=== PATIENT | female | born 1955 | race Caucasian/White ===

== ENCOUNTER 2019-02-19 12:04 | Outpatient (REF) | payer MEDICARE, SELFPAY ==
[2019-02-20 13:04] LABS: Helicobacter pylori Ag, Feces Negative (Negative)
== END 2019-02-19 12:24 ==
LOC: NCHCN 12:04
PROVIDERS: PCP Nurse Practitioner Family; Visit Provider Nurse Practitioner Family
DX: K21.9 Gastro-esophageal reflux disease without esophagitis (principal); Z87.11 Personal history of peptic ulcer disease
CPT/HCPCS: 87338

== ENCOUNTER 2019-02-27 20:15 | Outpatient (REF) | payer MEDICARE, SELFPAY ==
[2019-02-27 19:06] LABS: ALT 45 U/L (14-59); AST 30 U/L (15-37); Albumin 3.6 g/dL (3.4-5.0); Alkaline Phosphatase 70 U/L (46-116); Anion Gap 8.9 mmol/L (3-11); BUN 20 mg/dL (7-18); Bilirubin, Total 0.4 mg/dL (0.2-1.0); CO2 27.1 mmol/L (21.0-32.0); CREATININE 0.95 mg/dL (0.55-1.02); Calcium 9.2 mg/dL (8.5-10.1); Calculated LDL 186 mg/dL; Chloride 103 mmol/L (98-107); Cholesterol 280 mg/dL (<200); Estimated GFR 59.04 (mL/min/1.73m2); Glucose 99 mg/dL (74-106); HDL Cholesterol 68 mg/dL (40-60); Potassium 4.9 mmol/L (3.5-5.1); Sodium 139 mmol/L (136-145); Total Protein 6.9 g/dL (6.4-8.2); Triglyceride 134 mg/dL (<150)
== END 2019-02-27 20:35 ==
LOC: NCHCN 20:15
PROVIDERS: PCP Nurse Practitioner Family; Visit Provider Nurse Practitioner Family
DX: K21.9 Gastro-esophageal reflux disease without esophagitis (principal); R79.89 Other specified abnormal findings of blood chemistry; Z13.6 Encounter for screening for cardiovascular disorders
CPT/HCPCS: 80053; 80061

== ENCOUNTER 2019-03-06 12:07 | Outpatient (REF) | payer MEDICARE, SELFPAY ==
--- NOTE | 2019-03-06 11:17 | PAPFT_PTH ---
PATIENT: Lucinda Aguero LOC: [facility] U#:[id number] AGE/SX: 63/F ROOM: RE03/06/[address]: Rayne Stratton : 1955 BED: DIS: 03/06/2019 SPEC #: [id number] RECD: 03/06/19 18:27 STATUS: MASTER REQ #: [id number] CONSTANCE: 03/06/19 11:[address]: Rayne Stratton DEPT: [facility] Cytology RECD BY: Charlee Dick Tissues: 1 - CX/ENDOCX FOR PAP SMEARS Procedures: PAP THIN PREP/UVM Screening HPV DNA PROBE Comments: [id number]
== END 2019-03-06 12:27 ==
LOC: NCHCN 12:07
PROVIDERS: PCP Nurse Practitioner Family; Visit Provider Nurse Practitioner Family
DX: Z12.4 Encounter for screening for malignant neoplasm of cervix (principal); Z11.51 Encounter for screening for human papillomavirus (HPV)
CPT/HCPCS: 88142; 87624

== ENCOUNTER 2019-03-14 01:20 | Outpatient (CLI) | payer MEDICARE, MEDICAID, SELFPAY ==
--- NOTE | 2019-03-14 11:45 | DI.MAMMO_ITS ---
EXAM: MG MAMMO SCREENING CLINICAL HISTORY: SCREENING Z12.39. TECHNIQUE: Bilateral full field digital CC and MLO mammographic images were obtained with 3D tomosyn thesis and utilizing computer aided detection (CAD). COMPARISON: None available for comparison. FINDINGS: Masses/Architectural Distortion: None seen. Asymmetric density in the upper posterior right breast on the mediolateral oblique view. Microcalcifications: No suspicious pleomorphic-type are seen. Skin Thickening/Nipple Retraction: None. IMPRESSION: 1. Asymmetric density in the upper posterior right breast on the mediolateral oblique view. 2. Additional views of the right breast are requested for further evaluation. Ultrasound may be michael cated at that time. BI-RADS Cat 0 - Assessment Incomplete: Need additional imaging evaluation Breast Density - Category B - Scattered areas of fibroglandular density A negative radiographic report should not delay biopsy if a dominant or clinically suspicious mass is present. Up to ten percent of cancers are not identified on mammography. A negative report may reinforce clinical impression. Adenosis and dense breasts may obscure an underlying neoplasm. False positive reports average 6 to 10%. Patient will receive a letter notifying them of these results.
== END 2019-03-14 01:40 ==
PROVIDERS: PCP Nurse Practitioner Family; Visit Provider Nurse Practitioner Family
DX: Z12.31 Encounter for screening mammogram for malignant neoplasm of breast (principal); R92.8 Other abnormal and inconclusive findings on diagnostic imaging of breast
CPT/HCPCS: 77063; 77067

== ENCOUNTER 2019-03-21 01:17 | Outpatient (CLI) | payer MEDICARE, MEDICAID, SELFPAY ==
--- NOTE | 2019-03-21 09:41 | DI.MAMMO_ITS ---
EXAM: US BREAST RT LIMITED additional view of the right breast CLINICAL HISTORY: NODULARITY TECHNIQUE: Ultrasound performed using standard protocol. Spot compression MLO view with tomography of the superior right breast. COMPARISON: MAMMO SCREENING from 03/14/2019 FINDINGS: The spot compression view shows an island of dense tissue in the upper outer quadrant of the right b reast. No suspicious mass is identified. There are no suspicious calcifications or architectural di stortion. Right breast ultrasound: Right breast ultrasound shows an island of dense tissue in the upper outer quadrant. No cyst or mass is identified. IMPRESSION: BI-RADS category 1, negative. Yearly screening mammography is recommended.
== END 2019-03-21 01:37 ==
PROVIDERS: PCP Nurse Practitioner Family; Visit Provider Nurse Practitioner Family
DX: Z12.31 Encounter for screening mammogram for malignant neoplasm of breast (principal); R92.8 Other abnormal and inconclusive findings on diagnostic imaging of breast; N63.11 Unspecified lump in the right breast, upper outer quadrant; N64.59 Other signs and symptoms in breast
CPT/HCPCS: 76642; 77063; 77067

== ENCOUNTER 2019-04-19 01:55 | Outpatient (CLI) | payer OTHER, MEDICAID, SELFPAY ==
--- NOTE | 2019-04-19 | DI.DEXA_ITS ---
EXAM: XR DEXA BONE DENSITY W/WO ROSALINO INDICATION: POSTMENOPAUSAL Z78.0, SCREENING OSTEOPOROSIS Z13.820. COMPARISON: No exams were available for comparison TECHNIQUE: Hologic densitometer Lateral ROSALINO image of the thoracic and lumbar spine Lumbar spine, left hip and left forearm were analyzed. FINDINGS: The ROSALINO image shows no definite compression fractures. The upper and midthoracic region is not well s een. The bone mineral density measurements of the lumbar spine correspond to a total T-score of -2.4, in t he osteopenic range. Bone mineral density measurements of the left hip correspond to a total T-score of -2.2 and a femoral neck T-score of -2.7, in the osteoporotic range. The left forearm bone mineral density measurements correspond to a total T-score of -1.6 and a T-scor e of the distal 3rd of -1.8, in the osteopenic range. IMPRESSION: Osteopenia of the lumbar spine and left forearm. Osteoporosis of the left hip. DATA REPOSITORY: RADIATION DOSE DELIVERED:
== END 2019-04-19 02:15 ==
PROVIDERS: PCP Nurse Practitioner Family; Visit Provider Nurse Practitioner Family
DX: M81.0 Age-related osteoporosis without current pathological fracture (principal); M85.88 Other specified disorders of bone density and structure, other site; Z78.0 Asymptomatic menopausal state
CPT/HCPCS: 77080

== ENCOUNTER 2019-07-16 17:18 | Emergency (ER) | payer OTHER, MEDICAID, SELFPAY ==
[2019-07-16 17:20] VITALS: BP 129/75; PULSE 83; RESP 14; TEMP 36.7; O2SAT 98
--- NOTE | 2019-07-16 17:38 | ED.GENADUL_ITS ---
Discharge Plan Disposition Patient Disposition: HOME Condition: Stable Discharge Details Chief Complaint: Allergic Clinical Impression: Sting, wasp Primary Care Provider: Rayne Stratton ED Provider: Janis Brown Home Meds and New Rx's Prescriptions: New epinephrine [EpiPen 2-Alexandro] 0.3 mg/0.3 mL auto-injector 0.3 mg IM ONCE Qty: 2 RF: 0 Continued triamcinolone acetonide 0.1 % cream 1 applic TP DAILY RF: 0 omeprazole 40 mg capsule,delayed release(DR/EC) 40 mg PO BID RF: 0 multivitamin Capsule 1 cap PO DAILY RF: 0 ibandronate 150 mg tablet 150 mg PO DIRECTED RF: 0 Discharge Instructions Instructions: Insect Bite or Sting (ED) Additional Instructions: Ice to your foot 3-5 times daily for approximately 15 minutes. Elevate legs for swelling above your heart May continue your daily medications. Use Benadryl 25 mg every 6 hours for itching or swelling. Use EpiPen immediately for any severe symptoms as discussed. Observe for any increased swelling, pain, itching increased redness extending beyond ankle or for any worsening as discussed. Please have reevaluation for worsening or lack of improvement in the next 2 to 3 days. Return immediately for any difficulty breathing, shortness of breath, dizziness, new rashes or alarming symptoms sooner if needed Medical Decision Making <HOLLAND Nixon - Last Filed: 07/16/19 17:48> Is a very pleasant 63-year-old woman who stepped on a wasp yesterday. Patient was barefoot. Patient denied noting any obvious stinger. Patient reports some swelling noted locally. Patient did ambulate on her leg for the better portion of today and noted insidious onset of persistent swelling extending toward the dorsal aspect of the foot and toward the proximal foot. Patient reports itching locally. Patient denies any systemic symptoms of allergy. Nothing to indicate anaphylaxis at this time. No other rash. Patient reports only focal symptoms in the left foot. Patient does report history of insect sting in the past without swelling. Patient has taken only Excedrin and Tylenol. I do not suspect infection as etiology of patient's symptoms given her recent staying, onset in the last 24 hours, lack of cellulitic findings. This was discussed with the patient. Patient reports her understanding of plan of care involving Benadryl by mouth, elevating legs icing locally. We did discuss the use of prednisone which patient prefers to avoid at this time. Expectations of improvement discussed. Will provide EpiPen. Patient reports understanding. The patient was stable and requested discharge. Prior to discharge, my usual and customary return precautions were reviewed with the patient - this included follow-up instructions and reasons to return to the Emergency Department if conditions worsens, does not improve as expected, or other new concerns arise. <Suzanne Arthur MD - Last Filed: 07/16/19 17:54> I have seen and examined the patient and agree with the history and physical as documented by the PA. Patient reports tetanus up-to-date. Concern for localized inflammatory reaction. Exam/history is not consistent with cellulitis, retained foreign body, sepsis, anaphylaxis, impending airway compromise, other acute life-threatening process. Plan for Benadryl, Rx for EpiPen. I discussed risks/benefits of prednisone with patient, who refused at this time. I had a lengthy discussion with Patient regarding return to emergency department precautions, home care, and importance of outpatient fo llow-up. Pt verbalizes understanding of the plan and is amenable. Patient discharged to home with clear plan for outpatient follow-up. All questions were answered. Disposition decision was made weighing the risks and benefits of hospitalization versus outpatient treatment, the risk for further decompensation, and the patient's wishes. HPI <HOLLAND Nixon - Last Filed: 07/16/19 17:48> General Date/Time Provider Initiated Documentation: 07/16/19 17:20 . HPI Narrative: Is a very pleasant 63-year-old patient presenting to the emergency room for a wasp sting. Patient reports she stepped on a wasp yesterday. Patient reports she spent a good amount of time on her feet today gardening. Patient reports gradual increased swelling noted throughout the day. Itching locally. Patient reports there is a small puncture on the base of her foot. Patient denies any noted stinger. Patient denies any headache, dizziness, weakness. Denies any difficulty breathing with shortness of breath or wheezing. Denies any new cough. Patient denies abdominal pain, nausea or vomiting. No rash or hives. Patient reports in general she is feeling well. Patient reports she has sustained stings from wasps in the past without swelling. Eating and drink without difficulty today. No other complaints or concerns at this time. Related Data Home Medications Medication Instructions Recorded Confirmed multivitamin 1 cap PO DAILY 02/22/19 07/16/19 omeprazole 40 mg capsule,delayed 40 mg PO BID 02/22/19 07/16/19 release triamcinolone acetonide 0.1 % 1 applic TP DAILY 02/22/19 07/16/19 topical cream epinephrine [EpiPen 2-Alexandro] 0.3 mg IM ONCE #2 each 07/16/19 ibandronate 150 mg PO DIRECTED 07/16/19 07/16/19 Previous Rx's Medication Instructions Recorded epinephrine [EpiPen 2-Alexandro] 0.3 mg IM ONCE #2 each 07/16/19 Allergies Allergy/AdvReac Type Severity Reaction Status Date / Time No Known Allergies Allergy Unverified 07/16/19 17:35 General Stated Complaint: Allergic JENNIFER: 3 Review of Systems <HOLLAND Nixon - Last Filed: 07/16/19 17:48> All systems reviewed & are unremarkable except as noted in HPI and below PFSH <HOLLAND Nixon - Last Filed: 07/16/19 17:48> Medical History Eczema (Acute) GERD (gastroesophageal reflux disease) (Chronic) History of peptic ulcer disease (Acute) Social History Smoking/Tobacco Use Status: Never Alcohol Intake: former Drug use: Daily Substance use type: marijuana Details: TID for migraines Do you feel safe at home: Yes Do you feel safe in your relationship?: Yes Exam <HOLLAND Nixon - Last Filed: 07/16/19 17:48> Narrative Exam Narrative: CONST: Healthy appearing patient, in no acute distress. Well hydrated. Alert and oriented. HENMT: Head nomocephalic, normal to inspection. Atraumatic. Hearing grossly normal. EYES: General normal appearance. Alignment normal. Eyelids normal. Conjunctiva normal. NECK: Normal visual inspection. FROM. Trachea midline. No Midline tenderness. CHEST: Normal insepection of the chest. RESP: Normal respiratory effort. Speaking full sentences. No cough. No audible wheezing. No retractions. Breath sounds clear, full and equal bilaterally. No wheezing. CARDIO: No JVD. Regular rate and rhythm. No noted murmur. MUSCULOSKELETAL: Normal Gait. FROM of all extremities. Patient with left foot swelling. Diffuse swelling, vague erythema, minimal warmth. No evident puncture wound noted on the plantar foot. Edema noted to the plantar aspect of the foot as well as dorsal foot. No swelling proximal to the ankle. Pulses intact. Sensation intact. Full range of motion. SKIN: Normal. Dry. No rashes. See above description of left foot NEURO: Alert and awake. Speech clear. PSYCH: Normal affect. Cooperative. Course <HOLLAND Nixon - Last Filed: 07/16/19 17:48> Vital Signs Vital signs: Vital Signs Temperature 36.7 C 07/16/19 17:20 Pulse 83 07/16/19 17:20 Respiratory Rate 14 07/16/19 17:20 Blood Pressure 129/75 07/16/19 17:20 Pulse Oximetry 98 07/16/19 17:20 Temperature 36.7 C 07/16/19 17:20 Temperature Source Skin 07/16/19 17:20 Pulse 83 07/16/19 17:20 Respiratory Rate 14 07/16/19 17:20 Respiratory Effort Non-Labored 07/16/19 17:35 Respiratory Pattern Normal 07/16/19 17:35 Blood Pressure 129/75 07/16/19 17:20 Blood Pressure Position Sitting 07/16/19 17:20 Pulse Oximetry 98 07/16/19 17:20 Oxygen Delivery Method Room Air 07/16/19 17:20 Oxygen Flow Rate 0 07/16/19 17:20 Pain Level 7 07/16/19 17:20 Comment 07/16/19 17:20
[2019-07-16] MEDS: diphenhydrAMINE 25 MG CAP PO (17:39)
== END 2019-07-16 17:52 | disposition home or self-care (01) ==
PROVIDERS: Emergency Provider Physician Assistant; PCP Nurse Practitioner Family
DX: T63.461A Toxic effect of venom of wasps, accidental (unintentional), initial encounter (principal); R60.0 Localized edema; L29.9 Pruritus, unspecified
CPT/HCPCS: 99283

== ENCOUNTER 2019-11-23 20:56 | Observation (INO) | payer OTHER, MEDICAID, SELFPAY ==
[2019-11-23] VITALS (25 sets, daily range): BP systolic 92–115; BP diastolic 53–71; PULSE 53–78; RESP 12–23; TEMP 36.4; O2SAT 95–98
--- NOTE | 2019-11-23 21:08 | ED.GENADUL_ITS ---
Discharge Plan Disposition Patient Disposition: [facility] INPATIENT Condition: Good Discharge Details Clinical Impression: Unresponsive episode, Chronic headaches Primary Care Provider: Rayne Stratton ED Provider: Eber Jackson Home Meds and New Rx's Prescriptions: No Action triamcinolone acetonide 0.1 % cream 1 applic TP DAILY RF: 0 omeprazole 40 mg capsule,delayed release(DR/EC) 40 mg PO BID RF: 0 multivitamin Capsule 1 cap PO DAILY RF: 0 ibandronate 150 mg tablet 150 mg PO DIRECTED RF: 0 epinephrine [EpiPen 2-Alexandro] 0.3 mg/0.3 mL auto-injector 0.3 mg IM ONCE Qty: 2 RF: 0 Medical Decision Making Patient here with normal vital signs and normal neurologic exam. She reports no change in her typical chronic headache pattern. She has had syncopal events in the past. She has had work-ups in the past but there is nothing documented here or in her primary care chart. It sounds like she has had imaging of her brain and outpatient monitoring of her heart. Does not sound like she has had EEG or ECHO. In any event all of this work-up had been done in the distant past. Patient had no warning regarding this event. She does not really recall the event. She is not postictal. Will get head CT, EKG, laboratory studies. Will recommend admission overnight for monitoring. Would also trend enzymes. If remains asymptomatic can probably go home tomorrow but should probably have follow-up EEG, outpatient rhythm monitoring and ECHO. Laboratory studies are unremarkable other than TSH being elevated. Free T4 has been added to labs. Urine is still pending. First troponin negative. EKG sinus bradycardia but otherwise normal. CT head with decreased attenuation findings left occipital parietal lobe. Radiology recommends MRI to evaluate for subacute stroke. There is no bleed or mass. Discussed with hospitalist will admit overnight. Discussed findings with patient and significant other. Medical Records Medical records reviewed: Yes I reviewed the patient's medical records. Lab Data Lab results reviewed: Yes I reviewed the patient's lab results. ECG Data Attestation: I personally reviewed and interpreted this ECG (s) as follows: Interpretation: see EKG HPI General Mode of arrival: EMS . Date/Time Provider Initiated Documentation: 11/23/19 21:08 . Limitations to Documentation: no limitations . Information obtained by: patient, RN notes reviewed and old records reviewed . HPI Narrative: Patient presents to ED after unresponsive event at home. Patient reports history of chronic headaches/migraines. She pretty much has chronic daily headaches at this point. She had headache this afternoon which is her typical headache. She uses acetaminophen or Excedrin Migraine for her headaches as well as smokes marijuana 3 times a day. There is nothing different regarding her afternoon. She did not really eat dinner this evening. She was watching TV with her significant other when she became unresponsive with snoring respirations. He reports that there was no tongue biting, incontinence, shaking. He reports that she was profusely sweating. She does not recall the event and had no warning. He reports that he would gently tap her face and she would kind of seem to be aware briefly. EMS reports soft blood pressure on their arrival. She arrives here awake and alert and appropriate. She continues to report no change or worsening of her headache. She has no chest pain or pressure. She has not been ill. She had one episode of diarrhea but has had no vomiting. She has no fever, cough. She reports that she has had events like this in the past. Maybe the last one was 5 years ago. She also reports prior work-up for headache and syncope which apparently include CT scan, MRI, monitoring. She does not report EEG or echo. None of these were done here and none done recently. Related Data Home Medications Medication Instructions Recorded Confirmed multivitamin 1 cap PO DAILY 02/22/19 07/16/19 omeprazole 40 mg capsule,delayed 40 mg PO BID 02/22/19 07/16/19 release triamcinolone acetonide 0.1 % 1 applic TP DAILY 02/22/19 07/16/19 topical cream epinephrine [EpiPen 2-Alexandro] 0.3 mg IM ONCE #2 each 07/16/19 ibandronate 150 mg PO DIRECTED 07/16/19 07/16/19 Previous Rx's Medication Instructions Recorded epinephrine [EpiPen 2-Alexandro] 0.3 mg IM ONCE #2 each 07/16/19 Allergies Allergy/AdvReac Type Severity Reaction Status Date / Time No Known Allergies Allergy Unverified 11/23/19 21:04 General Stated Complaint: Dizzy/Sync JENNIFER: 3 Review of Systems Narrative: 12/04 Review of Systems completed and is negative except as stated above in HPI (Systems reviewed: Const, Eyes, ENT, Resp, CV, GI, , MSK, Skin, Neuro) [facility] Medical History Chronic migraine Eczema GERD (gastroesophageal reflux disease) History of peptic ulcer disease Social History Smoking/Tobacco Use Status: Never Alcohol Intake: former Drug use: Daily Substance use type: marijuana Details: TID for migraines Do you feel safe at home: Yes Do you feel safe in your relationship?: Yes Exam Narrative Exam Narrative: Vitals: Afebrile with normal vitals and normal room air pulse ox. Const: WDWN female in NAD. HEENT: NC/AT. Normal facial exam. Eyes: Normal conjunctiva and sclera. PERRL and EOMI Neck: Supple. Trachea midline. Lungs: Normal respiratory effort. Lungs are clear. Cor: RRR without murmur/gallop. Good radial pulses. GI: Soft. NT/ND. No guarding or rebound. Neuro: A+O x 3. Normal speech, mentation, gait. Cranial nerves II - XII grossly intact. No gross motor or sensory deficit. Ext: No C/C/E. Skin: Warm and dry. Course Vital Signs Vital signs: Vital Signs Temperature 97.5 F L 11/23/19 20:55 Pulse 69 11/23/19 20:55 Respiratory Rate 12 11/23/19 20:55 Blood Pressure 114/71 11/23/19 20:55 Pulse Oximetry 96 11/23/19 20:55 Temperature 97.5 F L 11/23/19 20:55 Temperature Source Skin 11/23/19 20:55 Pulse 69 11/23/19 20:55 Respiratory Rate 14 11/23/19 21:05 Respiratory Effort Non-Labored 11/23/19 21:05 Respiratory Depth Normal 11/23/19 21:05 Respiratory Pattern Normal 11/23/19 21:05 Blood Pressure 114/71 11/23/19 20:55 Blood Pressure Position Supine 11/23/19 20:55 Pulse Oximetry 96 11/23/19 20:55 Oxygen Delivery Method Room Air 11/23/19 20:55 Oxygen Flow Rate 0 11/23/19 20:55 Pain Level 0 11/23/19 20:55
--- NOTE | 2019-11-23 21:15 | RT.EKG_ITS ---
APPROVED REPORT Exam: Resting ECG Patient Location: E HR:56 bpm ECG Measurements Heart Rate 56 AXIS NJ 145 P 52 QRSd 82 QRS 51 QT 445 T 50 QTc 431 Conclusion Sinus bradycardia...rate< 60 Otherwise normal ECG
--- NOTE | 2019-11-23 21:30 | DI.CT_ITS ---
EXAM: CT HEAD WO CLINICAL HISTORY: unresponsive event TECHNIQUE: COMPARISON: No exams were available for comparison FINDINGS: Noncontrast cranial CT was performed. Ventricular system is normal appearance. There is no evidence of acute intracranial hemorrhage, mass effect, or midline shift. There is question subtle white matter decreased attenuation in portions of left posterior parietal an d occipital lobes, acute/subacute infarct not excluded, correlation with brain MRI recommended. The orbital and temporal bone structures appear intact. Visualized paranasal sinuses and mastoid air cells are clear. IMPRESSION: Subtle decreased attenuation in deep white matter, left posterior parietal/occipital. Consider acute /subacute infarct. Additional evaluation with MRI suggested. RADIATION DOSE DELIVERED: 677.05mGy.cm Total DLP
[2019-11-23 21:37] LABS: Abs Immature Grans 0.04 10^3/uL (0.0-0.06); Absolute Basophil Count 0.05 10^3/uL (0.0-0.2); Absolute Eosinophil Count 0.24 10^3/uL (0.0-0.7); Absolute Lymphocyte Count 3.95 10^3/uL (1.2-3.4); Absolute Monocyte Count 0.72 10^3/uL (0.1-0.8); Absolute Neutrophil Count 5.04 10^3/uL (1.2-6.7); Basophils % 0.5; Eosinophils % 2.4; HCT 40.4 % (36.0-46.0); HGB 13.2 g/dL (11.2-15.7); Immature Grans % 0.4; Lymphocytes % 39.3; MCH 30.1 pg (27.0-33.0); MCHC 32.7 % (32.0-36.0); MPV 10.4 fL (8.0-11.0); Monocytes % 7.2; Neutrophils % 50.2; Nucleated RBC 0 %; Platelet Count 301 10^3/uL (130-400); RBC 4.39 10^6/uL (3.93-5.22); RDW 12.7 % (11.7-14.6); RDW-SD 42.8 fL; WBC 10.04 10^3/uL (4.4-10.8)
[2019-11-23] MEDS: Normal Saline 1,000 ML 150 ML IV (21:41)
[2019-11-23 21:58] LABS: ALT 24 U/L (14-59); AST 18 U/L (15-37); Albumin 3.7 g/dL (3.4-5.0); Alkaline Phosphatase 68 U/L (46-116); Anion Gap 10.2 mmol/L (3-11); BUN 16 mg/dL (7-18); Bilirubin, Total 0.4 mg/dL (0.2-1.0); CO2 23.8 mmol/L (21.0-32.0); CREATININE 1.08 mg/dL (0.55-1.02); Calcium 9.3 mg/dL (8.5-10.1); Chloride 101 mmol/L (98-107); Estimated GFR 50.92 (mL/min/1.73m2); Glucose 130 mg/dL (74-106); Magnesium 2.3 mg/dL (1.8-2.4); Potassium 3.7 mmol/L (3.5-5.1); Sodium 135 mmol/L (136-145); TSH 9.65 uIU/mL (0.36-3.74); Total Protein 7.5 g/dL (6.4-8.2); Troponin I < 0.05 ng/mL (<0.06)
--- NOTE | 2019-11-23 22:25 | DI.VRAD_ITS ---
Addendum created by Lorenzo Zurita MD on 11/23/2019 10:25:22 PM EDT: THIS REPORT CONTAINS FINDINGS THAT MAY BE CRITICAL TO PATIENT CARE. The findings were verbally communicated via telephone conference with NANCY NICHOLAS at 10:25 PM EDT on 11/23/2019. The findings were acknowledged and understood. Initial report created on 11/23/2019 10:25:07 PM EDT: PROCEDURE INFORMATION: Exam: CT Head Without Contrast Exam date and time: 11/23/2019 9:35 PM Age: 63 years old Clinical indication: Other: Unresponsive event TECHNIQUE: Imaging protocol: Computed tomography of the head without contrast. Radiation optimization: All CT scans at this facility use at least one of these dose optimization techniques: automated exposure control; mA and/or kV adjustment per patient size (includes targeted exams where dose is matched to clinical indication); or iterative reconstruction. COMPARISON: No relevant prior studies available. FINDINGS: Brain: Cerebral sulci show bilateral symmetry with no supratentorial mass or mass effect detected. An irregular area of decreased attenuation is seen involving deep and periventricular white matter in the left parietal and occipital regions. Brainstem and cerebellum are normal in appearance. There is no evidence of acute intracranial hemorrhage. Cerebral ventricles: No midline shift or hydrocephalus. Bones/joints: The bony calvarium and skull base are intact and no fractures or other acute osseous lesions are detected. Paranasal sinuses: Visualized sinuses are unremarkable. No fluid levels. Mastoid air cells: Visualized mastoid air cells are normally pneumatized and well aerated. Soft tissues: Unremarkable. IMPRESSION: 1. An irregular area of decreased attenuation involving deep and periventricular white matter in the left parietal and occipital lobes is concerning for a possible ischemic insult and an acute or recent infarct is not excluded. MRI of the brain is suggested for further evaluation. 2. There is no evidence of intracranial hemorrhage and no other focal lesions are detected. Dictated and Authenticated by: Lorenzo Zurita MD. Ordering:LIZZETTE Velázquez MD
[2019-11-23 23:00] LABS: FREE T4 1.02 ng/dL (0.76-1.46)
--- NOTE | 2019-11-23 23:14 | W.PM.HP.N ---
Date of service: 11/23/19 Time of Service: 23:15 Assessment and Plan Assessment and plan (1) Syncope: Status: Chronic Assessment and plan: Syncope, sounds clearly like a vagal episode, though unclear what trigger may have been. Perhaps combination of JIMENEZ and (patient adds) poor PO today. Interestingly the patient relates that she has had several such syncopal episodes in the past, typically associated with JIMENEZ. However, I cannot see that this presentation can be subsumed under some migraine variant (such as basilar migraine). Also of note is that patient has never seen a neurologist about her HAs and is on no prophylactic regimen. She allows that she takes analgesics twice weekly, sometimes more, so there may be an element of rebound. This does not sound at all like seizure, though the CT findings raise some further question in this regard. More likely the CT findings are old and incidental. In any case if unable to find old records -- she only recently moved to [place] -- would consider MRI as outpatient. Primary arrhythmia doubtful but will watch on telemetry, and will check troponin in AM. Elevated TSH incidental, will await FT4 and w/u from there. History of Present Illness History of Present Illness Chief Complaint: syncope Narrative: 63 female with h/o chronic daily JIMENEZ -- watching TV quietly this evening with partner, has been having a JIMENEZ through the day. At some point he heard her snoring, looked over to find her passed out and noted her to be pale and diaphoretic; did not check pulse. No incontinence or tongue biting. Shook her and she came to right away though was a little confused for a few minutes. EMS summoned, found her to be orthostatic (I do no have actual numbers). Here in ER she has had no further spells. Pulses initially 50s-60s, now 70s. JIMENEZ is largely improved at this point. W/U in ER of note for neg EKG, neg troponin, and head CT showing vague area of hypoattentuation left occipto-parietal area, question old stoke. Incidental finding of TSH 9.6. Review of Systems All systems reviewed & are unremarkable except as noted in HPI and below PFSH Medical History Chronic migraine Eczema GERD (gastroesophageal reflux disease) History of peptic ulcer disease Social History Smoking/Tobacco Use Status: Never Alcohol Intake: former Drug use: Daily Substance use type: marijuana Details: TID for migraines Do you feel safe at home: Yes Do you feel safe in your relationship?: Yes Meds Home Medications and Allergies Home Medications Medication Instructions Recorded Confirmed Type multivitamin 1 cap PO DAILY 02/22/19 07/16/19 History omeprazole 40 mg capsule,delayed 40 mg PO BID 02/22/19 07/16/19 History release triamcinolone acetonide 0.1 % 1 applic TP DAILY 02/22/19 07/16/19 History topical cream ibandronate 150 mg PO DIRECTED 07/16/19 07/16/19 History epinephrine [EpiPen 2-Alexandro] 0.3 mg IM ONCE PRN 11/23/19 11/23/19 History Allergies Allergy/AdvReac Type Severity Reaction Status Date / Time No Known Allergies Allergy Unverified 11/23/19 21:04 Exam Narrative Exam Narrative: 104/57, 77, 36.4, 18, 97% RA. HEENT atraumatic; neck supple; lungs clear; heart RRR w/o MRG; abdomen soft and NT; extremities w/o edema, pulses 2+/=; neuro Ox3, CN intact, motor 5/5 Results Labs Result diagrams: 11/23/19 20:45 11/23/19 20:45 Labs: Laboratory Results - last 24 hr 11/23/19 11/23/19 20:45 20:45 WBC 10.04 RBC 4.39 Hgb 13.2 Hct 40.4 MCV 92.0 MCH 30.1 MCHC 32.7 RDW 12.7 Plt Count 301 MPV 10.4 Immature Gran % 0.4 Neutrophils % 50.2 Lymphocytes % 39.3 Monocytes % 7.2 Eosinophils % 2.4 Basophils % 0.5 Nucleated RBC % 0 Absolute Neutrophils 5.04 Absolute Lymphocytes 3.95 H Absolute Monocytes 0.72 Absolute Eosinophils 0.24 Absolute Basophils 0.05 Sodium 135 L Potassium 3.7 Chloride 101 Carbon Dioxide 23.8 Anion Gap 10.2 BUN 16 Creatinine 1.08 H Estimated GFR/1.73 m2 50.92 Glucose 130 H Calcium 9.3 Magnesium 2.3 Total Bilirubin 0.4 AST 18 ALT 24 Alkaline Phosphatase 68 Troponin I < 0.05 Total Protein 7.5 Albumin 3.7 TSH 9.65 H Last Vital Signs Temp 36.4 C L 11/23/19 20:55 Pulse 53 L 11/23/19 22:31 Resp 17 11/23/19 22:40 BP 99/64 L 11/23/19 22:31 Pulse Ox 96 11/23/19 22:40 COVID-19 Screening Have you,or household,traveled outside [place] in last 14 days?: No Had IN PERSON contact w/suspected or confirmed C-19 person: No
[2019-11-24] VITALS (13 sets, daily range): BP systolic 105–157; BP diastolic 63–85; PULSE 56–82; RESP 12–19; TEMP 36.2–37.2; O2SAT 96–98
[2019-11-24 00:45] LABS: Troponin I < 0.05 ng/mL (<0.06)
[2019-11-24] MEDS: Normal Saline 1,000 ML 150 ML IV ×3 (01:04→22:52)
[2019-11-24] MEDS: Acetaminophen 325 MG TAB 650 MG PO (04:47)
[2019-11-24 05:01] LABS: Bilirubin Negative (Negative); Blood Negative (Negative); Clarity Clear (Clear); Glucose Negative (Negative); Ketones Negative (Negative); Leukocyte Esterase Moderate (Negative); Nitrite Negative (Negative); Specific Gravity 1.025 (1.005-1.025); Urobilinogen 0.2 EU/dL (Up TO 0.2); pH 5.5 (5-8)
[2019-11-24 05:20] LABS: Bacteria Negative HPF (Negative); C & S Indicated? Yes; Casts Negative LPF (Negative); Crystals Negative HPF (Negative); Epithelial Cells Few HPF (Negative); Mucus Negative (Negative); Other Cells Few Transitional (Negative); RBC Negative HPF (0-2); WBC 20-50 HPF (0-5)
[2019-11-24] MEDS: Omeprazole 20 MG CAPCR 40 MG PO (07:33)
[2019-11-24] MEDS: Normal Saline 1,000 ML 1000 ML IV (08:07)
--- NOTE | 2019-11-24 08:13 | PGE_ITS ---
Date of Service Date of service: 11/24/19 Time of Service: 08:13 Assessment and Plan Assessment and plan (1) Syncope: Status: Chronic Assessment and plan: thought to be vagal episode maybe associated with headache and poor po intake. no evidence of seizure. referred to observation. continue telemetry and monitoring. The CT findings are likely old and incidental, consider MRI as outpatient. Primary arrhythmia doubtful but will continue telemetry, and will check troponin in AM. Elevated TSH incidental, will await FT4 and w/u from there. (2) Chronic headaches: Status: Acute Assessment and plan: will give compazine benadryl and toradol for recurrent headache today. (3) History of peptic ulcer disease: Status: Chronic Assessment and plan: continue omeprazole. (4) GERD (gastroesophageal reflux disease): Status: Chronic Assessment and plan: continue omeprazole. discussed with Dr Antony who is in agreement. Subjective Subjective Patient reports: still having pain (headache) Exam Narrative Exam Narrative: sleeping on rounds, was resting quietly with eyes closed, respirations even and unlabored, skin pink warm and dry. groundwater monitoring technician shows normal sinus rhythm with heart rate 60's no ectopy, no dysrhythmias. Objective Last Vital Signs Temp 36.3 C L 11/24/19 05:38 Pulse 60 11/24/19 05:38 Resp 17 11/24/19 05:38 BP 130/70 11/24/19 05:38 Pulse Ox 96 11/24/19 05:38 Laboratory Results - last 24 hr 11/23/19 11/23/19 11/23/19 20:45 20:45 20:45 WBC 10.04 RBC 4.39 Hgb 13.2 Hct 40.4 MCV 92.0 MCH 30.1 MCHC 32.7 RDW 12.7 Plt Count 301 MPV 10.4 Immature Gran % 0.4 Neutrophils % 50.2 Lymphocytes % 39.3 Monocytes % 7.2 Eosinophils % 2.4 Basophils % 0.5 Nucleated RBC % 0 Absolute Neutrophils 5.04 Absolute Lymphocytes 3.95 H Absolute Monocytes 0.72 Absolute Eosinophils 0.24 Absolute Basophils 0.05 Sodium 135 L Potassium 3.7 Chloride 101 Carbon Dioxide 23.8 Anion Gap 10.2 BUN 16 Creatinine 1.08 H Estimated GFR/1.73 m2 50.92 Glucose 130 H Calcium 9.3 Magnesium 2.3 Total Bilirubin 0.4 AST 18 ALT 24 Alkaline Phosphatase 68 Troponin I < 0.05 Total Protein 7.5 Albumin 3.7 TSH 9.65 H Free T4 1.02 Urine Color Urine Clarity Urine pH Ur Specific [place] Urine Protein Urine Ketones Urine Blood Urine Nitrite Urine Bilirubin Urine Urobilinogen Ur Leukocyte Esterase Urine RBC Urine WBC Ur Epithelial Cells Urine Crystals Urine Bacteria Urine Casts Urine Mucus Urine Other Ur Culture Indicated? Urine Glucose 11/24/19 11/24/19 00:12 04:50 WBC RBC Hgb Hct MCV MCH MCHC RDW Plt Count MPV Immature Gran % Neutrophils % Lymphocytes % Monocytes % Eosinophils % Basophils % Nucleated RBC % Absolute Neutrophils Absolute Lymphocytes Absolute Monocytes Absolute Eosinophils Absolute Basophils Sodium Potassium Chloride Carbon Dioxide Anion Gap BUN Creatinine Estimated GFR/1.73 m2 Glucose Calcium Magnesium Total Bilirubin AST ALT Alkaline Phosphatase Troponin I < 0.05 Total Protein Albumin TSH Free T4 Urine Color Yellow Urine Clarity Clear Urine pH 5.5 Ur Specific [place] 1.025 Urine Protein Negative Urine Ketones Negative Urine Blood Negative Urine Nitrite Negative Urine Bilirubin Negative Urine Urobilinogen 0.2 Ur Leukocyte Esterase Moderate H Urine RBC Negative Urine WBC 20-50 H Ur Epithelial Cells Few Urine Crystals Negative Urine Bacteria Negative Urine Casts Negative Urine Mucus Negative Urine Other Few transitional Ur Culture Indicated? Yes Urine Glucose Negative
[2019-11-24] MEDS: Prochlorperazine 10 MG/2 ML VIAL IVP (08:14)
[2019-11-24] MEDS: Ketorolac 15 MG/ML VIAL IVP (08:18)
[2019-11-24] MEDS: diphenhydrAMINE 50 MG/ML VIAL 25 MG IVP (08:20)
[2019-11-24 08:28] LABS: Troponin I < 0.05 ng/mL (<0.06)
--- NOTE | 2019-11-24 09:15 | PDOC.CMIN ---
- If Service Date Differs Date of service: 11/24/19 Time of Service: 09:15 Care Management Initial Assess REASON FOR HOSPITALIZATION:: Syncope. PAST MEDICAL HISTORY/PAST SURGICAL HISTORY:: Medical History: Chronic migraine, Eczema, GERD (gastroesophageal reflux disease), and History of peptic ulcer disease. No surgical history of record. PREVIOUS FUNCTIONAL STATUS/SOCIAL/FAMILY SUPPORTS:: Lucinda lives in [place], [place], with her partner, Sridevi. Lucinda has a daughter and two grandchildren who recently moved to [place]. The couple is planning on going to [place] to spend time with them in January for their granddaughter's birthday and the holidays. Lucinda shares she lived in the State of [place] for a period of time and says she prefers [place] and [place] changing seasons to the [facility]. She is independent at baseline and she enjoys reading, going for walks, shopping, and gardening. CURRENT FUNCTIONAL STATUS:: Lucinda is sitting in a chair, watching television when CM meets with her. Her psychiatric mental health nurse Sridevi is present in the room. Lucinda is pleasant and easily engages in conversation. She shares she is looking forward to returning home soon. CM will continue to follow. ADVANCE DIRECTIVES:: None on file but CM provides her with an Advance Directives to complete at her convenience. Has patient been provided with info about the portal/API?: Yes Did the patient sign up for the portal?: Yes CODE STATUS:: Full Code INSURANCE COVERAGE / FINANCIAL ISSUES:: [facility] (commercial Medicare replacement) and Medicaid. CURRENT HOME/COMMUNITY SERVICES/EQUIPMENT:: Lucinda is independent at baseline. She denies having any home/community services or medical equipment. PRIMARY CARE PHYSICIAN:: CARITO Trujillo. POTENTIAL DISCHARGE NEEDS:: Follow up appointment with PCP, plan of care, and MRI as outpatient. PATIENT/FAMILY EDUCATION NEEDS:: Discharge instructions, limitations, plan of care, including Ask Me Three and self management. ANTICIPATED BARRIERS TO DISCHARGE:: None anticipated. TRANSPORTATION:: Via private vehicle with psychiatric mental health nurse. PLAN:: Anticipate Lucinda will be discharged home with no new services when medically cleared by provider. Her psychiatric mental health nurse, Sridevi, will drive her home via private vehicle when ready. She will follow up with her PCP, plan of care as prescribed, and MRI as outpatient. CM will continue to support patient and discharge planning needs.
--- NOTE | 2019-11-24 13:05 | PHA.REVIEW ---
Pharmacy Admission Review - Admission Clinical Review (Last Reviewed 11/23/19 @ 23:26 by Jasvir Soares MD) Unresponsive episode (Acute) Chronic headaches (Acute) No Known Allergies Allergy (Unverified 11/23/19 21:04) Height 5 ft 2 in Weight 84.6 kg - Renal Dosing Renal Dosing: BUN 16 mg/dL (7-18) 11/23/19 20:45 Creatinine 1.08 mg/dL (0.55-1.02) H 11/23/19 20:45 Medications needing adjustments: Reviewed (Crcl ~52.4 mL/min using adjusted body weight. Current meds okay.) - Anticoagulation Anticoagulation: Hgb 13.2 g/dL (11.2-15.7) 11/23/19 20:45 Hct 40.4 % (36.0-46.0) 11/23/19 20:45 Plt Count 301 10^3/uL (130-400) 11/23/19 20:45 Creatinine 1.08 mg/dL (0.55-1.02) H 11/23/19 20:45 DVT Prohphylaxis: Reviewed Therapeutic Anticoagulation: N/A - Opiate Usage Evaluate Pain Scale/Pains Meds: N/A - Relevant Labs Sodium 135 mmol/L (136-145) L 11/23/19 20:45 Potassium 3.7 mmol/L (3.5-5.1) 11/23/19 20:45 Chloride 101 mmol/L (98-107) 11/23/19 20:45 Magnesium 2.3 mg/dL (1.8-2.4) 11/23/19 20:45 Electrolytes, C-Reactive P, ESR: Reviewed - DM Control DM Control: Glucose 130 mg/dL (74-106) H 11/23/19 20:45 Insulin Dosing: N/A (Elevated on admission, no level drawn since. No mention of DM in pt's medical history. Only previous level here was normal.) - Heart Failure/LA Heart Failure/LA: Troponin I < 0.05 ng/mL (<0.06) 11/24/19 07:32 EF%, GINA's, B-Blockers, Diuretics: N/A - BP Control BP Control: Blood Pressure 151/85 Blood Pressure 130/70 Blood Pressure 108/72 If elevated: Reviewed (Low to normal since admission, first high BP documented.) - Qtc Review If Elevated: N/A (QTc 431) - IV to PO Switch IV Medications: Reviewed - Home Meds Home Med List reviewed: Reviewed (Separate admin of multivitamin from ibandronate.) Relevent Home Meds Not ordered & why?: epinephrine (PRN), ibandronate (once monthly), multivitamin, triamcinolone (PRN) - Current meds Current Medication Order Review: Reviewed - Comments Comments/Follow Ups: Watch BP, BG, and for med changes (renal adjustments, home meds)
[2019-11-24 15:17] LABS: COVID-19 RT-PCR UVMMC Result Negative (Negative)
[2019-11-25 04:04] VITALS: BP 150/79; PULSE 71; RESP 18; TEMP 36.5; O2SAT 96
[2019-11-25] MEDS: Normal Saline 1,000 ML 150 ML IV (05:43)
[2019-11-25 07:28] VITALS: BP 129/69; PULSE 76; RESP 17; TEMP 36.8; O2SAT 98
[2019-11-25] MEDS: Omeprazole 20 MG CAPCR 40 MG PO (08:02)
[2019-11-25] MEDS: Acetaminophen 325 MG TAB 650 MG PO (09:21)
--- NOTE | 2019-11-25 10:14 | W.PM.DS.N ---
Date of service: 11/25/19 Time of Service: 10:14 DS: Diagnosis Discharge Diagnosis (1) Syncope: Start date: 11/25/19 Start time: 10:15 Status: Chronic Asessment and Plan: R/o, likely from vagal episode. SR on telemetry. MRI as an outpatient with neuro referral. Takes CBD for headaches. Will refer to Dr. Romero for further recommendations. (2) Chronic headaches: Start date: 11/25/19 Start time: 10:22 Status: Acute Asessment and Plan: States she has been suffering with these since she was little. They have worsened over the last 15 years. Last MRI was 15 years ago. Will order one for outpatient referral. (3) GERD (gastroesophageal reflux disease): Start date: 11/25/19 Start time: 10:26 Status: Chronic Asessment and Plan: Continue omeprazole Discharge Plan Disposition Patient Disposition: HOME Condition: Good Discharge Details Reason For Visit: SYNCOPE Admit Date/Time: 11/23/19 23:42 Admit Provider: Jasvir Soares Attending Provider: Jasvir Soares Primary Care Provider: Rayne Stratton Hospital Course Hospital Course: 64 y.o female with PMH of chronic migraine with syncopal episodes in the past. Presented on admission to [facility] with syncopal event at home. Patient states she had a migraine at home was sitting with partner he looked over and she was not awake, but breathing. She has a long history of chronic headaches and migraines. She is new to [place] and has not established care with a neurologists. She manages headaches with CBD and migraines with excedrine migraine and tylenol. She states h/a are always present. Work up in the ED was unremarkable. CT revealed An irregular area of decreased attenuation involving deep and periventricular white matter in the left parietal and occipital lobes is concerning for a possible ischemic insult and an acute or recent infarct. Asymptomatic over course of hospitalization, telemetry with NSR. Headache is improved today. She is being discharged home. She can follow up as an outpatient for further work-up. Will refer to Dr. Romero and for MRI. Defer to PCP if they want her to start Asa 81 mg daily in setting of history of peptic ulcer. She denies CP, SOB, N/V/D. Home Meds and New Rx's Prescriptions: Continued triamcinolone acetonide 0.1 % cream 1 applic TP DAILY PRNRF: 0 omeprazole 40 mg capsule,delayed release(DR/EC) 40 mg PO BID RF: 0 multivitamin Capsule 1 cap PO DAILY RF: 0 epinephrine [EpiPen 2-Alexandro] 0.3 mg/0.3 mL auto-injector 0.3 mg IM ONCE PRNRF: 0 ibandronate 150 mg tablet 150 mg PO DIRECTED RF: 0 Discharge Instructions Instructions: Cluster Headache (ED), Migraine Headache (GEN) Additional Instructions: Follow up with PCP as scheduled Follow up with Neurology MRI as an outpatient. Stand Alone Forms: Nursing Discharge Form Referrals: Any Romero MD [ [facility] STAFF PHYSICIAN] - (Follow up within this week, if available) Activity:: Activity as Tolerated Equipment/Supplies:: No Equipment Needed Diet:: As Tolerated Discharge Orders Discharge Orders: Discharge Order (Routine); Ordered 11/25/19 Ordered By: Calli Saini Other Ambulatory Orders: MR brain wo (Routine) Location: None Selected Ordered By: Calli Saini DS: Summary Status at Discharge Functional status at discharge: independent ambulation Overall status at discharge: patient is back to baseline Mental Status: mental status grossly normal Speech and Movement: speech and movement normal Mood: congruent mood Affect: normal affect Exam Const General: cooperative, healthy appearing, comfortable and no acute distress Nutritional Appearance: average body habitus Orientation: alert, awake and oriented x3 HENMT Head: normocephalic and atraumatic Ears: hearing grossly normal bilaterally Eyes Conjunctivae: conjunctivae normal EOM: EOM intact bilaterally Neck Neck: normal visual inspection, full ROM and no lymphadenopathy Lymphatic: no lymphadenopathy noted Chest Chest: normal inspection of the chest Resp Effort & Inspection: normal respiratory effort and able to speak in complete sentences Cardio Jugular venous pressure: no JVD Rate: regular rate Rhythm: regular rhythm Heart Sounds: S1 normal and S2 normal GI Inspection: normal to inspection Auscultation: normal bowel sounds Back/Spine/Pelvis Back: no CVA tenderness Neuro General: patient alert, patient awake and patient oriented x3 Cranial Nerves: PERRL Cognition: normal cognition Speech: speech normal Extrem General: normal to inspection and full ROM Psych Mental Status: mental status grossly normal Speech and Movement: speech and movement normal Mood: congruent mood Affect: normal affect DS: Data Vitals/I&O Vitals and I&O: Vital Signs Temperature 36.8 C 11/25/19 07:28 Temperature Source Temporal Artery Scan 11/25/19 07:28 Pulse 76 11/25/19 07:28 Pulse Rhythm Regular 11/24/19 23:20 Pulse 57 L 11/24/19 00:31 Respiratory Rate 17 11/25/19 07:28 Respiratory Effort 11/24/19 23:20 Respiratory Depth Normal 11/24/19 23:20 Respiratory Pattern Normal 11/24/19 23:20 Blood Pressure 129/69 11/25/19 07:28 Blood Pressure Mean 75 11/24/19 00:31 Blood Pressure Position Supine 11/23/19 20:55 Pulse Oximetry 98 11/25/19 07:28 Oxygen Delivery Method Room Air 11/25/19 07:28 Oxygen Flow Rate 0 11/25/19 07:28 Pain Level 3 11/25/19 09:21 Intake & Output 11/24/19 11/24/19 11/25/19 11:59 23:59 11:59 Intake Total 2507.5 / 3507.5 1000 / 3507.5 1700 / 1700 Output Total 726 / 1826 1100 / 1826 1700 / 1700 Balance 1781.5 / 1681.5 -100 / 1681.5 0 / 0 Weight 84.6 kg Intake: IV 2507.5 / 3507.5 1000 / 3507.5 1000 / 1000 Oral 700 / 700 Output: Urine 450 / 1550 1100 / 1550 1700 / 1700 Stool Emesis 275 / 275 Other: Urine Color Yellow Pale Pale Yellow Urine Appearance Clear Clear Clear Urine Odor None Normal Normal Stool Size Moderate Moderate Stool Characteristics Soft Soft Formed Emesis Description Bile Clear/Water Voiding Methods Bedside Commode Toilet Toilet Data Completed and Pending Completed studies during hospitalization [Text1]: COMPARISON: No relevant prior studies available. FINDINGS: Brain: Cerebral sulci show bilateral symmetry with no supratentorial mass or mass effect detected. An irregular area of decreased attenuation is seen involving deep and periventricular white matter in the left parietal and occipital regions. Brainstem and cerebellum are normal in appearance. There is no evidence of acute intracranial hemorrhage. Cerebral ventricles: No midline shift or hydrocephalus. Bones/joints: The bony calvarium and skull base are intact and no fractures or other acute osseous lesions are detected. Paranasal sinuses: Visualized sinuses are unremarkable. No fluid levels. Mastoid air cells: Visualized mastoid air cells are normally pneumatized and well aerated. Soft tissues: Unremarkable. IMPRESSION: 1. An irregular area of decreased attenuation involving deep and periventricular white matter in the left parietal and occipital lobes is concerning for a possible ischemic insult and an acute or recent infarct is not excluded. MRI of the brain is suggested for further evaluation. 2. There is no evidence of intracranial hemorrhage and no other focal lesions are detected. Labs on day of discharge: Labs from last 24 hours 11/24/19 00:03 COVID-19 PCR Negative Nasopharyn COVID-19 PCR Not Applicable Ref Test Perform Site [place] [facility] 11/24/19 04:50 Urine - Reflex from Urine Culture - Pending Preliminary micro results at discharge 11/24/19 04:50 Urine Culture - Pending Urine - Reflex from [facility] Medical History Chronic migraine Eczema GERD (gastroesophageal reflux disease) History of peptic ulcer disease Social History Smoking/Tobacco Use Status: Never Alcohol Intake: former Drug use: Daily Substance use type: marijuana Details: TID for migraines Do you feel safe at home: Yes Do you feel safe in your relationship?: Yes
--- NOTE | 2019-11-25 11:29 | CMDISCH_ITS ---
- If Service Date Differs Date of service: 11/25/19 Time of Service: 11:29 LACE Index Scoring Tool - Questions: Length of Stay (in days): 2 Acuity (Admit via E.D.?): Yes E.D. Visits: 2 - Answers: Total Score: 7 Risk of Readmission: Low Risk Care Management Discharge Reason for Hospitalization: Syncope. Discharge Plan: Lucinda is discharged home with no new services. She will follow up with her PCP, Any Romero MD, neurology, MRI as an outpatient, and plan of care as directed. Her cascade operator, Sridevi, is driving her home via private vehicle. Patient/Family Education Needs: Discharge instructions, limitations, follow up plan of care, including Ask Me Three and self management.
== END 2019-11-25 11:16 | disposition home or self-care (01) ==
LOC: ER 11-24 00:09 → MS 11-24 00:46
PROVIDERS: Admitting Provider General Practice; Emergency Provider Emergency Medicine; PCP Nurse Practitioner Family; Visit Provider General Practice
DX: R55 Syncope and collapse (principal); G43.909 Migraine, unspecified, not intractable, without status migrainosus; L30.9 Dermatitis, unspecified; K21.9 Gastro-esophageal reflux disease without esophagitis; Z87.11 Personal history of peptic ulcer disease
CPT/HCPCS: 36415; 80053; 93005; 96360; 96361; 99217; 99222; 99225; 99285; U0003; 70450; 81003; 81015; 83735; 84439; 84443; 84484; 85025; 87086; 93010; 99219; G0378; J0780; J1200; J1885

== ENCOUNTER 2019-11-26 16:55 | Outpatient (REF) | payer OTHER, MEDICAID, SELFPAY ==
[2019-11-26 19:04] LABS: Hemoglobin A1C 5.8 % (<5.7)
[2019-11-26 19:17] LABS: Anion Gap 7.4 mmol/L (3-11); BUN 8 mg/dL (7-18); CO2 26.6 mmol/L (21.0-32.0); CREATININE 0.99 mg/dL (0.55-1.02); Calcium 8.9 mg/dL (8.5-10.1); Chloride 104 mmol/L (98-107); Estimated GFR 56.12 (mL/min/1.73m2); Glucose 102 mg/dL (74-106); Potassium 4.2 mmol/L (3.5-5.1); Sodium 138 mmol/L (136-145)
== END 2019-11-26 17:15 ==
LOC: NCHCN 16:55
PROVIDERS: PCP Nurse Practitioner Family; Visit Provider Nurse Practitioner Family
DX: R73.9 Hyperglycemia, unspecified (principal)
CPT/HCPCS: 80048; 83036

== ENCOUNTER 2019-12-10 01:02 | Outpatient (CLI) | payer OTHER, MEDICAID, SELFPAY ==
--- NOTE | 2019-12-10 | DI.MRI_ITS ---
EXAM: MR BRAIN WO CLINICAL HISTORY: CHRONIC MIGRAINE,G43.709. TECHNIQUE: Multiplanar multisequence MRI of the brain was performed. CONTRAST MATERIAL: Noncontrast. COMPARISON: CT CT HEAD WO from 11/23/2019 FINDINGS: VENTRICLES AND EXTRA AXIAL SPACES: Lasy-ny-xevyxcwh atrophy. Ventricles normal in size. HEMORRHAGE: None. 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 Scattered tiny fo ci consistent with microvascular changes. No focus of restricted diffusion to suggest acute infarct. No space-occupying lesion identified. MIDLINE SHIFT: None. BRAINSTEM/CEREBELLUM: Normal. VISUALIZED PARANASAL SINUSES/MASTOIDS: Clear. The vascular flow voids appear intact. The orbits are unremarkable. 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 Hejd-re-gnguhohe cerebral atrophy. N o acute abnormality. DATA REPOSITORY:
== END 2019-12-10 01:22 ==
PROVIDERS: PCP Nurse Practitioner Family; Visit Provider Nurse Practitioner Family
DX: G43.709 Chronic migraine without aura, not intractable, without status migrainosus (principal); Z86.73 Personal history of transient ischemic attack (TIA), and cerebral infarction without residual deficits; G31.9 Degenerative disease of nervous system, unspecified
CPT/HCPCS: 70551

== ENCOUNTER → 2020-01-23 09:04 | Outpatient (BNVA) | payer OTHER, MEDICAID, SELFPAY | PROVIDERS: PCP Nurse Practitioner Family; Referring Provider General Practice; Visit Provider Nurse Practitioner Adult Health | DX: G43.109 Migraine with aura, not intractable, without status migrainosus (principal); G89.29 Other chronic pain; I63.9 Cerebral infarction, unspecified | CPT/HCPCS: 99205; 99215 ==

== ENCOUNTER 2020-01-31 03:37 | Outpatient (CLI) | payer OTHER, MEDICAID, SELFPAY ==
--- NOTE | 2020-01-31 06:45 | DI.US_ITS ---
EXAM: US CAROTID CLINICAL HISTORY: Incidental stroke finding on recent brain MRI,i63.9 TECHNIQUE: Ultrasound performed using standard protocol. COMPARISON: US US BREAST RT LIMITED from 03/21/2019 FINDINGS: Duplex evaluation of the carotid circulation was performed according to the usual protocol. There is bilateral antegrade vertebral flow. There is little if any visible atheromatous plaque in the carotid circulation. Flow velocities in th e common, internal, and external carotid arteries are within normal limits on Doppler evaluation. IMPRESSION: No evidence of a hemodynamically significant carotid stenosis. DATA REPOSITORY:
== END 2020-01-31 03:57 ==
PROVIDERS: PCP Nurse Practitioner Family; Visit Provider Nurse Practitioner Adult Health
DX: I63.9 Cerebral infarction, unspecified (principal)
CPT/HCPCS: 93880

== ENCOUNTER 2020-03-07 13:23 | Outpatient (REF) | payer OTHER, MEDICAID, SELFPAY ==
--- NOTE | 2020-03-07 11:45 | PAPFT_PTH ---
PATIENT: Lucinda Aguero LOC: [facility] U#:[id number] AGE/SX: 64/F ROOM: RE03/07/[address]: Rayne Stratton : 1955 BED: DIS: 03/07/2020 SPEC #: [id number] RECD: 03/10/20 13:00 STATUS: MASTER RERadha #: [id number] CONSTANCE: 03/07/20 11:[address]: Rayne Stratton DEPT: PENDING SALE TO [facility] Cytology RECD BY: Charlee Dick Tissues: 1 - CX/ENDOCX FOR PAP SMEARS Procedures: PAP THIN PREP/UVM Screening HPV DNA PROBE Comments: [id number]
== END 2020-03-07 13:43 ==
LOC: NCHCN 13:23
PROVIDERS: PCP Nurse Practitioner Family; Visit Provider Nurse Practitioner Family
DX: Z12.4 Encounter for screening for malignant neoplasm of cervix (principal); R87.810 Cervical high risk human papillomavirus (HPV) DNA test positive; Z00.00 Encounter for general adult medical examination without abnormal findings
CPT/HCPCS: 88142; 87624

== ENCOUNTER → 2020-05-13 13:04 | Outpatient (BNVA) | payer OTHER, MEDICAID, SELFPAY | PROVIDERS: PCP Nurse Practitioner Family; Referring Provider Nurse Practitioner Family; Visit Provider Nurse Practitioner Adult Health | DX: R51.9 Headache, unspecified (principal); G89.29 Other chronic pain | CPT/HCPCS: 99213 ==

== ENCOUNTER 2020-05-21 11:31 | Outpatient (REF) | payer OTHER, MEDICAID, SELFPAY ==
--- OUTSIDE RECORDS SUMMARY | 2020-05-21 11:36 | XMS_ITS ---
:1955 Author Care Team Providers Name Role Phone SOPHIA MORTON APRN Primary Care Provider [phone] [facility] MEDICAL RECORDS OTHER [phone] [facility] NEUROLOGY Neurologist [phone] Allergies Code Code System Name Reaction Severity Status Onset NKDA ? Medications Name Status Start Date Stop Date ? ? Asprin Ec Low Dose 81 mg tablet,delayed release Active ? Not available Take 1 tablet every day by oral route. atorvastatin 10 mg tablet Completed ? 2020 Take 1 tablet every day by oral route. B12 Active ? Not available 1 tab epinephrine Active ? Not available ibandronate 150 mg tablet Active ? Not av ailable Take 1 tablet every month by oral route. magnesium Active ? Not available 2 x a day Multivitamin 50 Plus Active ? Not availab le omeprazole 40 mg capsule,delayed release Active ? Not available Take 1 capsule twice a day by oral route. triamcinolone 0.1 % ointment-gauze 4 X Completed ? 02/18/2020 4-silicone adhesive top kit triamcinolone 0.1 % topical ointment Active ? Not available and dimethicone 5 % topical cream Vitamin D3 125 mcg (5,000 unit) tablet Active ? Not available Take 1 tablet every day by oral route. vitamin E Active ? Not available 1 capsule daily zolpidem 5 mg tablet Active ? Not availab le FOR NIGHT OF SLEEP STUDY ONLY: take 1 t ablet as needed for insomnia after sleep study set up. may repeat 1 hour later if not effective. Problems Name Status Onset Date Source ? Migraine Aura without Headache Active 02/18/2020 ? Cerebrovascular Accident Active 02/18/2020 ? Gastroesophageal Reflux Disease Active 02/18/2020 ? Peptic Ulcer Active 02/18/2020 ? Eczema Active 02/18/2020 ? Chronic Headache Disorder Active 02/18/2020 ? Procedures None recorded. Results Lab Results None recorded. Past Encounters 03/24/2020 Snoring; Restless Legs Anderson Bowers MD, Board Certified Sleep Ph ysician: [address] [place] [address] [address], [place] [address], Ph. Social History Tobacco Smoking Status Never Smoker Vaccine List None recorded. Plan of Care Patient Instructions We discussed signs and symptoms you are exhibiting that may be due to Obstructive Sleep Apnea or other sleep disorders. We went over sleep conditions that I suspect you may have that will benefit f rom further evaluation. The next step is to diagnose your sleep disorder through sleep study testing. We will get permission from your insurance to do the sleep study. Call us back in 2 to 3 weeks if yo u do not get a call from us about schedu ling your sleep study. Bring all your home medications to the sleep study including any sleep aids. If you have further concerns on falling asleep for the sleep study, we do have Ambien 5 to 10 mg to be used as needed. Cormier annelise, please note you should make arrange ments for a ride home in case you get morning drowsiness from taking sleep aid. Please call [facility] if you ar e not able to make it to your sleep study Also may be helpful for headaches: Vitamin B2 200mg TWICE DAILY [facility] High Absorption Magnesium 100mg, at least 2 tabs twice daily, but can experiment to see if more may help. Reminders Provider Appointments None recorded. ? ? Lab None recorded. ? ? Referral None recorded. ? ? Procedures None recorded. ? ? Surgeries None recorded. ? ? Imaging None recorded. ? ? Vitals Height Weight BMI Blood Pressure 157.48 cm 79.83 kg 32.2 kg/m2 127/80 mm[Hg]
--- OUTSIDE RECORDS SUMMARY | 2020-05-21 11:36 | XMS_ITS | Encounter Summary ---
:1955 Author Care Team Providers Name Role Phone Rayne Stratton MILADY Primary Care Provider [phone] [facility] Medical Records OTHER [phone] [facility] Neurology Neurologist [phone] Reason for Visit SLEEP CLINIC New Adult Patient Assessment and Plan Assessment Note I provided greater than 60 minutes in t he care of this patient, more than half the time was spent in [id number] counseling. 1. 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 She also reports restless leg symptoms prior to falling asleep. Comorbidities include CVA, chronic heada ches, GERD, eczema We had a thorough discussion of Obs tructive Sleep Apnea, including pathophysiology, associated [facility] cardiovascular, neurocognitive, and overall health effects, and importance of treatment. Adhere to drowsy driving precautions as applicable. Weight loss encouraged. She's workin g on this. Proceed with Diagnostic Polysomnogra m. In-facility sleep study requested due to hx of CVA and severe migraines ? 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 D ocument snoring intensity. Document medications taken on night of sleep stud y. ? zolpidem 5 mg tablet 2. Restless legs 03/24/20: she is on high dose PP I (40mg bid). possible she may have low ferritin. she started b12 on her own dos e uknown 1 month ago and says she feels energy much better. also gets leg cramps despite being on Mg Ox. will mointor after she gets on the high absorption Mg glyci poncho, and if she has residual leg mvmts after cramps are gone, then check further labs including ferr. she does take vit d3 5000 iu daily on her own too. ? restless legs syndrome: ca re instructions Discussion Note Remember to always take precautio ns on drowsy driving. If you experience sleepiness while driving, find a safe area to socket puller and take a break. Research suggests taking a power nap (15 to 20 judith jovan) and/or coffee (or caffeine containi ng food such as dark chocolate) may be effective aides. As always, you should use your judgement on whether to drive at all, if you are sleep deprived or feeling sleepy. Thank you for the kind opportunity to p articipate in your medical care. You expressed good understanding of your diagnosis and treatment, and agreed to proceed with the plan we discussed together. If y ou have any questions or concerns prior to your next appointment, please call Sleep Clinic. Plan of Care Patient Instructions We discussed [...] if more may help. Reminders Provider Appointments Office 30 07/14/2020 Anderson Bowers MD, 2:00PM Board Certified Sleep Physician Lab None ? ? recorded. Referral None ? ? recorded. Procedures None ? ? recorded. Surgeries None ? ? recorded. Imaging None ? ? recorded. Medications Name Start Date ? ? Asprin Ec Low Dose 81 mg tablet,delayed release ? Take 1 tablet every day by oral route. B12 ? 1 tab epinephrine ? ibandronate 150 mg tablet ? Take 1 tablet every month by oral route. magnesium ? 2 x a day Multivitamin 50 Plus ? omeprazole 40 mg capsule,delayed release ? Take 1 capsule twice a day by oral route. triamcinolone 0.1 % topical ointment and dimethicone 5 % topical ? cream Vitamin D3 125 mcg (5,000 unit) tablet ? Take 1 tablet every day by oral route. vitamin E ? 1 capsule daily zolpidem 5 mg tablet ? FOR NIGHT OF SLEEP STUDY ONLY: take 1 t ablet as needed for insomnia after sleep study set up. may repeat 1 hour later if not effective. Medications Administered None recorded. Vitals Height Weight BMI Blood Pressure 5 ft 2 in 176 lbs 32.2 kg/m2 127/80 mm[Hg] Results Lab Results None recorded. Allergies Code Code System Name Reaction Severity Onset NKDA ? ? ? Problems Name Status Onset Date Source ? Migraine Aura without Headache Active 02/18/2020 ? Cerebrovascular Accident Active 02/18/2020 ? Gastroesophageal Reflux Disease Active 02/18/2020 ? Peptic Ulcer Active 02/18/2020 ? Eczema Active 02/18/2020 ? Chronic Headache Disorder Active 02/18/2020 ? Procedures None recorded. Vaccine List None recorded. Social History Tobacco Smoking Status Never Smoker Alcohol intake None Live alone or with others? with others Animal exposure? Y Notes: 1cat Are you currently employed? Notes: 4x day Blind or serious difficulty seeing N Hard of hearing or deaf in one or N both ears? Caffeine intake Occasional Notes: 2.5 to 3 c ups of coffee a day Drug Use Y Notes: [facility] Functional Status No Impairment. Past Encounters 03/24/2020 Snoring; Restless Legs Anderson Bowers MD, Board Certified Sleep Ph ysician: [address] [place] [address] [address], [place] [address], Ph. History of Present Illness Note: <p><strong>Sleep Medicine New Patient Consult</strong>

Lucinda Bealemma Aguero is a pleasant {{64# ____}} year old {{female* male}} who presents for sleep consultation at kind request of Yani Garvey [employer] AND B[employer] OUTLETS MANAGER and Rayne Alcaraz [employer] AND BEVER[employer] OUTLETS MANAGER regarding headaches and apneas.

Past medical history includes CVA, chronic headaches, GERD, eczema

<strong>PREVIOUS SLEEP EVALUATION: </strong>{{Reviewed in detail and summarized as follows: Records not available, requested. Records not available. * None. }}
Patient recalled having PSG in [facility] [id number], but my office attempted to call every sleep clinic in the city she recalled and could not find her records.</p><p>
</p><p>She recalls PSG did not show nicole but only showed periodic limb movement disorder.</p><p>
& lt;/p><p>
<strong>CHIEF COMPLAINT/HISTORY OF PRESENT ILLNESS: </strong>
Patients reports biggest problem with sleep is snoring which can be loud, daytime sleepienss. She was feeling more tired but since being on B12 a month ago (dose unknown), she feels much moreenergy and overall better. She still struggles w/ headaches regularly, been for many years. She had bad experiences w/ meds for the headaches from [place] and so currently elect not to be on any meds, but does take nutritional supplements.
</p><p>
</p><p>tried imitrex, ergot, zipzor (nsaids)</p><p>
</p><p>she gained 40 lbs since 2002. working to lose weight.</p><p>
</p><p>she 'fainted' got head imaging, which showed incidental find of small stroke in Nov 2019.
</p><p>
</p><p>lived in [place], been back in [place] for 2 years.
</p><p>&l t;br></p><p>smoke MJ for headaches, does help. mixture of indica and sativa.

<strong>SLEEP SCHEDULE:</strong> Bedtime {{9:30 to 11# }} {{pm# am}}, Sleep onset latency {{few# less than 30 30 to 60 greater than 60 variable}} minutes, Awakenings {{once# 0- 2 variable}} times per night, Able to fall back asleep within {{few minutes # up to 30 minutes up to few hours variable}}, Wake time {{5 to 7 # }} {{am# pm}}. Naps sometimes for 1.5 hrs.

<strong>SLEEP ENVIRONMENT:</strong> {{(Cat) Pets wake patient up. # Petswake patient up. Children wake patient up. Noise from outside room wake patient up. Light wakes patient up. No environmental disruptions identified. }}

<strong>SLEEP QUALITY:</strong> {{Fair Very good Adequate* Very poor}}

<strong>DAYTIME/NEURO COGNITIVE FUNCTION:</strong> {{Sleepy Alert*}} phillip after taking B12.{{Problems with memory andmood # Problems with memory Problems with memory, concentration and mood No problems with memory, concentration, mood}}.

<strong>SLEEP RELATED THOUGHTS/BEHAVIORS:</strong> {{Deny insomnia related thought patterns or behaviors, except [place] active mind. * Stressful thoughts interfering with sleep. Tendency to clock watch. Worry about getting good night sleep. }}. < br>
<strong>SLEEP BREATHING:</strong> {{Sometimes Loud Snoring.# Snoring. Witnessed apneas.}} {{Witnessed apneas. Waking up gasping for air.*}} {{.# Witnessed apneas. Waking up gasping for air.}} {{Mouth breathing.* Chronic nasal congestion.}} {{.# Chronic nasal congestion.}}&lt ;br>
<strong>LEG SYMPTOMS:</strong> {{ Legs move before sleep and/or during sleep.*}} {{Leg movements are worse in evenings.*}} {{.# Relieved by movement.}} {{.# Relieved by counterpressure.}} {{Leg cramps especially in evening.*}} {{.# Toss and turn at night. Sheets are messy after sleep.}} {{.# Sheets are messy after sleep.}}

<strong>MOVEMENT SYMPTOMS</strong>{{No sleepwalking # Sleeptalk. Sleepwalk: }}.

<strong>DREAM SYMPTOMS:</strong> {{Deny dream enacting behavior # Dream enactment behavior: }}.{{ See dreams in room when waking up from sleep, last occured months ago.# See dreams in room when waking up or falling asleep: }}. Occurs a couple times a year. {{No disturbing dreams # Disturbing nightmares Recurring nightmares}}.

<strong>WEAKNESS SYMPTOMS:</strong> {{Deny cataplexy related symptoms # Muscles suddenly become weak triggered by emotion Muscles may feel weak but no emotional triggers known}} {{Deny sleep paralysis # Experienced inability to move upon waking up in remote past Experiences inability to move upon waking up on regular basis}}.<br&g t;
<strong>DRIVING:</strong> {{ Experienced drowsy driving in past related to sleep deprivation, 1 or 2 times in her life, driving long hours# Experienced drowsy driving in past related to sleep deprivation Intermittent drowsy driving episodes Regular drowsy driving episodes}}. {{.# Follows drowsy driving precautions. Aware of drowsy driving precautions and plans to follow them.}}

<strong>OTHER PERTINENT SYMPTOMS: </strong>
heavy sweating
</p><p>clenching
</p><p>dry mouth
</p><p >heartburn
</p><p>menopause
</p><p> diarrhea
</p><p>headaches long hx
</p><p>numbness in hands
</p>&l t;p>muscle weakness in left arm
</p><p>joint pain hands
</p><p>
<strong>PRODUCT/SUBSTANCE USE:</strong>{{No smoking* No smoking, quit in remote past No smoking quit recently Current Smoker}}. {{3 cups of coffee# Contemplating quitting Ready to quit Not interested in quitting}}. {{No alcohol use* 1-2 alcohol drinks daily 3+ alcohol drinks daily Variable alcohol use}}. {{No regular illicit drug use# Recreational MJ use Medical MJ use Rare MJ use Cocaine Heroin/Non- prescribed Opiate}}. Drink mj.

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

</p> Review of Systems ? Notes: <p>A 14-point <strong>REVIEW OF SYSTEM</strong> was obtained and reviewed, includes CONSTITUTIONAL, EYE S, ALLERGY, NEUROLOGIC, ENDOCRINE, GI, CARDIOVASCULAR, SKIN, MSK, E NT, , RESPIRATORY, HEMATOLOGIC, PSYCH systems. Pertinent symptoms are discu ssed in history, otherwise negative.</p><p>diarrhea (on mg ox)</p><p>nocturia</p><p>lig hheadedness</p><p>muscle cramps</p><p>
</p> Physical Exam ? Notes: <p>GENERAL: {{well appearing # chronically ill appearing}}, appearing {{stated# older than younger than}} age, no acute distress, {{normal* tall lean}} build< br>HEENT: atraumatic skull, anicteric, low lying hard palate, mallampati 4
RESPIRATORY: quiet respiration, able to speak in full sentences without dyspn ea, no accessory muscle use,
SKIN: no facial skin rash, no facial skin le sions
PSYCHIATRIC: well groomed, fluent speech, good insight, linear thought process, good eye contact, {{balanced# flat}} affect
NEUROLOGIC: alert, oriented, symmetric facial expression

<stron g>Clinical Data Reviewed:</strong>

1. {{Modified Pediatric Kingman Sleepiness Scale Kingman Sleepiness Scale*}}: 11 out of {{24# 21 due to not d riving}}.

2. Johnson Questionnaire positive for {{0 1* 2}} out of 3 Ange gories.

3. {{Sleep study results as above. Sleep study results n ot available, requested Unable to obtain sleep study reports*}}

4. { {Lab results as outlined. * Labs pending.}}
</p><p>11/23/19 free Thyroxine 1.02; 1c 5.8%; Cr 0.99; Hb 13.2

5. {{Sleep log r eviewed, consistent with history.* Sleep log reviewed. }}</p><p>
</ p><p>6. lifeline screening done at [place], says these tests all looked good. records not available.</p><p>
</p><p>7. Imagin11/23/19 CT head , q uestion subtle white matter decreased attenuation in portions of L posterior p arietal and occipital lobes</p><p>MRI 12/10/19 small area of old infarct in L posterior parietal lobe. mild to moderate cerebral atrophy</p>
[2020-05-21 16:19] LABS: Hemoglobin A1C 5.9 % (<5.7)
[2020-05-21 16:21] LABS: TSH (W/Ref FT4) 1.53 uIU/mL (0.36-3.74)
== END 2020-05-21 11:32 | disposition home or self-care (01) ==
LOC: NCHCN 11:31
PROVIDERS: PCP Nurse Practitioner Family; Visit Provider Nurse Practitioner Family
DX: E03.9 Hypothyroidism, unspecified (principal); R73.03 Prediabetes
CPT/HCPCS: 83036; 84443

== ENCOUNTER 2020-06-26 03:22 | Outpatient (CLI) | payer OTHER, MEDICAID, SELFPAY ==
[2020-06-26 13:04] LABS: Vitamin D 25 Total 72.9 ng/mL (30-100)
[2020-06-26 13:09] LABS: Ferritin 75 ng/mL (8-252); Vitamin B12 962 pg/mL (193-986)
== END 2020-06-26 03:23 | disposition home or self-care (01) ==
LOC: LBO 03:22
PROVIDERS: PCP Nurse Practitioner Family; Visit Provider Family Medicine
DX: M79.642 Pain in left hand (principal); E55.9 Vitamin D deficiency, unspecified; R53.83 Other fatigue; Z79.899 Other long term (current) drug therapy
CPT/HCPCS: 36415; 82306; 82607; 82728

== ENCOUNTER → 2020-07-22 10:47 | Outpatient (BNVA) | payer OTHER, MEDICAID, SELFPAY | PROVIDERS: PCP Nurse Practitioner Family; Visit Provider Nurse Practitioner Adult Health | DX: G43.709 Chronic migraine without aura, not intractable, without status migrainosus (principal); I63.9 Cerebral infarction, unspecified; G47.33 Obstructive sleep apnea (adult) (pediatric) | CPT/HCPCS: 99213; 99214 ==

== ENCOUNTER 2020-07-28 04:03 | Outpatient (CLI) | payer OTHER, MEDICAID, SELFPAY ==
[2020-07-28 10:54] LABS: Source Nasal/Nares
[2020-07-28 13:05] LABS: COVID-19 PCR Negative (Negative)
== END 2020-07-28 04:04 | disposition home or self-care (01) ==
LOC: LBO 04:03
PROVIDERS: PCP Nurse Practitioner Family; Visit Provider Internal Medicine Sleep Medicine
DX: Z20.822 Contact with and (suspected) exposure to COVID-19 (principal); Z01.818 Encounter for other preprocedural examination
CPT/HCPCS: 87635

== ENCOUNTER 2020-08-20 15:49 | Emergency (ER) | payer OTHER, MEDICAID, SELFPAY ==
[2020-08-20] VITALS (16 sets, daily range): BP systolic 109–158; BP diastolic 60–101; PULSE 57–89; RESP 18; TEMP 36.5; O2SAT 94–98
--- NOTE | 2020-08-20 16:12 | ED.GENADUL_ITS ---
Discharge Plan Disposition Patient Disposition: HOME Condition: Improving Discharge Details Clinical Impression: Cephalgia Primary Care Provider: Rayne Stratton ED Provider: Jl Smith Home Meds and New Rx's Prescriptions: Continued aspirin [Aspirin Low Dose] 81 mg tablet,delayed release (DR/EC) 81 mg PO DAILY Qty: 1 RF: 0 cholecalciferol (vitamin D3) 50 mcg (2,000 unit) capsule 50 mcg PO DAILY RF: 0 riboflavin (vitamin B2) 100 mg tablet 100 mg PO BID RF: 0 vitamin E (dl, acetate) 400 unit capsule 450 mg PO DAILY RF: 0 magnesium 250 mg tablet 750 mg PO BID RF: 0 ascorbate calcium (vitamin C) 500 mg tablet 500 mg PO BID RF: 0 Fergon 225 mg (27 mg iron) tablet 225 mg PO BID RF: 0 prochlorperazine maleate 5 mg tablet See Rx Instructions PO TID PRN (Reason: nausea and vomiting) Qty: 30 RF: 2 triamcinolone acetonide 0.1 % cream 1 applic TP DAILY PRNRF: 0 omeprazole 40 mg capsule,delayed release(DR/EC) 40 mg PO BID RF: 0 multivitamin Capsule 1 cap PO DAILY RF: 0 epinephrine [EpiPen 2-Alexandro] 0.3 mg/0.3 mL auto-injector 0.3 mg IM ONCE PRNRF: 0 ibandronate 150 mg tablet 150 mg PO DIRECTED RF: 0 Discharge Instructions Instructions: General Headache (ED) Additional Instructions: You are responding nicely to the IV medications given here in the ER. Labora tory values do not reveal any obvious emergent process, you are given IV fluids and oral potassium. Korinafran as directed. Please watch for new or worsening symptoms and return to the ER for any concerns. Continue all of your other medications as directed. Please contact your primary care provider and neurology team tomorrow to make them aware of your ER visit, breakthrough migraine, and need for outpatient reevaluation. Medical Decision Making This is a 64-year-old female with history of chronic similar migraines, followed by neurology, stating that she developed a right-sided migraine mild 5 days ago, progressively worse with associated nausea and vomiting. This feels exactly like her other migraines that she gets monthly. Patient took her medication but because she cannot hold her down was not able to control her discomfort at home. Reports very little oral intake over the past few days, also concern about dehydration. Patient appears well, nontoxic, neurologically intact. Denies recent illness or trauma. No meningeal signs. Reviewing her most recent ER visit and hospitalization it appears as though Compazine, Toradol, Benadryl helps her symptoms, will give the same regimen now as well as a liter of IV fluid. Will obtain routine laboratory values for baseline purposes. Given her fairly recent CT imaging and MRI, I see no clear indication to repeat today. Patient was medicated, she states that she feels mild GERD, requesting medication. Will provide a GI cocktail. I was called into the room just a few minutes later she states that her symptoms have resolved, there is mildly any medication for any GERD. She states that her headache is only slightly decreased but now she has no nausea or vomiting. Laboratory values reveal mild nonspecific leukocytosis of 13.29. She is afebrile, no obvious source of infection, no meningeal signs. Sodium 135 potassium 3.2 creatinine 1.2 with a GFR of 44.95. Patient does appear slightly dry, will provide another liter of fluid, this time lactated Ringer's. We will also provide 40 IV potassium. Upon reevaluation at 1745 patient is sleeping. has gone home and plan is to call him once disposition is made. Patient was again reevaluated at 1835. She wakes easily to verbal stimuli. She reports that her pain is now approximately a 6 out of 10, nausea has resolved completely. Patient declines any p.o. challenge. Patient states that although she feels as though she is improving she would like to be observed in the ER for a little longer before discharge Patient was again reevaluated at 1930. She reports mild heartburn, was unable to take her omeprazole because of her nausea and vomiting. Requesting Tums. Tums given. Patient reports that her headache is now a 4 out of 10, continues to decrease, and is comfortable discharge. Clinically she appears well, nontoxic. Neurologically intact. Will provide a take-home pack of Zofran ODT. Patient remains neurologically intact. Ambulates without difficulty upon discharge. No additional questions or concerns, standard discharge and return precautions Medical Records Medical records reviewed: Yes I reviewed the patient's medical records. Lab Data Lab results reviewed: Yes I reviewed the patient's lab results. Labs: Laboratory Tests Range/Units 08/20/20 08/20/20 16:32 16:32 WBC (4.4-10.8) 10^3/uL 13.29 H RBC (3.93-5.22) 10^6/uL 4.75 Hgb (11.2-15.7) g/dL 14.1 Hct (36.0-46.0) % 42.2 MCV (80-95) fL 88.8 MCH (27.0-33.0) pg 29.7 MCHC (32.0-36.0) % 33.4 RDW (11.7-14.6) % 12.5 Plt Count (130-400) 10^3/uL 392 MPV (8.0-11.0) fL 10.3 Immature Gran % 0.3 Neutrophils % 75.9 Lymphocytes % 15.9 Monocytes % 7.5 Eosinophils % 0.2 Basophils % 0.2 Nucleated RBC % % 0 Absolute Neutrophils (1.2-6.7) 10^3/uL 10.09 H Absolute Lymphocytes (1.2-3.4) 10^3/uL 2.11 Absolute Monocytes (0.1-0.8) 10^3/uL 1.00 H Absolute Eosinophils (0.0-0.7) 10^3/uL 0.03 Absolute Basophils (0.0-0.2) 10^3/uL 0.03 Sodium (136-145) mmol/L 134 L Potassium (3.5-5.1) mmol/L 3.2 L Chloride (98-107) mmol/L 94 L Carbon Dioxide (21.0-32.0) mmol/L 31.3 Anion Gap (3-11) mmol/L 8.7 BUN (7-18) mg/dL 33 H Creatinine (0.55-1.02) mg/dL 1.2 H Estimated GFR/1.73 m2 (mL/min/1.73m2) 44.95 Glucose (74-106) mg/dL 144 H Calcium (8.5-10.1) mg/dL 9.4 Total Bilirubin (0.2-1.0) mg/dL 0.9 AST (15-37) U/L 15 ALT (14-59) U/L 17 Alkaline Phosphatase (46-116) U/L 67 Total Protein (6.4-8.2) g/dL 8.3 H Albumin (3.4-5.0) g/dL 4.1 HPI General Mode of arrival: EMS . Date/Time Provider Initiated Documentation: 08/20/20 16:12 . Limitations to Documentation: no limitations . Information obtained by: patient, family and EMS . HPI Narrative: This is a 64-year-old female with a past medical history of chronic migraines without auras, GERD, peptic ulcer disease, eczema, stroke, presenting via EMS for evaluation of a right sided migraine that began slowly 5 days ago. Patient reports that the migraine feels extremely similar to her chronic migraines which she gets approximately twice a month ever since she was a child. She has been evaluated by neurology and worked up extensively. She typically smokes marijuana a few times a day and has a small yellow pill that she uses for breakthrough. She tried using this 5 days ago but subsequently vomited the medication. Patient states given her associated nausea and vomiting she is unable to hold any fluids or medications down that she is concerned about dehydration and the inability to control this without IV medication. She denies recent illness or trauma. She denies visual changes, chest pain, shortness of breath, abdominal pain, numbness, tingling, weakness. Patient states that the headache is only on the right side, began mild, progressed it is now a 10 out of 10, her typical migraines are only on the right side. Patient states that she was seen in our ER approximately 5 months ago and at that time had a CT and MRI, has subsequently followed up with neurology, and has a outpatient appointment coming up soon. Related Data Home Medications Medication Instructions Recorded Confirmed multivitamin 1 cap PO DAILY 02/22/19 08/20/20 omeprazole 40 mg capsule,delayed 40 mg PO BID 02/22/19 08/20/20 release triamcinolone acetonide 0.1 % 1 applic TP DAILY PRN 02/22/19 08/20/20 topical cream ibandronate 150 mg PO DIRECTED 07/16/19 08/20/20 epinephrine [EpiPen 2-Alexandro] 0.3 mg IM ONCE PRN 11/23/19 08/20/20 aspirin 81 mg tablet,delayed 81 mg PO DAILY #1 tab 01/23/20 08/20/20 release cholecalciferol (vitamin D3) 50 50 mcg PO DAILY 03/23/21 06/30/21 mcg (2,000 unit) capsule riboflavin (vitamin B2) 100 mg 100 mg PO BID 05/13/20 08/20/20 tablet vitamin E (dl, acetate) 400 unit 450 mg PO DAILY 05/13/20 08/20/20 capsule ascorbate calcium (vitamin C) 500 500 mg PO BID 07/22/20 08/20/20 mg tablet ferrous gluconate 225 mg (27 mg 225 mg PO BID 07/22/20 08/20/20 iron) tablet magnesium 250 mg tablet 750 mg PO BID tab 07/22/20 08/20/20 prochlorperazine maleate 5 mg See Rx Instructions PO TID PRN #30 07/22/20 08/20/20 tablet tab Previous Rx's Medication Instructions Recorded aspirin 81 mg tablet,delayed 81 mg PO DAILY #1 tab 01/23/20 release prochlorperazine maleate 5 mg See Rx Instructions PO TID PRN #30 07/22/20 tablet tab Allergies Allergy/AdvReac Type Severity Reaction Status Date / Time venom-wasp Allergy Anaphylaxis Unverified 08/20/20 16:03 General Stated Complaint: Headache JENNIFER: 3 Review of Systems Constitutional Constitutional: Denies fever(s), Reports headache(s) and Denies weakness Eyes Eyes: Denies change in vision ENT Ears, Nose, Mouth, and Throat: Reports headache(s) and Denies neck pain Cardiovascular Cardiovascular: Denies chest pain and Denies dyspnea Respiratory Respiratory: Denies cough and Denies dyspnea Gastrointestinal Gastrointestinal: Denies abdominal pain, Reports nausea and Reports vomiting Musculoskeletal Musculoskeletal: Denies back pain, Denies neck pain, Denies numbness and Denies tingling Integumentary/Breasts Skin/Breast: Denies rash Neurologic Neurologic: Reports headache(s), Denies numbness, Denies tingling and Denies weakness Hematologic/Lymphatic Hematologic/Lymphatic: Denies easy bleeding and Denies easy bruising [facility] Medical History Chronic migraine Eczema GERD (gastroesophageal reflux disease) History of peptic ulcer disease Migraine aura without headache Stroke Social History Smoking/Tobacco Use Status: Never Smoking risk assessment performed?: Yes Alcohol Intake: former Drug use: Daily Substance use type: marijuana Details: TID for migraines Household members: significant other Housing: apartment Number of Children: 1 number of grandchildren: 2 current occupation: former [employer] Pets and animals: Yes Pets and animals: cat(s) What type of physical activity do you participate in: walking Seatbelt use: always Do you feel safe at home: Yes Do you feel safe in your relationship?: Yes Exam Const General: cooperative, healthy appearing and no acute distress Orientation: alert, awake and oriented x3 HENMT Head: normal to inspection, normocephalic and atraumatic Ears: hearing grossly normal bilaterally Face and sinus: normal facial exam Mouth: moist mucous membranes abnormal (Slightly dry) Throat: posterior oropharynx normal Eyes General: appearance normal, both eyes and all related structures Alignment and Position: alignment normal Periorbital: periorbital findings normal Eyelids: eyelids normal Conjunctivae: conjunctivae normal Sclera: sclerae normal Cornea: corneas normal Pupils: PERRL EOM: EOM intact bilaterally Direct ophthalmoscopy: normal light reflex Neck Neck: normal visual inspection, full ROM, no meningeal signs, trachea midline, supple and nontender Resp Effort & Inspection: normal respiratory effort and able to speak in complete sentences Auscultation: clear to auscultation bilaterally Cardio Rate: regular rate Rhythm: regular rhythm GI Palpation: soft and nontender Back/Spine/Pelvis Back: No back tenderness Skin General skin exam: no rashes or lesions noted Neuro General: patient alert, patient awake, moves all extremities and no focal motor deficits Cranial Nerves: CN's II-XI intact bilaterally Cognition: normal cognition Speech: speech normal Gait: normal gait Motor: muscle tone normal throughout Sensory Exam: no sensory deficits noted Extrem General: normal to inspection, full ROM and capillary refill normal Psych Appearance: grossly normal Mental Status: mental status grossly normal Course Vital Signs Vital signs: Vital Signs Temperature 36.5 C 08/20/20 15:57 Pulse 89 08/20/20 15:57 Respiratory Rate 18 08/20/20 15:57 Blood Pressure 158/93 H 08/20/20 15:57 Pulse Oximetry 95 08/20/20 15:57 Temperature 36.5 C 08/20/20 15:57 Pulse 89 08/20/20 15:57 Respiratory Rate 18 08/20/20 15:57 Respiratory Effort Non-Labored 08/20/20 16:01 Blood Pressure 158/93 H 08/20/20 15:57 Blood Pressure Position Supine 08/20/20 15:57 Pulse Oximetry 95 08/20/20 15:57 Oxygen Delivery Method Room Air 08/20/20 15:57 Oxygen Flow Rate 0 08/20/20 15:57
[2020-08-20] MEDS: Ketorolac 15 MG/ML VIAL IVP (16:41)
[2020-08-20] MEDS: diphenhydrAMINE 50 MG/ML VIAL IVP (16:41)
[2020-08-20] MEDS: Prochlorperazine 10 MG/2 ML VIAL IVP (16:41)
[2020-08-20] MEDS: Normal Saline 1,000 ML 1000 ML IV (16:44)
[2020-08-20 16:52] LABS: Abs Immature Grans 0.04 10^3/uL (0.0-0.06); Absolute Basophil Count 0.03 10^3/uL (0.0-0.2); Absolute Lymphocyte Count 2.11 10^3/uL (1.2-3.4); Absolute Neutrophil Count 10.09 10^3/uL (1.2-6.7); Basophils % 0.2; Eosinophils % 0.2; HCT 42.2 % (36.0-46.0); HGB 14.1 g/dL (11.2-15.7); Immature Grans % 0.3; Lymphocytes % 15.9; MCH 29.7 pg (27.0-33.0); MCHC 33.4 % (32.0-36.0); MCV 88.8 fL (80-95); MPV 10.3 fL (8.0-11.0); Monocytes % 7.5; Neutrophils % 75.9; Nucleated RBC 0 %; Platelet Count 392 10^3/uL (130-400); RBC 4.75 10^6/uL (3.93-5.22); RDW 12.5 % (11.7-14.6); RDW-SD 41.1 fL; WBC 13.29 10^3/uL (4.4-10.8)
[2020-08-20 16:59] LABS: Absolute Eosinophil Count 0.03 10^3/uL (0.0-0.7)
[2020-08-20 17:04] LABS: ALT 17 U/L (14-59); AST 15 U/L (15-37); Albumin 4.1 g/dL (3.4-5.0); Alkaline Phosphatase 67 U/L (46-116); Anion Gap 8.7 mmol/L (3-11); BUN 33 mg/dL (7-18); Bilirubin, Total 0.9 mg/dL (0.2-1.0); CO2 31.3 mmol/L (21.0-32.0); CREATININE 1.2 mg/dL (0.55-1.02); Calcium 9.4 mg/dL (8.5-10.1); Chloride 94 mmol/L (98-107); Estimated GFR 44.95 (mL/min/1.73m2); Glucose 144 mg/dL (74-106); Potassium 3.2 mmol/L (3.5-5.1); Sodium 134 mmol/L (136-145); Total Protein 8.3 g/dL (6.4-8.2)
[2020-08-20] MEDS: Lactated Ringers 1,000 ML 1000 ML IV (18:01)
[2020-08-20] MEDS: Calcium Carbonate *TUMS* 500 MG CHEW PO (19:35)
[2020-08-20] MEDS: Potassium Chloride 20 MEQ TABCR 40 MEQ PO (20:20)
== END 2020-08-20 20:15 | disposition home or self-care (01) ==
PROVIDERS: Emergency Provider Physician Assistant; PCP Nurse Practitioner Family
DX: R51.9 Headache, unspecified (principal)
CPT/HCPCS: 36415; 80053; 96361; 96374; 96375; 99284; 85025; J0780; J1200; J1885

== ENCOUNTER 2020-08-22 11:50 | Emergency (ER) | payer OTHER, MEDICAID, SELFPAY ==
[2020-08-22 11:54] VITALS: BP 162/96; PULSE 61; RESP 17; TEMP 36.5; O2SAT 97
--- NOTE | 2020-08-22 12:00 | DI.CT_ITS ---
Exam(s) CT HEAD WO EXAM: CT HEAD WO CLINICAL HISTORY: persistent JIMENEZ. TECHNIQUE: Imaging Protocol: Axial computed tomography images with coronal and sagittal reformatted images were created and reviewed COMPARISON: No exams were available for comparison FINDINGS: There is mild generalized cerebral atrophy. There is a focal area of decreased attenuation in high left parietal white matter, this is unchanged from prior examination of November 23 2019 and was also visualized MR examination at that time, this is consistent with infarction No evidence of acute intracranial hemorrhage, mass effect, or midline shift. The orbital structures are unremarkable. The temporal bone structures appear intact. Calvarium: Normal. Visualized Paranasal sinuses/Mastoids: Clear. IMPRESSION: No evidence of acute intracranial process. RADIATION DOSE DELIVERED: 715.36mGy.cm Total DLP 715.36mGy.cm Total DLP DATA REPOSITORY: All CT scans at this facility are submitted to the National Radiology Data Registry (NRDR) Dose Index Registry (DIR) with the [employer] ([employer]). RADIATION OPTIMIZATION: All CT scans at this facility use at least one of these dose optimization te chniques: automated exposure control; mA and/or kV adjustment per patient size (includes targeted exa ms where dose is matched to clinical indication); or iterative reconstruction.
[2020-08-22 12:23] LABS: Abs Immature Grans 0.03 10^3/uL (0.0-0.06); Absolute Eosinophil Count 0.01 10^3/uL (0.0-0.7); Absolute Lymphocyte Count 2.03 10^3/uL (1.2-3.4); Absolute Monocyte Count 1.08 10^3/uL (0.1-0.8); Absolute Neutrophil Count 9.53 10^3/uL (1.2-6.7); Basophils % 0.2; Eosinophils % 0.1; HGB 13.9 g/dL (11.2-15.7); Immature Grans % 0.2; MCH 30.1 pg (27.0-33.0); MCHC 33.9 % (32.0-36.0); MCV 88.7 fL (80-95); MPV 10.1 fL (8.0-11.0); Monocytes % 8.5; Nucleated RBC 0 %; Platelet Count 349 10^3/uL (130-400); RBC 4.62 10^6/uL (3.93-5.22); RDW 11.9 % (11.7-14.6); RDW-SD 38.1 fL
[2020-08-22 12:26] LABS: Absolute Basophil Count 0.03 10^3/uL (0.0-0.2); ESR 27 mm/hr (0-30)
[2020-08-22] MEDS: LORazepam 2 MG/ML VIAL 0.5 MG IVP (12:27)
[2020-08-22] MEDS: Dexamethasone 10 MG/ML VIAL IVP (12:28)
[2020-08-22] MEDS: Prochlorperazine 10 MG/2 ML VIAL IVP (12:30)
[2020-08-22] MEDS: ACETAMINOPHEN 1,000 MG/100 ML BTL 400 MG IVPB (12:31)
[2020-08-22] MEDS: Lactated Ringers 1,000 ML 1000 ML IV (12:35)
[2020-08-22 12:36] LABS: Anion Gap 8.7 mmol/L (3-11); BUN 22 mg/dL (7-18); CO2 31.3 mmol/L (21.0-32.0); CREATININE 1.1 mg/dL (0.55-1.02); Calcium 9.4 mg/dL (8.5-10.1); Chloride 95 mmol/L (98-107); Estimated GFR 49.69 (mL/min/1.73m2); Glucose 125 mg/dL (74-106); Potassium 3.3 mmol/L (3.5-5.1); Sodium 135 mmol/L (136-145)
--- NOTE | 2020-08-22 12:38 | ED.GENADUL_ITS ---
Discharge Plan Disposition Patient Disposition: HOME Condition: Good Discharge Details Clinical Impression: Chronic headaches, Acute hypokalemia Primary Care Provider: Rayne Stratton ED Provider: Charlee Foley Home Meds and New Rx's Prescriptions: New promethazine 12.5 mg suppository 12.5 mg NH TID PRNQty: 12 RF: 0 ondansetron HCl [Zofran] 4 mg tablet 4 mg PO Q8H Qty: 7 RF: 0 potassium chloride 20 mEq tablet,ER particles/crystals 20 meq PO DAILY Qty: 7 RF: 0 Continued aspirin [Aspirin Low Dose] 81 mg tablet,delayed release (DR/EC) 81 mg PO DAILY Qty: 1 RF: 0 cholecalciferol (vitamin D3) 50 mcg (2,000 unit) capsule 50 mcg PO DAILY RF: 0 riboflavin (vitamin B2) 100 mg tablet 100 mg PO BID RF: 0 vitamin E (dl, acetate) 400 unit capsule 450 mg PO DAILY RF: 0 magnesium 250 mg tablet 750 mg PO BID RF: 0 ascorbate calcium (vitamin C) 500 mg tablet 500 mg PO BID RF: 0 Fergon 225 mg (27 mg iron) tablet 225 mg PO BID RF: 0 prochlorperazine maleate 5 mg tablet See Rx Instructions PO TID PRN (Reason: nausea and vomiting) Qty: 30 RF: 2 triamcinolone acetonide 0.1 % cream 1 applic TP DAILY PRNRF: 0 omeprazole 40 mg capsule,delayed release(DR/EC) 40 mg PO BID RF: 0 multivitamin Capsule 1 cap PO DAILY RF: 0 epinephrine [EpiPen 2-Alexandro] 0.3 mg/0.3 mL auto-injector 0.3 mg IM ONCE PRNRF: 0 ibandronate 150 mg tablet 150 mg PO DIRECTED RF: 0 Discharge Instructions Additional Instructions: Please follow-up with your neurologist on Tuesday You may take a Phenergan suppository if that is Zofran oral medication is not effective, do not continue to repeat both of these medications simultaneously You may take 1 g of Tylenol in addition Clear liquid until you are feeling symptomatically improved, I recommend 12 to 24 hours of clear liquid Please return should you develop persistent, new, or worsening symptoms I have prescribed potassium for you, take this when you are feeling symptomatically improved Discharge Data Discharge Date/Time-TO BE ENTERED AT DEPARTURE: 08/22/20 14:36 Medical Decision Making Sed rate within normal limits, symptoms typical per patient for migraines aside from longevity CT without acute abnormality, case discussed with Dr. Real, radiology, results reviewed by me Prior Documentation reviewed with patient feeling symptomatically improved at the time of her previous discharge and supplemented with oral potassium did not tolerate p.o. during this encounter given Phenergan suppositories in addition to Zofran ODT She is instructed not to take these medications within 8 hours of each other At time of discharge home she reports her pain is a 1, she feels very much symptomatically improved and feels comfortable discharge home She is able to tolerate p.o. and therefore her medications encouraged to call her neurologist tomorrow for follow-up and return earlier should she have new or worsening complaints no evidence of meningitis or more ominous etiology of her symptoms My suspicion for subarachnoid hemorrhage is quite low given the gradual onset of symptoms no meningismus, no dizziness, and is alert and oriented throughout this encounter, Patient has a nonfocal neurological exam in this encounter, low suspicion for CVA Previous CT was compared MRI from 2019 which did show a subacute CVA Differential Diagnosis Differential Diagnosis: CVA, subarachnoid hemorrhage, migraine headache, temporal arteritis Medical Records Medical records reviewed: Yes I reviewed the patient's medical records. Lab Data Lab results reviewed: Yes I reviewed the patient's lab results. HPI General Mode of arrival: ambulatory . Date/Time Provider Initiated Documentation: 08/22/20 11:51 . Limitations to Documentation: no limitations . Information obtained by: patient . HPI Narrative: This 64-year-old female with history of CVA, anxiety, GERD, chronic migraines presents with headache for the past week. She was evaluated 2 days prior and states she felt mild symptomatic improvement subsided to go home several days ago. She states she has returned secondary to awaking with the same headache the following day and nausea and vomiting which is been per 10. She denies any blood in vomitus. She denies any blood in stool. She denies any significant change in her headache. Headache is predominantly on the right side and tenderness over her yarsani. Denies any vision change, photophobia, phonophobia. Denies any risk of carbon monoxide exposure. Denies any stiff neck or fever. Denies known exacerbating or alleviating factors. Specifically denies syncope or worse headache of life. Related Data Home Medications Medication Instructions Recorded Confirmed multivitamin 1 cap PO DAILY 02/22/19 08/22/20 omeprazole 40 mg capsule,delayed 40 mg PO BID 02/22/19 08/22/20 release triamcinolone acetonide 0.1 % 1 applic TP DAILY PRN 02/22/19 08/22/20 topical cream ibandronate 150 mg PO DIRECTED 07/16/19 08/22/20 epinephrine [EpiPen 2-Alexandro] 0.3 mg IM ONCE PRN 11/23/19 08/22/20 aspirin 81 mg tablet,delayed 81 mg PO DAILY #1 tab 01/23/20 08/22/20 release cholecalciferol (vitamin D3) 50 50 mcg PO DAILY 05/13/20 08/22/20 mcg (2,000 unit) capsule riboflavin (vitamin B2) 100 mg 100 mg PO BID 05/13/20 08/22/20 tablet vitamin E (dl, acetate) 400 unit 450 mg PO DAILY 05/13/20 08/22/20 capsule ascorbate calcium (vitamin C) 500 500 mg PO BID 07/22/20 08/22/20 mg tablet ferrous gluconate 225 mg (27 mg 225 mg PO BID 07/22/20 08/22/20 iron) tablet magnesium 250 mg tablet 750 mg PO BID tab 07/22/20 08/22/20 prochlorperazine maleate 5 mg See Rx Instructions PO TID PRN #30 07/22/20 08/22/20 tablet tab ondansetron HCl [Zofran] 4 mg PO Q8H #7 tab 08/22/20 potassium chloride 20 meq PO DAILY #7 tab 08/22/20 promethazine 12.5 mg NH TID PRN #12 ea 08/22/20 Previous Rx's Medication Instructions Recorded aspirin 81 mg tablet,delayed 81 mg PO DAILY #1 tab 01/23/20 release prochlorperazine maleate 5 mg See Rx Instructions PO TID PRN #30 07/22/20 tablet tab ondansetron HCl [Zofran] 4 mg PO Q8H #7 tab 08/22/20 potassium chloride 20 meq PO DAILY #7 tab 08/22/20 promethazine 12.5 mg NH TID PRN #12 ea 08/22/20 Allergies Allergy/AdvReac Type Severity Reaction Status Date / Time venom-wasp Allergy Anaphylaxis Unverified 08/20/20 16:03 General Stated Complaint: Headache JENNIFER: 3 Review of Systems All systems reviewed & are unremarkable except as noted in HPI and below PFSH Medical History Chronic migraine Eczema GERD (gastroesophageal reflux disease) History of peptic ulcer disease Migraine aura without headache Stroke Social History Smoking/Tobacco Use Status: Never Smoking risk assessment performed?: Yes Alcohol Intake: former Drug use: Daily Substance use type: marijuana Details: TID for migraines Household members: significant other Housing: apartment Number of Children: 1 number of grandchildren: 2 current occupation: former [employer] Pets and animals: Yes Pets and animals: cat(s) What type of physical activity do you participate in: walking Seatbelt use: always Do you feel safe at home: Yes Do you feel safe in your relationship?: Yes Exam Const General: cooperative and no acute distress HENMT Head: normal to inspection Mouth: moist mucous membranes Eyes Pupils: PERRL Neck Other: No meningismus No carotid bruit Resp Effort & Inspection: normal respiratory effort Cardio Rate: regular rate Rhythm: regular rhythm Skin General skin exam: no rashes or lesions noted Neuro General: patient alert and patient oriented x3 Cranial Nerves: CN's II-XI intact bilaterally and PERRL Cognition: normal cognition Speech: speech normal Gait: normal gait Motor: strength 5/5 throughout Sensory Exam: no sensory deficits noted Course Vital Signs Vital signs: Vital Signs Temperature 36.5 C 08/22/20 11:54 Pulse 61 08/22/20 11:54 Respiratory Rate 17 08/22/20 11:54 Blood Pressure 162/96 H 08/22/20 11:54 Pulse Oximetry 97 08/22/20 11:54 Temperature 36.5 C 08/22/20 11:54 Temperature Source Temporal Artery Scan 08/22/20 11:54 Pulse 61 08/22/20 11:54 Respiratory Rate 17 08/22/20 11:54 Respiratory Effort 08/22/20 11:58 Blood Pressure 162/96 H 08/22/20 11:54 Pulse Oximetry 97 08/22/20 11:54 Oxygen Delivery Method Room Air 08/22/20 11:54 Oxygen Flow Rate 0 08/22/20 11:54 Pain Level 8 08/22/20 11:54 Lab/Test Results Lab/Test Results: Laboratory Tests Range/Units 08/22/20 08/22/20 08/22/20 12:17 12:17 12:17 WBC (4.4-10.8) 10^3/uL 12.70 H RBC (3.93-5.22) 10^6/uL 4.62 Hgb (11.2-15.7) g/dL 13.9 Hct (36.0-46.0) % 41.0 MCV (80-95) fL 88.7 MCH (27.0-33.0) pg 30.1 MCHC (32.0-36.0) % 33.9 RDW (11.7-14.6) % 11.9 Plt Count (130-400) 10^3/uL 349 MPV (8.0-11.0) fL 10.1 Immature Gran % 0.2 Neutrophils % 75.0 Lymphocytes % 16.0 Monocytes % 8.5 Eosinophils % 0.1 Basophils % 0.2 Nucleated RBC % % 0 Absolute Neutrophils (1.2-6.7) 10^3/uL 9.53 H Absolute Lymphocytes (1.2-3.4) 10^3/uL 2.03 Absolute Monocytes (0.1-0.8) 10^3/uL 1.08 H Absolute Eosinophils (0.0-0.7) 10^3/uL 0.01 Absolute Basophils (0.0-0.2) 10^3/uL 0.03 ESR (0-30) mm/hr 27 Sodium (136-145) mmol/L 135 L Potassium (3.5-5.1) mmol/L 3.3 L Chloride (98-107) mmol/L 95 L Carbon Dioxide (21.0-32.0) mmol/L 31.3 Anion Gap (3-11) mmol/L 8.7 BUN (7-18) mg/dL 22 H D Creatinine (0.55-1.02) mg/dL 1.1 H Estimated GFR/1.73 m2 (mL/min/1.73m2) 49.69 Glucose (74-106) mg/dL 125 H Calcium (8.5-10.1) mg/dL 9.4
[2020-08-22 13:11] VITALS: BP 127/78; PULSE 62; RESP 16; O2SAT 97
[2020-08-22 14:11] VITALS: BP 121/78; PULSE 62; RESP 17; O2SAT 97
== END 2020-08-22 14:36 | disposition home or self-care (01) ==
PROVIDERS: Emergency Provider Physician Assistant; PCP Nurse Practitioner Family
DX: E87.6 Hypokalemia (principal); R51.9 Headache, unspecified; G89.29 Other chronic pain; R11.2 Nausea with vomiting, unspecified
CPT/HCPCS: 36415; 80048; 85652; 96361; 96374; 96375; 99284; 70450; 85025; J0131; J0780; J1100; J2060

== ENCOUNTER 2020-09-04 15:03 | Outpatient (REF) | payer OTHER, MEDICAID, SELFPAY ==
[2020-09-04 19:36] LABS: Magnesium 2.5 mg/dL (1.8-2.4); Potassium 4.6 mmol/L (3.5-5.1)
== END 2020-09-04 15:04 | disposition home or self-care (01) ==
LOC: NCHCN 15:03
PROVIDERS: PCP Nurse Practitioner Family; Visit Provider Nurse Practitioner Family
DX: E87.6 Hypokalemia (principal); G43.709 Chronic migraine without aura, not intractable, without status migrainosus
CPT/HCPCS: 83735; 84132

== ENCOUNTER 2020-09-22 11:10 | Outpatient (REF) | payer OTHER, MEDICAID, SELFPAY ==
--- NOTE | 2020-09-22 11:00 | ENDO_PTH ---
PATIENT: Lucinda Aguero LOC: [facility] U#:[id number] AGE/SX: 64/F ROOM: RE09/22/[address]: Sharon Avila DO : 1955 BED: DIS: 09/22/2020 SPEC #: [id number] RECD: 09/22/20 13:05 STATUS: [facility] #: [id number] CONSTANCE: 09/22/20 11:[address]: Sharon Avila DEPT: Surgical Specimen RECD BY: Charlee Dick ENTERED: 09/22/20 13:06 SP TYPE: Endo OTHR DR: Rayne Stratton Tissues: 1 - ENDOCERVICAL BX/CURRETTE 2 - CERVICAL BIOPSY Procedures: GROSS AND MICRO LEVEL 4 Comments: [id number] (#1 - TISSUE DID NOT SURVIVE PROCESSING)
== END 2020-09-22 11:11 | disposition home or self-care (01) ==
LOC: LBN 11:10
PROVIDERS: PCP Nurse Practitioner Family; Visit Provider Obstetrics & Gynecology
DX: R87.810 Cervical high risk human papillomavirus (HPV) DNA test positive (principal); N87.9 Dysplasia of cervix uteri, unspecified
CPT/HCPCS: 88305

== ENCOUNTER → 2020-10-28 09:22 | Outpatient (BNVA) | payer OTHER, MEDICAID, SELFPAY | PROVIDERS: PCP Nurse Practitioner Family; Visit Provider Nurse Practitioner Adult Health | DX: G43.709 Chronic migraine without aura, not intractable, without status migrainosus (principal) | CPT/HCPCS: 99212; 99213 ==

== ENCOUNTER 2021-04-15 12:50 | Emergency (ER) | payer OTHER, MEDICAID, SELFPAY ==
[2021-04-15] VITALS (39 sets, daily range): BP systolic 118–146; BP diastolic 60–97; PULSE 58–108; RESP 9–23; TEMP 36.6–36.7; O2SAT 92–97
--- NOTE | 2021-04-15 13:15 | RT.EKG_ITS ---
APPROVED REPORT Exam: Resting ECG Reason for Exam: dizziness Patient Location: E HR:84 bpm ECG Measurements Heart Rate 84 AXIS WA 131 P 78 QRSd 80 QRS 59 QT 383 T 56 QTc 453 Conclusion Sinus rhythm...normal P axis, V-rate 60- 99. Sinus. Normal axis. No STEMI. I have reviewed and interpreted ECG and agree with software generated interpretation.
--- NOTE | 2021-04-15 13:28 | ED.GENADUL_ITS ---
Discharge Plan Disposition Patient Disposition: HOME Condition: Improving Discharge Details Clinical Impression: Dizziness, Vomiting, Hypokalemia Primary Care Provider: Rayne Stratton ED Provider: Edmundo Garcia Home Meds and New Rx's Prescriptions: Continued aspirin [Aspirin Low Dose] 81 mg tablet,delayed release (DR/EC) 81 mg PO DAILY Qty: 1 0RF cholecalciferol (vitamin D3) 50 mcg (2,000 unit) capsule 50 mcg PO DAILY 0RF riboflavin (vitamin B2) 100 mg tablet 100 mg PO BID 0RF vitamin E (dl, acetate) 400 unit capsule 450 mg PO DAILY 0RF magnesium 250 mg tablet 500 mg PO BID 0RF ascorbate calcium (vitamin C) 500 mg tablet 500 mg PO BID 0RF triamcinolone acetonide 0.1 % cream 1 applic TP DAILY PRN0RF omeprazole 40 mg capsule,delayed release(DR/EC) 40 mg PO BID 0RF multivitamin Capsule 1 cap PO DAILY 0RF prochlorperazine maleate 5 mg tablet See Rx Instructions PO TID PRN (Reason: nausea and vomiting) Qty: 30 2RF Rx Instructions: Take 1-2 tablets every 8 hours as needed for headaches. epinephrine [EpiPen 2-Alexandro] 0.3 mg/0.3 mL auto-injector 0.3 mg IM ONCE PRN0RF Rx Instructions: as a single dose ibandronate 150 mg tablet 150 mg PO DIRECTED 0RF Label Comments: TK 1 T PO Q MONTH FOR OSTEOPOROSIS Rx Instructions: 150 mg orally monthly promethazine 12.5 mg suppository 12.5 mg NM TID PRNQty: 12 0RF Rx Instructions: do not give 3rd daily dose after evening meal or within 4hr before bed ondansetron HCl [Zofran] 4 mg tablet 4 mg PO Q8H Qty: 7 0RF potassium chloride 20 mEq tablet,ER particles/crystals 20 meq PO DAILY Qty: 7 0RF Discharge Instructions Instructions: Hypokalemia (ED), Dizziness (ED) Additional Instructions: Please follow-up with your primary care physician. Please return to the emergency department if you are unable to keep down food or if you have persistent dizziness. Please return for any other neurologic symptomatology such as weakness balance issues change in sensation severe headaches. Ensure to stay hydrated at home consider buying electrolyte solution such as Pedialyte or Gatorade. Discharge Data Discharge Date/Time-TO BE ENTERED AT DEPARTURE: 04/15/21 19:42 Medical Decision Making <HOLLAND Wilson - Last Filed: 04/16/21 13:32> Patient is in a metabolic alkalosis, her chloride is 84, her sodium is 128, her potassium is 2.5 Her creatinine is 1.1, she will likely need admission for further evaluation and assessment and rehydration and electrolyte replacement She is a very weak and dizzy The concern is that her symptoms started abruptly on Tuesday and her vomiting began after the episode of dizziness though my suspicion is her symptoms are related to an acute process, an MRI will help us determine whether or not this is central versus peripheral She has received 20 mEq of potassium IV, 1 L of normal saline and additional 1 L infusion Telemetry monitoring without QTC changes or any EKG changes consistent with hyperkalemia, I do not see that the patient is on any medications but will likely be contributing to her symptoms She denies any active vomiting today Patient has received acetaminophen and Reglan IV and her symptoms are mildly improved She denies any urinary symptoms VBG shows pH of 7.54 MRI of the not show evidence of acute abnormality, patient pending CTA at this time care transferred to Dr. Garcia pending CTA of patient's neck and likely admission Medical Records Medical records reviewed: Yes I reviewed the patient's medical records. Lab Data Lab results reviewed: Yes I reviewed the patient's lab results. <Edmundo Garcia MD - Last Filed: 04/15/21 19:04> Patient is in a metabolic alkalosis, her chloride is 84, her sodium is 128, her potassium is 2.5 Her creatinine is 1.1, she will likely need admission for further evaluation and assessment and rehydration and electrolyte replacement She is a very weak and dizzy The concern is that her symptoms started abruptly on Tuesday and her vomiting began after the episode of dizziness though my suspicion is her symptoms are related to an acute process, an MRI will help us determine whether or not this is central versus peripheral She has received 20 mEq of potassium IV, 1 L of normal saline and additional 1 L infusion Telemetry monitoring without QTC changes or any EKG changes consistent with hyperkalemia, I do not see that the patient is on any medications but will likely be contributing to her symptoms She denies any active vomiting today Patient has received acetaminophen and Reglan IV and her symptoms are mildly improved She denies any urinary symptoms VBG shows pH of 7.54 MRI of the not show evidence of acute abnormality, patient pending CTA at this time care transferred to Dr. Garcia pending CTA of patient's neck and likely admission 19: 00 patient resting comfortably no vomiting, hemodynamically stable, feels much better after meclizine and fluids and electrolyte repletion, ambulatory without assistance, no focal deficits, CTA and MRI unremarkable. Patient does endorse before the vomiting started several days ago she was snow tubing, consider peripheral vertigo related to agitation from activity, low suspicion for central process. Despite electrolyte derangements patient has received adequate fluid repletion and potassium repletion, and is able to take p.o. Given strict return precautions for worsening symptoms. Patient's partner is coming to pick her up HPI <HOLLAND Wilson - Last Filed: 04/16/21 13:32> General Date/Time Provider Initiated Documentation: 04/15/21 13:16 . HPI Narrative: This 65-year-old female with history of cephalgia, hypokalemia, syncope, stroke presents with report of dizziness and headache for Tuesday. Patient states that she was letting on Tuesday and she braced herself, she states that when she planted her hands she felt some pain in her right shoulder. She denies any fall or known whiplash. She states that the headache and dizziness started shortly thereafter. Denies fever or chills. Denies any additional injuries. Her symptoms have been persistent and worsening since Tuesday. She denies prior history of similar symptoms in the past although she does report some mild intermittent headaches. She states this is different. She states that she feels as though she is unable to ambulate secondary to feeling unsteady. She denies any peripheral spinning. Denies any dramatic change in her symptoms today. Denies any new medications. Denies history of coagulopathy. Denies any speech, strength, or sensation change. Does report history of CVA. States she was asymptomatic with the and was found on an incidental MRI several years ago. Related Data Home Medications Medication Instructions Recorded Confirmed multivitamin 1 cap PO DAILY 02/22/19 04/15/21 omeprazole 40 mg capsule,delayed 40 mg PO BID 02/22/19 04/15/21 release triamcinolone acetonide 0.1 % 1 applic TP DAILY PRN 02/22/19 04/15/21 topical cream ibandronate 150 mg tablet 150 mg PO DIRECTED 07/16/19 04/15/21 epinephrine 0.3 mg/0.3 mL 0.3 mg IM ONCE PRN 11/23/19 04/15/21 injection, auto-injector (EpiPen 2-Alexandro) aspirin 81 mg tablet,delayed 81 mg PO DAILY #1 tab 01/23/20 04/15/21 release (Aspirin Low Dose) cholecalciferol (vitamin D3) 50 50 mcg PO DAILY 05/13/20 04/15/21 mcg (2,000 unit) capsule riboflavin (vitamin B2) 100 mg 100 mg PO BID 05/13/20 04/15/21 tablet vitamin E (dl, acetate) 180 mg 450 mg PO DAILY 05/13/20 04/15/21 (400 unit) capsule ascorbate calcium (vitamin C) 500 500 mg PO BID 07/22/20 04/15/21 mg tablet ondansetron HCl 4 mg tablet 4 mg PO Q8H #7 tab 08/22/20 04/15/21 (Zofran) potassium chloride 20 mEq 20 meq PO DAILY #7 tab 08/22/20 04/15/21 tablet,extended release(part/cryst) promethazine 12.5 mg rectal 12.5 mg NM TID PRN #12 ea 08/22/20 04/15/21 suppository magnesium 250 mg tablet 500 mg PO BID tab 10/28/20 04/15/21 prochlorperazine maleate 5 mg See Rx Instructions PO TID PRN #30 03/31/21 04/15/21 tablet tab Previous Rx's Medication Instructions Recorded aspirin 81 mg tablet,delayed 81 mg PO DAILY #1 tab 01/23/20 release (Aspirin Low Dose) ondansetron HCl 4 mg tablet 4 mg PO Q8H #7 tab 08/22/20 (Zofran) potassium chloride 20 mEq 20 meq PO DAILY #7 tab 08/22/20 tablet,extended release(part/cryst) promethazine 12.5 mg rectal 12.5 mg NM TID PRN #12 ea 08/22/20 suppository prochlorperazine maleate 5 mg See Rx Instructions PO TID PRN #30 03/31/21 tablet tab Allergies Allergy/AdvReac Type Severity Reaction Status Date / Time venom-wasp Allergy Anaphylaxis Unverified 04/15/21 13:33 General JENNIFER: 3 Review of Systems <HOLLAND Wilson Last Filed: 04/16/21 13:32> All systems reviewed & are unremarkable except as noted in HPI and below PFSH <HOLLAND Wilson - Last Filed: 04/16/21 13:32> All Active Problems (Updated 04/15/21 @ 19:02 by Edmundo Garcia MD) Dizziness (Acute) Vomiting (Acute) Hypokalemia (Acute) Cephalgia (Acute) Acute hypokalemia (Acute) Stroke (Chronic) Migraine aura without headache (Acute) Syncope (Chronic) Unresponsive episode (Acute) Chronic headaches (Acute) History of peptic ulcer disease (Chronic) GERD (gastroesophageal reflux disease) (Chronic) Eczema (Chronic) Chronic migraine (Chronic) Medical History Chronic migraine Eczema GERD (gastroesophageal reflux disease) History of peptic ulcer disease Migraine aura without headache Stroke Social History Smoking/Tobacco Use Status: Never Smoking risk assessment performed?: Yes Alcohol Intake: former Drug use: Daily Substance use type: marijuana Details: TID for migraines Household members: significant other Housing: apartment Number of Children: 1 number of grandchildren: 2 current occupation: former [employer] Pets and animals: Yes Pets and animals: cat(s) What type of physical activity do you participate in: walking Seatbelt use: always Do you feel safe at home: Yes Do you feel safe in your relationship?: Yes Exam <HOLLAND Wilson - Last Filed: 04/16/21 13:32> Const General: cooperative and ill appearing HENAL Head: normal to inspection Mouth: oral mucosae normal Eyes Pupils: PERRL EOM: EOM intact bilaterally and nystagmus Other: No nystagmus Neck Other: No carotid bruit Chest Chest: normal inspection of the chest Resp Effort & Inspection: normal respiratory effort Auscultation: clear to auscultation bilaterally Cardio Rate: regular rate Rhythm: regular rhythm GI Other: Nontender abdominal exam Skin General skin exam: no rashes or lesions noted Neuro General: patient alert and patient oriented x3 Cranial Nerves: CN's II-XI intact bilaterally, tongue midline and nystagmus Cognition: normal cognition Speech: speech normal Gait: ataxic Motor: strength 5/5 throughout Sensory Exam: no sensory deficits noted Other: No pronator drift, negative [id number], negative heel boothe Sign Out <HOLLAND Wilson - Last Filed: 04/16/21 13:32> Sign Out Data: Sign Out Comment: pending cta neck and likely admission Last updated by Charlee Foley PA at 04/15/21 16:23
--- NOTE | 2021-04-15 13:30 | DI.MRI_ITS ---
Exam(s) MR BRAIN WO EXAM: MR BRAIN WO CLINICAL HISTORY: dizziness, hx of cva, ataxia x 4 days TECHNIQUE: Multiplanar multisequence MRI of the brain was performed. COMPARISON: MR MR BRAIN WO from 12/10/[address] HEAD WO from 08/22/2020 FINDINGS: VENTRICLES AND EXTRA AXIAL SPACES: Normal in size and morphology for the patient's age. MIDLINE SHIFT: None. CEREBRAL PARENCHYMA: Old area of high signal in the left posterior parietal region. Few scattered fo ci of high signal are seen in the more superior left parietal lobe. No focus of restricted diffusion to suggest acute infarct. No space-occupying lesion identified. Stable ogtx-ee-[id number] atrophy. HEMORRHAGE: None. BRAINSTEM/CEREBELLUM: Normal. CALVARIUM: Normal. VISUALIZED PARANASAL SINUSES/MASTOIDS:Clear. [place]: Normal flow void. PITUITARY GLAND: Unremarkable. OTHER FINDINGS: None. IMPRESSION: Stable appearance of old left parietal infarct. Stable mild white matter changes of small vessel dis ease. No acute abnormality. DATA REPOSITORY:
--- NOTE | 2021-04-15 13:30 | DI.CT_ITS ---
Exam(s) CT BRAIN NECK CTA EXAM: CT BRAIN NECK CTA CLINICAL HISTORY: dizziness, hx of cva, ataxia x 4 days. TECHNIQUE: Imaging Protocol: Axial CT angiography was performed with multi-slice acquisition and mu lti-planar and/or 3D reconstructions. CONTRAST MATERIAL: Intravenous: Omnipaque 350 Contrast volume:85 mL COMPARISON: CT CT HEAD WO from 08/22/2020 FINDINGS: CTA Neck W: Aortic arch anatomy: The aortic arch anatomy is bovine Anterior circulation: There is no stenosis at the origin the great vessels off the aortic arch. Both common carotid arteri es ascend with normal luminal diameters. There is no significant plaque at the level of the bilatera l carotid bifurcations nor in the proximal internal carotid arteries on either side. Both internal c arotid arteries are patent in the neck and skull base. Posterior circulation: Tortuous origin of the left vertebral artery off the left subclavian artery. But no obvious stenosis . Both vertebral arteries ascend in the foramen transverse area with no evidence of intraluminal maria eugenia ling defects nor dissection. Both vertebral arteries are thin at the skull base but contribute to th e formation of the basilar artery. CTA Brain W: Anterior circulation: Both internal carotid arteries are patent in the skull base and cavernous sinuses. Supraclinoid aspe cts are patent. A1 segments are patent. Both anterior cerebral arteries are patent. There is no an eurysm at the level of the anterior communicating artery. Both middle cerebral arteries are patent. Posterior circulation: Basilar artery is patent. Distally gives off superior cerebellar arteries and above this level termi nates as patent bilateral posterior cerebral arteries. There is no aneurysm of the tip of the basila r artery. CT BRAIN: There is no evidence of intracranial hemorrhage, mass effect, or shift of midline structures. There are no extra-axial fluid collections. Ventricles are not enlarged or shifted. There are no ring enh ancing lesions in the brain and no abnormal meningeal enhancement. IMPRESSION: 1. Patent carotid and vertebral arteries in the neck. No significant stenosis evident at the carotid bifurcation and proximal internal carotid arteries. 2. Patent intracranial arteries. 3. No significant intracranial findings. RADIATION DOSE DELIVERED: 1,782.68mGy.cm Total DLP DATA REPOSITORY: All CT scans at this facility are submitted to the National Radiology Data Registry (NRDR) Dose Index Registry (DIR) with the [employer] (ACR). RADIATION OPTIMIZATION: All CT scans at this facility use at least one of these dose optimization te chniques: automated exposure control; mA and/or kV adjustment per patient size (includes targeted exa ms where dose is matched to clinical indication); or iterative reconstruction.
[2021-04-15] MEDS: Normal Saline 1,000 ML 1000 ML IV (13:52)
[2021-04-15] MEDS: Metoclopramide 10 MG/2 ML VIAL IVP (13:52)
[2021-04-15] MEDS: ACETAMINOPHEN 1,000 MG/100 ML BTL 400 MG IVPB (13:53)
[2021-04-15 14:02] LABS: Abs Immature Grans 0.05 10^3/uL (0.0-0.06); Absolute Basophil Count 0.03 10^3/uL (0.0-0.2); Absolute Eosinophil Count 0.08 10^3/uL (0.0-0.7); Absolute Monocyte Count 1.05 10^3/uL (0.1-0.8); Absolute Neutrophil Count 9.86 10^3/uL (1.2-6.7); Basophils % 0.2; Eosinophils % 0.6; HGB 15.1 g/dL (11.2-15.7); Immature Grans % 0.4; Lymphocytes % 19.6; MCH 30.1 pg (27.0-33.0); MCHC 34.3 % (32.0-36.0); MCV 87.8 fL (80-95); MPV 10.2 fL (8.0-11.0); Monocytes % 7.6; Neutrophils % 71.6; Nucleated RBC 0 %; Platelet Count 386 10^3/uL (130-400); RBC 5.01 10^6/uL (3.93-5.22); RDW 11.9 % (11.7-14.6); WBC 13.77 10^3/uL (4.4-10.8)
[2021-04-15 14:18] LABS: ALT 17 U/L (14-59); AST 17 U/L (15-37); Albumin 3.9 g/dL (3.4-5.0); Alkaline Phosphatase 64 U/L (46-116); Anion Gap 4.4 mmol/L (3-11); BUN 22 mg/dL (7-18); Bilirubin, Total 1.1 mg/dL (0.2-1.0); CO2 39.6 mmol/L (21.0-32.0); CREATININE 1.1 mg/dL (0.55-1.02); Calcium 9.7 mg/dL (8.5-10.1); Chloride 84 mmol/L (98-107); Estimated GFR 49.54 (mL/min/1.73m2); Glucose 140 mg/dL (74-106); Magnesium 2.2 mg/dL (1.8-2.4); Sodium 128 mmol/L (136-145); TSH (W/Ref FT4) 1.38 uIU/mL (0.36-3.74); Total Protein 7.8 g/dL (6.4-8.2); Troponin I < 50 ng/L (<or=60)
[2021-04-15 14:19] LABS: Potassium 2.5 mmol/L (3.5-5.1)
[2021-04-15 14:40] LABS: BE (Venous) > 15 mmol/L (-2-3); HCO3 (Venous) 43 mmol/L (23-28); O2 Sat (Venous) 78 %; TCO2 (Venous) 37 mmol/L (24-29); pCO2 (Venous) 51 mmHg (41-51); pH (Venous) 7.54 (7.31-7.41); pO2 (Venous) 41 mmHg
[2021-04-15] MEDS: Potassium Chloride 20 MEQ TABCR 40 MEQ PO (14:53)
[2021-04-15] MEDS: Normal Saline 1,000 ML 200 ML IV (14:57)
[2021-04-15] MEDS: POTASSIUM CHLORIDE 20 MEQ/100 ML BAG 50 MEQ IVPB (15:01)
[2021-04-15] MEDS: Normal Saline Flush 10 ML SYR IVP (16:09)
[2021-04-15] MEDS: Omnipaque 350 MG/ML 100 ML BTL IJ (16:09)
[2021-04-15] MEDS: Meclizine 25 MG TAB PO (17:19)
--- NOTE | 2021-04-15 17:53 | DI.VRAD_ITS ---
PROCEDURE INFORMATION: Exam: CT Head Without Contrast Exam date and time: 04/15/2021 4:35 PM Age: 65 years old Clinical indication: Dizziness and giddiness and other: Ataxia x 4 days; Patient HX: HX of CVA TECHNIQUE: Imaging protocol: Computed tomography of the head without contrast. COMPARISON: MR BRAIN WO 04/15/2021 3:16 PM FINDINGS: Brain: Normal. No hemorrhage. Unremarkable white matter. No mass effect. Cerebral ventricles: No ventriculomegaly. Paranasal sinuses: Visualized sinuses are unremarkable. No fluid levels. Mastoid air cells: Visualized mastoid air cells are well aerated. Bones/joints: Unremarkable. No acute fracture. Soft tissues: Unremarkable. IMPRESSION: No acute intracranial abnormality. PROCEDURE INFORMATION: Exam: CT Angiography Head With Contrast, Arteriography Exam date and time: 04/15/2021 4:35 PM Age: 65 years old Clinical indication: Dizziness and giddiness and other: Ataxia x 4 days; Patient HX: HX of CVA TECHNIQUE: Imaging protocol: Computed tomography angiography of the head with contrast. Exam focused on the arteries. 3D rendering (Not supervised by radiologist): MIP and/or 3D reconstructed images were created by the technologist. Radiation optimization: All CT scans at this facility use at least one of these dose optimization techniques: automated exposure control; mA and/or kV adjustment per patient size (includes targeted exams where dose is matched to clinical indication); or iterative reconstruction. Contrast material: OMNIPAQUE 350; Contrast volume: 85 ml; Contrast route: INTRAVENOUS (IV); COMPARISON: MR BRAIN WO 04/15/2021 3:16 PM FINDINGS: ANTERIOR CIRCULATION: Right internal carotid artery: Unremarkable. Intracranial segment is patent with no significant stenosis. No aneurysm. Right middle cerebral artery: Unremarkable. No occlusion or significant stenosis. No aneurysm. Right anterior cerebral artery: Unremarkable. No occlusion or significant stenosis. No aneurysm. Left internal carotid artery: Unremarkable. Intracranial segment is patent with no significant stenosis. No aneurysm. Left middle cerebral artery: Unremarkable. No occlusion or significant stenosis. No aneurysm. Left anterior cerebral artery: Unremarkable. No occlusion or significant stenosis. No aneurysm. POSTERIOR CIRCULATION: Right vertebral artery: Unremarkable. No occlusion or significant stenosis. No aneurysm. Left vertebral artery: Unremarkable. No occlusion or significant stenosis. No aneurysm. Basilar artery: Unremarkable. No occlusion or significant stenosis. No aneurysm. Right posterior cerebral artery: Unremarkable. No occlusion or significant stenosis. No aneurysm. Left posterior cerebral artery: Unremarkable. No occlusion or significant stenosis. No aneurysm. Brain: No definite mass, mass effect, or midline shift. Cerebral ventricles: No ventriculomegaly. Bones/joints: Unremarkable. No acute fracture. Soft tissues: Unremarkable. IMPRESSION: No large vessel stenosis or occlusion. PROCEDURE INFORMATION: Exam: CT Angiography Neck With Contrast Exam date and time: 04/15/2021 4:35 PM Age: 65 years old Clinical indication: Dizziness and giddiness and other: Ataxia x 4 days; Patient HX: HX of CVA TECHNIQUE: Imaging protocol: Computed tomography angiography of the neck with contrast. 3D rendering (Not supervised by radiologist): MIP and/or 3D reconstructed images were created by the technologist. Radiation optimization: All CT scans at this facility use at least one of these dose optimization techniques: automated exposure control; mA and/or kV adjustment per patient size (includes targeted exams where dose is matched to clinical indication); or iterative reconstruction. Contrast material: OMNIPAQUE 350; Contrast volume: 85 ml; Contrast route: INTRAVENOUS (IV); COMPARISON: MR BRAIN WO 04/15/2021 3:16 PM FINDINGS: Right common carotid artery: No stenosis. No dissection or occlusion. Right internal carotid artery: No stenosis of the extracranial segment. No dissection or occlusion. Right external carotid artery: No occlusion or stenosis of the origin. Left common carotid artery: No stenosis. No dissection or occlusion. Left internal carotid artery: No stenosis of the extracranial segment. No dissection or occlusion. Left external carotid artery: No occlusion or stenosis of the origin. Right vertebral artery: No stenosis. No dissection or occlusion. Left vertebral artery: No stenosis. No dissection or occlusion. Aorta: There is a bovine aortic arch, with a common origin of the left common carotid and brachiocephalic artery. Soft tissues: Normal. No significant soft tissue swelling. Bones/joints: No acute fracture. IMPRESSION: No stenosis or occlusion. REFERENCES: NASCET CRITERIA. The degree of internal carotid artery stenosis is based on NASCET criteria. Normal is no stenosis. Mild is less than 50% stenosis. Moderate is 50-69% stenosis. Severe is 70% to 99% stenosis. Total occlusion is no detectable patent lumen. Dictated and Authenticated by: Zabrina Ayon MD. Ordering:GITA Deshpande MD
== END 2021-04-15 19:42 | disposition home or self-care (01) ==
PROVIDERS: Physician Assistant; Emergency Provider Emergency Medicine; PCP Nurse Practitioner Family
DX: R42 Dizziness and giddiness (principal); E87.6 Hypokalemia; R11.10 Vomiting, unspecified; E87.3 Alkalosis; R27.8 Other lack of coordination
CPT/HCPCS: 36415; 70496; 70498; 80053; 82805; 93005; 96361; 96365; 96366; 96367; 96375; 99285; 70551; 83735; 84443; 84484; 85025; 93010; 99284; J0131; J2765; J3480; J3490

== ENCOUNTER → 2021-04-28 10:55 | Outpatient (BNVA) | payer OTHER, MEDICAID, SELFPAY | PROVIDERS: PCP Nurse Practitioner Family; Referring Provider Nurse Practitioner Family; Visit Provider Nurse Practitioner Adult Health | DX: G43.109 Migraine with aura, not intractable, without status migrainosus (principal) | CPT/HCPCS: 99213 ==

== ENCOUNTER 2021-05-19 10:55 | Outpatient (CLI) | payer OTHER, MEDICAID, SELFPAY ==
--- NOTE | 2021-05-19 10:00 | DI.RAD_ITS ---
Exam(s) XR SHOULDER RT COMPLETE 2+V EXAM: XR SHOULDER RT COMPLETE 2+V CLINICAL HISTORY: right shoulder pain. TECHNIQUE: 2D digital imaging was performed of the right shoulder. Two images were obtained. AP an d axillary views were obtained. COMPARISON: No exams were available for comparison FINDINGS: BONES: No acute fracture is present. No bony destructive lesion is seen. JOINTS: No dislocation present. Mild degenerative changes are seen at the acromioclavicular joint and the greater tuberosity. SOFT TISSUE: Normal. IMPRESSION: Mild degenerative changes of the shoulder. DATA REPOSITORY: RADIATION DOSE DELIVERED:
== END 2021-05-19 10:56 | disposition home or self-care (01) ==
LOC: DIORS 10:55
PROVIDERS: PCP Nurse Practitioner Family; Referring Provider Nurse Practitioner Family; Visit Provider Student in an Organized Health Care Education/Training Program
DX: M25.511 Pain in right shoulder (principal); S46.011A Strain of muscle(s) and tendon(s) of the rotator cuff of right shoulder, initial encounter; X58.XXXA Exposure to other specified factors, initial encounter
CPT/HCPCS: 99204; 99214; 73030

== ENCOUNTER → 2021-06-25 03:04 | Outpatient (CLI) | payer OTHER, MEDICAID, SELFPAY ==
--- NOTE | 2021-06-25 13:25 | DI.MAMMO_ITS ---
Exam(s) MAMMO SCREENING EXAM: MAMMO SCREENING CLINICAL HISTORY: SCREENING FOR BREAST CANCER Z12.39 TECHNIQUE: Mammograms were interpreted according to the usual protocol including computer analysis w [employer] CAD system, tomosynthesis and C-view imaging. COMPARISON: FINDINGS: The breasts are of moderate density with fairly symmetrical distribution of fibroglandular tissue. N o dominant mass or clumped microcalcification is identified in either breast. The current examinatio n is compared with previous examination of February 2019 and there has been no gross interval change i n appearance in comparison with the prior study. IMPRESSION: No specific evidence of malignancy at this time. Routine screening examinations are suggested at yea rly intervals in this age group according to the ACS ACR guidelines. BI-RADS Category 1 - Negative Breast Density - Category B - Scattered areas of fibroglandular density
== END ==
PROVIDERS: PCP Nurse Practitioner Family; Visit Provider Nurse Practitioner Family
DX: Z12.31 Encounter for screening mammogram for malignant neoplasm of breast (principal)
CPT/HCPCS: 77063; 77067

== ENCOUNTER → 2021-06-30 09:42 | Outpatient (BNVA) | payer OTHER, MEDICAID, SELFPAY | PROVIDERS: PCP Nurse Practitioner Family; Visit Provider Nurse Practitioner Adult Health | DX: G43.709 Chronic migraine without aura, not intractable, without status migrainosus (principal) | CPT/HCPCS: 99213; 99214 ==

== ENCOUNTER → 2021-07-14 09:50 | Outpatient (BNVA) | payer OTHER, MEDICAID, SELFPAY | PROVIDERS: PCP Nurse Practitioner Family; Referring Provider Nurse Practitioner Family; Visit Provider Student in an Organized Health Care Education/Training Program | DX: X58.XXXA Exposure to other specified factors, initial encounter (principal); S46.011A Strain of muscle(s) and tendon(s) of the rotator cuff of right shoulder, initial encounter | CPT/HCPCS: 99214 ==

== ENCOUNTER → 2021-08-20 01:54 | Outpatient (CLI) | payer OTHER, MEDICAID, SELFPAY ==
--- NOTE | 2021-08-20 06:45 | DI.MRI_ITS ---
Exam(s) MR UPPER JOINT RT WO EXAM: MR UPPER JOINT RT WO CLINICAL HISTORY: R SHOULDER PAIN,TRAUMATIC TEAR RT ROTATOR CUFF,[id number]. TECHNIQUE: Multiplanar multisequence MRI was performed. COMPARISON: No exams were available for comparison FINDINGS: BONES: There is no fracture or contusion pattern. JOINTS: The acromioclavicular joint is normal. The glenohumeral joint is normal. TENDONS: Supraspinatus: There is thickening and intermediate signal in the supraspinatus tendon consistent wit h tendinosis. Infraspinatus: Unremarkable. Subscapularis: There is tendinosis of the subscapularis tendon. Hyperintense signal is seen at the i nsertion site consistent with a partial tear. Teres Minor: Unremarkable. Biceps and Mclaughlin: Unremarkable. MUSCLES: Unremarkable. GLENOID LABRUM: Unremarkable on this noncontrast examination. SOFT TISSUES: Unremarkable. LIGAMENTS: Unremarkable. OTHER: There is a large amount of fluid in the subacromial subdeltoid bursa. IMPRESSION: 1. Supraspinatus tendinosis. 2. Subscapularis tendinosis. Hyperintense signal seen at the insertion site consistent with a partial tear. 3. Large amount of fluid in the subacromial subdeltoid bursa suspicious for bursitis. DATA REPOSITORY:
== END ==
PROVIDERS: PCP Nurse Practitioner Family; Visit Provider Student in an Organized Health Care Education/Training Program
DX: M77.8 Other enthesopathies, not elsewhere classified (principal); M25.411 Effusion, right shoulder
CPT/HCPCS: 73221

== ENCOUNTER → 2021-08-26 13:48 | Outpatient (BNVA) | payer OTHER, MEDICAID, SELFPAY | PROVIDERS: PCP Nurse Practitioner Family; Referring Provider Nurse Practitioner Family; Visit Provider Student in an Organized Health Care Education/Training Program | DX: X58.XXXA Exposure to other specified factors, initial encounter (principal); M75.21 Bicipital tendinitis, right shoulder; M75.51 Bursitis of right shoulder; S46.011A Strain of muscle(s) and tendon(s) of the rotator cuff of right shoulder, initial encounter | CPT/HCPCS: 20610; 99214; J1030 ==

== ENCOUNTER → 2021-10-28 10:48 | Outpatient (BNVA) | payer OTHER, MEDICAID, SELFPAY | PROVIDERS: PCP Nurse Practitioner Family; Referring Provider Nurse Practitioner Family; Visit Provider Student in an Organized Health Care Education/Training Program | DX: V00.228A Other sled accident, initial encounter (principal); Y93.23 Activity, snow (alpine) (downhill) skiing, snowboarding, sledding, tobogganing and snow tubing; S46.011A Strain of muscle(s) and tendon(s) of the rotator cuff of right shoulder, initial encounter; M75.21 Bicipital tendinitis, right shoulder; M75.51 Bursitis of right shoulder | CPT/HCPCS: 99214 ==

== ENCOUNTER 2021-11-19 09:21 | Day surgery (SDC) | payer OTHER, MEDICAID, SELFPAY ==
[2021-11-19] VITALS (10 sets, daily range): BP systolic 83–118; BP diastolic 46–76; PULSE 45–61; RESP 9–18; TEMP 36.1–36.6; O2SAT 94–100; BMI 30.9
--- NOTE | 2021-11-19 08:53 | W.ANESPRE ---
General Info Date of Service Date Performed: 11/19/21 Height: 5 ft 2 in Weight: 76.657 kg Body Mass Index (BMI): 30.9 Surgical Procedure: Operation Date: 11/19/21 10:25 Proposed Procedure Side Surgeon p Possible Shoulder Rotator Cuff Arthroscopic w/Extensive Debridement, Biceps Tenodesis, Subacromial Decompression Right Josemanuel Zhao MD Meds Allergies and Home Medications Allergies Allergy/AdvReac Type Severity Reaction Status Date / Time venom-wasp Allergy Anaphylaxis Unverified 11/18/21 12:31 Home Medication Medication Instructions Recorded multivitamin 1 cap PO DAILY 02/22/19 omeprazole 40 mg capsule,delayed 40 mg PO BID 02/22/19 release triamcinolone acetonide 0.1 % 1 applic topical DAILY PRN 02/22/19 topical cream ibandronate 150 mg tablet 150 mg PO DIRECTED 07/16/19 epinephrine 0.3 mg/0.3 mL 0.3 mg IM ONCE PRN 11/23/19 injection, auto-injector (EpiPen 2-Alexandro) aspirin 81 mg tablet,delayed 81 mg PO DAILY #1 tab 01/23/20 release (Gareth Low Dose Aspirin) cholecalciferol (vitamin D3) 50 50 mcg PO DAILY 05/13/20 mcg (2,000 unit) capsule riboflavin (vitamin B2) 100 mg 100 mg PO BID 05/13/20 tablet vitamin E (dl, acetate) 180 mg 450 mg PO DAILY 05/13/20 (400 unit) capsule ascorbate calcium (vitamin C) 500 500 mg PO BID 07/22/20 mg tablet potassium chloride 20 mEq 20 meq PO DAILY #7 tabs 08/22/20 tablet,extended release(part/cryst) promethazine 12.5 mg rectal 12.5 mg AL TID PRN #12 ea 08/22/20 suppository magnesium 250 mg tablet 500 mg PO BID 10/28/20 prochlorperazine maleate 5 mg See Rx Instructions .Route 06/30/21 tablet .COMPLEX #30 tabs rimegepant 75 mg disintegrating 75 mg PO Q OTHER DAY migraine 06/30/21 tablet (Nurtec ODT) headache #45 tabs Current Visit Medications: Current Medications Generic Name Dose Route Start Last Admin Trade Name Freq PRN Reason Stop Dose Admin Ringer's Solution 1,000 mls @ 30 mls/hr 11/19/21 06:00 IV 10/28/22 23:59 INFUSION SALLIE Cefazolin Sodium/Dextrose 2 gm in 50 mls @ 100 mls/hr 11/19/21 06:00 Ancef Duplex IVPB 12/18/21 23:59 PREOP SALLIE IV Miscellaneous Supplies 1 each 11/19/21 06:00 Iv Access IV 12/18/21 23:59 DIRECTED SALLIE Oxycodone HCl 0 mg 11/19/21 07:13 Oxycodone 5 Mg Tab PO Q3H PRN PRN Pain Sodium Chloride 0 ml 11/19/21 06:00 Normal Saline Flush 10 Ml Syr IV 12/18/21 23:59 PRN PRN Sodium Chloride 0 ml 11/19/21 06:00 Normal Saline 10 Ml Vial IJ 12/18/21 23:59 DIRECTED PRN Sterile Water 0 ml 11/19/21 06:00 Water,Injection,Sterile 10 Ml Vial IJ 12/18/21 23:59 DIRECTED PRN PFSH Active Problems Active Problems: Problem Status Onset Code Bursitis of right shoulder M75.51 Tendonitis of long head of biceps brachii of right shoulder M75.21 Traumatic tear of right rotator cuff ~04/2021 S46.011A Cephalgia R51.9 Acute hypokalemia E87.6 Stroke I63.9 Migraine aura without headache G43.109 Syncope R55 Unresponsive episode R41.89 Chronic headaches R51.9, G89.29 History of peptic ulcer disease Z87.11 GERD (gastroesophageal reflux disease) K21.9 Eczema L30.9 Chronic migraine G43.709 Tobacco Smoking/Tobacco Use Status: Never Alcohol Alcohol Intake: former Substance Use Substance use: Daily Substance use type: marijuana Vital Signs and Lab Results Lab Results Blood Type / Crossmatch: No Data to Display Complete Blood Count: No Data to Display Complete Metabolic Panel: No Data to Display Liver Function Panel: No Data to Display Coagulation Panel: No Data to Display Cardiac Panel: No Data to Display Arterial Blood Gas: No Data to Display Venous Blood Gas: No Data to Display Pancreas Panel: No Data to Display Thyroid Panel: No Data to Display Infectious Disease: No Data to Display Blood Cultures: No Data to Display Toxicology Panel: No Data to Display Imaging and Studies Imaging and Studies Study information below may be from another EMR and interpreted by another provider. Please see original notes in EMR for more complete details. EKG Summary: 04/15/2021: Exam: Resting ECG Reason for Exam: dizziness Patient Location: E HR:84 bpm ECG Measurements Heart Rate 84 AXIS AL 131 P 78 QRSd 80 QRS 59 QT 383 T56 QTc 453 Conclusion Sinus rhythm...normal P axis, V-rate 60- 99. Sinus. Normal axis. No STEMI. I have reviewed and interpreted ECG and agree with software generated interpretation. Carotid Artery Summary:: 01/31/2020: FINDINGS: Duplex evaluation of the carotid circulation was performed according to the usual protocol. There is bilateral antegrade vertebral flow. There is little if any visible atheromatous plaque in the carotid circulation. Flow velocities in the common, internal, and external carotid arteries are within normal limits on Doppler evaluation. IMPRESSION: No evidence of a hemodynamically significant carotid stenosis. Anesthesia Assessment and Plan Anesthesia History Personal History: No History of Anesthesia Complications Family History: No Family History of Anesthesia Complications Exercise Tolerance Exercise Tolerance: Metabolic Equivalents>4 Cardiac & Pulmonary Exam Cardiac Exam: Normal S1/S2 Heart Sounds Pulmonary Exam: Clear Bilateral Breath Sounds Implantable Cardiac Device Does patient have a Pacemaker or an ICD?: No Airway Exam Known Difficult Airway: No Mallampati Class: 2 Mouth Opening: Normal (> 3cm) Thyromental Distance: Greater than 3 cm Neck Range of Motion: Full ROM Neck Circumference: Normal Teeth Condition: Normal Dentition Airway Comments: Significant jaw clicking bilaterally ASA Classification ASA Score: ASA 2 Emergency Case?: No NPO Status NPO Status: NPO Clears >2 hours, Solids >8 hours Anesthesia Plan Resuscitation Status: Full Code Anesthesia Technique: General Anesthesia Airway Planned: Endotracheal Tube Pain Management: Surgeon and patient request nerve block Monitors Used: Standard Monitors
[2021-11-19] MEDS: Lactated Ringers 1,000 ML 30 ML IV (10:01)
[2021-11-19] MEDS: ceFAZolin 2 GM/50 ML BAG IVPB (11:50)
--- NOTE | 2021-11-19 12:00 | ROE_ITS ---
Operative Note Operative Note DATE OF PROCEDURE: 11/19/21 PRE-OP DIAGNOSIS: Right: 1. Rotator cuff tear 2. LHB tendinopathy 3. Bursitis POST-OP DIAGNOSIS: same PROCEDURE: Right: 1. Rotator cuff repair, CPT# 33822. This involved repair of the supraspinatus using anchors and sutures to reattach the rotator cuff back to the footprint of the greater tuberosity. 2. Arthroscopic biceps tenodesis, CPT# 55908. This involved arthroscopically suturing and reattaching the long head of the biceps tendon to the proximal humerus at the superior margin of the bicipital groove with a screw at the correct tension. 3. Extensive debridement, CPT# 39427. This involved using arthroscopic hand instruments, power instruments, and radiofrequency instruments to release the long head of the biceps tendon and debride areas of labral tearing, synovitis, and chondromalacia about the biceps groove and greater tuberosity within the glenohumeral joint anteriorly, superiorly and posteriorly. 4. Subacromial decompression with partial acromioplasty, CPT# 61324. This involved using arthroscopic power instruments and a radiofrequency wand to complete a bursectomy and remove bone spurs on the undersurface of the acromion. 5. Arthroscopic distal clavicle excision, CPT# 88889. This involved arthroscopically exposing the underside of the acromioclavicular joint, smoothing out bone spurs, and removing a few mm of the distal clavicle so there was no bone left engaging the acromion. The medical administrative assistant was medically required in order to help assist in techniques above, which require positioning the arm, holding the arthroscope, and manipulating multiple instruments and sutures at the same time. This cannot be done without the help of an experienced medical administrative assistant. SURGEON: Josemanuel Zhao PEN TENDER: Gabbie Simon ANESTHESIA TYPE: General LMA/ETT and Primary Nerve Block Refer to Anesthesia Record ESTIMATED BLOOD LOSS: 10 PATHOLOGY: none sent COMPLICATIONS: None Patient was transported to: PACU Patient's condition: stable Implants: Arthrex: 4.75mm SwiveLocks x 1 Indications: The patient was diagnosed with the above conditions and appropriately indicated for surgical intervention. Please see complete medical record for details. Findings: Exam under anesthesia: Full range of motion, no instability Glenohumeral joint: Significant anterior synovitis. Significant partial intra- articular long head biceps tendon tearing and fraying. Unstable biceps anchor SLAP tear. Intact subscapularis. Full-thickness small anterior supraspinatus rotator cuff tear adjacent to the rotator interval. Intact remainder of articular rotator cuff. Subacromial space: Moderate bursitis. Mild undersurface acromial bone spurring. Moderate impinging distal clavicle on acromion. Full-thickness minimally retracted anterior supraspinatus rotator cuff tear. Procedure Description: In the operating room, general anesthesia was induced. Bilateral shoulders were examined. The patient was positioned in the beachchair position. All bony prominences were well-padded. Preoperative antibiotics were administered. The shoulder was prepped and draped in the usual sterile fashion. The correct patient, procedure, and side of the procedure were all verified prior to incision. Starting through the posterior portal a standard complete diagnostic arthroscopy was performed of the glenohumeral joint including inspection of the long head of the biceps, anterior and superior labrum, subscapularis tendon, supraspinatus and infraspinatus tendons, and axillary recess. The glenoid and humeral head cartilage as well as the posterior labrum were inspected from an anterior viewing portal. Significant findings and interventions noted above. Anterior portal was established. A superior anterior lateral portal was established through the full-thickness rotator cuff tear. The biceps tendon was debrided of partial tearing and then secured with a suture tape FiberLink using the loop and tack method. It was retracted anteriorly out of the way of the rotator cuff repair for later combined reattachment. Starting through the posterior portal, the arthroscope was directed into the subacromial space. A lateral 50 yard line lateral portal was created. A combination of power instruments and a radiofrequency ablator were used to debride bursitis anteriorly, posteriorly, and laterally as well as expose and smooth bone spurring on the undersurface of the acromion. The coracoacromial ligament was partially released. The bursectomy was completed viewing laterally and working from posteriorly and the rotator cuff was thoroughly inspected with findings noted above. The anterior portal was redirected towards the undersurface of the AC joint. A shaver and electrocautery device were used to clear soft tissue from the undersurface of the AC joint. The distalmost 5 mm of the distal clavicle was then removed and smoothed. Care was taken to alternate between working through the anterior portal and viewing through the anterior portal to ensure that proper amount of bone was removed and there was no engaging bone left behind especially superiorly. The rotator cuff tissue was debrided to a healthy margin. It had minimal retraction. The greater tuberosity was also debrided to optimize bone tendon healing. The self retrieving suture passer was used to pass a FiberTape inverted horizontal mattress stitch with generous tissue grabs spanning the entirety of the tear. Shonda cannula was used to confirm provisional reduction over the greater tuberosity to a single lateral location. The biceps tendon repair suture was retrieved out the lateral cannula. The undersized punch was used to localize placement of a lateral anterior suture anchor. The biceps tendon tenodesis suture and supraspinatus repair sutures were loaded on a 4.75 mm SwiveLock anchor which was deployed with appropriate tissue tension and reasonable fixation strength. There was good tissue coverage and reduction of the tendon defect. Repair and biceps tendon was stable through testing and range of motion. A single FiberWire suture was then passed through the most anterior supraspinatus remaining tissue and secured with an [facility] arthroscopic knot completing repair. The shoulder was drained of arthroscopic fluid. All portal sites were copiously irrigated. These incisions were closed using 3-0 Monocryl in a buried fashion and then covered with Mastisol, Steri-Strips, Xeroform, dry gauze, and ABDs. The dressings were covered and secured with Medipore tape. The operative extremity was placed into a sling for immobilization. The patient awoke from anesthesia without complication and was transferred to the recovery room in a stable condition.
--- NOTE | 2021-11-19 12:14 | W.ANESNERVE ---
Nerve Block Single Injection Procedure Date and Time Date Performed: 11/19/21 Procedure Start: 11:25 Location Where Procedure Performed Procedure Location: Day Surgery Unit Reason Performed: Postoperative Analgesia Requesting Provider: Minal Saleh Timeout Performed Timeout Performed: Yes Monitoring Used ECG, Blood Pressure and SpO2 Sterility Sterility: Hand Hygiene, Surgical Cap, Surgical Mask, Sterile Gloves and Chlorhexidine Sedation Given During Procedure Sedation Given (Indicate Dose Given): Versed IV Dose:: 2mg Patient Mental Status Patient Mental Status: Sedate with meaningful communication Nerve Block 1st Nerve Block: Laterality: Right Block Type: Supraclavicular Needle / Catheter Used: 80mm SonoPlex II Local Anesthetic Bolus (Indicate Dose Given): Lidocaine used for local infiltration of skin, Injected in 3-5ml increments after negative blood aspiration and Bupivacaine 0.5% Dose:: 15mL Additives (Indicate Dose Given): Precedex Dose:: 50mcg Ultrasound: Sterile probe cover and gel used Ultrasound Image Saved?: Yes Nerve Stimulator: Not Used Paresthesia: None Procedure Tolerated: No Complications Procedure Outcome: Successful Performed By: Morena Mejia
[2021-11-19] MEDS: EPINEPHrine 30 MG/30 ML VIAL (13:21)
--- NOTE | 2021-11-19 13:39 | W.PM.DSUDISC ---
Discharge Plan Disposition Patient Disposition: HOME Condition: Stable Discharge Details Reason For Visit: Right shoulder surgery Attending Provider: Josemanuel Zhao Primary Care Provider: Rayne Stratton Home Meds and New Rx's Prescriptions: New naproxen 250 mg tablet 250 - 500 mg PO BID PRNQty: 40 0RF Rx Instructions: take with a meal oxycodone 5 mg tablet 5 - 10 mg PO Q4H MDD 30 mg PRN (Reason: moderate to severe pain) Qty: 18 0RF Continued aspirin [Gareth Low Dose Aspirin] 81 mg tablet,delayed release (DR/EC) 81 mg PO DAILY Qty: 1 0RF cholecalciferol (vitamin D3) 50 mcg (2,000 unit) capsule 50 mcg PO DAILY riboflavin (vitamin B2) 100 mg tablet 100 mg PO BID vitamin E (dl, acetate) 400 unit capsule 450 mg PO DAILY magnesium 250 mg tablet 500 mg PO BID ascorbate calcium (vitamin C) 500 mg tablet 500 mg PO BID prochlorperazine maleate 5 mg tablet See Rx Instructions .ROUTE .COMPLEX Qty: 30 3RF Dose Instruction: TAKE 1 TO 2 TABLETS BY MOUTH EVERY 8 HOURS NEEDED FOR NAUSEA OR VOMITING OR HEADACHE Rx Instructions: TAKE 1 TO 2 TABLETS BY MOUTH EVERY 8 HOURS NEEDED FOR NAUSEA OR VOMITING OR HEADACHE Nurtec ODT 75 mg tablet,disintegrating 75 mg PO Q OTHER DAY Qty: 45 3RF Rx Instructions: as a single dose triamcinolone acetonide 0.1 % cream 1 applic TP DAILY PRN omeprazole 40 mg capsule,delayed release(DR/EC) 40 mg PO BID multivitamin Capsule 1 cap PO DAILY epinephrine [EpiPen 2-Alexandro] 0.3 mg/0.3 mL auto-injector 0.3 mg IM ONCE PRN Rx Instructions: as a single dose ibandronate 150 mg tablet 150 mg PO DIRECTED Label Comments: TK 1 T PO Q MONTH FOR OSTEOPOROSIS Rx Instructions: 150 mg orally monthly promethazine 12.5 mg suppository 12.5 mg AK TID PRNQty: 12 0RF Rx Instructions: do not give 3rd daily dose after evening meal or within 4hr before bed potassium chloride 20 mEq tablet,ER particles/crystals 20 meq PO DAILY Qty: 7 0RF Discharge Instructions Additional Instructions: Surgery: Right shoulder arthroscopy with rotator cuff repair, biceps tenodesis, extensive debridement, distal clavicle excision, and subacromial decompression. Activity: For 6 weeks, you should keep your arm at your side in a neutral position at all times except for physical therapy. Do not try to lift or raise your arm using your own muscles. You should use the sling whenever you are out of the house. You may have to adjust the abduction pillow or remove it for comfort. At home it is best to remove the sling and rest the arm on a pillow at your side or support the operative side with your other hand. You may allow the arm to dangle at your side. A physical therapy prescription will be sent electronically to begin in about 3 weeks. Prescriptions: Resume aspirin tomorrow afternoon/evening, 24 hours after surgery Naproxen 250 mg take 1-2 every 12 hours with a meal as needed for moderate pain Oxycodone 5 mg take 1-2 every 4-6 hours as needed for severe pain You may use [id number] Tylenol (acetaminophen) as needed for mild pain. These pain medications may be taken all at once or in different combinations as needed. Also, recommend Colace (docusate) as a stool softener as surgery and pain medicine cause constipation. You may try [id number] diphenhydramine (Benadryl) 25-50 mg nightly as a sleep aid Dressings: Remove shoulder bandage after 3 days. Leave the sticky Steri-Strips in place until they fall off or remove them after you shower. Cover the incisions with Band-Aids or leave them open to air. You may shower after 5 days. Follow-up: 10-[address] Zhao You may take off the leg compression stockings this evening at home. You may also leave them on a few days longer if you have a history of leg swelling or edema. Let us know right away if you develop any redness, drainage, fevers, chest pain, or trouble breathing. Do not drink alcohol or drive for at least 24 hours after anesthesia. Please call the office during business hours with any questions or concerns. Discharge Orders Discharge Orders: Discharge Order (Routine); Ordered 11/19/21 Ordered By: Josemanuel Zhao DS: Diagnosis Discharge Diagnosis (1) Traumatic tear of right rotator cuff: Status: Acute (2) Tendonitis of long head of biceps brachii of right shoulder: Status: Acute (3) Bursitis of right shoulder: Status: Acute
[2021-11-19] MEDS: Ketorolac 15 MG/ML VIAL IVP (13:47)
[2021-11-19] MEDS: fentaNYL 100 MCG/2 ML VIAL IVP ×2 (13:49→14:07)
--- NOTE | 2021-11-19 14:14 | W.ANESPOSTOP ---
Postoperative Evaluation Date, Time and Location Date Performed: 11/19/21 Time Performed: 14:14 Patient Location: PACU Vital Signs Most Recent Imported Vital Signs: Most Recent Vital Signs Temp Pulse Resp BP Pulse Ox 36.2 C L 50 L 13 83/46 L 94 11/19/21 14:01 11/19/21 14:01 11/19/21 14:01 11/19/21 14:01 11/19/21 14:01 Pain Score Most Recent Pain Score: Most Recent Pain Score Pain Level 4 11/19/21 14:01 Assessment Mental Status: Awake (Alert & Oriented to Patient Baseline) Airway and Respiratory Function: Patent airway with normal (patient baseline) respiratory exam Cardiovascular Function: Hemodynamically Stable Hydration Status: Adequately Hydrated Nausea & Vomiting: No Nausea or Vomiting Pain: Pain is tolerable per patient Peripheral Nerve Block: Regional nerve block not resolved at time of post operative discharge
[2021-11-19] MEDS: oxyCODONE 5 MG TAB PO (15:07)
== END 2021-11-19 16:05 | disposition home or self-care (01) ==
PROVIDERS: PCP Nurse Practitioner Family; Visit Provider Student in an Organized Health Care Education/Training Program
PROC: (CPT 29827; principal; 2021-11-19 10:15)
DX: M75.21 Bicipital tendinitis, right shoulder (principal); M75.51 Bursitis of right shoulder; S46.011A Strain of muscle(s) and tendon(s) of the rotator cuff of right shoulder, initial encounter; K21.9 Gastro-esophageal reflux disease without esophagitis; Z87.11 Personal history of peptic ulcer disease; X58.XXXA Exposure to other specified factors, initial encounter
CPT/HCPCS: 29827; 29823; 29828; 29824; 76942; J0690; J1100; J1885; J2250; J2370; J2405; J3010

== ENCOUNTER 2021-11-26 12:02 | Inpatient (IN) | payer OTHER, MEDICAID, SELFPAY ==
[2021-11-26] VITALS (24 sets, daily range): BP systolic 123–161; BP diastolic 50–100; PULSE 55–74; RESP 12–22; TEMP 36.7–37.7; O2SAT 94–99
--- NOTE | 2021-11-26 11:45 | RT.EKG_ITS ---
APPROVED REPORT Exam: Resting ECG Reason for Exam: dizzy Patient Location: E HR:59 bpm ECG Measurements Heart Rate 59 AXIS [place] 137 P 47 QRSd 88 QRS 63 QT 427 T 55 QTc 424 Conclusion Sinus bradycardia...rate< 60
--- NOTE | 2021-11-26 12:15 | DI.CT_ITS ---
Exam(s) CT ABDOMEN PELVIS WO EXAM: CT ABDOMEN PELVIS WO INDICATION: epigastric pain, vomiting. COMPARISON: CT CT BRAIN NECK CTA from 04/15/2021 TECHNIQUE: FINDINGS: CT examination of the abdomen and pelvis was performed without contrast administration. Images obtained through the lung bases show scattered areas questionable acute or chronic patchy grou nd-glass and consolidative opacity, pneumonia should be considered, please correlate clinically. Fol low-up chest CT recommended when clinically appropriate.. There is small to moderate-sized hiatal hernia. Distal portion of the esophagus has an apparently th ickened wall raising the possibility of esophagitis. The liver is unremarkable in appearance. Gallbladder and bile ducts are CT normal. Pancreas appears normal. Spleen is unremarkable in appearance. Adrenals appear normal. The kidneys are unremarkable with no evidence of hydronephrosis, nephrolithiasis, or renal mass.. Ur inary bladder unremarkable. Abdominal aorta is of normal diameter and no major vascular abnormality is seen. No abdominal wall hernia. No abdominal or pelvic adenopathy. [employer] structures appear intact. Appendix is normal. No evidence of diverticulitis or bowel obstruction. IMPRESSION: Esophageal wall thickening raising the possibility of esophagitis. Scattered pulmonary opacities in the lung bases, of questionable significance, pneumonitis not exclud ed. RADIATION DOSE DELIVERED: 679.91mGy.cm Total DLP 679.91mGy.cm Total DLP 679.91mGy.cm Total DLP !Error CTDIvol RADIATION OPTIMIZATION: All CT scans at this facility use at least one of these dose optimization te chniques: automated exposure control; mA and/or kV adjustment per patient size (includes targeted exa ms where dose is matched to clinical indication); or iterative reconstruction.
[2021-11-26 12:42] LABS: Abs Immature Grans 0.12 10^3/uL (0.0-0.06); Absolute Lymphocyte Count 0.76 10^3/uL (1.2-3.4); Absolute Monocyte Count 0.64 10^3/uL (0.1-0.8); Basophils % 0.4; Eosinophils % 0.1; HCT 42.4 % (36.0-46.0); HGB 14.2 g/dL (11.2-15.7); Immature Grans % 0.6; MCHC 33.5 % (32.0-36.0); MCV 90 fL (80-95); MPV 10.1 fL (8.0-11.0); Monocytes % 3.4; Neutrophils % 91.5; Platelet Count 434 10^3/uL (130-400); RBC 4.73 10^6/uL (3.93-5.22); RDW 12.2 % (11.7-14.6); RDW-SD 40.5 fL; WBC 18.91 10^3/uL (4.4-10.8)
[2021-11-26 12:45] LABS: Absolute Basophil Count 0.08 10^3/uL (0.0-0.2); Absolute Eosinophil Count 0.02 10^3/uL (0.0-0.7)
--- NOTE | 2021-11-26 12:45 | DI.RAD_ITS ---
Exam(s) XR PORTABLE CHEST AP EXAM: XR PORTABLE CHEST AP CLINICAL HISTORY: leukocytosis. TECHNIQUE: 2D digital imaging was performed. COMPARISON: No exams were available for comparison FINDINGS: LUNGS: Clear. No pleural abnormality seen. HEART: Normal. MEDIASTINUM: Normal. OTHER FINDINGS: None. IMPRESSION: No acute pulmonary findings. Please note that today's abdominal and pelvic CT did show patchy pulmona ry opacities in the lung bases raising the possibility of pneumonitis. DATA REPOSITORY: RADIATION DOSE DELIVERED: Total DLP
[2021-11-26] MEDS: diphenhydrAMINE 50 MG/ML VIAL 25 MG IVP (12:48)
[2021-11-26] MEDS: FAMOTIDINE 20 MG in Normal Saline 100 ML 400 MG IVPB (12:48)
[2021-11-26] MEDS: Metoclopramide 10 MG/2 ML VIAL IVP (12:49)
[2021-11-26] MEDS: Lactated Ringers 1,000 ML 1000 ML IV ×2 (12:49→14:13)
[2021-11-26 13:02] LABS: ALT 24 U/L (14-59); AST 17 U/L (15-37); Albumin 3.8 g/dL (3.4-5.0); Alkaline Phosphatase 95 U/L (46-116); Anion Gap 11.5 mmol/L (3-11); BUN 19 mg/dL (7-18); Bilirubin, Total 0.5 mg/dL (0.2-1.0); CO2 27.5 mmol/L (21.0-32.0); CREATININE 1.1 mg/dL (0.55-1.02); Calcium 10.3 mg/dL (8.5-10.1); Chloride 102 mmol/L (98-107); Estimated GFR 54.73 (mL/min/1.73m2); Glucose 179 mg/dL (74-106); Lipase 112 U/L (73-393); Magnesium 1.8 mg/dL (1.8-2.4); Potassium 4.1 mmol/L (3.5-5.1); Sodium 141 mmol/L (136-145); Total Protein 8.4 g/dL (6.4-8.2); Troponin I < 50 ng/L (<or=60)
--- NOTE | 2021-11-26 13:46 | ED.GENADUL_ITS ---
Discharge Plan Disposition Patient Disposition: [facility] INPATIENT Condition: Stable Discharge Details Clinical Impression: Pneumonia, Leukocytosis, Nausea & vomiting Admit Date/Time: 11/26/21 16:57 Admit Provider: Jl Lara Attending Provider: Jl Lara Primary Care Provider: Rayne Stratton ED Provider: Charlee Foley Discharge Data Discharge Date/Time-TO BE ENTERED AT DEPARTURE: 11/26/21 17:37 Medical Decision Making Patient is weak, pale, leukocytosis, evidence of pneumonitis on CT scan and esophagitis Reports mild improvement in symptoms but still nauseous and weak and will admit for overnight observation Will order ceftriaxone and doxycycline for suspected community-acquired pneumonia, received Pepcid and fluids Mild lactic acidosis, Dr. Villa made aware regarding lab, CT interpretation and chest x-ray interpretation and agreeable to admission for observation and pain COVID-negative Medical Records Medical records reviewed: Yes I reviewed the patient's medical records. Lab Data Lab results reviewed: Yes I reviewed the patient's lab results. HPI General Date/Time Provider Initiated Documentation: 11/26/21 12:09 . HPI Narrative: This 66-year-old female presents with nausea vomiting and lightheadedness which has been present for the past 4 days. She states she status post surgery on her right shoulder. She initially attributed the vomiting to when she took her oxycodone pain medication. She has not taken this medication for 2 days and has had persistent intermittent vomiting. She denies any chest pain or shortness of breath. She denies any new pain in her shoulder or fever. Related Data Home Medications Medication Instructions Recorded Confirmed multivitamin 1 cap PO DAILY 02/22/19 11/26/21 omeprazole 40 mg capsule,delayed 40 mg PO BID 02/22/19 11/26/21 release triamcinolone acetonide 0.1 % 1 applic topical DAILY PRN 02/22/19 11/26/21 topical cream ibandronate 150 mg tablet 150 mg PO DIRECTED 07/16/19 11/26/21 epinephrine 0.3 mg/0.3 mL 0.3 mg IM ONCE PRN 11/23/19 11/26/21 injection, auto-injector (EpiPen 2-Alexandro) aspirin 81 mg tablet,delayed 81 mg PO DAILY #1 tab 01/23/20 11/26/21 release (Gareth Low Dose Aspirin) cholecalciferol (vitamin D3) 50 50 mcg PO DAILY 05/13/20 11/26/21 mcg (2,000 unit) capsule riboflavin (vitamin B2) 100 mg 100 mg PO BID 05/13/20 11/26/21 tablet vitamin E (dl, acetate) 180 mg 450 mg PO DAILY 05/13/20 11/26/21 (400 unit) capsule ascorbate calcium (vitamin C) 500 500 mg PO BID 07/22/20 11/26/21 mg tablet potassium chloride 20 mEq 20 meq PO DAILY #7 tabs 08/22/20 11/26/21 tablet,extended release(part/cryst) promethazine 12.5 mg rectal 12.5 mg [place] TID PRN #12 ea 08/22/20 11/26/21 suppository magnesium 250 mg tablet 500 mg PO BID 10/28/20 11/26/21 prochlorperazine maleate 5 mg See Rx Instructions .Route 06/30/21 11/26/21 tablet .COMPLEX #30 tabs rimegepant 75 mg disintegrating 75 mg PO Q OTHER DAY migraine 06/30/21 11/26/21 tablet (Nurtec ODT) headache #45 tabs naproxen 250 mg tablet 250 - 500 mg PO BID PRN #40 tabs 11/19/21 11/26/21 oxycodone 5 mg tablet 5 - 10 mg PO Q4H PRN moderate to 11/19/21 11/26/21 severe pain #18 tabs rimegepant 75 mg disintegrating 75 mg DAILY 11/26/21 11/26/21 tablet (Nurtec ODT) Previous Rx's Medication Instructions Recorded aspirin 81 mg tablet,delayed 81 mg PO DAILY #1 tab 01/23/20 release (Gareth Low Dose Aspirin) potassium chloride 20 mEq 20 meq PO DAILY #7 tabs 08/22/20 tablet,extended release(part/cryst) promethazine 12.5 mg rectal 12.5 mg [place] TID PRN #12 ea 08/22/20 suppository prochlorperazine maleate 5 mg See Rx Instructions .Route 06/30/21 tablet .COMPLEX #30 tabs rimegepant 75 mg disintegrating 75 mg PO Q OTHER DAY migraine 06/30/21 tablet (Nurtec ODT) headache #45 tabs naproxen 250 mg tablet 250 - 500 mg PO BID PRN #40 tabs 11/19/21 oxycodone 5 mg tablet 5 - 10 mg PO Q4H PRN moderate to 11/19/21 severe pain #18 tabs Allergies Allergy/AdvReac Type Severity Reaction Status Date / Time venom-wasp Allergy Anaphylaxis Unverified 11/18/21 12:31 General Stated Complaint: Nausea/Vomit/Diar JENNIFER: 3 Review of Systems All systems reviewed & are unremarkable except as noted in HPI and below PFSH All Active Problems (Updated 11/27/21 @ 10:43 by HOLLAND Wilson) Pneumonia (Acute) Leukocytosis (Acute) Nausea & vomiting (Acute) Weakness (Acute) Discharge planning issues (Acute) DVT prophylaxis (Acute) Bursitis of right shoulder (Acute) Tendonitis of long head of biceps brachii of right shoulder (Acute) Traumatic tear of right rotator cuff (Acute ~04/2021) Cephalgia (Acute) Acute hypokalemia (Acute) Stroke (Chronic) Migraine aura without headache (Acute) Syncope (Chronic) Unresponsive episode (Acute) Chronic headaches (Acute) History of peptic ulcer disease (Chronic) GERD (gastroesophageal reflux disease) (Chronic) Eczema (Chronic) Chronic migraine (Chronic) Social History Smoking/Tobacco Use Status: Never Smoking risk assessment performed?: Yes Alcohol Intake: former Drug use: Daily Substance use type: marijuana Details: Cannabis 4x's day smoking Household members: significant other Housing: apartment Number of Children: 1 number of grandchildren: 2 current occupation: former [employer] Pets and animals: Yes Pets and animals: cat(s) Current gender identity: female What type of physical activity do you participate in: walking Seatbelt use: always Do you feel safe at home: Yes Do you feel safe in your relationship?: Yes Exam Const General: cooperative, comfortable and ill appearing HENMT Head: normal to inspection Other: moist mucous membranes Eyes Sclera: sclerae normal Resp Effort & Inspection: normal respiratory effort Auscultation: clear to auscultation bilaterally Cardio Rate: regular rate Rhythm: regular rhythm GI Inspection: normal to inspection Other: Tenderness with palpation epigastrium, no rebound or guarding Skin General skin exam: no rashes or lesions noted Neuro General: patient alert and patient oriented x3 Course Vital Signs Vital signs: Vital Signs Temperature 36.7 C 11/26/21 12:02 Pulse 61 11/26/21 12:02 Respiratory Rate 18 11/26/21 12:02 Blood Pressure 141/87 H 11/26/21 12:02 Pulse Oximetry 97 11/26/21 12:02 Temperature 36.7 C 11/26/21 12:02 Temperature Source Tympanic 11/26/21 12:02 Pulse 60 11/26/21 13:16 Pulse 64 11/26/21 13:20 Respiratory Rate 17 11/26/21 13:20 Respiratory Effort 11/26/21 12:08 Blood Pressure 146/79 H 11/26/21 13:16 Blood Pressure Mean 93 11/26/21 13:16 Blood Pressure Position Supine 11/26/21 12:02 Pulse Oximetry 97 11/26/21 12:31 Oxygen Delivery Method Room Air 11/26/21 12:02 Oxygen Flow Rate 0 11/26/21 12:02 Pain Level 7 11/26/21 12:02 Lab/Test Results Lab/Test Results: Laboratory Tests Range/Units 11/26/21 11/26/21 12:35 12:35 WBC (4.4-10.8) 10^3/uL 18.91 H RBC (3.93-5.22) 10^6/uL 4.73 Hgb (11.2-15.7) g/dL 14.2 Hct (36.0-46.0) % 42.4 MCV (80-95) fL 90 MCH (27.0-33.0) pg 30.0 MCHC (32.0-36.0) % 33.5 RDW (11.7-14.6) % 12.2 Plt Count (130-400) 10^3/uL 434 H MPV (8.0-11.0) fL 10.1 Immature Gran % 0.6 Neutrophils % 91.5 Lymphocytes % 4.0 Monocytes % 3.4 Eosinophils % 0.1 Basophils % 0.4 Nucleated RBC % (0.0-0.3) % 0.0 Absolute Neutrophils (1.2-6.7) 10^3/uL 17.30 H Absolute Lymphocytes (1.2-3.4) 10^3/uL 0.76 L Absolute Monocytes (0.1-0.8) 10^3/uL 0.64 Absolute Eosinophils (0.0-0.7) 10^3/uL 0.02 Absolute Basophils (0.0-0.2) 10^3/uL 0.08 Sodium (136-145) mmol/L 141 Potassium (3.5-5.1) mmol/L 4.1 Chloride (98-107) mmol/L 102 Carbon Dioxide (21.0-32.0) mmol/L 27.5 Anion Gap (3-11) mmol/L 11.5 H BUN (7-18) mg/dL 19 H Creatinine (0.55-1.02) mg/dL 1.1 H Est GFR (CKD-EPI 2020) (mL/min/1.73m2) 54.73 Glucose (74-106) mg/dL 179 H Calcium (8.5-10.1) mg/dL 10.3 H Magnesium (1.8-2.4) mg/dL 1.8 Total Bilirubin (0.2-1.0) mg/dL 0.5 AST (15-37) U/L 17 ALT (14-59) U/L 24 Alkaline Phosphatase (46-116) U/L 95 Troponin I (<or=60) ng/L < 50 Total Protein (6.4-8.2) g/dL 8.4 H Albumin (3.4-5.0) g/dL 3.8 Lipase (73-393) U/L 112
[2021-11-26 14:49] LABS: Source Nasal/Nares
[2021-11-26 15:24] LABS: COVID-19 PCR Negative (Negative)
[2021-11-26 15:48] LABS: Lactate 1.9 mmol/L (0.6-1.4)
[2021-11-26] MEDS: DOXYCYCLINE 100 MG in Normal Saline 100 ML IVPB (16:02)
[2021-11-26] MEDS: Enoxaparin 40 MG/0.4 ML SYR SC (18:15)
[2021-11-26] MEDS: Ondansetron 4 MG/2 ML VIAL IVP (18:17)
--- NOTE | 2021-11-26 18:55 | HPE_ITS ---
Date of service: 11/26/21 Time of Service: 18:00 Assessment and Plan Assessment and plan (1) Weakness: Status: Acute Assessment and plan: 4d S/P shoulder surgery - weak, IVF, Afebrile, normotensive, reg hear rate and rhythm. (2) GERD (gastroesophageal reflux disease): Status: Chronic Assessment and plan: continue pantroprazole (3) Chronic headaches: Status: Acute Assessment and plan: denies headache today; continue home medications The ED adv they gave her benadryl for an abdominal migraine with relief. Qualifiers: Headache type: unspecified Intractability: intractable Qualified Code(s): R51.9 - Headache, unspecified; G89.29 - Other chronic pain (4) Bursitis of right shoulder: Status: Acute Assessment and plan: Pain controlled with (5) Stroke: Status: Chronic Assessment and plan: Continue Aspirin History of Present Illness History of Present Illness Chief Complaint: Weak Narrative: This 66-year-old female presented to the [facility] ED with nausea vomiting and lightheadedness which has been present for the past 4 days after having had surgery on her right shoulder.? She initially attributed the vomiting to when she took her oxycodone pain medication and being post-op. She has not taken this medication for 2 days and has had persistent intermittent vomiting.? She denies any chest pain or shortness of breath.? She denies any new pain in her shoulder or fever. The ED ordered ceftriaxone and doxycycline for suspected community-acquired pneumonia, she received Pepcid and IV fluids. She has mild lactic acidosis, WBC >18,000 and chest xray with no acute pulmonary findings. Please note that today's abdominal and pelvic CT did show patchy pulmonary opa cities in the lung bases raising the possibility of pneumonitis. She is placed on observation status on the medical unit for fluids and medications for nausea. Review of Systems All systems reviewed & are unremarkable except as noted in HPI and below PFSH All Active Problems (Updated 12/01/21 @ 00:09 by KLARISSA LUGO) Pneumonia (Acute) Leukocytosis (Acute) Nausea & vomiting (Acute) Weakness (Acute) Bursitis of right shoulder (Acute) Tendonitis of long head of biceps brachii of right shoulder (Acute) Traumatic tear of right rotator cuff (Acute ~04/2021) Cephalgia (Acute) Acute hypokalemia (Acute) Stroke (Chronic) Migraine aura without headache (Acute) Syncope (Chronic) Unresponsive episode (Acute) Chronic headaches (Acute) History of peptic ulcer disease (Chronic) GERD (gastroesophageal reflux disease) (Chronic) Eczema (Chronic) Chronic migraine (Chronic) Social History Smoking/Tobacco Use Status: Never Smoking risk assessment performed?: Yes Alcohol Intake: former Drug use: Daily Substance use type: marijuana Details: Cannabis 4x's day smoking Household members: significant other Housing: apartment Number of Children: 1 number of grandchildren: 2 current occupation: former [employer] Pets and animals: Yes Pets and animals: cat(s) Current gender identity: female What type of physical activity do you participate in: walking Seatbelt use: always Do you feel safe at home: Yes Do you feel safe in your relationship?: Yes Meds Allergies and Home Medications Allergies Allergy/AdvReac Type Severity Reaction Status Date / Time venom-wasp Allergy Anaphylaxis Unverified 12/02/21 09:11 Home Medications Medication Instructions Recorded Confirmed Type multivitamin 1 cap PO DAILY 02/22/19 12/02/21 History omeprazole 40 mg capsule,delayed 40 mg PO BID 02/22/19 12/02/21 History release triamcinolone acetonide 0.1 % 1 applic topical DAILY PRN 02/22/19 12/02/21 History topical cream ibandronate 150 mg tablet 150 mg PO DIRECTED 07/16/19 12/02/21 History epinephrine 0.3 mg/0.3 mL 0.3 mg IM ONCE PRN 11/23/19 12/02/21 History injection, auto-injector (EpiPen 2-Alexandro) aspirin 81 mg tablet,delayed 81 mg PO DAILY #1 tab 01/23/20 12/02/21 Rx release (Gareth Low Dose Aspirin) cholecalciferol (vitamin D3) 50 50 mcg PO DAILY 05/13/20 12/02/21 History mcg (2,000 unit) capsule riboflavin (vitamin B2) 100 mg 100 mg PO BID 05/13/20 12/02/21 History tablet vitamin E (dl, acetate) 180 mg 450 mg PO DAILY 05/13/20 12/02/21 History (400 unit) capsule ascorbate calcium (vitamin C) 500 500 mg PO BID 07/22/20 12/02/21 History mg tablet potassium chloride 20 mEq 20 meq PO DAILY #7 tabs 08/22/20 12/02/21 Rx tablet,extended release(part/cryst) promethazine 12.5 mg rectal 12.5 mg [place] TID PRN #12 ea 08/22/20 12/02/21 Rx suppository magnesium 250 mg tablet 500 mg PO BID 10/28/20 12/02/21 History prochlorperazine maleate 5 mg See Rx Instructions .Route 06/30/21 12/02/21 Rx tablet .COMPLEX #30 tabs rimegepant 75 mg disintegrating 75 mg DAILY 11/26/21 12/02/21 History tablet (Nurtec ODT) nystatin 100,000 unit/mL oral 5 ml PO QID #100 mL 11/30/21 12/02/21 Rx suspension bisacodyl 10 mg rectal suppository 10 mg [place] DAILY PRN constipation 12/01/21 12/02/21 Rx (Dulcolax (bisacodyl)) #12 ea Exam Narrative Exam Narrative: Awake, alert - appears comfrotable. Sleeping when I entered the room. Const General: cooperative HENMT Head: normal to inspection Mouth: oral mucosae normal Eyes Pupils: PERRL EOM: EOM intact bilaterally Other: No nystagmus Neck Other: No carotid bruit Chest Chest: normal inspection of the chest Resp Effort & Inspection: normal respiratory effort Auscultation: clear to auscultation bilaterally Cardio Rate: regular rate Rhythm: regular rhythm GI Other: Nontender abdominal exam Skin General skin exam: no rashes or lesions noted Neuro General: patient alert and patient oriented x3 Cranial Nerves: CN's II-XI intact bilaterally and tongue midline Cognition: normal cognition Speech: speech normal Gait: ataxic Motor: strength 5/5 throughout Sensory Exam: no sensory deficits noted Results Labs Result diagrams: 11/29/21 05:39 11/30/21 05:37 Labs: Laboratory Results - last 24 hr 11/26/21 11/26/21 11/26/21 12:35 12:35 14:34 WBC 18.91 H RBC 4.73 Hgb 14.2 Hct 42.4 MCV 90 MCH 30.0 MCHC 33.5 RDW 12.2 Plt Count 434 H MPV 10.1 Immature Gran % 0.6 Neutrophils % 91.5 Lymphocytes % 4.0 Monocytes % 3.4 Eosinophils % 0.1 Basophils % 0.4 Nucleated RBC % 0.0 Absolute Neutrophils 17.30 H Absolute Lymphocytes 0.76 L Absolute Monocytes 0.64 Absolute Eosinophils 0.02 Absolute Basophils 0.08 VBG Lactate Sodium 141 Potassium 4.1 Chloride 102 Carbon Dioxide 27.5 Anion Gap 11.5 H BUN 19 H Creatinine 1.1 H Est GFR (CKD-EPI 2020) 54.73 Glucose 179 H Calcium 10.3 H Magnesium 1.8 Total Bilirubin 0.5 AST 17 ALT 24 Alkaline Phosphatase 95 Troponin I < 50 Total Protein 8.4 H Albumin 3.8 Lipase 112 COVID-19 Source Nasal/Nares SARS-CoV-2 (PCR) Negative 11/26/21 15:35 WBC RBC Hgb Hct MCV MCH MCHC RDW Plt Count MPV Immature Gran % Neutrophils % Lymphocytes % Monocytes % Eosinophils % Basophils % Nucleated RBC % Absolute Neutrophils Absolute Lymphocytes Absolute Monocytes Absolute Eosinophils Absolute Basophils VBG Lactate 1.9 H Sodium Potassium Chloride Carbon Dioxide Anion Gap BUN Creatinine Est GFR (CKD-EPI 2020) Glucose Calcium Magnesium Total Bilirubin AST ALT Alkaline Phosphatase Troponin I Total Protein Albumin Lipase COVID-19 Source SARS-CoV-2 (PCR) Last Vital Signs Temp 37.4 C 11/26/21 17:47 Pulse 68 11/26/21 17:47 Resp 16 11/26/21 17:47 BP 123/75 11/26/21 17:47 Pulse Ox 98 11/26/21 17:47
[2021-11-26] MEDS: Pantoprazole 40 MG TABCR PO (20:16)
[2021-11-26] MEDS: Normal Saline Flush 10 ML SYR IVP (20:17)
[2021-11-26] MEDS: Lactated Ringers 1,000 ML 100 ML IV (20:17)
--- NOTE | 2021-11-27 | DI.RAD_ITS ---
Exam(s) XR ABDOMEN FLAT UPRIGHT EXAM: XR ABDOMEN FLAT UPRIGHT CLINICAL HISTORY: ? constipation TECHNIQUE: COMPARISON: CT CT ABDOMEN PELVIS W from 11/28/2021 FINDINGS: Three views were obtained. Bowel gas pattern is within normal limits. No free intraperitoneal air. No organomegaly. IMPRESSION: No evidence of acute process. RADIATION DOSE DELIVERED: Total DLP
[2021-11-27 01:45] LABS: Bilirubin Negative (Negative); Blood Negative (Negative); Clarity Clear (Clear); Glucose Negative (Negative); Ketones 40 mg/dL (Negative); Leukocyte Esterase Trace (Negative); Nitrite Negative (Negative); Specific Gravity 1.025 (1.005-1.025); Urobilinogen 0.2 EU/dL (Up TO 0.2); pH 6.5 (5-8)
[2021-11-27 01:50] LABS: Bacteria Few HPF (Negative); C & S Indicated? Yes; Casts Negative LPF (Negative); Crystals Negative HPF (Negative); Epithelial Cells Few HPF (Negative); Mucus Negative (Negative); RBC Negative HPF (0-2)
[2021-11-27 03:05] VITALS: BP 125/75; PULSE 69; RESP 16; TEMP 36.9; O2SAT 98
[2021-11-27] MEDS: Ondansetron 4 MG/2 ML VIAL IVP ×4 (05:17→19:38)
[2021-11-27] MEDS: Normal Saline Flush 10 ML SYR IVP ×4 (05:17→19:38)
[2021-11-27] MEDS: Lactated Ringers 1,000 ML 100 ML IV (05:21)
[2021-11-27 06:37] LABS: Abs Immature Grans 0.04 10^3/uL (0.0-0.06); Absolute Basophil Count 0.04 10^3/uL (0.0-0.2); Absolute Eosinophil Count 0.06 10^3/uL (0.0-0.7); Absolute Lymphocyte Count 2.65 10^3/uL (1.2-3.4); Basophils % 0.3; Eosinophils % 0.5; HCT 36.7 % (36.0-46.0); HGB 12.3 g/dL (11.2-15.7); Immature Grans % 0.3; Lymphocytes % 22.1; MCH 30.3 pg (27.0-33.0); MCHC 33.5 % (32.0-36.0); MCV 90 fL (80-95); MPV 10.3 fL (8.0-11.0); Monocytes % 8.2; Neutrophils % 68.6; Platelet Count 357 10^3/uL (130-400); RBC 4.06 10^6/uL (3.93-5.22); RDW 12.6 % (11.7-14.6); RDW-SD 41.4 fL; WBC 12.01 10^3/uL (4.4-10.8)
[2021-11-27 06:44] LABS: Absolute Monocyte Count 0.98 10^3/uL (0.1-0.8); Absolute Neutrophil Count 8.24 10^3/uL (1.2-6.7)
[2021-11-27 06:58] LABS: ALT 17 U/L (14-59); AST 16 U/L (15-37); Albumin 3.1 g/dL (3.4-5.0); Alkaline Phosphatase 72 U/L (46-116); Anion Gap 10.2 mmol/L (3-11); BUN 20 mg/dL (7-18); Bilirubin, Total 0.5 mg/dL (0.2-1.0); CO2 26.8 mmol/L (21.0-32.0); Calcium 9.1 mg/dL (8.5-10.1); Chloride 104 mmol/L (98-107); Estimated GFR 61.36 (mL/min/1.73m2); Glucose 123 mg/dL (74-106); Magnesium 1.7 mg/dL (1.8-2.4); Potassium 3.2 mmol/L (3.5-5.1); Sodium 141 mmol/L (136-145); Total Protein 6.9 g/dL (6.4-8.2)
[2021-11-27 07:57] VITALS: BP 167/66; PULSE 68; RESP 16; TEMP 36.9; O2SAT 96
[2021-11-27] MEDS: Magnesium Oxide 400 MG TAB PO ×2 (08:41→19:42)
[2021-11-27] MEDS: MAGNESIUM SULFATE 2 GM/50 ML BAG IVPB (08:41)
[2021-11-27] MEDS: Aspirin E.C. 81 MG TABEC PO (08:42)
[2021-11-27] MEDS: Pantoprazole 40 MG TABCR PO ×2 (08:42→19:42)
[2021-11-27] MEDS: Potassium Chloride 10 MEQ CAPCR 20 MEQ PO ×2 (08:42→19:42)
--- NOTE | 2021-11-27 10:43 | PDOC.CMIN ---
- If Service Date Differs Date of service: 11/27/21 Time of Service: 10:43 Care Management Initial Assess REASON FOR HOSPITALIZATION:: weakness PAST MEDICAL HISTORY/PAST SURGICAL HISTORY:: All Active Problems (Updated 11/26/21 @ 19:11 by Marianna Gordon NP). Weakness (Acute). Discharge planning issues (Acute). DVT prophylaxis (Acute). Bursitis of right shoulder (Acute). Tendonitis of long head of biceps brachii of right shoulder (Acute). Traumatic tear of right rotator cuff (Acute ~04/2021). Cephalgia (Acute). Acute hypokalemia (Acute). Stroke (Chronic). Migraine aura without headache (Acute). Syncope (Chronic). Unresponsive episode (Acute). Chronic headaches (Acute). History of peptic ulcer disease (Chronic). GERD (gastroesophageal reflux disease) (Chronic). Eczema (Chronic). Chronic migraine (Chronic) PREVIOUS FUNCTIONAL STATUS/SOCIAL/FAMILY SUPPORTS:: Lucinda lives in [place], [place] with her partner Sridevi Dumontyers. They have one daughter, Thao, who lives nearby and is very supportive and 2 grandchildren. Lucinda also has 2 surviving step children from a previous marriage. The daughter Carina lives nearby and also suppports Lucinda as needed. 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 She is independent at baseline and receives no services. CURRENT FUNCTIONAL STATUS:: Lucinda was sitting up in bed when CM met with her. She was pleasant and engaged easily with CM. Lucinda shared a bit of her life story with CM. She and Sridevi had a baby together many years ago but didn't stay together. Three years ago they reconnected and intend to spend the rest of their lives together. She stated that they are very happy and grateful that they found each other after all this time. ADVANCE DIRECTIVES:: on file. Sridevi Almodovar [facility] Has patient been provided with info about the portal/API?: Yes Did the patient sign up for the portal?: Yes (previously) CODE STATUS:: Full Code INSURANCE COVERAGE / FINANCIAL ISSUES:: [employer] [place]. Medicaid CURRENT HOME/COMMUNITY SERVICES/EQUIPMENT:: none PRIMARY CARE PHYSICIAN:: Rayne Stratton POTENTIAL DISCHARGE NEEDS:: follow up with PCP and plan of care PATIENT/FAMILY EDUCATION NEEDS:: Review of discharge instructions, activity, limitations, medicattions, follow up plan TRANSPORTATION:: via private vehicle with family PLAN:: Lucinda will likely be discharged home with no new services. She will follow up with her community providers and plan of care and transport with Sridevi. CM will support Lucinda and her discharge needs.
[2021-11-27 11:30] VITALS: BP 128/78; PULSE 63; RESP 18; TEMP 37.1; O2SAT 94
--- NOTE | 2021-11-27 14:02 | PT.INIE ---
PT Notes Visit Reasons: Weakness S/P Shoulder Surgery Inpatient Physical Therapy Evaluation Date: 11/27/21 Referring Doctor: Alyssa Hendrickson NP PT Orders: PT CONSULT: weakness Precautions: standard Patient Profile/Admitting Diagnosis: Patient admitted after presenting to the ER with weakness, nausea and vomiting. She was diagnosed with pneumonia and leukocytosis, and admitted for medical management. Of note, she is also 8 days s/p right RCR. PMHX: All Active Problems?(Updated 11/26/21 @ 19:11 by Marianna Gordon NP) Weakness (Acute) Discharge planning issues (Acute) DVT prophylaxis (Acute) Bursitis of right shoulder (Acute) Tendonitis of long head of biceps brachii of right shoulder (Acute) Traumatic tear of right rotator cuff (Acute ~04/2021) Cephalgia (Acute) Acute hypokalemia (Acute) Stroke (Chronic) Migraine aura without headache (Acute) Syncope (Chronic) Unresponsive episode (Acute) Chronic headaches (Acute) History of peptic ulcer disease (Chronic) GERD (gastroesophageal reflux disease) (Chronic) Eczema (Chronic) Chronic migraine (Chronic) Social History/Home Situation: Independent 66 year old female. Lucinda lives in a single level home with no EMERITA. Ambulates independently. Lives with her significant other, Sridevi, who she reports is very supportive. Equipment Owned/DME: Abduction sling Subjective: Lucinda states that she is incredibly nauseous. She's been struggling with vomiting and heartburn. She reports that she removed the abduction pillow from her sling before coming to the hospital because it was bothering her. She has not been wearing her sling today, but trying to keep it resting at her side. Objective: General Observation: Resting in bed on her left side, arm resting against abdomen. No sling in place. IV in RUE. Mental Status: A&Ox3 Pain: well managed ROM: Right Upper Extremity: not assessed due to post-operative status Left Upper Extremity: grossly WFL Right Lower Extremity: WFL Left Lower Extremity: WFL Strength: Right Upper Extremity: not assessed due to post operative status Left Upper Extremity: WFL Right Lower Extremity: hip flexion 5/5. Quads 5/5. Ankle DF 5/5 Left Lower Extremity: hip flexion 5/5. Quads 5/5. Ankle DF 5/5 Bed Mobility/Transfers: rolling: independent supine-sit: independent sit-stand: independent stand-sit: independent Gait: Ambulates 30' without assistive device, supervision only. Able to make full turns without LOB. Balance: Static Sitting: normal Dynamic Sitting: good Static Standing: good Dynamic Standing: good Special Tests: Mobility Limitations Standardized Measure [facility] AM-PAC 6 clicks Basic Mobility Inpatient Short Form: Raw Score: 24 CMS Score: 0% impairment Informed Consent/Education: Patient instructed in purpose of PT consult and plan of care. Treatment: Initial Evaluation (11633) Patient Education: Sling wear at all times. Propped with bolster for use until her return home. No active movements of the RUE. Instructed in postioning in chair for improved comfort (pillow under elbow). Assessment: Patient is a 66 year old female referred to physical therapy services with the diagnosis of weakness. On evaluation today, she demonstrates good safety and mobility, although does require some reinforcement of her post-op precautions. She does not require any further PT intervention in acute care setting, and is appropriate for return to community once medically stable. She is also safe for independent ambulation in her room, with sling in place. If nursing has any questions about positioning, etc, during her stay, our department is happy to answer any questions that might arise. Patient is assessed as Low [id number] based on the following: History: Patient is a 66 year old female admitted for medical management of pneumonia and leukocytosis, with complicating factor of right RCT, 8 days s/p RCR. Examination: demonstrates good safety and mobility, but requires reinforcement of post-op precautions Presentation: stable Decision Making: low complexity Plan of Care/Treatment Plan: No further PT required in acute care setting. Post-op Precautions: Abduction sling at all times (bolster placed between sling and trunk) No active movements of the right shoulder DISCHARGE RECOMMENDATIONS: Home with no services TREATMENT CODE/TIME: 1:40-2:00 (05840) Thank you for this referral! Gisselle Oseguera, PT, DPT [facility]
[2021-11-27] MEDS: Bisacodyl 10 MG SUPP PR (16:43)
[2021-11-27] MEDS: Calcium Carbonate *TUMS* 500 MG CHEW PO (16:43)
--- NOTE | 2021-11-27 16:57 | PGE_ITS ---
Date of Service Date of service: 11/27/21 Time of Service: 16:57 Assessment and Plan Assessment and plan (1) Nausea & vomiting: Status: Acute Assessment and plan: persistent. will check flat and upright as not bm several day continue antiemetics electrolyte replacement repeat labs in am (2) Weakness: Status: Acute Assessment and plan: 4d S/P shoulder surgery - PT consulted (3) GERD (gastroesophageal reflux disease): Status: Chronic Assessment and plan: continue pantroprazole (4) Chronic headaches: Status: Acute Assessment and plan: continue home medications \ Qualifiers: Headache type: unspecified Intractability: intractable Qualified Code(s): R51.9 - Headache, unspecified; G89.29 - Other chronic pain (5) Bursitis of right shoulder: Status: Acute Assessment and plan: continue current pain regimen (6) Stroke: Status: Chronic Assessment and plan: Continue Aspirin (7) DVT prophylaxis: Status: Acute Assessment and plan: Enoxaparin 40 mg sc daily (8) Discharge planning issues: Status: Acute Assessment and plan: Observe overnight with treatment for nausea, weakness; check labs in am - plan to discharge to home without services discussed with Dr Antony Subjective Subjective Patient reports: voiding w/o difficulty, no flatus, no bowel movement, nausea and afebrile; denies tolerating liquids well, tolerating a regular diet or shortness of breath Exam Narrative Exam Narrative: Awake, alert - appears comfrotable. Sleeping when I entered the room. Const General: cooperative HENMT Head: normal to inspection Mouth: oral mucosae normal Eyes Pupils: PERRL EOM: EOM intact bilaterally Other: No nystagmus Chest Chest: normal inspection of the chest Resp Effort & Inspection: normal respiratory effort Auscultation: clear to auscultation bilaterally Cardio Rate: regular rate Rhythm: regular rhythm GI Other: Nontender abdominal exam Skin General skin exam: no rashes or lesions noted Neuro General: patient alert and patient oriented x3 Cognition: normal cognition Speech: speech normal Motor: strength 5/5 throughout Sensory Exam: no sensory deficits noted Objective Last Vital Signs Temp 37.1 C 11/27/21 11:30 Pulse 63 11/27/21 11:30 Resp 18 11/27/21 11:30 BP 128/78 11/27/21 11:30 Pulse Ox 94 11/27/21 11:30 Laboratory Results - last 24 hr 11/27/21 11/27/21 11/27/21 01:30 06:10 06:10 WBC 12.01 H RBC 4.06 Hgb 12.3 Hct 36.7 MCV 90 MCH 30.3 MCHC 33.5 RDW 12.6 Plt Count 357 MPV 10.3 Immature Gran % 0.3 Neutrophils % 68.6 Lymphocytes % 22.1 Monocytes % 8.2 Eosinophils % 0.5 Basophils % 0.3 Nucleated RBC % 0.0 Absolute Neutrophils 8.24 H Absolute Lymphocytes 2.65 Absolute Monocytes 0.98 H Absolute Eosinophils 0.06 Absolute Basophils 0.04 Sodium 141 Potassium 3.2 L Chloride 104 Carbon Dioxide 26.8 Anion Gap 10.2 BUN 20 H Creatinine 1.0 Est GFR (CKD-EPI 2020) 61.36 Glucose 123 H Calcium 9.1 Magnesium 1.7 L Total Bilirubin 0.5 AST 16 ALT 17 Alkaline Phosphatase 72 Total Protein 6.9 Albumin 3.1 L Urine Color Yellow Urine Clarity Clear Urine pH 6.5 Ur Specific [place] 1.025 Urine Protein Negative Urine Ketones 40 H Urine Blood Negative Urine Nitrite Negative Urine Bilirubin Negative Urine Urobilinogen 0.2 Ur Leukocyte Esterase Trace H Urine RBC Negative Urine WBC 3-5 Ur Epithelial Cells Few Urine Crystals Negative Urine Bacteria Few Urine Casts Negative Urine Mucus Negative Ur Culture Indicated? Yes Urine Glucose Negative
--- NOTE | 2021-11-27 17:54 | DI.VRAD_ITS ---
PROCEDURE INFORMATION: Exam: XR Abdomen Exam date and time: 11/27/2021 5:14 PM Age: 66 years old Clinical indication: Constipation TECHNIQUE: Imaging protocol: Radiologic exam of the abdomen. Views: 2 Views. Upright and supine views. COMPARISON: CT ABDOMEN PELVIS WO 11/26/2021 2:20 PM FINDINGS: Lungs: Patchy infiltrate within the left lower lobe of the lung may represent atelectasis versus pneumonia. Gastrointestinal tract: There is a nonspecific bowel gas pattern. Focal dilated loops of bowel with air-fluid levels within the right hypogastric and right lower quadrant region. Early bowel obstruction is not excluded. Consider CT for further evaluation if clinically warranted. Gastrointestinal tract: Normal. No bowel dilation. Intraperitoneal space: There is no free intraperitoneal air. Organs: The organs are unremarkable. Bones/joints: There is an S-shaped scoliosis of the lumbosacral spine. The spine, sacroiliac joints, and hip joints show no evidence of fracture or other acute processes. There are degenerative changes of the lumbosacral spine and thoracolumbar spine. Other findings: There are no soft tissue masses or calcifications. IMPRESSION: 1. Focal dilated loops of bowel with air-fluid levels within the right hypogastric and right lower quadrant region. Early bowel obstruction is not excluded. Consider CT for further evaluation if clinically warranted. 2. Patchy infiltrate within the left lower lobe of the lung may represent atelectasis versus pneumonia. Dictated and Authenticated by: Emre Durant MD. Ordering:TONE Shah MD
[2021-11-27] MEDS: Enoxaparin 40 MG/0.4 ML SYR SC (18:10)
[2021-11-27 18:28] VITALS: BP 130/74; PULSE 85; RESP 16; TEMP 37.1; O2SAT 94
--- NOTE | 2021-11-27 18:59 | W.SPSTE ---
Date of service: 11/27/21 Time of Service: 17:00 Subjective Clinical (Bedside) Swallow Evaluation Speech Language Pathology Patient referred for Clinical Swallow Evaluation from Marianna Gordon given question of pneumonitis and patchy opacities of lower lobes on Chest CT noted earlier this date. Precautions: Standard HPI: Patient admitted after presenting to the ER with weakness, nausea and vomiting. She was diagnosed with pneumonia and leukocytosis, and admitted for medical management. Of note, she is also 8 days s/p right RCR. Medical hx also significant for remote/chronic CVA, lifelong headaches, and significant GERD. Per MILADY Hendrickson, concern for possible aspiration pneumonitis, patient with reflux taking pantoprazole. Since admit, patient with improving white blood count and tolerating room air well. Predisposing dysphagia risk factors: GERD Clinical signs of possible chronic dysphagia: Chest CT results Precipitating dysphagia risk factors / triggering event: ?recent surgery/medical deconditioning Medical History All Active Problems?(Updated 11/26/21 @ 19:11 by Marianna Gordon, DIRECTOR LEARNING [employer] DEVELOPMENT) Weakness (Acute) Discharge planning issues (Acute) DVT prophylaxis (Acute) Bursitis of right shoulder (Acute) Tendonitis of long head of biceps brachii of right shoulder (Acute) Traumatic tear of right rotator cuff (Acute ~04/2021) Cephalgia (Acute) Acute hypokalemia (Acute) Stroke (Chronic) outpatient brain MRI without contrast on 12/10/2019 showed a small old left posterior parietal lobe infarct as well as mild to moderate cerebral atrophy.?? Migraine aura without headache (Acute) Syncope (Chronic) Unresponsive episode (Acute) Chronic headaches (Acute) History of peptic ulcer disease (Chronic) GERD (gastroesophageal reflux disease) (Chronic) Eczema (Chronic) Chronic migraine (Chronic) Social History Lives with significant other, Sridevi who is very supportive. She is independent. SUBJECTIVE: Patient received alert/awake, appearing fatigued, agreeable to evaluation,able to communicate wants/needs effectively; able to demonstrate comprehension of recommendations for safe p.o. intake. At this time, patient states that her biggest concern with eating/drinking is related to nausea. She does endorse chronic reflux including frequent regurgitation to the level of the throat and at night. She also reports coughing regularly throughout the day and frequently coughing up foamy white secretions. She denies current or historical oral-pharyngeal dysphagia symptoms such as coughing with solids or liquids, sensation of pharyngeal residue, or difficulty chewing/transporting bolus including medications. Patient is unwilling to trial solids this date due to nausea. She reports she has been drinking liquids little by little this date as she cannot tolerate larger quantities due to nausea. IMPRESSIONS & PLAN: Dysphagia: Suspect chronic esophageal dysphagia likely in context of chronic GERD which may impact current pulmonary status. No evidence of oral-pharyngeal impairment this date and patient denies any symptoms historically. Patient was advised to implement further reflux management strategies, diligent oral care routines, and watch for additional s/sx of aspiration. Further Inpatient [facility] services: not warranted, unless patient status changes warranting re-evaluation ? Discharge recommendations: No further [facility] services warranted unless patient/providers identify additional needs in the future. May benefit from additional GI workup as relates to GERD. PROVIDER RECOMMENDATIONS SUGGESTED REFERRALS: Gastroenterology Other recommended procedures (multi-select buttons) ? May consider Barium Esophagram / Upper GI series / Barium swallow ? May consider high resolution esophageal manometry ? DIET TEXTURE RECOMMENDATIONS: IDDSI Level(s) SOLIDS 7-Regular or Soft Solids LIQUIDS 0-Thin Liquids Medication Intake: Whole with 0-Thin Liquids RISK MANAGEMENT: HOB upright as tolerated; upright for all PO intake. Encourage physical mobility as tolerated. Oral hygiene BID/2x per day & before/after PO intake, using friction with toothbrush on all oral structures as tolerated Engage in reflux management strategies including diet and eating habits, lifestyle, and postural changes (handout provided) ? Level of Assistance/Supervision: Independent Strategies/Adaptations/Assistive Equipment: Reduce auditory and/or visual distractions when eating Small sips and bites when eating Slow rate of intake Small+frequent meals throughout day Posture/Positioning Needs: Maintain upright position at least 60 minutes after meals Avoid meals/snacks 2-3 hours prior to reclining/sleeping Sleep with head of bed elevated to reduce likelihood of nocturnal reflux When possible, sleep on L side to reduce likelihood of night reflux OBJECTIVE: Oral-Motor Exam: Cranial Nerve Screen: WFL Dentition: Partially edentulous (lower incisors) Mucosa: Mild dryness, otherwise fair/good. Larynx: Voice clear/dry, volitional cough adequate. Volitional swallow: Palpable elevation & anterior movement of thyroid cartilege without significant delay noted or difficulty with initiation, except on subsequent requests for volitional saliva swallow likely in setting of xerostomia. [place] Swallow Protocol Results: PASS; complete/uninterrupted without overt difficulty or s/sx aspiration. Thin liquid trials: Oral phase: no anterior loss, appears with adequate and timely a/p transit. Pharyngeal Phase: without prandial or post prandial cough, wet vocal quality, throat clear, other voice or respiratory changes. Denies any sensation of stasis. Esophageal Phase: No reflux apparent with limited trials; patient denies perceptable reflux with thin liquid trials observed this date. Education & Outcome Provided counseling and education as relates to relationship between reflux & swallow function, aspiration risk and complications, normal vs disordered swallowing, s/sx aspiration to watch for, importance of increased frequency of oral care to reduce oral-bacterial load and reduce risk of pulmonary complication of aspiration. Reflux counseling and oral care instructions provided with supplemental handouts to promote recall/carryover. Patient verbalizes understanding and receptive to all recommendations this date. CODIN Clinical Swallow Evaluation TIME SPENT: 35 minutes Coding
[2021-11-27] MEDS: Polyethylene Glycol 3350 17 GM PACKET PO (19:42)
[2021-11-27] MEDS: Docusate Sodium 100 MG CAP PO (19:42)
[2021-11-27 23:06] VITALS: BP 135/79; PULSE 57; RESP 16; TEMP 36.9; O2SAT 94
--- NOTE | 2021-11-28 | DI.CT_ITS ---
Exam(s) CT ABDOMEN PELVIS W EXAM: CT ABDOMEN PELVIS W INDICATION: nausea, vomiting, possible SBO. COMPARISON: CT CT ABDOMEN PELVIS WO from 11/26/2021 TECHNIQUE: FINDINGS: CT examination of the abdomen and pelvis was performed with intravenous infusion of 100 cc of Omnipaq ue 350. Images obtained through the lung bases are unremarkable. The liver is unremarkable in appearance. Gallbladder and bile ducts are CT normal. Pancreas appears normal. Spleen is unremarkable in appearance. Adrenals appear normal. The kidneys are unremarkable with no evidence of hydronephrosis, nephrolithiasis, or renal mass.. Ur inary bladder unremarkable. Abdominal aorta is of normal diameter and no major vascular abnormality is seen. No abdominal wall hernia. No abdominal or pelvic adenopathy. DIRECTOR CASE structures appear unremarkable for age. Appendix is normal. No evidence of diverticulitis or bowel obstruction. IMPRESSION: Negative CT examination of the abdomen and pelvis. RADIATION DOSE DELIVERED: 1,046.13mGy.cm Total DLP 1,046.13mGy.cm Total DLP !Error CTDIvol RADIATION OPTIMIZATION: All CT scans at this facility use at least one of these dose optimization te chniques: automated exposure control; mA and/or kV adjustment per patient size (includes targeted exa ms where dose is matched to clinical indication); or iterative reconstruction.
[2021-11-28] MEDS: Ondansetron 4 MG/2 ML VIAL IVP ×4 (00:33→20:32)
[2021-11-28] MEDS: Ketorolac 15 MG/ML VIAL IVP ×3 (00:33→20:32)
[2021-11-28] MEDS: Normal Saline Flush 10 ML SYR IVP ×7 (00:34→20:38)
[2021-11-28 03:08] VITALS: BP 128/82; PULSE 84; RESP 17; TEMP 37.1; O2SAT 98
[2021-11-28] MEDS: Calcium Carbonate *TUMS* 500 MG CHEW PO ×2 (06:18→20:38)
[2021-11-28 06:34] LABS: BUN 14 mg/dL (7-18); Calcium 8.7 mg/dL (8.5-10.1); Chloride 100 mmol/L (98-107); Estimated GFR 61.36 (mL/min/1.73m2); Glucose 111 mg/dL (74-106); Potassium 3.5 mmol/L (3.5-5.1); Sodium 137 mmol/L (136-145)
[2021-11-28 07:39] VITALS: BP 168/80; PULSE 67; RESP 16; TEMP 36.7; O2SAT 96
[2021-11-28] MEDS: Gastrografin 120 ML BTL PO (08:47)
[2021-11-28] MEDS: Breeza Beverage 473 ML BTL PO ×2 (08:47→08:48)
[2021-11-28] MEDS: Omnipaque 350 MG/ML 500 ML BTL-Imaging package IJ (10:25)
[2021-11-28] MEDS: Pantoprazole 40 MG TABCR PO ×2 (10:45→19:32)
--- NOTE | 2021-11-28 11:35 | DI.VRAD_ITS ---
PROCEDURE INFORMATION: Exam: CT Abdomen And Pelvis With Contrast Exam date and time: 11/28/2021 10:24 AM Age: 66 years old Clinical indication: Other: Nausea, vomiting, possible sbo; Prior surgery; Surgery date: 3-7 days post-operative; Surgery type: Right shoulder surgery TECHNIQUE: Imaging protocol: Computed tomography of the abdomen and pelvis with contrast. Radiation optimization: All CT scans at this facility use at least one of these dose optimization techniques: automated exposure control; mA and/or kV adjustment per patient size (includes targeted exams where dose is matched to clinical indication); or iterative reconstruction. Contrast material: OMNIPAQUE 350; Contrast volume: 100 ml; Contrast route: INTRAVENOUS (IV); COMPARISON: CT ABDOMEN PELVIS WO 11/26/2021 2:20 PM FINDINGS: Liver: Normal. No mass. Gallbladder and bile ducts: Normal. No calcified stones. No ductal dilation. Pancreas: Normal. No ductal dilation. Spleen: Normal. No splenomegaly. Adrenal glands: Normal. No mass. Kidneys and ureters: Normal. No hydronephrosis. Stomach and bowel: No dilated bowel. No evidence of obstruction. Bowel wall thickening in the descending colon may represent colitis in the appropriate clinical setting.. Differential includes decompressed bowel. Appendix: Normal appendix Intraperitoneal space: Unremarkable. No free air. No significant fluid collection. Vasculature: Unremarkable. No abdominal aortic aneurysm. Lymph nodes: Unremarkable. No enlarged lymph nodes. Urinary bladder: Unremarkable as visualized. Reproductive: Surgical resection of the uterus Bones/joints: Unremarkable. No acute fracture. Soft tissues: Unremarkable. IMPRESSION: Bowel wall thickening in the descending colon may represent colitis in the appropriate clinical setting.. Differential includes decompressed bowel. Dictated and Authenticated by: Yudi Smith MD. Ordering:[facility] Marco Parikh MD
[2021-11-28 12:20] VITALS: BP 178/98; PULSE 87; RESP 17; TEMP 36.7; O2SAT 97
[2021-11-28] MEDS: Docusate Sodium 100 MG CAP PO ×2 (13:35→19:32)
[2021-11-28] MEDS: Potassium Chloride 10 MEQ CAPCR 20 MEQ PO ×2 (13:35→19:31)
[2021-11-28 15:37] VITALS: BP 155/72; PULSE 61; RESP 16; TEMP 36.9; O2SAT 97
--- NOTE | 2021-11-28 16:50 | W.PM.PROGNOT ---
Date of Service Date of service: 11/28/21 Time of Service: 16:50 Assessment and Plan Assessment and plan (1) Nausea & vomiting: Status: Acute Assessment and plan: persistent. will check flat and upright as not bm several day continue antiemetics electrolyte replacement repeat labs in am (2) Weakness: Status: Acute Assessment and plan: 4d S/P shoulder surgery - PT consulted (3) GERD (gastroesophageal reflux disease): Status: Chronic Assessment and plan: continue pantroprazole (4) Chronic headaches: Status: Acute Assessment and plan: continue home medications \ Qualifiers: Headache type: unspecified Intractability: intractable Qualified Code(s): R51.9 - Headache, unspecified; G89.29 - Other chronic pain (5) Bursitis of right shoulder: Status: Acute Assessment and plan: continue current pain regimen (6) Stroke: Status: Chronic Assessment and plan: Continue Aspirin (7) DVT prophylaxis: Status: Acute Assessment and plan: Enoxaparin 40 mg sc daily (8) Discharge planning issues: Status: Acute Assessment and plan: Observe overnight with treatment for nausea, weakness; check labs in am - plan to discharge to home without services discussed with Dr Antony Subjective Subjective Patient reports: feels better, tolerating liquids well, nausea and afebrile; denies shortness of breath Exam Narrative Exam Narrative: Awake, alert - appears comfrotable. Sleeping when I entered the room. Const General: cooperative HENMT Head: normal to inspection Mouth: oral mucosae normal Eyes Pupils: PERRL EOM: EOM intact bilaterally Other: No nystagmus Chest Chest: normal inspection of the chest Resp Effort & Inspection: normal respiratory effort Auscultation: clear to auscultation bilaterally Cardio Rate: regular rate Rhythm: regular rhythm GI Other: Nontender abdominal exam Skin General skin exam: no rashes or lesions noted Neuro General: patient alert and patient oriented x3 Cognition: normal cognition Speech: speech normal Motor: strength 5/5 throughout Sensory Exam: no sensory deficits noted Objective Last Vital Signs Temp 36.9 C 11/28/21 15:37 Pulse 61 11/28/21 15:37 Resp 16 11/28/21 15:37 BP 155/72 H 11/28/21 15:37 Pulse Ox 97 11/28/21 15:37 Laboratory Results - last 24 hr 10/08/22 05:52 Sodium 137 Potassium 3.5 Chloride 100 Carbon Dioxide 29.0 Anion Gap 8.0 BUN 14 Creatinine 1.0 Est GFR (CKD-EPI 2020) 61.36 Glucose 111 H Calcium 8.7 Magnesium 2.0
[2021-11-28] MEDS: Enoxaparin 40 MG/0.4 ML SYR SC (17:45)
[2021-11-28 19:29] VITALS: BP 150/82; PULSE 64; RESP 18; TEMP 36.4; O2SAT 96
[2021-11-28] MEDS: Magnesium Oxide 400 MG TAB PO (19:32)
[2021-11-28] MEDS: Polyethylene Glycol 3350 17 GM PACKET PO (19:32)
[2021-11-29] VITALS (7 sets, daily range): BP systolic 142–177; BP diastolic 76–105; PULSE 56–84; RESP 16–19; TEMP 36.4–37.2; O2SAT 94–98
[2021-11-29] MEDS: Ondansetron 4 MG/2 ML VIAL IVP ×2 (03:22→14:48)
[2021-11-29] MEDS: Ketorolac 15 MG/ML VIAL IVP ×2 (03:23→14:48)
[2021-11-29] MEDS: Normal Saline Flush 10 ML SYR IVP ×4 (03:23→19:39)
[2021-11-29 06:21] LABS: Abs Immature Grans 0.04 10^3/uL (0.0-0.06); Absolute Eosinophil Count 0.05 10^3/uL (0.0-0.7); Absolute Lymphocyte Count 1.76 10^3/uL (1.2-3.4); Absolute Monocyte Count 0.97 10^3/uL (0.1-0.8); Basophils % 0.3; Eosinophils % 0.4; Immature Grans % 0.3; Lymphocytes % 15.1; MCH 29.8 pg (27.0-33.0); MCHC 34.2 % (32.0-36.0); MCV 87 fL (80-95); MPV 10.3 fL (8.0-11.0); Monocytes % 8.3; Neutrophils % 75.6; Platelet Count 378 10^3/uL (130-400); RBC 4.36 10^6/uL (3.93-5.22); RDW 11.9 % (11.7-14.6); RDW-SD 38.4 fL; WBC 11.64 10^3/uL (4.4-10.8)
[2021-11-29] MEDS: traMADol 50 MG TAB PO (06:34)
[2021-11-29] MEDS: Calcium Carbonate *TUMS* 500 MG CHEW PO (06:34)
[2021-11-29 06:36] LABS: Absolute Basophil Count 0.03 10^3/uL (0.0-0.2)
[2021-11-29 06:37] LABS: Anion Gap 9.3 mmol/L (3-11); BUN 13 mg/dL (7-18); CO2 28.7 mmol/L (21.0-32.0); Calcium 9.3 mg/dL (8.5-10.1); Chloride 96 mmol/L (98-107); Estimated GFR 61.36 (mL/min/1.73m2); Glucose 120 mg/dL (74-106); Potassium 3.2 mmol/L (3.5-5.1); Sodium 134 mmol/L (136-145)
[2021-11-29 08:22] LABS: Lab Add On Test DONE
[2021-11-29] MEDS: Pantoprazole 40 MG TABCR PO ×2 (08:25→19:39)
[2021-11-29] MEDS: Aspirin E.C. 81 MG TABEC PO (08:25)
[2021-11-29] MEDS: Potassium Chloride 10 MEQ CAPCR 20 MEQ PO ×3 (08:25→19:39)
[2021-11-29] MEDS: Magnesium Oxide 400 MG TAB PO ×2 (08:25→19:39)
[2021-11-29] MEDS: POTASSIUM CHLORIDE 10 MEQ/100 ML BAG 100 MEQ IVPB ×3 (08:29→11:11)
[2021-11-29 08:31] LABS: Magnesium 2.1 mg/dL (1.8-2.4)
--- NOTE | 2021-11-29 11:23 | W.PM.PROGNOT ---
Date of Service Date of service: 11/29/21 Time of Service: 11:23 Assessment and Plan Assessment and plan (1) Nausea & vomiting: Status: Acute Assessment and plan: improving, CT scan shows no obstruction. diet advancing continue antiemetics continue electrolyte replacement repeat labs in am (2) Weakness: Status: Acute Assessment and plan: S/P shoulder surgery - continue PT and routine post operative care. (3) GERD (gastroesophageal reflux disease): Status: Chronic Assessment and plan: continue pantroprazole (4) Chronic headaches: Status: Acute Assessment and plan: continue home medications Qualifiers: Headache type: unspecified Intractability: intractable Qualified Code(s): R51.9 - Headache, unspecified; G89.29 - Other chronic pain (5) Bursitis of right shoulder: Status: Acute Assessment and plan: continue current pain regimen (6) Stroke: Status: Chronic Assessment and plan: Continue Aspirin (7) DVT prophylaxis: Status: Acute Assessment and plan: Enoxaparin 40 mg sc daily (8) Discharge planning issues: Status: Acute Assessment and plan: plan to discharge to home without services, anticipate tomorrow. discussed with Dr Antony Subjective Subjective Patient reports: tolerating liquids well (feeling better), voiding w/o difficulty, diarrhea and afebrile; denies shortness of breath Exam Narrative Exam Narrative: Awake, alert - appears comfrotable. Sleeping when I entered the room. Const General: cooperative, comfortable and no acute distress Nutritional Appearance: average body habitus Orientation: alert, awake and oriented x3 HENMT Head: normal to inspection, normocephalic and atraumatic Mouth: oral mucosae normal Eyes Pupils: PERRL EOM: EOM intact bilaterally Other: No nystagmus Chest Chest: normal inspection of the chest Resp Effort & Inspection: normal respiratory effort Auscultation: clear to auscultation bilaterally Cardio Rate: regular rate Rhythm: regular rhythm GI Inspection: normal to inspection Palpation: soft and nontender Auscultation: normal bowel sounds Other: Nontender abdominal exam Skin General skin exam: no rashes or lesions noted Neuro General: patient alert and patient oriented x3 Cognition: normal cognition Speech: speech normal Motor: strength 5/5 throughout Sensory Exam: no sensory deficits noted Extrem Right upper extremity: shoulder/upper arm Details: other (sling) Objective Last Vital Signs Temp 36.8 C 11/29/21 07:31 Pulse 58 L 11/29/21 07:31 Resp 16 11/29/21 07:31 BP 175/98 H 11/29/21 07:31 Pulse Ox 95 11/29/21 07:31 Laboratory Results - last 24 hr 11/29/21 11/29/21 11/29/21 05:39 05:39 05:39 WBC 11.64 H RBC 4.36 Hgb 13.0 Hct 38.0 MCV 87 MCH 29.8 MCHC 34.2 RDW 11.9 Plt Count 378 MPV 10.3 Immature Gran % 0.3 Neutrophils % 75.6 Lymphocytes % 15.1 Monocytes % 8.3 Eosinophils % 0.4 Basophils % 0.3 Nucleated RBC % 0.0 Absolute Neutrophils 8.80 H Absolute Lymphocytes 1.76 Absolute Monocytes 0.97 H Absolute Eosinophils 0.05 Absolute Basophils 0.03 Sodium 134 L Potassium 3.2 L Chloride 96 L Carbon Dioxide 28.7 Anion Gap 9.3 BUN 13 Creatinine 1.0 Est GFR (CKD-EPI 2020) 61.36 Glucose 120 H Calcium 9.3 Magnesium 2.1
[2021-11-29] MEDS: Docusate Sodium 100 MG CAP PO ×2 (14:42→19:39)
[2021-11-29 17:01] LABS: C Diff PCR Negative (Negative)
[2021-11-29] MEDS: Enoxaparin 40 MG/0.4 ML SYR SC (17:35)
[2021-11-30 04:42] VITALS: BP 158/90; PULSE 84; RESP 17; TEMP 36.3; O2SAT 95
[2021-11-30] MEDS: Calcium Carbonate *TUMS* 500 MG CHEW PO (04:46)
[2021-11-30 06:28] LABS: Anion Gap 10.8 mmol/L (3-11); BUN 11 mg/dL (7-18); CO2 25.2 mmol/L (21.0-32.0); CREATININE 0.8 mg/dL (0.55-1.02); Chloride 95 mmol/L (98-107); Estimated GFR 80.21 (mL/min/1.73m2); Glucose 109 mg/dL (74-106); Sodium 131 mmol/L (136-145)
[2021-11-30 06:34] LABS: Potassium 4.4 mmol/L (3.5-5.1)
[2021-11-30 08:15] VITALS: BP 172/98; PULSE 91; RESP 18; TEMP 36.6; O2SAT 95
[2021-11-30] MEDS: Ondansetron 4 MG/2 ML VIAL IVP (08:26)
[2021-11-30] MEDS: Normal Saline Flush 10 ML SYR IVP ×2 (08:26→10:31)
[2021-11-30] MEDS: Aspirin E.C. 81 MG TABEC PO (08:27)
[2021-11-30] MEDS: Pantoprazole 40 MG TABCR PO (08:27)
[2021-11-30] MEDS: Potassium Chloride 10 MEQ CAPCR 20 MEQ PO (08:27)
[2021-11-30] MEDS: Magnesium Oxide 400 MG TAB PO (08:27)
--- NOTE | 2021-11-30 09:24 | PDOC.CMPRO ---
- If Service Date Differs Date of service: 11/30/21 Time of Service: 09:24 Care Management Progress Note S/O: A: weakness s/p shoulder surgery. P: Lucinda will likely be discharged home 11/30/21 with no new services, if medically ready. She will follow up with her community providers and plan of care and transport with Sridevi. CM will support Lucinda and her discharge needs.
--- NOTE | 2021-11-30 10:57 | DSE_ITS ---
Date of service: 11/30/21 Time of Service: 10:57 DS: Diagnosis Discharge Diagnosis (1) Nausea & vomiting: Status: Acute (2) Weakness: Status: Acute (3) GERD (gastroesophageal reflux disease): Status: Chronic (4) Chronic headaches: Status: Acute (5) Bursitis of right shoulder: Status: Acute (6) Stroke: Status: Chronic Discharge Plan Disposition Patient Disposition: HOME Condition: Stable Discharge Details Reason For Visit: Weakness S/P Shoulder Surgery Admit Date/Time: 11/26/21 16:57 Admit Provider: Jl Lara Attending Provider: Jl Lara [facility]: This 66-year-old female presented to the [facility] ED with nausea vomiting and lightheadedness which has been present for 4 days after having had surgery on her right shoulder.? She initially attributed the vomiting to when she took her oxycodone pain medication and being post-op.? She has not taken this medication for 2 days and has had persistent intermittent vomiting.?The ED ordered ceftriaxone and doxycycline for suspected community-acquired pneumonia, she received Pepcid and IV fluids. A pelvic CT did show patchy pulmonary opacities in the lung bases raising the possibility of pneumonitis.? She was placed on observation status on the medical unit for fluids and medications for nausea. Antibiotics were not continued. she continue to have nausea and vomiting, thought to be associated with her migraines which are common for her. she was also noted to be constipated and flat and upright abd xray obtained and showed possibility of obstruction. a ct scan was obtained and no obstruction but evidence of colitis. She then started having loose stools, cdiff negative. Her symptoms finally started improving and her diet advanced. she is now feeling well enough to be discharged to home. , No medication changes to admission meds, nystatin added for thrush. she is discharge to home with no services. discussed with DR Lara. Home Meds and New Rx's Prescriptions: New nystatin 100,000 unit/mL suspension 5 ml PO QID Qty: 100 0RF Rx Instructions: swish and swallow Continued aspirin [Gareth Low Dose Aspirin] 81 mg tablet,delayed release (DR/EC) 81 mg PO DAILY Qty: 1 0RF cholecalciferol (vitamin D3) 50 mcg (2,000 unit) capsule 50 mcg PO DAILY riboflavin (vitamin B2) 100 mg tablet 100 mg PO BID vitamin E (dl, acetate) 400 unit capsule 450 mg PO DAILY magnesium 250 mg tablet 500 mg PO BID ascorbate calcium (vitamin C) 500 mg tablet 500 mg PO BID prochlorperazine maleate 5 mg tablet See Rx Instructions .ROUTE .COMPLEX Qty: 30 3RF Dose Instruction: TAKE 1 TO 2 TABLETS BY MOUTH EVERY 8 HOURS NEEDED FOR NAUSEA OR VOMITING OR HEADACHE Rx Instructions: TAKE 1 TO 2 TABLETS BY MOUTH EVERY 8 HOURS NEEDED FOR NAUSEA OR VOMITING OR HEADACHE Nurtec ODT 75 mg tablet,disintegrating 75 mg PO Q OTHER DAY Qty: 45 3RF Rx Instructions: as a single dose triamcinolone acetonide 0.1 % cream 1 applic TP DAILY PRN omeprazole 40 mg capsule,delayed release(DR/EC) 40 mg PO BID multivitamin Capsule 1 cap PO DAILY epinephrine [EpiPen 2-Alexandro] 0.3 mg/0.3 mL auto-injector 0.3 mg IM ONCE PRN Rx Instructions: as a single dose naproxen 250 mg tablet 250 - 500 mg PO BID PRNQty: 40 0RF Rx Instructions: take with a meal oxycodone 5 mg tablet 5 - 10 mg PO Q4H MDD 30 mg PRN (Reason: moderate to severe pain) Qty: 18 0RF ibandronate 150 mg tablet 150 mg PO DIRECTED Label Comments: TK 1 T PO Q MONTH FOR OSTEOPOROSIS Rx Instructions: 150 mg orally monthly promethazine 12.5 mg suppository 12.5 mg NM TID PRNQty: 12 0RF Rx Instructions: do not give 3rd daily dose after evening meal or within 4hr before bed potassium chloride 20 mEq tablet,ER particles/crystals 20 meq PO DAILY Qty: 7 0RF Nurtec ODT 75 mg tablet,disintegrating 75 mg DAILY Label Comments: DISSOLVE 1 TABLET ON THE TONGUE EVERY OTHER DAILY FOR MIGRAINE HEADACHE Discharge Instructions Instructions: Acute Nausea and Vomiting (DC) Additional Instructions: continue routine post operative shoulder instructions as previously advised keep scheduled follow up appointments. Stand Alone Forms: Nursing Discharge Form Referrals: Rayne Stratton [Primary Care Provider] - 12/08/21 2:30 pm Activity:: Activity as Tolerated Equipment/Supplies:: No Equipment Needed Diet:: As Tolerated Discharge Orders Discharge Orders: Discharge Order (Routine); Ordered 11/30/21 Ordered By: Alyssa Hendrickson Discharge Data Discharge Date/Time-TO BE ENTERED AT DEPARTURE: 11/30/21 12:16 DS: Summary Time Spent with Patient providing and/or coordinating discharge services: Greater than 30 minutes Status at Discharge Functional status at discharge: independent ambulation Overall status at discharge: patient is progressing back to baseline Mental Status: mental status grossly normal Speech and Movement: speech and movement normal Mood: congruent mood Affect: normal affect Exam Const General: cooperative, comfortable and no acute distress Nutritional Appearance: average body habitus Orientation: alert, awake and oriented x3 HENMT Head: normal to inspection, normocephalic and atraumatic Mouth: oral mucosae normal and tongue abnormal with white coating Eyes EOM: EOM intact bilaterally Chest Chest: normal inspection of the chest Resp Effort & Inspection: normal respiratory effort Auscultation: clear to auscultation bilaterally Cardio Rate: regular rate Rhythm: regular rhythm GI Inspection: normal to inspection Palpation: soft and nontender Auscultation: normal bowel sounds Other: Nontender abdominal exam Skin General skin exam: no rashes or lesions noted Neuro General: patient alert and patient oriented x3 Cognition: normal cognition Speech: speech normal Motor: strength 5/5 throughout Sensory Exam: no sensory deficits noted Extrem Right upper extremity: shoulder/upper arm Details: other (sling) Psych Mental Status: mental status grossly normal Speech and Movement: speech and movement normal Mood: congruent mood Affect: normal affect DS: Data Vitals/I&O Vitals and I&O: Vital Signs Temperature 36.6 C 11/30/21 08:15 Temperature Source Tympanic 11/30/21 08:15 Pulse 91 H 11/30/21 08:15 Pulse Rhythm Regular 11/30/21 08:30 Pulse 65 11/26/21 14:01 Respiratory Rate 18 11/30/21 08:15 Respiratory Effort Non-Labored 11/30/21 08:30 Respiratory Depth Normal 11/30/21 08:30 Respiratory Pattern Normal 11/30/21 08:30 Blood Pressure 172/98 H 11/30/21 08:15 Blood Pressure Mean 89 11/26/21 14:01 Blood Pressure Position Supine 11/26/21 12:02 Pulse Oximetry 95 11/30/21 08:15 Oxygen Delivery Method Room Air 11/30/21 08:15 Oxygen Flow Rate 0 11/30/21 08:15 Pain Level 2 11/30/21 08:15 Comment 11/29/21 23:30 Intake & Output 11/29/21 11/29/21 11/30/21 11:59 23:59 11:59 Intake Total 381.000 / 0730.831 9550 / 1801.000 620 / 620 Output Total 1650 / 1950 300 / 1950 Balance -1269.000 / -316.853 8070 / -149.000 620 / 620 Intake: IV 281.000 / 401.000 120 / 401.000 30 / 30 Oral 100 / 1400 1300 / 1400 590 / 590 Output: Urine 1000 / 1300 300 / 1300 Stool 600 / 600 Emesis 50 / 50 Other: Urine Color Yellow Yellow Yellow Urine Appearance Clear Clear Clear Urine Odor Normal Normal Normal Comment mixed with stool Patient voided independently. Stool Size Small Small Small Stool Characteristics Soft Liquid Liquid Liquid Brown Green Foamy Green Brown Emesis Description Clear/Water Bile Voiding Methods Toilet Toilet Toilet Data Completed and Pending Labs on day of discharge: Labs from last 24 hours 11/30/21 11/29/21 05:37 16:10 Sodium 131 L Potassium 4.4 D Chloride 95 L Carbon Dioxide 25.2 Anion Gap 10.8 BUN 11 Creatinine 0.8 Est GFR (CKD-EPI 2020) 80.21 Glucose 109 H Calcium 9.0 Stl C.difficile Tox PCR Negative Preliminary micro results at discharge 11/26/21 19:38 Blood Culture - Preliminary Blood NO GROWTH 72 HOURS 11/26/21 15:35 Blood Culture - Preliminary Blood NO GROWTH 72 HOURS PFSH All Active Problems (Updated 11/27/21 @ 10:43 by HOLLAND Wilson) Pneumonia (Acute) Leukocytosis (Acute) Nausea & vomiting (Acute) Weakness (Acute) Discharge planning issues (Acute) DVT prophylaxis (Acute) Bursitis of right shoulder (Acute) Tendonitis of long head of biceps brachii of right shoulder (Acute) Traumatic tear of right rotator cuff (Acute ~04/2021) Cephalgia (Acute) Acute hypokalemia (Acute) Stroke (Chronic) Migraine aura without headache (Acute) Syncope (Chronic) Unresponsive episode (Acute) Chronic headaches (Acute) History of peptic ulcer disease (Chronic) GERD (gastroesophageal reflux disease) (Chronic) Eczema (Chronic) Chronic migraine (Chronic) Social History Smoking/Tobacco Use Status: Never Smoking risk assessment performed?: Yes Alcohol Intake: former Drug use: Daily Substance use type: marijuana Details: Cannabis 4x's day smoking Household members: significant other Housing: apartment Number of Children: 1 number of grandchildren: 2 current occupation: former [employer] Pets and animals: Yes Pets and animals: cat(s) Current gender identity: female What type of physical activity do you participate in: walking Seatbelt use: always Do you feel safe at home: Yes Do you feel safe in your relationship?: Yes
--- NOTE | 2021-11-30 11:20 | CMDISCH_ITS ---
- If Service Date Differs Date of service: 11/30/21 Time of Service: 11:20 LACE Index Scoring Tool - Questions: Length of Stay (in days): 2 Acuity (Admit via E.D.?): Yes Comorbidities: Cerebrovascular Disease (HX Stroke) E.D. Visits: 2 - Answers: Total Score: 8 Risk of Readmission: Low Risk Care Management Discharge Reason for Hospitalization: weakness Discharge Plan: Lucinda is discharged home via private vehicle with family. New RX for Nystatin suspension is printed. Lucinda will follow her discharge plan of care as prescribed. Follow up appointments are scheduled with the Surgical Office on 12/02/21 and her PCP/Dr. Stratton 12/08/21. No new [facility] services are ordered at the time of discharge. Patient/Family Education Needs: Review discharge instructions, limitations, medications and plan to follow up with community providers. Discuss ask me three.
== END 2021-11-30 12:16 | disposition home or self-care (01) | DRG 392 ==
LOC: ER 13:04 → MS 11-27 09:46
PROVIDERS: Nurse Practitioner Acute Care; Nurse Practitioner Family; Admitting Provider Internal Medicine; Emergency Provider Physician Assistant; PCP Nurse Practitioner Family; Visit Provider Internal Medicine
DX: K52.9 Noninfective gastroenteritis and colitis, unspecified (principal); E87.20 Acidosis, unspecified; B37.0 Candidal stomatitis; R11.2 Nausea with vomiting, unspecified; R53.1 Weakness; K21.9 Gastro-esophageal reflux disease without esophagitis; G43.D0 Abdominal migraine, not intractable; G44.89 Other headache syndrome; G89.29 Other chronic pain; Z86.73 Personal history of transient ischemic attack (TIA), and cerebral infarction without residual deficits; R42 Dizziness and giddiness; E87.6 Hypokalemia; L30.9 Dermatitis, unspecified; Z87.11 Personal history of peptic ulcer disease; Z98.890 Other specified postprocedural states; K59.00 Constipation, unspecified
CPT/HCPCS: 36415; 80048; 80053; 83690; 87040; 87493; 87635; 90662; 92610; 93005; 96361; 96365; 96367; 96375; 97161; 99285; J1650; 71045; 74019; 74176; 74177; 81003; 81015; 83605; 83735; 84484; 85025; 87086; 93010; 94667; 99219; 99226; 99233; 99239; G0378; J1200; J1885; J2405; J2765; J3480

== ENCOUNTER → 2021-12-02 08:54 | Outpatient (BNVA) | payer OTHER, MEDICAID, SELFPAY | PROVIDERS: PCP Nurse Practitioner Family; Referring Provider Nurse Practitioner Family; Visit Provider Student in an Organized Health Care Education/Training Program | DX: Z47.89 Encounter for other orthopedic aftercare (principal); X58.XXXA Exposure to other specified factors, initial encounter; S46.011A Strain of muscle(s) and tendon(s) of the rotator cuff of right shoulder, initial encounter; M75.21 Bicipital tendinitis, right shoulder; M75.51 Bursitis of right shoulder ==

== ENCOUNTER → 2021-12-29 09:19 | Outpatient (BNVA) | payer OTHER, MEDICAID, SELFPAY | PROVIDERS: PCP Nurse Practitioner Family; Referring Provider Nurse Practitioner Family; Visit Provider Nurse Practitioner Adult Health | DX: G43.709 Chronic migraine without aura, not intractable, without status migrainosus (principal); G43.109 Migraine with aura, not intractable, without status migrainosus | CPT/HCPCS: 99213 ==

== ENCOUNTER → 2022-01-13 08:56 | Outpatient (BNVA) | payer OTHER, MEDICAID, SELFPAY | PROVIDERS: PCP Nurse Practitioner Family; Referring Provider Nurse Practitioner Family; Visit Provider Student in an Organized Health Care Education/Training Program | DX: S46.011D Strain of muscle(s) and tendon(s) of the rotator cuff of right shoulder, subsequent encounter (principal); X58.XXXD Exposure to other specified factors, subsequent encounter; M18.11 Unilateral primary osteoarthritis of first carpometacarpal joint, right hand; M75.51 Bursitis of right shoulder; M75.21 Bicipital tendinitis, right shoulder ==

== ENCOUNTER → 2022-02-24 09:12 | Outpatient (BNVA) | payer OTHER, MEDICAID, SELFPAY | PROVIDERS: PCP Nurse Practitioner Family; Referring Provider Nurse Practitioner Family; Visit Provider Student in an Organized Health Care Education/Training Program | DX: S46.011D Strain of muscle(s) and tendon(s) of the rotator cuff of right shoulder, subsequent encounter (principal); X58.XXXD Exposure to other specified factors, subsequent encounter | CPT/HCPCS: 99213 ==

== ENCOUNTER → 2022-06-29 09:42 | Outpatient (BNVA) | payer OTHER, MEDICAID, SELFPAY | PROVIDERS: PCP Nurse Practitioner Family; Referring Provider Nurse Practitioner Family; Visit Provider Nurse Practitioner Adult Health | DX: G43.009 Migraine without aura, not intractable, without status migrainosus (principal) | CPT/HCPCS: 99212; 99213 ==

== ENCOUNTER 2022-09-07 13:58 | Outpatient (REF) | payer OTHER, MEDICAID, SELFPAY ==
[2022-09-07 16:13] LABS: Abs Immature Grans 0.03 10^3/uL (0.0-0.06); Absolute Basophil Count 0.07 10^3/uL (0.0-0.2); Absolute Eosinophil Count 0.12 10^3/uL (0.0-0.7); Absolute Lymphocyte Count 2.12 10^3/uL (1.2-3.4); Absolute Monocyte Count 0.57 10^3/uL (0.1-0.8); Absolute Neutrophil Count 5.62 10^3/uL (1.2-6.7); Basophils % 0.8; Eosinophils % 1.4; HCT 39.4 % (36.0-46.0); HGB 13.2 g/dL (11.2-15.7); Immature Grans % 0.4; Lymphocytes % 24.9; MCH 30.3 pg (27.0-33.0); MCHC 33.5 % (32.0-36.0); MCV 90 fL (80-95); MPV 10.9 fL (8.0-11.0); Monocytes % 6.7; Neutrophils % 65.8; Platelet Count 355 10^3/uL (130-400); RBC 4.36 10^6/uL (3.93-5.22); RDW 12.8 % (11.7-14.6); RDW-SD 42.9 fL; WBC 8.53 10^3/uL (4.4-10.8)
[2022-09-07 16:35] LABS: ALT 17 U/L (14-59); AST 18 U/L (15-37); Albumin 3.5 g/dL (3.4-5.0); Alkaline Phosphatase 77 U/L (46-116); Anion Gap 9.5 mmol/L (3-11); BUN 14 mg/dL (7-18); Bilirubin, Total 0.4 mg/dL (0.2-1.0); CO2 26.5 mmol/L (21.0-32.0); CREATININE 1.3 mg/dL (0.55-1.02); Calcium 8.9 mg/dL (8.5-10.1); Chloride 104 mmol/L (98-107); Estimated GFR 44.79 (mL/min/1.73m2); FREE T4 0.85 ng/dL (0.76-1.46); Glucose 129 mg/dL (74-106); Sodium 140 mmol/L (136-145); TSH 1.62 uIU/mL (0.36-3.74); Total Protein 7.3 g/dL (6.4-8.2)
[2022-09-07 17:11] LABS: Hemoglobin A1C 5.9 % (<5.7)
[2022-09-08 14:23] LABS: Calculated LDL 202 mg/dL (<100); Cholesterol 313 mg/dL (<200); HDL Cholesterol 66 mg/dL (40-60); Triglyceride 228 mg/dL (<150)
== END 2022-09-07 13:59 | disposition home or self-care (01) ==
LOC: NCHCN 13:58
PROVIDERS: PCP Nurse Practitioner Family; Visit Provider Nurse Practitioner Family
DX: E03.9 Hypothyroidism, unspecified (principal); E78.5 Hyperlipidemia, unspecified; R73.03 Prediabetes; G43.709 Chronic migraine without aura, not intractable, without status migrainosus; R19.7 Diarrhea, unspecified
CPT/HCPCS: 80053; 80061; 83036; 84439; 84443; 85025

== ENCOUNTER → 2022-11-24 12:39 | Outpatient (CLI) | payer OTHER, MEDICAID, SELFPAY ==
--- NOTE | 2022-11-24 | DI.RAD_ITS ---
Exam(s) XR SCOLIOSIS T-L SPINE EXAM: XR SCOLIOSIS T-L SPINE CLINICAL HISTORY: SCOLIOSIS DEFORMITY M41.9. TECHNIQUE: 2D digital imaging was performed. COMPARISON: No exams were available for comparison FINDINGS: Ending scoliosis series reveals a mild-moderate convex left scoliosis in the thoracic and lumbar spin e. Sacroiliac joints and hips appear unremarkable. No hip joint space narrowing. Hips are at same level. There are no obvious developmental anomalies of the thoracic and lumbar vertebral bodies. Th ere is chronic disc space narrowing at L5-S1 level as seen on the lateral view. With respect of the scoliosis, it is measured with respect to maximum Finnegan angle using superior endp late of T9 and inferior endplate of L3. This describes a Finnegan angle measurement of approximately 19 degrees IMPRESSION: Thoracolumbar scoliosis convex left which exhibits Finnegan angle of approximately 19 degrees when measur ed off the superior endplate of T9 and inferior endplate of L3. DATA REPOSITORY: RADIATION DOSE DELIVERED:
== END ==
PROVIDERS: PCP Nurse Practitioner Family; Visit Provider Nurse Practitioner Family
DX: M41.35 Thoracogenic scoliosis, thoracolumbar region (principal)
CPT/HCPCS: 72081

== ENCOUNTER → 2022-11-29 03:52 | Outpatient (CLI) | payer OTHER, MEDICAID, SELFPAY ==
--- NOTE | 2022-11-29 | DI.DEXA_ITS ---
Exam(s) XR DEXA BONE DENSITY W/WO ROSALINO EXAM: XR DEXA BONE DENSITY W/WO ROSALINO CLINICAL HISTORY: OSTEOPOROSIS, M85.88 TECHNIQUE: Holo[employer]andlines Horizon C densitometer analysis of left hip, lumbar spine and left forearm. Lat eral survey image of the thoracic and lumbar spine. COMPARISON: CR XR DEXA BONE DENSITY W/WO ROSALINO from 04/19/2019 CR XR SCOLIOSIS T-L SPINE from 11/24/2022 FINDINGS: Lateral view of the thoracic and lumbar spine shows no evidence of compression fractures. Bone mineral density measurements of the lumbar spine correspond to a total T-score of -2.3, not nirmala nged from prior. This is in the osteopenic range. Bone mineral density measurements of the left hip correspond to a total T-score of -1.9. The femora l neck T-score is -2.6, in the osteoporotic range.. This represents a 4.7 percent increase in bone density from 2020. Theleft forearm bone mineral density measurements correspond to a T-score of the distal 3rd of -1.6, in the osteopenic range, unchanged from prior.. IMPRESSION: Osteopenia of the spine and forearm. Osteoporosis of the spine.
== END ==
PROVIDERS: PCP Nurse Practitioner Family; Visit Provider Nurse Practitioner Family
DX: M85.88 Other specified disorders of bone density and structure, other site (principal); Z13.820 Encounter for screening for osteoporosis
CPT/HCPCS: 77080

== ENCOUNTER 2023-03-07 14:50 | Outpatient (REF) | payer OTHER, MEDICAID, SELFPAY ==
[2023-03-07 15:40] LABS: HCT 40.2 % (36.0-46.0); MCH 29.5 pg (27.0-33.0); MCHC 32.3 % (32.0-36.0); MCV 91 fL (80-95); MPV 10.3 fL (8.0-11.0); Platelet Count 312 10^3/uL (130-400); RDW 12.7 % (11.7-14.6); RDW-SD 42.6 fL; WBC 6.97 10^3/uL (4.4-10.8)
[2023-03-07 16:35] LABS: ALT 24 U/L (14-59); AST 19 U/L (15-37); Albumin 3.7 g/dL (3.4-5.0); Alkaline Phosphatase 78 U/L (46-116); Anion Gap 7.5 mmol/L (3-11); BUN 17 mg/dL (7-18); Bilirubin, Total 0.5 mg/dL (0.2-1.0); CO2 29.5 mmol/L (21.0-32.0); CREATININE 1.3 mg/dL (0.55-1.02); Calcium 9.5 mg/dL (8.5-10.1); Chloride 105 mmol/L (98-107); Estimated GFR 44.51 (mL/min/1.73m2); FREE T4 0.97 ng/dL (0.76-1.46); Glucose 103 mg/dL (74-106); Potassium 4.7 mmol/L (3.5-5.1); Sodium 142 mmol/L (136-145); TSH 1.83 uIU/mL (0.36-3.74)
[2023-03-07 16:47] LABS: Calculated LDL 79 mg/dL (<100); Cholesterol 212 mg/dL (<200); HDL Cholesterol 104 mg/dL (40-60); Total Protein 7.2 g/dL (6.4-8.2); Triglyceride 147 mg/dL (<150)
[2023-03-07 17:08] LABS: Hemoglobin A1C 5.9 % (<5.7)
== END 2023-03-07 14:51 | disposition home or self-care (01) ==
LOC: NCHCN 14:50
PROVIDERS: PCP Nurse Practitioner Family; Visit Provider Nurse Practitioner Family
DX: E78.5 Hyperlipidemia, unspecified (principal); R73.03 Prediabetes; E02 Subclinical iodine-deficiency hypothyroidism; R10.13 Epigastric pain
CPT/HCPCS: 80053; 80061; 85027; 83036; 84439; 84443

== ENCOUNTER → 2023-03-08 03:03 | Outpatient (CLI) | payer OTHER, MEDICAID, SELFPAY ==
--- NOTE | 2023-03-08 | DI.RAD_ITS ---
Exam(s) XR HIP PELVIS ADULT BL EXAM: XR HIP PELVIS ADULT BL CLINICAL HISTORY: BILAT HIP PAIN, LT WORSE THAN RT,. TECHNIQUE: 2D digital imaging was performed. COMPARISON: CT CT ABDOMEN PELVIS W from 11/28/2021 FINDINGS: 3 views There is no evidence of pelvic nor hip fractures. No osseous lesions. Hips appear unremarkable with no joint space narrowing, osteophytes, nor other degenerative changes. SI joints appear unremarkabl e. Incidentally noted is advanced disc space narrowing at L5-S1 level. IMPRESSION: No significant osseous findings in the pelvis and hips. Advanced narrowing of L5-S1 disc space. Please note that if this results in bilateral vertical saba inal stenosis then this may be responsible for bilateral hip pain DATA REPOSITORY: RADIATION DOSE DELIVERED:
== END ==
PROVIDERS: PCP Nurse Practitioner Family; Visit Provider Nurse Practitioner Family
DX: M51.37 Other intervertebral disc degeneration, lumbosacral region (principal); M25.552 Pain in left hip; M25.551 Pain in right hip
CPT/HCPCS: 73521

== ENCOUNTER → 2023-04-01 09:35 | Outpatient (BNVA) | payer OTHER, MEDICAID, SELFPAY | PROVIDERS: PCP Nurse Practitioner Family; Referring Provider Nurse Practitioner Family; Visit Provider Surgery | DX: K21.9 Gastro-esophageal reflux disease without esophagitis (principal); K44.9 Diaphragmatic hernia without obstruction or gangrene; K22.70 Barrett's esophagus without dysplasia; R11.2 Nausea with vomiting, unspecified; R10.13 Epigastric pain; K63.5 Polyp of colon; Z87.11 Personal history of peptic ulcer disease; Z80.0 Family history of malignant neoplasm of digestive organs | CPT/HCPCS: 99214 ==

== ENCOUNTER 2023-04-26 09:06 | Day surgery (SDC) | payer OTHER, MEDICAID, SELFPAY ==
--- NOTE | 2023-04-25 16:29 | ENDO_ITS ---
Date of service: 04/26/23 Time of Service: 12:18 Endoscopy Report DATE OF PROCEDURE: 04/26/23 PRE-OP DIAGNOSIS: purdy's/GERD POST-OP DIAGNOSIS: other (Moderate duodenitis and esophagitis. 4 cm hiatal hernia. Changes consistent with chronic Purdy's esophagus) SURGEON: Gayathri Rodriguez ANESTHESIA TYPE: General:No Airway ESTIMATED BLOOD LOSS: 2 PATHOLOGY: other COMPLICATIONS: None DISPOSITION: same day FINDINGS: After informed consent was obtained the patient was take to the procedure room and placed in a supine position. Monitors were applied and a time out was done. The patients name, date of , procedure type, allergies to medications and metal in their body was reviewed. A bite block was placed and the patient was sedated. Once sedated and comfortable the gastroscope was advanced through the oropharynx which was grossly normal into the esophagus. The proximal and mid- esophagus were normal. In the distal esophagus there is no esophageal erosions/varices/diverticula noted. She has moderate esophagitis. She does have a 4 cm hiatal hernia. The GE junction is at 38 cm. There is changes noted of chronic Purdy's- Under NBI. Patient also had been vomiting earlier today from migraine. This may have contributed to some of the irritation and inflammation seen in the esophagus. The scope was advanced into the stomach and through the pylorus into the 3rd portion of the duodenum. The duodenum was noted to be moderate duodenitis. There is no signs of active ulceration or bleeding.. Biopsies were done, all specimens are retrieved and no bleeding is noted.. The scope was retracted back into the stomach and biopsies were done to rule out H. pylori. There were no gastritis or ulcers. The scope was retroflexed. The cardia and fundus were noted to be normal. There is a a 4 cm sliding type hiatal hernia noted. The scope was retracted back into the esophagus and biopsies were done of the GE junction. The Z line was irregular. The scope was removed and proceeded to the CE.
--- NOTE | 2023-04-25 16:29 | W.COLOREPORT ---
Date of service: 04/26/23 Time of Service: 14:07 Colonoscopy Report Date of procedure: 04/26/23 Pre-op diagnosis general: sister CRC/change in bowel habits Post-op diagnosis procedure note: other (Small polyp and few diverticula) Surgeon: Gayathri Rodriguez Anesthesia Type: General:No Airway Estimated blood loss (mL): 1 Pathology: other Complications: None Disposition: same day Prep: Miralax/Dulcolax Procedure Description: After informed consent was obtained the patient was taken to the procedure room and placed in a left decubitous position. Monitors were applied and a time out was done. The patients name, date of , procedure, allergies to medications and metal in their body was reviewed. The patient was then sedated. Once sedated and comfortable a rectal exam was done. External exam shows a very patulous anus with poor tone. Internal exam revealed a normal sphincter tone and no palpable masses. The scope was then introduced and retrofelexed. No without internal hemorrhoids were identified. The scope was then advanced to the cecum difficulty. The TI and appendiceal orifice were identified. The scope was then slowly retracted over 8 minutes back into the rectum. there was a flat 5 mm polyp at 60 cm. This is removed with a cold biopsy forcep. All specimen is retrieved and no bleeding is noted. There are few and small scattered diverticula in the sigmoid colon. There is no signs of active bleeding or infection. The scope was removed and the patient was woken up and taken back to Same day surgery in stable condition. The patient tolerated the procedure well and there were no immediate complications. Follow up: The patient should follow up in 5 years unless they develop changes in bowel habits or other new gastrointestinal complaints. [place] Bowel Prep [place] Bowel Prep Right Colon: 3 Left Colon: 3 Transverse Colon: 3 Total Score: 9
--- NOTE | 2023-04-25 16:30 | PDOC.DSDIS_ITS ---
Date of service: 04/26/23 Time of Service: 12:20 Discharge Plan Disposition Patient Disposition: Home Condition: Good Discharge Details Reason For Visit: stomach/colon scope Attending Provider: Gayathri Rodriguez Primary Care Provider: Zahra Leonardo Home Meds and New Rx's Prescriptions: Continued pantoprazole [Protonix] 40 mg tablet,delayed release (DR/EC) 40 mg PO DAILY Qty: 90 5RF aspirin [Gareth Low Dose Aspirin] 81 mg tablet,delayed release (DR/EC) 81 mg PO DAILY Qty: 1 0RF Patient Comments: pt unsure of exact last date she took this cholecalciferol (vitamin D3) 50 mcg (2,000 unit) capsule 50 mcg PO DAILY riboflavin (vitamin B2) 100 mg tablet 100 mg PO BID vitamin E (dl, acetate) 400 unit capsule 450 mg PO DAILY magnesium 250 mg tablet 500 mg PO BID ascorbate calcium (vitamin C) 500 mg tablet 500 mg PO BID triamcinolone acetonide 0.1 % cream 1 applic TP DAILY PRN multivitamin Capsule 1 cap PO DAILY bisacodyl [Dulcolax (bisacodyl)] 10 mg suppository 10 mg IA DAILY PRN (Reason: constipation) Qty: 12 0RF prochlorperazine maleate 5 mg tablet See Rx Instructions .ROUTE .COMPLEX Qty: 30 3RF Dose Instruction: TAKE 1 TO 2 TABLETS BY MOUTH EVERY 8 HOURS NEEDED FOR NAUSEA OR VOMITING OR HEADACHE Rx Instructions: TAKE 1 TO 2 TABLETS BY MOUTH EVERY 8 HOURS NEEDED FOR NAUSEA OR VOMITING OR HEADACHE Nurtec ODT 75 mg tablet,disintegrating 75 mg PO Q OTHER DAY Qty: 15 11RF atorvastatin 40 mg tablet 40 mg PO DAILY All Day Allergy (cetirizine) 10 mg capsule 10 mg PO DAILY PRN fluocinonide 0.05 % cream 1 applic topical BID-QID PRN ibandronate 150 mg tablet 150 mg PO QMONTH epinephrine [EpiPen 2-Alexandro] 0.3 mg/0.3 mL auto-injector 0.3 mg IM ONCE PRN Rx Instructions: as a single dose promethazine 12.5 mg suppository 12.5 mg IA TID PRNQty: 12 0RF Rx Instructions: do not give 3rd daily dose after evening meal or within 4hr before bed potassium chloride 20 mEq tablet,ER particles/crystals 20 meq PO DAILY Qty: 7 0RF nystatin 100,000 unit/mL suspension 5 ml PO QID Qty: 100 0RF Rx Instructions: swish and swallow Discontinued bisacodyl [Dulcolax (bisacodyl)] 5 mg tablet,delayed release (DR/EC) 5 mg PO ONCE Qty: 4 0RF Rx Instructions: Take per colonoscopy instructions provided by ordering providers office polyethylene glycol 3350 17 gram/dose powder 17 g PO ONCE Qty: 238 0RF Rx Instructions: Take per colonoscopy instructions provided by ordering providers office Discharge Instructions Additional Instructions: . DSU Colonoscopy Post- Op Instructions Instructions for Everyone who is given Anesthesia: For your safety, please do the following for the next twenty-four (24) hours: *Do Not operate a motor vehicle (car, truck, motorcycle, etc.) *Do Not drink alcoholic beverages or use any recreational drugs for the first 24 hours or while taking pain medications. The medications in your body may have a reaction that can be dangerous. *Do Not make any important decisions or sign any important papers. Findings: Upper: Doudenitis/esophagitis/hiatal hernia Continue with lifestyle modifications: no alcohol, tobacco products, Aspirin or NSAID's (ibuprofen, Motrin, Naprosyn, aleve, etc), soda pop/any carbonated beverages, caffeine (including tea & chocolate), and acidic foods, (tomatoes, citrus, onions, peppermints) spicy or fried/fatty foods. Do not lie down for 30 minutes after eating, and do not eat 2 hours prior to bedtime. Avoid wearing tight fitting clothing/ belts Rx- protonix Lower: small polyp/minor diverticula My office will send you a letter w/ reults of the polyp. We should repeat colon scope in 5 yrs time. Make sure you are moving your bowels on a regular basis and no straining. 1. No lifting over 20 pounds or strenuous activity for the first 24 hours after your procedure. After 24 hours there are no restrictions on your activity but you may feel fatigued for a few days. 2. After you arrive home you may have a light meal and return to your normal diet as you can tolerate it without feeling sick to your stomach. 3. You may have a bloated, gaseous feeling in your belly (abdomen) after a colonoscopy. Passing gas and belching will help. Walking or lying down on your left side with your knees flexed may relieve the discomfort. Call the office at [phone] (Office) or [phone] (Hospital) right away if you notice any of the following: a.Vomiting of blood or ?coffee ground stools?. b.Rectal bleeding 1Tbsp, blood clots or continuous bleeding. c.Severe belly (abdominal) pain. d.A hard distended belly (abdomen) and an inability to pass gas. 4. Please don?t expect to have a normal BM (bowel movement) for 2-3 days after your procedure. 5. If there are questions regarding the findings of your procedure, please contact your doctor 6. If you are unable to contact your doctor with a problem, contact the hospital at [phone]. 7. Continue all your regular medications unless directed otherwise. I understand the above instructions and have no questions. Signature of Patient or Adult Escort Name of Responsible Adult Escort Signature of Nurse Date/Time Stand Alone Forms: Anesthesia Discharge Inst., Yeni Whitman (DSChalino) Activity:: see above Diet:: see above Discharge Orders Discharge Orders: Discharge Order (Routine); Ordered 03/05/24 Ordered By: Gayathri M Stoiber DS: Diagnosis Discharge Diagnosis (1) History of peptic ulcer disease: Status: Chronic (2) GERD (gastroesophageal reflux disease): Status: Chronic (3) Nausea & vomiting: Status: Acute (4) Heartburn: Status: Acute (5) 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: Status: Acute (6) Hiatal hernia with GERD: Status: Acute (7) Hyperplastic colon polyp: Status: Acute (8) Epigastric pain: Status: Acute (9) Family hx of colon cancer: Status: Acute Asessment and Plan: The patient is seen and examined after their colonoscopy.? The patient has been able to pass gas.? They are not having abdominal pain.? They have been able to tolerate liquids and a snack.? They do not have any nausea or vomiting.? They are not having any chest pain or shortness of breath.??? They are not having any rectal bleeding. Their vital signs have been stable-see nursing notes. We discussed findings during their colonoscopy, and any biopsies that were done/polyps that were removed. The patient will be sent a letter with any biopsy results, and when to repeat the colonoscopy.-see discharge instructions. Patient was given explicit instructions to follow-up regarding colonoscopy-refer to discharge instructions.? We reviewed resumption of medications. Patient verbalized understanding and discharged in stable and satisfactory c ondition- See nursing notes. (10) Chronic migraine: Status: Chronic (11) Duodenitis: Status: Acute (12) Esophagitis: Status: Acute (13) Diverticula of colon: Status: Acute (14) Colon polyp: Status: Acute
--- NOTE | 2023-04-25 18:33 | W.ANESPRE ---
General Info Date of Service Date Performed: 04/26/23 Height: 5 ft 3 in Weight: 73.482 kg Body Mass Index (BMI): 28.7 Surgical Procedure: Operation Date: 04/26/23 10:35 Proposed Procedure Side Surgeon p Colonoscopy/Gastroscopy Gayathri Rodriguez, Meds Allergies and Home Medications Allergies Allergy/AdvReac Type Severity Reaction Status Date / Time venom-wasp Allergy Anaphylaxis Verified 04/26/23 09:34 Opioids - Morphine Analogues AdvReac Severe vomiting Verified 04/26/23 09:34 headache Home Medication Medication Instructions Recorded multivitamin 1 cap PO DAILY 02/22/19 triamcinolone acetonide 0.1 % 1 applic topical DAILY PRN 02/22/19 topical cream epinephrine 0.3 mg/0.3 mL 0.3 mg IM ONCE PRN 11/23/19 injection, auto-injector (EpiPen 2-Alexandro) aspirin 81 mg tablet,delayed 81 mg PO DAILY #1 tab 01/23/20 release (Gareth Low Dose Aspirin) cholecalciferol (vitamin D3) 50 50 mcg PO DAILY 05/13/20 mcg (2,000 unit) capsule riboflavin (vitamin B2) 100 mg 100 mg PO BID 05/13/20 tablet vitamin E (dl, acetate) 180 mg 450 mg PO DAILY 05/13/20 (400 unit) capsule ascorbate calcium (vitamin C) 500 500 mg PO BID 07/22/20 mg tablet potassium chloride 20 mEq 20 meq PO DAILY #7 tabs 08/22/20 tablet,extended release(part/cryst) promethazine 12.5 mg rectal 12.5 mg AK TID PRN #12 ea 08/22/20 suppository magnesium 250 mg tablet 500 mg PO BID 10/28/20 nystatin 100,000 unit/mL oral 5 ml PO QID #100 mL 11/30/21 suspension bisacodyl 10 mg rectal suppository 10 mg AK DAILY PRN constipation 12/01/21 (Dulcolax (bisacodyl)) #12 ea prochlorperazine maleate 5 mg See Rx Instructions .Route 12/14/22 tablet .COMPLEX #30 tabs rimegepant 75 mg disintegrating 75 mg PO Q OTHER DAY #15 tabs 12/14/22 tablet (Nurtec ODT) atorvastatin 40 mg tablet 40 mg PO DAILY 02/01/24 cetirizine 10 mg capsule (All Day 10 mg PO DAILY PRN 03/24/23 Allergy (cetirizine)) fluocinonide 0.05 % topical cream 1 applic topical BID-QID PRN 03/24/23 ibandronate 150 mg tablet 150 mg PO QMONTH 03/24/23 pantoprazole 40 mg tablet,delayed 40 mg PO DAILY #90 tabs 04/01/23 release (Protonix) Current Visit Medications: Current Medications Generic Name Dose Route Start Last Admin Trade Name Freq PRN Reason Stop Dose Admin Hyoscyamine Sulfate 0.125 mg 04/26/23 04:27 Hyoscyamine 0.125 Mg Sl/Oral/Chew SL 05/26/23 04:26 DIRECTED PRN Ringer's Solution 1,000 mls @ 80 mls/hr 04/26/23 06:00 IV 05/25/23 23:59 [facility] IV Miscellaneous Supplies 1 each 04/26/23 06:00 Iv Access IV 05/25/23 23:59 DIRECTED [facility] Ondansetron HCl 4 mg 04/26/23 04:27 Ondansetron 4 Mg/2 Ml Vial IVP 05/26/23 04:26 Q4H PRN PRN Nausea / Vomiting Sodium Chloride 0 ml 04/26/23 06:00 Normal Saline Flush 10 Ml Syr IV 05/25/23 23:59 PRN PRN Sodium Chloride 0 ml 04/26/23 06:00 Normal Saline 10 Ml Vial IJ 05/25/23 23:59 DIRECTED PRN Sterile Water 0 ml 04/26/23 06:00 Water,Injection,Sterile 10 Ml Vial IJ 05/25/23 23:59 DIRECTED PRN PFSH Active Problems Active Problems: Problem Status Onset Code Family hx of colon cancer Z80.0 Hiatal hernia with GERD K21.9, K44.9 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 K22.70 Hyperplastic colon polyp ~2020 K63.5 Heartburn R12 Epigastric pain R10.13 Atypical migraine G43.009 Migraine headache without aura G43.009 Arthritis of carpometacarpal (CMC) joint of right thumb M18.11 Nausea & vomiting R11.2 Leukocytosis D72.829 Pneumonia J18.9 Weakness R53.1 Bursitis of right shoulder M75.51 Tendonitis of long head of biceps brachii of right shoulder M75.21 Traumatic tear of right rotator cuff ~04/2021 S46.011A Acute hypokalemia E87.6 Cephalgia R51.9 Stroke I63.9 Migraine aura without headache G43.109 Syncope R55 Chronic headaches R51.9, G89.29 Unresponsive episode R41.89 Chronic migraine G43.709 GERD (gastroesophageal reflux disease) K21.9 History of peptic ulcer disease Z87.11 Eczema L30.9 Medical History Medical History Comments:: stroke 20 years ago-no residual deficets Tobacco Smoking/Tobacco Use Status: Never Alcohol Alcohol Intake: former Substance Use Substance use: Daily Substance use type: marijuana Vital Signs and Lab Results Vital Signs Most Recent Vital Signs in EMR: Temp Pulse Resp BP Pulse Ox 36.1 C L 55 L 18 148/75 H 96 04/26/23 09:42 04/26/23 09:15 04/26/23 09:15 04/26/23 09:15 04/26/23 09:15 Lab Results Blood Type / Crossmatch: No Data to Display Complete Blood Count: No Data to Display Complete Metabolic Panel: No Data to Display Liver Function Panel: No Data to Display Coagulation Panel: No Data to Display Cardiac Panel: No Data to Display Arterial Blood Gas: No Data to Display Venous Blood Gas: No Data to Display Pancreas Panel: No Data to Display Thyroid Panel: No Data to Display Infectious Disease: No Data to Display Blood Cultures: No Data to Display Toxicology Panel: No Data to Display Imaging and Studies Imaging and Studies Study information below may be from another EMR and interpreted by another provider. Please see original notes in EMR for more complete details. EKG Summary: 12/12: veronica. Carotid Artery Summary:: 01/31/2020: FINDINGS: Duplex evaluation of the carotid circulation was performed according to the usual protocol. There is bilateral antegrade vertebral flow. There is little if any visible atheromatous plaque in the carotid circulation. Flow velocities in the common, internal, and external carotid arteries are within normal limits on Doppler evaluation. IMPRESSION: No evidence of a hemodynamically significant carotid stenosis. Anesthesia Assessment and Plan Anesthesia History Personal History: No History of Anesthesia Complications Family History: No Family History of Anesthesia Complications Exercise Tolerance Exercise Tolerance: Metabolic Equivalents>4 Cardiac & Pulmonary Exam Cardiac Exam: Normal S1/S2 Heart Sounds Pulmonary Exam: Clear Bilateral Breath Sounds Implantable Cardiac Device Does patient have a Pacemaker or an ICD?: No Airway Exam Known Difficult Airway: No Mallampati Class: 2 Mouth Opening: Normal (> 3cm) Thyromental Distance: Greater than 3 cm Neck Range of Motion: Full ROM Neck Circumference: Normal Teeth Condition: Normal Dentition Airway Comments: Significant jaw clicking bilaterally ASA Classification ASA Score: ASA 2 Emergency Case?: No NPO Status NPO Status: NPO Clears >2 hours, Solids >8 hours Anesthesia Plan Resuscitation Status: Full Code Anesthesia Technique: General Anesthesia Airway Planned: Natural Airway Monitors Used: Standard Monitors Preoperative Comments:: 67 yo female for upper and lower scope. Sig PMHx: GERD, migraine (currently having one right now, compazine ordered), CVA (unclear about what workout she had), never smoker, daily cannabis. Previous Anes: - shoulder, glide 3 grade 2b, two hand mask/easy, Currently with migraine is dry heaving.
[2023-04-26 09:15] VITALS: BP 148/75; PULSE 55; RESP 18; TEMP 36.1; O2SAT 96
[2023-04-26 09:42] VITALS: TEMP 36.1
[2023-04-26] MEDS: Ondansetron 4 MG/2 ML VIAL IVP (09:42)
[2023-04-26] MEDS: Lactated Ringers 1,000 ML 80 ML IV (09:58)
[2023-04-26 11:09] VITALS: BMI 28.7
--- NOTE | 2023-04-26 11:22 | BOWEL_PTH ---
PATIENT: Lucinda Aguero LOC: [facility] U#:[id number] AGE/SX: 67/F ROOM: RE04/26/[address]: Gayathri Rodriguez : 1955 BED: DIS: 04/26/2023 SPEC #: [id number] RECD: 04/26/23 12:55 STATUS: MASTER REQ #: [id number] CONSTANCE: 04/26/23 11:[address]: Gayahtri Rodriguez DEPT: Surgical Specimen RECD BY: Charlee Dick ENTERED: 04/26/23 12:56 SP TYPE: Bowel OTHR DR: ALICIA MARIE Tissues: 1 - BIOPSY BOWEL 2 - BIOPSY BOWEL 3 - STOMACH BIOPSY 4 - STOMACH BIOPSY 5 - ESOPHAGUS BIOPSY 6 - ESOPHAGUS BIOPSY 7 - BIOPSY BOWEL Procedures: GROSS AND MICRO LEVEL 4 Comments: [id number]
[2023-04-26 12:01] VITALS: BP 135/75; PULSE 51; RESP 18; TEMP 36; O2SAT 100
--- NOTE | 2023-04-26 12:33 | W.ANESPOSTOP ---
Postoperative Evaluation Date, Time and Location Date Performed: 04/26/23 Time Performed: 12:33 Patient Location: Day Surgery Unit Vital Signs Most Recent Imported Vital Signs: Most Recent Vital Signs Temp Pulse Resp BP Pulse Ox 36 C L 51 L 18 135/75 100 04/26/23 12:01 04/26/23 12:01 04/26/23 12:04/26/23 12:04/26/23 12:01 Pain Score Most Recent Pain Score: Most Recent Pain Score Pain Level 0 04/26/23 12:01 Assessment Mental Status: Awake (Alert & Oriented to Patient Baseline) Airway and Respiratory Function: Patent airway with normal (patient baseline) respiratory exam Cardiovascular Function: Hemodynamically Stable Hydration Status: Adequately Hydrated Nausea & Vomiting: No Nausea or Vomiting Pain: Other (migraine) Peripheral Nerve Block: Patient did not receive a nerve block
[2023-04-26 12:35] VITALS: BP 133/66; PULSE 54; RESP 14; TEMP 36.6; O2SAT 96
[2023-04-26] MEDS: Normal Saline Flush 10 ML SYR IV (12:54)
[2023-04-26] MEDS: Promethazine 25 MG TAB PO (12:54)
[2023-04-26] MEDS: Pantoprazole 40 MG VIAL IVP (12:54)
== END 2023-04-26 13:40 | disposition home or self-care (01) ==
LOC: SUR 09:07
PROVIDERS: PCP Nurse Practitioner Family; Visit Provider Surgery
PROC: (CPT 45380; principal; 2023-04-26 10:30)
DX: D12.4 Benign neoplasm of descending colon (principal); K22.70 Barrett's esophagus without dysplasia; K20.90 Esophagitis, unspecified without bleeding; K57.30 Diverticulosis of large intestine without perforation or abscess without bleeding; Z80.0 Family history of malignant neoplasm of digestive organs; R19.4 Change in bowel habit; K29.80 Duodenitis without bleeding; K44.9 Diaphragmatic hernia without obstruction or gangrene; Z87.11 Personal history of peptic ulcer disease; K22.89 Other specified disease of esophagus
CPT/HCPCS: 45380; 43239; 88305; J1885; J2001; J2405; J2470; J2704

== ENCOUNTER → 2023-05-31 10:45 | Outpatient (BNVA) | payer OTHER, MEDICAID, SELFPAY | PROVIDERS: PCP Nurse Practitioner Family; Referring Provider Nurse Practitioner Family; Visit Provider Nurse Practitioner Adult Health | DX: G43.009 Migraine without aura, not intractable, without status migrainosus (principal); G31.84 Mild cognitive impairment of uncertain or unknown etiology | CPT/HCPCS: 99214 ==

== ENCOUNTER 2023-08-03 17:04 | Emergency (ER) | payer OTHER, MEDICAID, SELFPAY ==
--- NOTE | 2023-08-03 17:00 | RT.EKG_ITS ---
APPROVED REPORT Exam: Resting ECG Reason for Exam: syncope Patient Location: E HR:64 bpm ECG Measurements Heart Rate 64 AXIS UT 128 P 54 QRSd 92 QRS 52 QT 433 T 44 QTc 431 Conclusion Sinus rhythm...normal P axis, V-rate 60- 99 Atrial premature complexes...SV complexes w/ short R-R intvls Normal sinus rhythm. Normal rate. Intervals within normal limits. Normal axis. No ST segment abno rmalities. No T wave inversions. No acute injury pattern. Compared to prior dated 2 years ago no s ignificant changes beyond improved T wave flattening in aVL.
[2023-08-03 17:11] VITALS: BP 124/64; PULSE 63; RESP 18; TEMP 36.1; O2SAT 96
--- NOTE | 2023-08-03 17:14 | W.ED.GENAD ---
Discharge Plan Disposition Patient Disposition: Home Condition: Stable Discharge Details Clinical Impression: Urinary tract infection, Vasovagal syncope, Dehydration Primary Care Provider: Unknown,Unknown ED Provider: Todd Rodriguez Home Meds and New Rx's Prescriptions: New cephalexin 500 mg capsule 500 mg PO QID 10 Days Qty: 40 0RF Continued pantoprazole [Protonix] 40 mg tablet,delayed release (DR/EC) 40 mg PO DAILY Qty: 90 5RF aspirin [Gareth Low Dose Aspirin] 81 mg tablet,delayed release (DR/EC) 81 mg PO DAILY Qty: 1 0RF Patient Comments: pt unsure of exact last date she took this cholecalciferol (vitamin D3) 50 mcg (2,000 unit) capsule 50 mcg PO DAILY riboflavin (vitamin B2) 100 mg tablet 100 mg PO BID vitamin E (dl, acetate) 400 unit capsule 450 mg PO DAILY magnesium 250 mg tablet 500 mg PO BID ascorbate calcium (vitamin C) 500 mg tablet 500 mg PO BID triamcinolone acetonide 0.1 % cream 1 applic TP DAILY PRN multivitamin Capsule 1 cap PO DAILY bisacodyl [Dulcolax (bisacodyl)] 10 mg suppository 10 mg HI DAILY PRN (Reason: constipation) Qty: 12 0RF prochlorperazine maleate 5 mg tablet See Rx Instructions .ROUTE .COMPLEX Qty: 30 3RF Dose Instruction: TAKE 1 TO 2 TABLETS BY MOUTH EVERY 8 HOURS NEEDED FOR NAUSEA OR VOMITING OR HEADACHE Rx Instructions: TAKE 1 TO 2 TABLETS BY MOUTH EVERY 8 HOURS NEEDED FOR NAUSEA OR VOMITING OR HEADACHE Nurtec ODT 75 mg tablet,disintegrating 75 mg PO Q OTHER DAY Qty: 15 11RF atorvastatin 40 mg tablet 40 mg PO DAILY All Day Allergy (cetirizine) 10 mg capsule 10 mg PO DAILY PRN fluocinonide 0.05 % cream 1 applic topical BID-QID PRN ibandronate 150 mg tablet 150 mg PO QMONTH epinephrine [EpiPen 2-Alexandro] 0.3 mg/0.3 mL auto-injector 0.3 mg IM ONCE PRN Rx Instructions: as a single dose promethazine 12.5 mg suppository 12.5 mg HI TID PRNQty: 12 0RF Rx Instructions: do not give 3rd daily dose after evening meal or within 4hr before bed potassium chloride 20 mEq tablet,ER particles/crystals 20 meq PO DAILY Qty: 7 0RF nystatin 100,000 unit/mL suspension 5 ml PO QID Qty: 100 0RF Rx Instructions: swish and swallow Discharge Instructions Instructions: Cephalexin, Dehydration, Adult ED, Urinary Tract Infection, Adult ED, Fainting, Adult ED Additional Instructions: You were seen in the emergency department for your episode of fainting today, you endorsed poor p.o. intake of food and hydration today, this is evidenced by your acute kidney injury on labs likely indicating dehydration as the cause of your fainting, your EKG and cardiac workup are normal, there is no evidence on head CT of any intracranial cause of syncope or head injury from fall. Otherwise your laboratory workup is benign and your EKG is consistent with priors. There is a possibility you have a urinary tract infection with 10-20 white blood cells seen in your urine, we did send a urine culture which should result tomorrow, I did offer to send antibiotics in case this culture resulted positive you may fill this prescription at your pharmacy tomorrow. I did offer observation admission and we did discuss the risks of further syncope. You also state that you have some sort of seizure disorder but are unmedicated, you state you have neurology follow-up with Dr. Romero next month. Please pursue EEG. Please return to the emergency department immediately for any further episodes of syncope, chest pain, shortness of breath with exertion, profound dizziness, intractable nausea or vomiting, weakness. Referrals: [id number] [Provider Group] Discharge Data Discharge Date/Time-TO BE ENTERED AT DEPARTURE: 08/03/23 21:35 HPI General Date/Time Provider Initiated Documentation: 08/03/23 17:14. HPI Narrative: 67 year-old female presents to ED today by POV/ambulating with a chief complaint of possible syncope at home- was out working in her garden, notes that she had poor PO intake of food and hydration today- just arrived back from [place] with onset of syncope just prior to arrival. Patient states she has some sort of possible seizure disorder- unmedicated- has Neuro visit next month, patients denies trauma as he assisted her. Quality described as tired on arrival, mildly nauseous, no radiation to chest pain, profound weakness, vomiting, visual changes, slurred speech. Severity is described as not painful. Palliating factors include nothing specific attempted. Provoking factors include nothing specific. Patient not anticoagulated. Related Data Home Medications Medication Instructions Recorded Confirmed multivitamin 1 cap PO DAILY 02/22/19 08/03/23 triamcinolone acetonide 0.1 % 1 applic topical DAILY PRN 02/22/19 08/03/23 topical cream epinephrine 0.3 mg/0.3 mL 0.3 mg IM ONCE PRN 11/23/19 08/03/23 injection, auto-injector (EpiPen 2-Alexandro) aspirin 81 mg tablet,delayed 81 mg PO DAILY #1 tab 01/23/20 08/03/23 release (Gareth Low Dose Aspirin) cholecalciferol (vitamin D3) 50 50 mcg PO DAILY 05/13/20 08/03/23 mcg (2,000 unit) capsule riboflavin (vitamin B2) 100 mg 100 mg PO BID 05/13/20 08/03/23 tablet vitamin E (dl, acetate) 180 mg 450 mg PO DAILY 05/13/20 08/03/23 (400 unit) capsule ascorbate calcium (vitamin C) 500 500 mg PO BID 07/22/20 08/03/23 mg tablet potassium chloride 20 mEq 20 meq PO DAILY #7 tabs 08/22/20 08/03/23 tablet,extended release(part/cryst) promethazine 12.5 mg rectal 12.5 mg HI TID PRN #12 ea 08/22/20 08/03/23 suppository magnesium 250 mg tablet 500 mg PO BID 10/28/20 08/03/23 nystatin 100,000 unit/mL oral 5 ml PO QID #100 mL 11/30/21 08/03/23 suspension bisacodyl 10 mg rectal suppository 10 mg HI DAILY PRN constipation 12/01/21 08/03/23 (Dulcolax (bisacodyl)) #12 ea prochlorperazine maleate 5 mg See Rx Instructions .Route 12/14/22 08/03/23 tablet .COMPLEX #30 tabs rimegepant 75 mg disintegrating 75 mg PO Q OTHER DAY #15 tabs 12/14/22 08/03/23 tablet (Nurtec ODT) atorvastatin 40 mg tablet 40 mg PO DAILY 03/24/23 08/03/23 cetirizine 10 mg capsule (All Day 10 mg PO DAILY PRN 03/24/23 08/03/23 Allergy (cetirizine)) fluocinonide 0.05 % topical cream 1 applic topical BID-QID PRN 03/24/23 08/03/23 ibandronate 150 mg tablet 150 mg PO QMONTH 03/24/23 08/03/23 pantoprazole 40 mg tablet,delayed 40 mg PO DAILY #90 tabs 04/01/23 08/03/23 release (Protonix) cephalexin 500 mg capsule 500 mg PO QID UTI 10 days #40 caps 08/03/23 Previous Rx's Medication Instructions Recorded aspirin 81 mg tablet,delayed 81 mg PO DAILY #1 tab 01/23/20 release (Gareth Low Dose Aspirin) potassium chloride 20 mEq 20 meq PO DAILY #7 tabs 08/22/20 tablet,extended release(part/cryst) promethazine 12.5 mg rectal 12.5 mg HI TID PRN #12 ea 08/22/20 suppository nystatin 100,000 unit/mL oral 5 ml PO QID #100 mL 11/30/21 suspension bisacodyl 10 mg rectal suppository 10 mg HI DAILY PRN constipation 12/01/21 (Dulcolax (bisacodyl)) #12 ea prochlorperazine maleate 5 mg See Rx Instructions .Route 12/14/22 tablet .COMPLEX #30 tabs rimegepant 75 mg disintegrating 75 mg PO Q OTHER DAY #15 tabs 12/14/22 tablet (Nurtec ODT) pantoprazole 40 mg tablet,delayed 40 mg PO DAILY #90 tabs 04/01/23 release (Protonix) cephalexin 500 mg capsule 500 mg PO QID UTI 10 days #40 caps 08/03/23 Allergies Allergy/AdvReac Type Severity Reaction Status Date / Time venom-wasp Allergy Anaphylaxis Verified 08/03/23 20:49 Opioids - Morphine Analogues AdvReac Severe vomiting Verified 08/03/23 20:49 headache General Stated Complaint: [id number] JENNIFER: 3 Review of Systems All systems reviewed & are unremarkable except as noted in HPI and below Exam Narrative Exam Narrative: GENERAL APPEARANCE: Well-nourished, non-toxic, awake and alert, atraumatic, no acute distress. SKIN: Warm, pink, dry, intact, without rashes/lesions/ulcerations. HEAD: Normocephalic, atraumatic, normal hair distribution for gender/age. EYES: Pupils PERRLA, EOMs intact without nystagmus, normal conjunctiva, no exudates on lids/lashes. ENT: Nares patent, no circumoral cyanosis, no facial swelling NECK: Supple, trachea midline, painless cervical ROM, no carotid bruit. LUNGS/CHEST: Lungs CTA bilaterally- no rhonchi/rales/wheezes diffusely, non-labored respirations, normal A/P diameter, symmetrical expansion, no chest wall deformity HEART (CV/PV): Regular rate and rhythm without murmur, no peripheral edema, no JVD. ABDOMEN: Soft, non-distended, no guarding, no tenderness. MSK: Normal ROM, no swelling/deformity to bilateral UEs or LEs, moving all extremities without weakness, no cyanosis, spine midline without tenderness, normal curvature. NEURO: Mental Status AAOx4 - alert to person, place, time, events No facial droop, no forehead involvement, no dysmetria with FNF/heel-boothe Motor: No focal weakness - strength 5/5 in bilateral UEs and LEs, proximal and distal, symmetric. Sensory: sensation intact to light touch globally. Gait normal: patient ambulated without ataxia into ED room. PSYCH: euthymic, cooperative, pleasant, appropriate speech Course Vital Signs Vital signs: Vital Signs Temperature 36.1 C L 08/03/23 17:11 Pulse 63 08/03/23 17:11 Respiratory Rate 18 08/03/23 17:11 Blood Pressure 124/64 08/03/23 17:11 Pulse Oximetry 96 08/03/23 17:11 Temperature 36.1 C L 08/03/23 17:11 Temperature Source Skin 08/03/23 17:11 Pulse 63 08/03/23 17:11 Respiratory Rate 18 08/03/23 17:11 Blood Pressure 124/64 08/03/23 17:11 Blood Pressure Position Sitting 08/03/23 17:11 Pulse Oximetry 96 08/03/23 17:11 Oxygen Delivery Method Room Air 08/03/23 17:11 Oxygen Flow Rate 0 08/03/23 17:11 Pain Level 2 08/03/23 17:11 Medical Decision Making This dictation utilizes [id number] dictation software and may contain unedited grammatical errors. 67 year-old female presents to ED today by POV/ambulating with a chief complaint of possible syncope at home- was out working in her garden, notes that she had poor PO intake of food and hydration today- just arrived back from [place] with onset of syncope just prior to arrival. Patient states she has some sort of possible seizure disorder- unmedicated- has Neuro visit next month, patients denies trauma as he assisted her. Quality described as tired on arrival, mildly nauseous, no radiation to chest pain, profound weakness, vomiting, visual changes, slurred speech. Severity is described as not painful. Palliating factors include nothing specific attempted. Provoking factors include nothing specific. Patients' medical history: Mild cognitive impairment, hypokalemia, history of stroke, migraine headache, unresponsive episode, no objective seizure disorder noted. Family and social history: Noncontributory. Pertinent exam findings / vital signs include benign cardiopulmonary exam, neuro intact, benign abdomen, no respiratory distress, nontoxic vitals. Differential / pathologies of concern include dehydration, syncope, less likely seizure disorder, arrhythmia, ACS. Diagnostic studies of: -CBC, VBG, serial troponins, BNP, TSH, UA, XR chest, CT head wo, EKG. -CBC shows no leukocytosis, no anemia -VBG is completely benign, lactate is negative -CMP shows mild JUAN DAVID and elevated BUN likely dehydration, likely source of her syncope -Serial troponins negative -BNP negative -TSH is elevated but free T4 is within normal limits -UA shows WBCs 10-20, will send empiric ABX, patient is asymptomatic- they will wait for Cx result to fill Rx -EKG shows normal sinus rhythm at 64 bpm, P waves followed by narrow complex QRS with normal axis, no ST changes, no ischemic changes, no T wave inversions, consistent with priors with a normal QT QTc -CT head shows no acute pathology -XR Chest shows no acute pathology Interventions of: -Patient received 1L IVF that was started by EMS, had no symptoms throughout ED stay. ED Course/Assessment/Plan: 67-year-old female presents by EMS for possible syncopal episode, she had just arrived back from [place] by plane this morning, had not had anything to eat or drink today and went outside to working in the garden, does not remember the injury but assisted her to the ground that she was eyes open partially responsive but somewhat out of it, there was no postictal state noted by EMS. She is negative for cardiac workup, EKG shows no concerns for cardiac cause of syncope or arrhythmia, does show that she has a mild JUAN DAVID likely dehydration on CMP. She does not have objective history of seizure disorder and has not received an EEG, she does have neurology follow-up next month, I counseled her on following up with neurology for this study. I counseled on the option to pursue admission due to the patient's syncope for telemetry ops but the patient was comfortable with discharge and strict return criteria, her can provide strict supervision for return for any further episodes of dizziness, chest pain, arrhythmia,'s palpitations or syncope. She did have an incidental finding of UTI with 10-20 WBCs, I did send cephalexin and counseled the patient to check on her culture results tomorrow and fill the prescription if necessary and follow-up with urology in the future. Findings not consistent with acute coronary syndrome, seizure disorder, arrhythmia, sepsis, infection, brain mass. Disposition of Urinary Tract Infection, Vasovagal Syncope, Dehydration. Patient verbalized understanding of the plan and return to ED criteria and engaged in shared decision making. Medical Records Medical records reviewed: Yes I reviewed the patient's medical records. Imaging Data Radiologic Study: Attestation: I personally reviewed and interpreted this imaging study as follows: Imaging: CT Scan Radiologist's impression: EXAM: CT HEAD WO CLINICAL HISTORY: syncope vs seizure activity. TECHNIQUE: Imaging Protocol: Axial computed tomography images with coronal and sagittal reformatted images were created and reviewed COMPARISON: MR MR BRAIN WO from 04/15/[address] BRAIN NECK CTA from 04/15/2021 FINDINGS: Ventricles and Extra axial spaces: Normal in size and morphology for the patient's age. Hemorrhage: None. Cerebral parenchyma: There are areas of decreased attenuation in the white matter most suggestive of small vessel ischemic disease. There is also an old area of encephalomalacia involving the left parietal and occipital region. No acute mass effect is seen. Midline shift: None. Brainstem/Cerebellum: Normal. Calvarium: Normal. Visualized Paranasal sinuses/Mastoids: Clear. Soft Tissues: Unremarkable. IMPRESSION: No acute intracranial process. Radiologic Study #2: Attestation: I personally reviewed and interpreted this imaging study as follows: Imaging: X-Ray Radiologist's impression: EXAM: XR CHEST 2V PA LATERAL CLINICAL HISTORY: syncope TECHNIQUE: 2D digital imaging was performed of the chest. Three images were obtained. PA and lateral views were obtained. COMPARISON: CR XR PORTABLE CHEST AP from 11/26/2021 FINDINGS: MEDIASTINUM: Normal. HEART: Normal. PULMONARY VASCULATURE: Normal. LUNGS: Clear. PLEURAL SPACE: No pleural effusion or pneumothorax. BONE:Within normal limits for the patient's age. OTHER FINDINGS:Normal. IMPRESSION: No acute pulmonary findings. Lab Data Lab results reviewed: Yes I reviewed the patient's lab results. Labs: 08/03/23 20:21 Urine - Reflex from Ua Urine Culture - Pending Laboratory Tests Range/Units 08/03/23 08/03/23 08/03/23 17:40 20:21 20:25 WBC (4.4-10.8) 10^3/uL 6.75 RBC (3.93-5.22) 10^6/uL 3.94 Hgb (11.2-15.7) g/dL 11.9 Hct (36.0-46.0) % 36.9 MCV (80-95) fL 94 MCH (27.0-33.0) pg 30.2 MCHC (32.0-36.0) % 32.2 RDW (11.7-14.6) % 12.6 Plt Count (130-400) 10^3/uL 267 MPV (8.0-11.0) fL 10.5 Immature Gran % % 0.3 Neutrophils % % 60.2 Lymphocytes % % 27.7 Monocytes % % 8.7 Eosinophils % % 2.4 Basophils % % 0.7 Nucleated RBC % (0.0-0.3) % 0.0 Absolute Neutrophils (1.2-6.7) 10^3/uL 4.06 Absolute Lymphocytes (1.2-3.4) 10^3/uL 1.87 Absolute Monocytes (0.1-0.8) 10^3/uL 0.59 Absolute Eosinophils (0.0-0.7) 10^3/uL 0.16 Absolute Basophils (0.0-0.2) 10^3/uL 0.05 VBG pH (7.31-7.41) 7.34 VBG pCO2 (41-51) mmHg 50 VBG pO2 mmHg 29 VBG HCO3 (23-28) mmol/L 27 VBG Total CO2 (24-29) mmol/L 25 VBG O2 Saturation % 48 VBG Base Excess (-2-3) mmol/L 2 VBG Lactate (0.6-1.4) mmol/L 0.8 Sodium (136-145) mmol/L 143 Potassium (3.5-5.1) mmol/L 3.9 Chloride (98-107) mmol/L 107 Carbon Dioxide (21.0-32.0) mmol/L 28.0 Anion Gap (3-11) mmol/L 8.0 BUN (7-18) mg/dL 20 H Creatinine (0.55-1.02) mg/dL 1.3 H Est GFR (CKD-EPI 2020) (mL/min/1.73m2) 44.51 Glucose (74-106) mg/dL 114 H Calcium (8.5-10.1) mg/dL 8.9 Magnesium (1.8-2.4) mg/dL 1.8 Total Bilirubin (0.2-1.0) mg/dL 0.7 AST (15-37) U/L 17 ALT (14-59) U/L 25 Alkaline Phosphatase (46-116) U/L 59 Creatine Kinase (26-192) U/L 89 Troponin I (< or =60) ng/L < 50 < 50 NT-Pro-B Natriuret Pep (<300) pg/mL 70 Total Protein (6.4-8.2) g/dL 6.8 Albumin (3.4-5.0) g/dL 3.5 TSH (0.36-3.74) uIU/mL 3.94 H Free T4 (0.76-1.46) ng/dL 1.01 Urine Color (Yellow) Yellow Urine Clarity (Clear) Clear Urine pH (5-8) 5.5 Ur Specific [place] (1.005-1.025) >= 1.030 H Urine Protein (Neg-Trace) mg/dL Negative Urine Ketones (Negative) mg/dL 15 H Urine Blood (Negative) Trace-intact H Urine Nitrite (Negative) Negative Urine Bilirubin (Negative) Negative Urine Urobilinogen (Up to 0.2) mg/dL 0.2 Ur Leukocyte Esterase (Negative) Small H Urine RBC (0-2) HPF 0-2 Urine WBC (0-5) HPF 10-20 H Ur Epithelial Cells (Negative) HPF Rare Urine Crystals (Negative) HPF Mod Calcium Oxalate Urine Bacteria (Negative) HPF Rare Urine Casts (Negative) LPF 3-5 Hyaline Urine Mucus (Negative) Trace Ur Culture Indicated? 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) Hyperplastic colon polyp (Acute ~2019) Heartburn (Acute) Epigastric pain (Acute) Atypical migraine (Acute) Migraine headache without aura (Acute) Arthritis of carpometacarpal (CMC) joint of right thumb (Acute) Nausea & vomiting (Acute) Leukocytosis (Acute) Pneumonia (Acute) Weakness (Acute) Bursitis of right shoulder (Acute) Tendonitis of long head of biceps brachii of right shoulder (Acute) Traumatic tear of right rotator cuff (Acute ~04/2021) Acute hypokalemia (Acute) Cephalgia (Acute) Stroke (Chronic) MRI of brain and CT angio of carotids negative in 2021 Migraine aura without headache (Acute) Syncope (Chronic) Chronic headaches (Acute) Unresponsive episode (Acute) Chronic migraine (Chronic) GERD (gastroesophageal reflux disease) (Chronic) History of peptic ulcer disease (Chronic) Eczema (Chronic) Medical History Tubular adenoma of colon (~04/2023) Surgical History History of esophagogastroduodenoscopy (~04/2023) History of colonoscopy (~04/2023) Social History Smoking/Tobacco Use Status: Never Smoking risk assessment performed?: Yes Alcohol Intake: former Drug use: Daily Substance use type: marijuana Details: Last THC was 1700 04/25/23 Household members: significant other Housing: apartment Number of Children: 1 number of grandchildren: 2 current occupation: former [employer] Pets and animals: Yes Pets and animals: cat(s) Current gender identity: female What type of physical activity do you participate in: walking Seatbelt use: always Do you feel safe at home: Yes Do you feel safe in your relationship?: Yes Additional Social history: unable to assess privately
--- NOTE | 2023-08-03 17:15 | DI.CT_ITS ---
Exam(s) CT HEAD WO EXAM: CT HEAD WO CLINICAL HISTORY: syncope vs seizure activity. TECHNIQUE: Imaging Protocol: Axial computed tomography images with coronal and sagittal reformatted images were created and reviewed COMPARISON: MR MR BRAIN WO from 04/15/[address] BRAIN NECK CTA from 04/15/2021 FINDINGS: Ventricles and Extra axial spaces: Normal in size and morphology for the patient's age. Hemorrhage: None. Cerebral parenchyma: There are areas of decreased attenuation in the white matter most suggestive of small vessel ischemic disease. There is also an old area of encephalomalacia involving the left nitesh etal and occipital region. No acute mass effect is seen. Midline shift: None. Brainstem/Cerebellum: Normal. Calvarium: Normal. Visualized Paranasal sinuses/Mastoids: Clear. Soft Tissues: Unremarkable. IMPRESSION: No acute intracranial process. RADIATION DOSE DELIVERED: 687.02mGy.cm Total DLP DATA REPOSITORY: All CT scans at this facility are submitted to the National Radiology Data Registry (NRDR) Dose Index Registry (DIR) with the [employer] (A[employer]). RADIATION OPTIMIZATION: All CT scans at this facility use at least one of these dose optimization te chniques: automated exposure control; mA and/or kV adjustment per patient size (includes targeted exa ms where dose is matched to clinical indication); or iterative reconstruction.
--- NOTE | 2023-08-03 17:15 | DI.RAD_ITS ---
Exam(s) XR CHEST 2V PA LATERAL EXAM: XR CHEST 2V PA LATERAL CLINICAL HISTORY: syncope TECHNIQUE: 2D digital imaging was performed of the chest. Three images were obtained. PA and later al views were obtained. COMPARISON: CR XR PORTABLE CHEST AP from 11/26/2021 FINDINGS: MEDIASTINUM: Normal. HEART: Normal. PULMONARY VASCULATURE: Normal. LUNGS: Clear. PLEURAL SPACE: No pleural effusion or pneumothorax. BONE:Within normal limits for the patient's age. OTHER FINDINGS:Normal. IMPRESSION: No acute pulmonary findings. DATA REPOSITORY: RADIATION DOSE DELIVERED:
[2023-08-03 17:51] LABS: BE (Venous) 2 mmol/L (-2-3); HCO3 (Venous) 27 mmol/L (23-28); O2 Sat (Venous) 48 %; TCO2 (Venous) 25 mmol/L (24-29); pCO2 (Venous) 50 mmHg (41-51); pH (Venous) 7.34 (7.31-7.41); pO2 (Venous) 29 mmHg
[2023-08-03 17:54] LABS: Abs Immature Grans 0.02 10^3/uL (0.0-0.06); Absolute Basophil Count 0.05 10^3/uL (0.0-0.2); Absolute Eosinophil Count 0.16 10^3/uL (0.0-0.7); Absolute Lymphocyte Count 1.87 10^3/uL (1.2-3.4); Absolute Monocyte Count 0.59 10^3/uL (0.1-0.8); Absolute Neutrophil Count 4.06 10^3/uL (1.2-6.7); Basophils % 0.7 %; Eosinophils % 2.4 %; HCT 36.9 % (36.0-46.0); HGB 11.9 g/dL (11.2-15.7); Immature Grans % 0.3 %; Lactate 0.8 mmol/L (0.6-1.4); Lymphocytes % 27.7 %; MCH 30.2 pg (27.0-33.0); MCHC 32.2 % (32.0-36.0); MCV 94 fL (80-95); MPV 10.5 fL (8.0-11.0); Monocytes % 8.7 %; Neutrophils % 60.2 %; Platelet Count 267 10^3/uL (130-400); RBC 3.94 10^6/uL (3.93-5.22); RDW 12.6 % (11.7-14.6); RDW-SD 43.4 fL; WBC 6.75 10^3/uL (4.4-10.8)
[2023-08-03 18:23] VITALS: RESP 18
[2023-08-03 18:25] LABS: ALT 25 U/L (14-59); AST 17 U/L (15-37); Albumin 3.5 g/dL (3.4-5.0); Alkaline Phosphatase 59 U/L (46-116); BUN 20 mg/dL (7-18); Bilirubin, Total 0.7 mg/dL (0.2-1.0); CREATININE 1.3 mg/dL (0.55-1.02); Calcium 8.9 mg/dL (8.5-10.1); Chloride 107 mmol/L (98-107); Creatine Kinase 89 U/L (26-192); Estimated GFR 44.51 (mL/min/1.73m2); Glucose 114 mg/dL (74-106); Magnesium 1.8 mg/dL (1.8-2.4); NT-proBNP 70 pg/mL (<300); Potassium 3.9 mmol/L (3.5-5.1); Sodium 143 mmol/L (136-145); TSH (W/Ref FT4) 3.94 uIU/mL (0.36-3.74); Total Protein 6.8 g/dL (6.4-8.2); Troponin I < 50 ng/L (< or =60)
[2023-08-03 18:42] LABS: FREE T4 1.01 ng/dL (0.76-1.46)
[2023-08-03 19:43] VITALS: BP 98/57; PULSE 65; RESP 15; O2SAT 100
[2023-08-03 20:31] LABS: Bilirubin Negative (Negative); Blood Trace-intact (Negative); Clarity Clear (Clear); Glucose Negative (Negative); Ketones 15 mg/dL (Negative); Leukocyte Esterase Small (Negative); Nitrite Negative (Negative); Specific Gravity >= 1.030 (1.005-1.025); Urobilinogen 0.2 mg/dL (Up to 0.2); pH 5.5 (5-8)
[2023-08-03 20:47] LABS: Troponin I < 50 ng/L (< or =60)
[2023-08-03 20:49] VITALS: BP 130/67; PULSE 62; RESP 16; O2SAT 100
[2023-08-03 20:52] LABS: Bacteria Rare HPF (Negative); C & S Indicated? Yes; Casts 3-5 Hyaline LPF (Negative); Crystals Mod Calcium Oxalate HPF (Negative); Epithelial Cells Rare HPF (Negative); Mucus Trace (Negative); RBC 0-2 HPF (0-2)
[2023-08-03 21:33] VITALS: BP 117/82; PULSE 64; RESP 16; O2SAT 100
--- NOTE | 2023-08-08 16:38 | NUR.NOTE ---
Nursing Note: Received call from pt and her Sridevi inquiring about her urinary results. Pt had a urine culture that showed contaminated sample. Pt does not have any urinary symptoms at this time and was advised that if she develops symptoms to seek care again. Pt and verbalized understanding and state she's feeling much better.
== END 2023-08-03 21:35 | disposition home or self-care (01) ==
PROVIDERS: Emergency Provider Physician Assistant
DX: R55 Syncope and collapse (principal); R51.9 Headache, unspecified; R11.2 Nausea with vomiting, unspecified; N39.0 Urinary tract infection, site not specified; E86.0 Dehydration; Z79.899 Other long term (current) drug therapy; Z79.82 Long term (current) use of aspirin; N17.9 Acute kidney failure, unspecified
CPT/HCPCS: 80053; 82550; 82805; 93005; 99285; 70450; 71046; 81003; 81015; 83605; 83735; 83880; 84439; 84443; 84484; 85025; 87086; 93010

== ENCOUNTER → 2023-08-24 09:47 | Outpatient (BNVA) | payer OTHER, MEDICAID, SELFPAY | PROVIDERS: PCP Nurse Practitioner Family; Referring Provider Nurse Practitioner Family; Visit Provider Nurse Practitioner Adult Health | DX: G43.709 Chronic migraine without aura, not intractable, without status migrainosus (principal); R41.89 Other symptoms and signs involving cognitive functions and awareness | CPT/HCPCS: 99215 ==

== ENCOUNTER 2023-09-09 09:30 | Outpatient (RCR) | payer OTHER, MEDICAID, SELFPAY | END 2023-09-21 23:59 | disposition home or self-care (01) | LOC: CARDOPNVT 09:30 | PROVIDERS: Visit Provider Nurse Practitioner Family | DX: R55 Syncope and collapse (principal) | CPT/HCPCS: 93227; 93226 ==

== ENCOUNTER 2023-10-07 09:20 | Outpatient (CLI) | payer OTHER, MEDICAID, SELFPAY | END 2023-10-07 09:21 | disposition home or self-care (01) | PROVIDERS: Visit Provider Nurse Practitioner Family | DX: R55 Syncope and collapse (principal) | CPT/HCPCS: 93246 ==

== ENCOUNTER 2023-10-31 08:21 | Outpatient (CLI) | payer OTHER, MEDICAID, SELFPAY ==
--- NOTE | 2023-10-31 12:35 | CER_ITS ---
Date of service: 10/31/23 Time of Service: 12:35 Cardiac Event Recorder Referring Provider:: Zahra Leonardo Indications:: Syncope Cardiac Event Note: This is a cardiac event monitor. Patient was monitored for 13 days and 3 hours. Rhythm throughout was sinus with an average heart rate of 70. Minimum was 46, maximum 131. There were very rare ventricular ectopic beats There are moderately frequent atrial premature beats. There were several self- limited atrial runs. The longest of these was 4 beats in duration There was no atrial fibrillation, no high-grade AV block, no pauses greater than 3 seconds Symptoms were reported which appeared to correlate with atrial premature beats
== END 2023-10-31 08:22 | disposition home or self-care (01) ==
LOC: CARDOPNVT 08:21
PROVIDERS: Visit Provider Internal Medicine Cardiovascular Disease
DX: R55 Syncope and collapse (principal); I49.1 Atrial premature depolarization
CPT/HCPCS: 93248

== ENCOUNTER 2023-11-08 22:18 | Outpatient (REF) | payer OTHER, MEDICAID, SELFPAY ==
[2023-11-08 16:44] LABS: ALT 21 U/L (14-59); AST 26 U/L (15-37); Albumin 3.6 g/dL (3.4-5.0); Alkaline Phosphatase 74 U/L (46-116); Anion Gap 9.2 mmol/L (3-11); BUN 10 mg/dL (7-18); Bilirubin, Total 0.43 mg/dL (0.2-1.0); CO2 24.8 mmol/L (21.0-32.0); CREATININE 1.1 mg/dL (0.55-1.02); Calcium 9.4 mg/dL (8.5-10.1); Chloride 104 mmol/L (98-107); Estimated GFR 54.39 (mL/min/1.73m2); Glucose 110 mg/dL (74-106); Potassium 4.2 mmol/L (3.5-5.1); Sodium 138 mmol/L (136-145); Total Protein 7.4 g/dL (6.4-8.2)
== END 2023-11-08 22:19 | disposition home or self-care (01) ==
LOC: NCHCN 22:18
PROVIDERS: Visit Provider Nurse Practitioner Family
DX: R79.89 Other specified abnormal findings of blood chemistry (principal)
CPT/HCPCS: 80053

== ENCOUNTER 2023-11-10 01:34 | Outpatient (CLI) | payer OTHER, MEDICAID, SELFPAY ==
--- NOTE | 2023-11-10 | DI.MAMMO_ITS ---
Exam(s) MAMMO SCREENING EXAM: MAMMO SCREENING CLINICAL HISTORY: SCREENING MAMMO Z12.31. TECHNIQUE: Bilateral full field digital CC and MLO mammographic images were obtained with 3D tomosyn thesis and utilizing computer aided detection (CAD). COMPARISON: Prior mammograms dating back to 2019 were reviewed. FINDINGS: There has been no significant change in the appearance and distribution of the fibroglandular tissue. There are no new findings in the immediate vicinity of a biopsy marker in the left breast. Asymmetric nodular densities in right breast remain unchanged prior mammograms. There are no new spiculated masses nor malignant appearing microcalcification groups. There is no significant architectural distortion nor skin thickening-retraction. IMPRESSION: No radiographic evidence of malignancy. Stable benign-appearing findings. BI-RADS Category 2 - Benign Findings Breast Density - Category B - Scattered areas of fibroglandular density Breast density Category C or D implies that the patient has dense breast tissue. Dense breast tissue can make it harder to find cancer on a mammogram. Dense breast tissue is also associated with an incr eased risk of breast cancer. This information about the result of the mammogram report was provided to the patient to raise their awareness. Use this report when you speak with the patient about their risks for breast cancer, which includes their family history. At that time, you may recommend additional screening tests (Ultrasoun d or MRI) as these tests may add significant information. A negative radiographic report should not delay biopsy if a dominant or clinically suspicious mass is present. Up to ten percent of cancers are not identified on mammography. A negative report may reinforce clinical impression. Adenosis and dense breasts may obscure an underlying neoplasm. False positive reports average 6 to 10%. Patient will receive a letter notifying them of these results.
== END 2023-11-10 01:54 ==
LOC: DI 01:34
PROVIDERS: PCP Nurse Practitioner Family; Visit Provider Nurse Practitioner Family
DX: Z12.31 Encounter for screening mammogram for malignant neoplasm of breast (principal)
CPT/HCPCS: 77063; 77067

== ENCOUNTER 2023-11-21 18:46 | Inpatient (IN) | payer OTHER, MEDICAID, SELFPAY ==
--- OUTSIDE RECORDS SUMMARY | 2023-11-21 19:04 | XMS_ITS | Encounter Summary ---
Author Organization [facility] Address [address] [place] [address] Care Team Providers Care Technical Manager Name Role Phone Rayne Stratton CARITO Primary Care Provider [phone] Encounter Details Date Type Department Care Team (Late st Contact Info) Description 09/22/2020 Lab Requisition [facility] Pathology & Laboratory Medicine - [address] [address] Sharon Avila [address] [place] [address] [place] [address] Encounter for other general examination Social History Tobacco Use Types Packs/Day Years Used Date Smoking Tobacco: Never Assessed Interpersonal Safety Answer Date Record ed Physically Hurt Never 09/24/2019 Verbally Threaten Not on file 09/24/2019 Sex and Gender Information Value Date Recorded Sex Assigned at Not on file Gender Identity Not on file Sexual Orientation Not on file documented as of this encounter Plan of Treatment Not on file documented as of this encounter Procedures Procedure Name Priority Date/Time Associated Diagnosis Comments SURGICAL PATHOLOGY Today 09/22/2020 11 :00 EDT Encounter for other general examination documented in this encounter Results * SURGICAL PATHOLOGY (09/22/2020 11:00 EDT) Note to Patient The following pathology results have been interpreted by your pathologist and may be available to you before your health provider has had the opportunity to review them. Please allow time for your provider to receive these results and explore management options, if applicable. 09/23/2020 15:51 EDT [facility] Final Diagnosis A. SUBMITTED ENDOCERVICAL CURETTAGE: - Tissue did not survive processing; credit issued. B. CERVIX, 9 O'CLOCK, BIOPSY: - Fragment of benign cervical tissue with squamous metaplasia. 09/23/2020 15:51 [facility] Diagnosis Comment Stencil Maker slides of this case were reviewed at the intradepartmental consultation conference. 09/23/2020 15:51 [facility] Attestation By the signature below, the attending physician certifies that they have 1) personally conducted a gross and/or microscopic examination of the described specimen(s), and/or personally interpreted the results of laboratory testing of the described specimen(s), and 2) personally rendered or confirmed the above diagnosis. 09/23/2020 15:51 [facility] at 1551 Clinical History +HR HPV x2, normal Pap 09/23/2020 15:51 [facility] Gross Description A. Received in formalin labelled with proper patient identification (initials R, H) and ECC is a Cytobrush tip within grossly clear formalin. No obvious tissue is identified. The formalin is filtered and possible clear mucus submitted in A1 however may not survive processing. B. Received in formalin labelled with proper patient identification (initials R, H ) and ? cervical Bx 9 o'clock is a king-white tissue, 0.2 x 0.1 x 0.1 cm with admixed clear mucus, 0.8 x 0.6 x 0.3 cm. Entirely submitted in B1. HOLLAND MUKHERJEE(ASCP) 09/22/2020 17:07 09/23/2020 15:51 T [facility] Performing Lab [facility] 09/23/2020 15:51 [facility] Scanned Images 09/23/2020 15:51 [facility] Tissue ENTIRE WALL OF CERVIX / Unknown 09/22/2020 11:00 EDT 09/22/2020 16:13 EDT Tissue specimen (specimen) CERVIX UTERI STRUCTURE / Unknown 09/22/2020 11:00 EDT 09/22/2020 16:13 EDT Sharon Avila PATHOLOGY ORDERABLES [facility] [address] [place] [address] documented in this encounter Visit Diagnoses Diagnosis Encounter for other general examination documented in this encounter Care Teams Technical Manager Relationship Specialty Start Date End Date Rayne Stratton [place] [address] PCP - General 02/21/19 documented as of this encounter
--- OUTSIDE RECORDS SUMMARY | 2023-11-21 19:04 | XMS_ITS | Encounter Summary ---
Author Organization [facility] Address [facility] [place] [address] Care Team Providers Care Assessment Expert Name Role Phone Jorden Zahra Jones APRN Primary Care Provider [phone] Encounter Details Date Type Department Care Team (Late Contact Info) Description 11/16/2022 Telephone Dermatology at [facility] [address] [place] [address] David Joya MD [facility] [address] [place] [address] Social History Tobacco Use Types Packs/Day Years Used Date Smoking Tobacco: Never Assessed Sex and Gender Information Value Date Recorded Sex Assigned at Not on file Gender Identity Not on file Sexual Orientation Not on file documented as of this encounter Miscellaneous Notes * Telephone Encounter - Elaine Fuller - 11/16/2022 3:14 PM EDT Patient's partner (Sridevi) called asking for a call back to schedule with Dr. Joya. documented in this encounter Plan of Treatment Upcoming Encounters Date Type Department Care Team (Late st Contact Info) Description 01/17/2024 9:00 AM EST Office Visit Dermatology at [facility] [address] [place] [address] Nessa Mendez MD [facility] [address] [place] [address] documented as of this encounter Visit Diagnoses Not on filedocumented in this encounter Care Teams Assessment Expert Relationship Specialty Start Date End Date Zahra Leonardo, BUSINESS LOAN PROCESSOR [address] [facility] [address] PCP - General Family Medicine 06/07/22 documented as of this encounter
--- OUTSIDE RECORDS SUMMARY | 2023-11-21 19:04 | XMS_ITS | Encounter Summary ---
Author Organization [facility] Address [facility] [place] [address] Care Team Providers Care Delivery Man Name Role Phone Zahra Leonardo APRN Primary Care Provider [phone] Encounter Details Date Type Department Care Team (Latest Contact Info) Description 06/09/2022 Travel Social History Tobacco Use Types Packs/Day Years Used Date Smoking Tobacco: Never Assessed Sex and Gender Information Value Date Recorded Sex Assigned at Not on file Gender Identity Not on file Sexual Orientation Not on file documented as of this encounter Plan of Treatment Upcoming Encounters Date Type Department Care Team (Late st Contact Info) Description 01/17/2024 9:00 AM EST Office Visit Dermatology at [facility] [address] [place] [address] Nessa Mendez MD [facility] [address] [place] [address] documented as of this encounter Visit Diagnoses Not on filedocumented in this encounter Care Teams Delivery Man Relationship Specialty Start Date End Date Zahra Leonardo APRN [facility] [place] [address] PCP - General Family Medicine 06/07/22 documented as of this encounter
--- OUTSIDE RECORDS SUMMARY | 2023-11-21 19:04 | XMS_ITS | Encounter Summary ---
Author Organization [facility] Address [facility] [place] [address] Care Team Providers Care Mold Shop Supervisor Name Role Phone Zahra Leonardo Karen HENNING Primary Care Provider [phone] Encounter Details Date Type Department Care Team (Late Contact Info) Description 06/11/2022 Telephone Dermatology at [facility] [address] [place] [address] David Joya MD [facility] [address] [place] [address] Social History Tobacco Use Types Packs/Day Years Used Date Smoking Tobacco: Never Assessed Sex and Gender Information Value Date Recorded Sex Assigned at Not on file Gender Identity Not on file Sexual Orientation Not on file documented as of this encounter Miscellaneous Notes * Telephone Encounter - Dulce Torrez - 06/11/2022 10:33 AM EDT I received a call from Sridevi asking if there was any other prescriptions suppose to be sent in they picked up the fluocinonide (LIDEX) 0.05 % Solution but they thought something else was suppose to be sent in as well. documented in this encounter Plan of Treatment Upcoming Encounters Date Type Department Care Team (Late Contact Info) Description 01/17/2024 9:00 AM EST Office Visit Dermatology at [facility] [address] [place] [address] Nessa Mendez MD [facility] [address] [place] [address] documented as of this encounter Visit Diagnoses Not on filedocumented in this encounter Care Teams Mold Shop Supervisor Relationship Specialty Start Date End Date Zahra Leonardo, MILADY [address] [place] [address] PCP - General Family Medicine 06/07/22 documented as of this encounter
--- OUTSIDE RECORDS SUMMARY | 2023-11-21 19:04 | XMS_ITS | Encounter Summary ---
Author Organization [facility] Address [facility] [place] [address] Care Team Providers Care Hotel Front Office Manager Name Role Phone Zahra Leonardo APRN Primary Care Provider [phone] Encounter Details Date Type Department Care Team (Latest Contact Info) Description 07/29/2022 Travel Social History Tobacco Use Types Packs/Day [...] 9:00 AM EST Office Visit Dermatology at [facility] [address] [place] [address] Nessa Mendez MD [facility] [address] [place] [address] documented as of this encounter Visit Diagnoses Not on filedocumented in this encounter Care Teams Hotel Front Office Manager Relationship Specialty Start Date End Date Zahra Leonardo APRN [facility] [place] [address] PCP - General Family Medicine 06/07/22 documented as of this encounter
--- OUTSIDE RECORDS SUMMARY | 2023-11-21 19:04 | XMS_ITS | Encounter Summary ---
[place] [address] Care Team Providers Care Glass Vial Filler Name Role Phone Zahra Leonardo APRN Primary Care Provider [phone] Reason for Referral * Consultation (Routine) - Authorized Specialty Diagnoses / Procedures Referred By Contadria bridges Referred To Contact [facility] Diagnoses Scoliosis deformity of spine Thoracic back pain scoli/ ? imaging non op Zahra Leonardo APRN [address] [facility] [address] [facility] [place] [place] [address] Referral ID Status Reason Start Date Expiration Date Visits Requested Visits Authorized [id number] Authorized Consult, Test & Treat PCP Updated and/or Approved 3 12/01/2023 1 1 Encounter Details Date Type Department Care Team (Latest Contact Info) Description 12/06/2022 Transcribe Orders eDH Incoming Referrals [phone] Zahra Leonardo APRN [address] [place], [place] [id number] Routine general medical examination at a health care facility Social History Tobacco Use Types Packs/Day Years [...] 9:00 AM EST Office Visit Dermatology at [facility] [address] [place] [address] Nessa Mendez MD [facility] [address] [place] [address] Scheduled Referrals Name Type Priority Associated Diagnoses Orde r Schedule Referral to Spine Center Outpatient Referral Routine Routine general medical examination at a health care facility Ordered: 12/06/2022 documented as of this encounter Visit Diagnoses Diagnosis Routine general medical examination at a health care facility documented in this encounter Care Teams Glass Vial Filler Relationship Specialty Start Date End Date Zahra Leonardo APRN [facility] [address] [place] [address] PCP - General Family Medicine 06/07/22 documented as of this encounter
--- OUTSIDE RECORDS SUMMARY | 2023-11-21 19:04 | XMS_ITS | Encounter Summary ---
Author Organization [facility] Address [address] [place] [address] Care Team Providers Care Medication Coordinator Name Role Phone Rayne Stratton Primary Care Provider [phone] Encounter Details Date Type Department Care Team (Latest Contact Info) Description 03/07/2019 Lab Requisition [facility] Pathology & Laboratory Medicine - [facility] [address] [place] [address] Rayne Stratton FNP [address] [place], [place] [id number] Encounter for general adult medical examination without abnormal findings; Encounter for screening for malignant neoplasm of cervix; Encounter for screening for human papillomavirus (HPV) Social History Tobacco Use Types Packs/Day Years Used Date Smoking Tobacco: Never Assessed Sex and Gender Information Value Date Recorded Sex Assigned at Not on file Gender Identity Not on file Sexual Orientation Not on file documented as of this encounter Plan of Treatment Not on file documented as of this encounter Procedures Procedure Name Priority Date/Time Associated Diagnosis Comments PAP TEST Today 03/06/2019 11:17 EST Encounter for general adult medical examination without abnormal findings Encounter for screening for malignant neoplasm of cervix Encounter for screening for human papillomavirus (HPV) HPV DNA DETECTION WITH GENOTYPING, PCR Today 03/06/2019 11:17 EST Encounter for general adult medical examination without abnormal findings Encounter for screening for malignant neoplasm of cervix Encounter for screening for human papillomavirus (HPV) documented in this encounter Results * (ABNORMAL) HUMAN PAPILLOMAVIRUS (HPV) DETECTION-HIGH RISK TYPES (03/06/2019 11:17 EST) HPV other High Risk types, PCR Positive(A ) Negative 03/14/2019 14:42 [facility] Papanicolaou smear specimen (specimen) CERVIX UTERI STRUCTURE / Unknown 03/06/2019 11:17 EST 03/13/2019 10:28 EST Rayne ARZATE MICROBIOLOGY - GENER AL ORDERABLES [facility] [address] [place] [address] * PAP TEST (03/06/2019 11:17 EST) Specimens A. Cervix and/or Endocervix, , ThinPrep Imaging System with Manual Evaluation 03/14/2019 14:42 [facility] Specimen Adequacy Satisfactory for Evaluation - transformation zone component present 03/14/2019 14:42 [facility] General Categorization Negative for intraepithelial lesion or malignancy 03/14/2019 14:42 [facility] Attestation . 03/14/2019 14:42 [facility] at 1442 Clinical History NONE 03/14/19 14:42 [facility] HPV The result for the Human Papillomavirus (HPV) Detection-High Risk Types is Positive . E6 OR E7 mRNA from one or more types of HPV types 16,18,31,33,35,39 ,45,51,52,56,58,5 9,66, and 68 is detected by party host/hostess mediated amplification. High and intermediate risk HPV types are associated with most squamous intraepithelial lesions and cervical cancers. Testing was performed on specimen [id number] and was resulted on 03/14/2019 1744 EST by VERN, LAB INSTRUMENT RESULTS IN 03/14/2019 14:42 [facility] Scanned Images 03/14/2019 14:42 [facility] Papanicolaou smear specimen (specimen) CERVIX UTERI STRUCTURE / Unknown 03/06/2019 11:17 EST 03/07/2019 10:19 EST Rayne ARZATE PATHOLOGY ORDERABLES [facility] [address] [place] [address] documented in this encounter Visit Diagnoses Diagnosis Encounter for general adult medical examination without abnormal findings Unspecified general medical examination Encounter for screening for malignant neoplasm of cervix Screening for malignant neoplasm of the cervix Encounter for screening for human papillomavirus (HPV) Special screening examination for human papillomavirus (HPV) documented in this encounter Care Teams Medication Coordinator Relationship Specialty Start Date End Date Rayne Stratton [place] [address] [place] [address] PCP - General 02/21/19 documented as of this encounter
--- OUTSIDE RECORDS SUMMARY | 2023-11-21 19:04 | XMS_ITS | Encounter Summary ---
Author Organization [facility] Address [address] [place] [address] Care Team Providers Care Truck Manager Name Role Phone Rayne Stratton CARITO Primary Care Provider [phone] Encounter Details Date Type Department Care Team (Late st Contact Info) Description 04/26/2023 Lab [facility]quisition [facility] Pathology & Laboratory Medicine - [address] [address] Gayathri Rodriguez, DO [address] [place], [place] [id number] Diverticulosis of large intestine without perforation or abscess without bleeding; Esophagitis, unspecified without bleeding; Duodenitis without bleeding; Family history of malignant neoplasm of digestive organs; Epigastric pain; Polyp of colon; Diaphragmatic hernia without obstruction or gangrene; 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; Heartburn; Nausea with vomiting, unspecified; Gastro-esophageal reflux disease without esophagitis; Personal history of peptic ulcer disease Social History Tobacco Use Types Packs/Day Years [...] Date/Time Associated Diagnosis Comments SURGICAL PATHOLOGY Today 04/26/2023 11 :22 EST Diverticulosis of large intestine without perforation or abscess without bleeding Esophagitis, unspecified without bleeding Duodenitis without bleeding Family history of malignant neoplasm of digestive organs Epigastric pain Polyp of colon Diaphragmatic hernia without obstruction or gangrene 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 Please allow time for your provider to receive these results and explore management options, if applicable. 04/28/2023 17:08 [facility] Final Diagnosis A. JEJUNUM, PROXIMAL, BIOPSY: - Small intestinal mucosa without significant diagnostic abnormality. B. DUODENUM, BULB, BIOPSY: - Peptic duodenitis. C. STOMACH, ANTRUM, BIOPSY: - Antral mucosa without significant diagnostic abnormality. - No histologic evidence of Helicobacter organisms. D. STOMACH, GREATER CURVE, BIOPSY: - Oxyntic mucosa without significant diagnostic abnormality. - No histologic evidence of Helicobacter organisms. E. GASTROESOPHAGEAL JUNCTION, BIOPSY: - Inflamed junctional mucosa with intestinal metaplasia and reactive changes. - Negative for dysplasia. See comment. F. ESOPHAGUS, DISTAL, BIOPSY: - Gastric oxyntic-type mucosa without significant diagnostic abnormality. G. COLON, 60 CM, POLYP, BIOPSY: - Tubular adenoma. 04/28/2023 17:08 [facility] Diagnosis Comment The finding of intestinal metaplasia in the gastroesophageal junction biopsies could be consistent with Mcallister's esophagus in the appropriate clinical/endoscopi c setting. Correlation with endoscopic findings is required. 04/28/2023 17:08 [facility] Attestation By the signature below, the attending physician certifies that they have 1) personally conducted a gross and/or microscopic examination of the described specimen(s), and/or personally interpreted the results of laboratory testing of the described specimen(s), and 2) personally rendered or confirmed the above diagnosis. 04/28/2023 17:08 [facility] at 1708 Clinical History Barretts esophagus, GERD, history colon polyps, esophagitis, 4 cm H. H., divertic, poor rectal line 04/28/2023 17:08 [facility] Gross Description A. Received in formalin labelled with proper patient identification (initials R, H) and proximal jejunum is a meza-pink tissue measuring 0.8 x 0.2 x 0.1 cm. Submitted intact in A1. B. Received in formalin labelled with proper patient identification (initials R, H) and duodenal bulb are 2 meza-pink tissues measuring 0.3 x 0.2 x 0.1 cm and 0.5 x 0.4 x 0.1 cm. Submitted intact in B1. C. Received in formalin labelled with proper patient identification (initials R, H) and antrum is a meza-pink tissue measuring 0.5 x 0.3 x 0.1 cm. Submitted intact in C1. D. Received in formalin labelled with proper patient identification (initials R, H) and greater curve is a meza-pink tissue measuring 0.4 x 0.4 x 0.2 cm. Submitted intact in D1. E. Received in formalin labelled with proper patient identification (initials R, H) and GE junction are 4 pink-white tissues ranging in size from 0.1 x 0.1 x 0.1 cm up to 0.3 x 0.2 x 0.1 cm. Submitted intact in E1. F. Received in formalin labelled with proper patient identification (initials R, H) and distal esophagus is a pink-white tissue measuring 0.2 x 0.2 x 0.1 cm. Submitted intact in F1. G. Received in formalin labelled with proper patient identification (initials R, H) and polyp at 60 cm is a meza-pink tissue measuring 0.3 x 0.2 x 0.1 cm. Submitted intact in G1. HOLLAND GALVAN(ASCP) 04/26/2023 20:02 04/28/2023 17:08 [facility] Performing Lab [facility] 17:08 [facility] Scanned Images 04/28/2023 17:08 [facility] Tissue COLON STRUCTURE / Unknown 04/26/2023 11:22 EST 04/26/2023 16:57 EST Tissue specimen (specimen) STRUCTURE OF SMALL INTESTINE / Unknown 04/26/2023 11:22 EST 04/26/2023 16:57 EST Tissue specimen (specimen) STOMACH STRUCTURE / Unknown 04/26/2023 11:22 EST 04/26/2023 16:57 EST Tissue specimen (specimen) STOMACH STRUCTURE / Unknown 04/26/2023 11:22 EST 04/26/2023 16:57 EST Tissue specimen (specimen) ESOPHAGEAL STRUCTURE / Unknown 04/26/2023 11:22 EST 04/26/2023 16:57 EST Tissue specimen (specimen) ESOPHAGEAL STRUCTURE / Unknown 04/26/2023 11:22 EST 04/26/2023 16:57 EST Tissue specimen (specimen) COLON STRUCTURE / Unknown 04/26/2023 11:22 EST 04/26/2023 16:57 EST Gayathri Rodriguez DO PATHOLOGY ORDERABLES [facility] [address] [place] [address] documented in this encounter Visit Diagnoses Diagnosis Diverticulosis of large intestine without perforation or abscess without bleeding Diverticulosis of colon (without mention of hemorrhage) Esophagitis, unspecified without bleeding Duodenitis without bleeding Duodenitis without mention of hemorrhage Family history of malignant neoplasm of digestive organs Epigastric pain Abdominal pain, epigastric Polyp of colon Benign neoplasm of colon Diaphragmatic hernia without obstruction or gangrene Diaphragmatic hernia without mention of obstruction or gangrene 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
--- OUTSIDE RECORDS SUMMARY | 2023-11-21 19:04 | XMS_ITS | Encounter Summary ---
Author Organization [facility] Address [facility] [place] [address] Care Team Providers Care Lead Infrastructure Architect Name Role Phone Zahra Leonardo APRN Primary Care Provider [phone] Encounter Details Date Type Department Care Team (Latest Contact Info) Description 05/17/2023 Travel Social History Tobacco Use Types Packs/Day [...] 9:00 AM EST Office Visit Dermatology at [facility] [address] [place] [address] Nessa Mendez MD [facility] [address] [place] [address] documented as of this encounter Visit Diagnoses Not on filedocumented in this encounter Care Teams Lead Infrastructure Architect Relationship Specialty Start Date End Date Zahra Leonardo APRN [facility] [place] [address] PCP - General Family Medicine 06/07/22 documented as of this encounter
--- OUTSIDE RECORDS SUMMARY | 2023-11-21 19:04 | XMS_ITS | Encounter Summary ---
Author Organization [facility] Address [facility] [place] [address] Care Team Providers Care Jack Prizer Name Role Phone Zahra Leonardo APRN Primary Care Provider [phone] Reason for Visit * Reason Comments Skin Lesion Encounter Details Date Type Department Care Team (Late st Contact Info) Description 11/19/2022 9:40 AM EDT Office Visit Dermatology at [facility] [address] [place] [address] David Joya MD [facility] [address] [place] [address] Actinic keratoses Social History Tobacco Use Types Packs/Day Years Used Date Smoking Tobacco: Never Assessed Sex and Gender Information Value Date Recorded Sex Assigned at Not on file Gender Identity Not on file Sexual Orientation Not on file documented as of this encounter Progress Notes * David Joya MD - 11/19/2022 9:40 AM EDT Images from the original note were not included. DEPARTMENT OF DERMATOLOGY Medical Dermatology Clinic Provider: David Joya MD Patient's preferred name Lucinda Preferred contact method for results [x]Phone []myD-H []Letter Detailed phone message OK? Yes Are there any other people with whom we may discuss your care? No Past Medical History Date, location, treatment Melanoma No Dysplastic nevi No SCC No BCC No AKs No UV Exposure & Protection + history of blistering sunburn Other relevant past medical history + Eczema Family History Details Melanoma No NMSC No Other relevant family history No Social History Occupation: Retired Hobbies: Other: Pre-Procedure Questions Details Allergy to lidocaine, epinephrine, Dermabond, chlorhexidine, or adhesives No Bleeding disorder or blood thinners No Implanted devices (Pacemaker, defibrillator, deep brain stimulator, cochlear implant) No History of Present Illness: Lucinda Aguero is a 66 y.o. Patient returns to clinic today for cryotherapy treatment of an biopsy proven actinic keratosis on the right zygoma. -patient returns for retreating AK on right zygoma Last visit at Dermatology: 11/04/2022 Last visit with this provider: 11/04/2022 Medications: Reviewed in eD-H Allergies: Reviewed in eD-H Skin Examination: Focused skin examination of the right zygoma was normal with the exception of the findings below. Assessment/Plan #. Biopsy proven AK - on the right zygoma there is a pink plaque with central erosion where she hada biopsy -S/p biopsy 11/04/2022 - Joint decision to pursue LN2 x 2 to lesion. Advised to return if lesion(s) do not resolve. Procedure Note: Procedure: Destruction of lesions with cryotherapy. Number: 1 Location: as above Discussed procedure and expectations including risks (including risk of hypopigmentation) and benefits. Verbal consent obtained. Frozen with LN2, 15-30 second thaw time, TWICE. There were no complications; the patient tolerated the procedure well. Post-procedure expectations and wound care were reviewed. Other: Sun protection discussed (protective clothing and SPF30+ broad-spectrum sunscreen) RTC: As previously scheduled for FSE next year Scribe attestation: Cierra Grewal [facility] has performed the documentation for this encounter inthe presence of and acting as a scribe for David Joya MD. I performed the above scribed service and agree with the accuracy of the documentation in this encounter. Reviewed and signed by: David Joya MD Dermatology [facility] Staff clerical investigator: Yeimy Ponce MD Dermatology [facility] * Yeimy Ponce MD - 11/19/2022 9:40 AM EDT I directly supervised Dr. Joya during this office visit. Dr. Joya presented the history and physical exam to me. I, then, saw and examined this patient with Dr. Joya. We reviewed the history and pertinent details and I confirmed the physical findings. I agree with the details of the history and physical exam as documented in Dr. Joya's note. YEIMY PONCE MD Staff Physician documented in this encounter Plan of Treatment Upcoming Encounters Date Type Department Care Team (Late st Contact Info) Description 01/17/2024 9:00 AM EST Office Visit Dermatology at [facility] [address] [place] [address] Nessa Mendez MD [facility] DR [address] [place] [address] documented as of this encounter Visit Diagnoses Diagnosis Actinic keratoses Actinic keratosis documented in this encounter Care Teams Jack Prizer Relationship Specialty Start Date End Date Zahra Leonardo APRN [address] [place] [address] PCP - General Family Medicine 06/07/22 documented as of this encounter
--- OUTSIDE RECORDS SUMMARY | 2023-11-21 19:04 | XMS_ITS | Encounter Summary ---
Author Organization [facility] Address [facility] [place] [address] Care Team Providers Care Mannequin Mounter Name Role Phone Zahra Leonardo Karen HENNING Primary Care Provider [phone] Encounter Details Date Type Department Care Team (Late Contact Info) Description 07/05/2022 Telephone Dermatology at [facility] [address] [place] [phone] David Joya MD [facility] [place] [address] Social History Tobacco Use Types Packs/Day Years Used Date Smoking Tobacco: Never Assessed Sex and Gender Information Value Date Recorded Sex Assigned at Not on file Gender Identity Not on file Sexual Orientation Not on file documented as of this encounter Miscellaneous Notes * Telephone Encounter - Rosalina Santa - 07/05/2022 12:32 PM EDT I called to move appointment up from August at the recommendation of Dr. Joya based on new development of spot. I left a detailed voicemail and requested that they call back to confirm. documented in this encounter Plan of Treatment Upcoming Encounters Date Type Department Care Team (Late Contact Info) Description 01/17/2024 9:00 AM EST Office Visit Dermatology at [facility] [address] [place] [phone] Nessa Mendez MD [facility] [address] [place] [address] documented as of this encounter Visit Diagnoses Not on filedocumented in this encounter Care Teams Mannequin Mounter Relationship Specialty Start Date End Date Zahra Leonardo, MILADY [facility] [place] [address] PCP - General Family Medicine 06/07/22 documented as of this encounter
--- OUTSIDE RECORDS SUMMARY | 2023-11-21 19:04 | XMS_ITS | Encounter Summary ---
Author Organization [facility] Address [facility] [place] [address] Care Team Providers Care Front Desk Supervisor Name Role Phone Zahra Leonardo APRN Primary Care Provider [phone] Encounter Details Date Type Department Care Team (Late st Contact Info) Description 06/15/[address] [facility] [address] [place] [address] David Joya MD [facility] [address] [place] [address] Social History Tobacco Use Types Packs/Day Years Used Date Smoking Tobacco: Never Assessed Sex and Gender Information Value Date Recorded Sex Assigned at Not on file Gender Identity Not on file Sexual Orientation Not on file documented as of this encounter Miscellaneous Notes * Telephone Encounter - Jyoti Rice - 06/15/2022 1:59 PM EDT Send out sunscreen info sheet documented in this encounter Plan of Treatment Upcoming Encounters Date Type Department Care Team (Late st Contact Info) Description 01/17/2024 9:00 AM EST Office Visit Dermatology at [facility] [address] [place] [phone] Nessa Mendez MD [facility] [address] [place] [address] documented as of this encounter Visit Diagnoses Not on filedocumented in this encounter Care Teams Front Desk Supervisor Relationship Specialty Start Date End Date Zahra Leonardo, STEWARD/STEWARDESS ROOM [facility] [address] PCP - General Family Medicine 06/07/22 documented as of this encounter
--- OUTSIDE RECORDS SUMMARY | 2023-11-21 19:04 | XMS_ITS | Encounter Summary ---
Author Organization [facility] Address [facility] [place] [address] Care Team Providers Care Soap Worker Name Role Phone Zahra Leonardo APRN Primary Care Provider [phone] Reason for Visit * Consultation (Routine) - Closed Specialty Diagnoses / Procedures Referred By Guillermina bridges Referred To Contact Dermatology Diagnoses Rash Zahra Leonardo, MILADY [address] [place] [address] [place] [address] [facility] Dermatology [address] [place] [address] Referral ID Status Reason Start Date Expiration Date V isits Requested Visits Authorized [id number] Closed Consult, Test & Treat PCP Updated and/or Approved 06/07/2022 06/07/2023 6 6 Encounter Details Date Type Department Care Team (Late st Contact Info) Description 06/10/2022 2:20 PM EDT Office Visit Dermatology at [facility] [address] [place] [phone] David Joya MD [facility] [address] [place] [address] Seborrheic keratoses, inflamed; Seborrheic keratoses; Notalgia paresthetica; Xerosis of skin; Eczema, unspecified type; Seborrheic dermatitis Social History Tobacco Use Types Packs/Day Years Used Date Smoking Tobacco: Never Assessed Sex and Gender Information Value Date Recorded Sex Assigned at Not on file Gender Identity Not on file Sexual Orientation Not on file documented as of this encounter Progress Notes * David Joya MD - 06/10/2022 2:20 PM EDT Images from the original note were not included. DEPARTMENT OF DERMATOLOGY Medical Dermatology Clinic Note Provider: David Joya MD Patient's preferred name [...] Lucinda Aguero is a 66 y.o. Patient is referred to the clinic at the request of Zahra Leonardo for an evaluation of a rash located on the hands, back, and arms. Patient reports she has only used Rx Triamcinolone. Patient reports the Rx Triamcinolone helps with the itching. Review of Systems: General: Feeling well. Skin: No other skin concerns. Medications: Reviewed in eD-H Allergies: Reviewed in eD-H Skin Examination: Focused skin examination of the chect, back, arms, and legs was normal with the exception of the findings below. Assessment/Plan #. Inflamed Seborrheic Keratoses - Inflamed, stuck on, waxy papules on the left upper forearm, and left upper back. - Discussed benign nature of lesion(s) and provided reassurance. - Due to irritation present on today's exam and history of symptoms, discussed removal with cryotherapy. - Patient elects to proceed with cryotherapy today. Procedure: Destruction of lesion(s) with cryotherapy (LN2). Location(s): As noted above Number: 2 Discussed procedure and expectations including risks and benefits. Verbal consent obtained. Treatedwith LN2. There were no complications; Patient tolerated the procedure well. Post-procedure expectations and wound care were reviewed. #. Seborrheic Keratoses - Stuck on, waxy papules on the trunk and extremities. - Discussed benign nature of lesions and provided reassurance. No treatment necessary at this time. #. Notalgia Paresthetica - In the upper back area where patient describes intense itch, there is norash or other skin findings to account for symptoms. - Discussed diagnosis and possible relationship to irritated/inflamed nerve causing recurrent hyperpruritic sensation. - Start Rx triamcinolone (Kenalog) 0.1% cream - Apply BID to affected area on back up to 14 days teddy row, then take 1 week break, and repeat cycle as needed. #. Favor Xerotic Eczema - Scattered light pink thin scaly plaques and papules on the legs with background xerosis - Sensitive skin care discussed. Handout given - Daily moisturizing 2x daily. Once after bathing. Apply a moisturizer such as Cetaphil, CeraVe cream or plain Vaseline (100% petroleum jelly) - Continue Rx triamcinolone (Kenalog) 0.1% cream - Apply BID to affected areas on legs up to 14 days in a row, then take 1 week break, and repeat cycle as needed. #. Seborrheic Dermatitis - Diffuse greasy, loosely adherent scale throughout the scalp. - Discussed etiology and treatment options. - Recommended an OTC anti-dandruff shampoo, such as Head and Shoulders or Selsun Blue. Lather on scalp, leave on for 3-5 minutes, then rinse out. - Start Rx Lidex Solution - Apply twice daily to affected areas on scalp as needed for itch. May use up to 14 days per month. #. Favor Lentigo - On the right zygoma there is a 2 x 1.7cm oval shaped evenly pigmented brown patch with approximately centrally located slightly darker brown macule. (Figure 1) - Will recheck in 4 months. Figure 1 Other: ??? Sun protection discussed (protective clothing and SPF30+ broad-spectrum sunscreen) ??? OTC skin products discussed RTC: 4 months for spot recheck; recall placed. Scribe attestation: JESÚS Starr has performed the documentation for this encounter in the presence of and acting as a scribe for David Joya MD. I performed the above scribed service and agree with the accuracy of the documentation in this encounter. Reviewed and signed by: David Joya MD Dermatology [facility] Patient seen and evaluated with staff retail pos specialist: Monica Rodriguez MD Department of Dermatology [facility] * Monica Rodriguez MD - 06/10/2022 2:20 PM EDT I directly supervised the resident during this office visit. The resident physician presented the history and physical exam to me. I then saw and examined this patient with the resident. We reviewed the history and pertinent details and I confirmed the physical exam findings. I agree with the details of the history and physical exam as documented in the resident physician's note. Monica Rodriguez MD ([place]), FAAD Staff Physician [facility] Dermatology documented in this encounter Plan of Treatment Upcoming Encounters Date Type Department Care Team (Late st Contact Info) Description 01/17/2024 9:00 AM EST Office Visit Dermatology at [address] [address] Nessa Mendez MD [facility] DR [place] [address] documented as of this encounter Visit Diagnoses Diagnosis Seborrheic keratoses, inflamed Seborrheic keratoses Notalgia paresthetica Disturbance of skin sensation Xerosis of skin Other specified disease of sebaceous glands Eczema, unspecified type Seborrheic dermatitis Seborrheic dermatitis, unspecified documented in this encounter Care Teams Soap Worker Relationship Specialty Start Date End Date Zahra Leonardo APRN [address] [place] [address] [place] [address] PCP - General Family Medicine 06/07/22 documented as of this encounter
--- OUTSIDE RECORDS SUMMARY | 2023-11-21 19:04 | XMS_ITS | Encounter Summary ---
Author Organization [facility] Address [facility] [place] [address] Care Team Providers Care Plaster Caster Name Role Phone Zahra Leonardo APRN Primary Care Provider [phone] Encounter Details Date Type Department Care Team (Late st Contact Info) Description 11/05/2022 Telephone Dermatology at [facility] [address] [place] [address] David Joya MD [facility] [address] [place] [address] Social History Tobacco Use Types Packs/Day Years Used Date Smoking Tobacco: Never Assessed Sex and Gender Information Value Date Recorded Sex Assigned at Not on file Gender Identity Not on file Sexual Orientation Not on file documented as of this encounter Miscellaneous Notes * Telephone Encounter - Charlee Johnson LPN - 11/05/2022 10:31 AM EDT Patient calls today regarding wound for a shave biopsy. She mostly was wondering if she needed to use anything more than Vaseline to the site. Went over complete wound care and encourage only the useof Vaseline. * Telephone Encounter - Mary Ellen Dorsey - 11/05/2022 9:11 AM EDT Pt called and stated that she was seen on by DR. Joya and had a biopsy done. She would like a call to go over the care instructions. R documented in this encounter Plan of Treatment Upcoming Encounters Date Type Department Care Team (Late st Contact Info) Description 01/17/2024 9:00 AM EST Office Visit Dermatology at [facility] [address] [place] [address] Nessa Mendez MD [facility] [address] [place] [address] documented as of this encounter Visit Diagnoses Not on filedocumented in this encounter Care Teams Plaster Caster Relationship Specialty Start Date End Date Zahra Leonardo [place] [address] PCP - General Family Medicine 06/07/22 documented as of this encounter
--- OUTSIDE RECORDS SUMMARY | 2023-11-21 19:04 | XMS_ITS | Encounter Summary ---
Author Organization [facility] Address [address] [place] [address] Care Team Providers Care Winemaker Name Role Phone Rayne [place] CARITO Primary Care Provider [phone] Encounter Details Date Type Department Care Team (Late st Contact Info) Description 04/04/2019 Lab Requisition [facility] - [address] [address] Clive Murray MD [facility] [address] [address] Encounter for screening for malignant neoplasm of colon; Personal history of peptic ulcer disease Social [...] Date/Time Associated Diagnosis Comments SURGICAL PATHOLOGY Today 04/03/2019 11 :10 EST Encounter for screening for malignant neoplasm of colon Personal history of peptic ulcer disease documented in this encounter Results * SURGICAL PATHOLOGY (04/03/2019 11:10 EST) Final Diagnosis A. PRE- PYLORUS, BIOPSY: - Antral and transitional mucosa with reactive gastropathy. - Negative for evidence of Helicobacter pylori on H&E. B. ? RULE OUT URENA'S ESOPHAGUS? , BIOPSY: - Columnar mucosa with extensive intestinal metaplasia. - Foveolar hyperplasia and reactive/ reparative change; negative for definite dysplasia. - Adjoining squamous mucosa with features of reflux esophagitis. C. 4 MM POLYP AT 20 CM, BIOPSY: - Fragment of inflamed and cauterized hyperplastic polyp. 04/10/2019 8:15 [facility] at 0815 Clinical History GERD, dysphagia, screening colonoscopy Hiatal hernia, esophageal erosion, gastritis vs. Gastropathy, R/O pylori, short segment Urena's esophagus, colon polyp, hemorrhoids/spast ic colon 04/10/2019 8:15 [facility] Attestation By the signature below, the attending physician certifies that they have 1) personally conducted a gross and/or microscopic examination of the described specimen(s), and/or personally interpreted the results of laboratory testing of the described specimen(s), and 2) personally rendered or confirmed the above diagnosis. 04/10/2019 8:15 [facility] at 0815 Gross Description A. Received in formalin labelled with proper patient identification (initials R, H) and pre-pyloric Bx are 4 fragments of meza-yellow soft tissue (ranging from 0.3 cm to 0.4 cm in greatest dimension). The specimen is submitted entirely in A1-A2. B. Received in formalin labelled with proper patient identification (initials R, H) and R/O Urena's esophagus are 2 fragments of meza soft tissue (0.2 x 0.2 x 0.2 cm and 0.3 x 0.2 x 0.2 cm). The specimen is submitted in toto in B1. C. Received in formalin labelled with proper patient identification (initials R, H) and 4 mm polyp at 20 cm hot snare is a single fragment of meza soft tissue (0.2 x 0.2 x 0.2 cm). The specimen is submitted in toto in C1. Shae العراقي 04/04/2019 16:08 04/10/2019 8:15 [facility] Scanned Images 04/10/2019 8:15 [facility] Tissue ENTIRE COLON / Unknown 04/03/2019 11:10 EST 04/04/2019 15:50 [facility] Tissue specimen (specimen) ESOPHAGEAL STRUCTURE / Unknown 04/03/2019 11:10 EST 04/04/2019 15:50 EST Tissue specimen (specimen) COLON STRUCTURE / Unknown 04/03/2019 11:10 EST 04/04/2019 15:50 EST Clive Murray MD PATHOLOGY ORDERABLES [facility] [address] [place] [address] documented in this encounter Visit Diagnoses Diagnosis Encounter for screening for malignant neoplasm of colon Special screening for malignant neoplasms, colon Personal history of peptic ulcer disease documented in this encounter Care Teams Winemaker Relationship Specialty Start Date End Date Rayne Strat[place] [address] PCP - General 02/21/19 documented as of this encounter
--- OUTSIDE RECORDS SUMMARY | 2023-11-21 19:04 | XMS_ITS | Encounter Summary ---
Author Organization [facility] Address [facility] [place] [address] Care Team Providers Care Health Care Recruiter Name Role Phone Zahra Leonardo APRN Primary Care Provider [phone] Encounter Details Date Type Department Care Team (Latest Contact Info) Description 11/19/2022 Travel Social History Tobacco Use Types Packs/Day [...] 9:00 AM EST Office Visit Dermatology at [facility] [address] [place] [address] [facility] [address] [place] [address] documented as of this encounter Visit Diagnoses Not on filedocumented in this encounter Care Teams Health Care Recruiter Relationship Specialty Start Date End Date Zahra Leonardo APRN [facility] [place] [address] PCP - General Family Medicine 06/07/22 documented as of this encounter
--- OUTSIDE RECORDS SUMMARY | 2023-11-21 19:04 | XMS_ITS | Encounter Summary ---
Author Organization [facility] Address [facility] [place] [address] Care Team Providers Care Client Operations Manager Name Role Phone Zahra Leonardo APRN Primary Care Provider [phone] Encounter Details Date Type Department Care Team (Late Contact Info) Description 08/16/2023 Telephone Dermatology at [facility] [address] [place] [phone] Mya Yost MD [facility] [address] [place] [place] [address] Social History Tobacco Use Types Packs/Day Years Used Date Smoking Tobacco: Never Assessed Sex and Gender Information Value Date Recorded Sex Assigned at Not on file Gender Identity Not on file Sexual Orientation Not on file documented as of this encounter Miscellaneous Notes * Telephone Encounter - Cathy Ortega - 08/16/2023 12:14 PM EDT I received a phone call from Lucinda Aguero's partner Sridevi wanting to know if there was anything that could be prescribed for nails that are breaking? He said her nails were looked at in her last appointment but I didn't see any mention of it in the note. I told him that we may need to see her before we can send in a medication. Lucinda can be reached back if needed to schedule at [phone]. documented in this encounter Plan of Treatment Upcoming Encounters Date Type Department Care Team (Late Contact Info) Description 01/17/2024 9:00 AM EST Office Visit Dermatology at [facility] [address] [place] [address] Nessa Mendez MD [facility] [address] [place] [address] documented as of this encounter Visit Diagnoses Not on filedocumented in this encounter Care Teams Client Operations Manager Relationship Specialty Start Date End Date Zahra Leonardo, MILADY [facility] [place] [address] PCP - General Family Medicine 06/07/22 documented as of this encounter
--- OUTSIDE RECORDS SUMMARY | 2023-11-21 19:04 | XMS_ITS | Encounter Summary ---
Author Organization [facility] Address [facility] [place] [address] Care Team Providers Care Cafe Cook Name Role Phone JordenZahra Karen HENNING Primary Care Provider [phone] Encounter Details Date Type Department Care Team (Late st Contact Info) Description 10/07/2023 Telephone Dermatology at [facility] [address] [place] [address] Nessa Mendez MD [facility] [address] [place] [address] Social History Tobacco Use Types Packs/Day Years Used Date Smoking Tobacco: Never Assessed Sex and Gender Information Value Date Recorded Sex Assigned at Not on file Gender Identity Not on file Sexual Orientation Not on file documented as of this encounter Miscellaneous Notes * Telephone Encounter - Claritza Kay - 10/07/2023 12:28 PM EDT The partner of Lucinda Aguero called to request a refill of the fluocinonide (LIDEX) 0.05 % Solution. Please send to the [facility] in [place], [place]. Sridevi asked if a return call could be made to him as well at [phone]. documented in this encounter Plan of Treatment Upcoming Encounters Date Type Department Care Team (Late Contact Info) Description 01/17/2024 9:00 AM EST Office Visit Dermatology at [facility] [address] [place] [address] Nessa Mendez MD [facility] [address] [place] [address] documented as of this encounter Visit Diagnoses Not on filedocumented in this encounter Care Teams Cafe Cook Relationship Specialty Start Date End Date Zahra Leonardo, MILADY [facility] [address] PCP - General Family Medicine 06/07/22 documented as of this encounter
--- OUTSIDE RECORDS SUMMARY | 2023-11-21 19:04 | XMS_ITS | Encounter Summary ---
Author Organization [facility] Address [facility] [place] [address] Care Team Providers Care Journeyman Pressman Name Role Phone Zahra Leonardo APRN Primary Care Provider [phone] Encounter Details Date Type Department Care Team (Late st Contact Info) Description 07/29/2022 3:00 PM EDT Office Visit Dermatology at [facility] [address] [place] [address] David Joya MD [facility] [place] [address] Lentigo; Comedone; Seborrheic keratoses Social History Tobacco Use Types Packs/Day Years Used Date Smoking Tobacco: Never Assessed Sex and Gender Information Value Date Recorded Sex Assigned at Not on file Gender Identity Not on file Sexual Orientation Not on file documented as of this encounter Progress Notes * David Joya MD - 07/29/2022 3:00 PM EDT Images from the original note [...] y.o. Patient returns to clinic today for a reassessment of a spot of concern on the right zygoma. She is unsure if it has changed. Also notes a bump on her back. Last visit at Dermatology: 06/10/2022 Last visit with this provider: 06/10/2022 Medications: Reviewed in eD-H Allergies: Reviewed in eD-H Skin Examination: Focused skin examination of the face, upper back, and lower extremities was normal with the exception of the findings below. Assessment/Plan #. Lentigo - On the right zygoma there is a 2 x 1.7cm oval shaped evenly pigmented brown patch withapproximately centrally located slightly darker brown macule. - Discussed etiology. - Unchanged since last visit, patient reassured. - Continue to monitor, and return to clinic for any changes noted #. Comedone - 2mm brown papule on the central upper back. - Discussed etiology and tx options. She elects extraction: - Lesion extracted in clinic today: Procedure Note: Procedure: Comedone extraction The affected skin was cleansed with isopropyl alcohol and a comedone extractor was used to remove keratin and sebum debris The procedure was well tolerated without complications Number: 1 Location: as above #. Seborrheic Keratoses - Stuck on, waxy papules on the trunk and extremities. - Discussed benign nature of lesions and provided reassurance. - No treatment necessary at this time. Other: Sun protection discussed (protective clothing and SPF30+ broad-spectrum sunscreen) RTC: Patient previously scheduled for FSE []Note routed to gauger chief []Recall placed in scheduling system []Appointment scheduled at checkout Scribe attestation: Smooth Ross has performed the documentation for this encounter in the presence of and acting as a scribe for David Joya MD. I performed the above scribed service and agree with the accuracy of the documentation in this encounter. Reviewed and signed by: David Joya MD Dermatology [facility] Patient seen and evaluated with staff emergency vehicle dispatcher: Monica Rodriguez MD Dermatology [facility] * Monica Rodriguez MD - 07/29/2022 3:00 PM EDT I directly supervised the resident [...] Monica Rodriguez MD ([place]), FAAD Staff Physician [facility] Dermatology documented in this encounter Plan of Treatment Upcoming Encounters Date Type Department Care Team (Late st Contact Info) Description 01/17/2024 9:00 AM EST Office Visit Dermatology at [address] [place] [address] Nessa Mendez MD [facility] [place] [address] documented as of this encounter Visit Diagnoses Diagnosis Lentigo Other dyschromia Comedone Other acne Seborrheic keratoses documented in this encounter Care Teams Journeyman Pressman Relationship Specialty Start Date End Date Zahra Leonardo APRN [facility] [place] [address] PCP - General Family Medicine 06/07/22 documented as of this encounter
--- OUTSIDE RECORDS SUMMARY | 2023-11-21 19:04 | XMS_ITS | Encounter Summary ---
Author Organization [facility] Address [facility] [place] [address] Care Team Providers Care Legal Investigator Name Role Phone Zahra Leonardo Karen HENNING Primary Care Provider [phone] Reason for Visit * Reason Onset Date Comments Medication Refill 06/11/2022 Encounter Details Date Type Department Care Team (Late Contact Info) Description 06/11/2022 Refill Dermatology at [facility] [address] [place] [address] David Joya MD [facility] [address] [place] [address] Social History Tobacco Use Types Packs/Day Years Used Date Smoking Tobacco: Never Assessed Sex and Gender Information Value Date Recorded Sex Assigned at Not on file Gender Identity Not on file Sexual Orientation Not on file documented as of this encounter Miscellaneous Notes * Telephone Encounter - Charlee Johnson LPN - 06/11/2022 2:39 PM EDT Needs refill of Triamcinolone from yesterdays visit. documented in this encounter Plan of Treatment Upcoming Encounters Date Type Department Care Team (Late st Contact Info) Description 01/17/2024 9:00 AM EST Office Visit Dermatology at [facility] [address] [place] [address] Nessa Mendez MD [facility] [address] [place] [address] documented as of this encounter Visit Diagnoses Not on filedocumented in this encounter Care Teams Legal Investigator Relationship Specialty Start Date End Date Zahra Leonardo [place] [address] PCP - General Family Medicine 06/07/22 documented as of this encounter
--- OUTSIDE RECORDS SUMMARY | 2023-11-21 19:04 | XMS_ITS | Encounter Summary ---
Author Organization [facility] Address [facility] [place] [address] Care Team Providers Care Home Health Registered Nurse Name Role Phone Zahra Leonardo APRN Primary Care Provider [phone] Reason for Visit * Reason Comments Skin Lesion Encounter Details Date Type Department Care Team (Late st Contact Info) Description 11/04/2022 9:40 AM EDT Office Visit Dermatology at [facility] [address] [place] [address] David Joya MD [facility] DR [address] [place] [address] Neoplasm of unspecified behavior of bone, soft tissue, and skin; Comedone Social History Tobacco Use Types Packs/Day Years Used Date Smoking Tobacco: Never Assessed Sex and Gender Information Value Date Recorded Sex Assigned at Not on file Gender Identity Not on file Sexual Orientation Not on file documented as of this encounter Progress Notes * David Joya MD - 11/04/2022 9:40 AM EDT Images from the original [...] y.o. Patient returns to clinic today for recheck of lentigo on the right zygoma. -patient feels as though the lesion has grown and feels it pulling Last visit at Dermatology: 07/29/2022 Last visit with this provider: 07/29/2022 Medications: Reviewed in eD-H Allergies: Reviewed in eD-H Skin Examination: Focused skin examination of the face was normal with the exception of the findings below. Assessment/Plan #. Lentigo R/O Lentigo Maligna - right zygoma, there is a 2 x 1.7 cm irregularly pigmented brown patch. Partial sample taken today. (Figure 1) - After review of risks and benefits, joint decision made to pursue shave biopsy today. Procedure: Skin biopsy by shave technique Location: right zygoma Discussed indications for procedure and expectations including risks and benefits. Verbal consent obtained. Skin prep with alcohol. Local anesthesia with 1% lidocaine, 1/100,000 epinephrine. A sampleof the lesion was removed by shave technique to the level of the dermis and submitted to Pathology.Hemostasis obtained. There were no complications; the patient tolerated the procedure well. The wound was dressed. Post-procedure expectations, wound care and activity restrictions were reviewed. Follow-up based on pathology results. #. Comedone - 2mm brown papule on the central upper back. - Discussed etiology and tx options. She elects extraction: - Lesion extracted in clinic today Procedure Note: Procedure: Comedone extraction The affected skin was cleansed with isopropyl alcohol and a comedone extractor was used to remove keratin and sebum debris The procedure was well tolerated without complications Number: 1 Location: as above Figure 1 Photo(s) taken and charted with patient's verbal consent. Other: Reviewed and/or interpreted test results RTC: FSE placed for 1 year today. []Note routed to laboratory secretary [x]Recall placed in scheduling system []Appointment scheduled at checkout Scribe attestation: JESÚS Rollins has performed the documentation for this encounter inthe presence of and acting as a scribe for David Joya MD. I performed the above scribed service and agree with the accuracy of the documentation in this encounter. Reviewed and signed by: David Joya MD Dermatology [facility] Patient seen and evaluated with staff asbestos abatement technician: Melecio Villegas MD Dermatology [facility] * Melecio Villegas MD - 11/04/2022 9:40 AM EDT I directly supervised the Dermatology resident during this office visit. The resident presented thehistory and physical exam to me. I then saw and examined this patient with the resident. We reviewed the history and pertinent details and I confirmed the physical findings. I agree with the details of the history and physical exam as documented in the resident's note. MELECIO VILLEGAS MD Staff Physician * David Joya MD - 11/04/2022 9:40 AM EDT Called patient to discuss bx showing AK. Given that it was a larger lesion that was only partially sampled, recommended Efudex vs. LN2 for definitive tx of the rest of the lesion. She elects LN2. Note routed to laboratory secretary for scheduling. documented in this encounter Plan of Treatment Upcoming Encounters Date Type Department Care Team (Late st Contact Info) Description 01/17/2024 9:00 AM EST Office Visit Dermatology at [facility] [address] [place] [address] Nessa Mendez MD [facility] DR [address] [place] [address] documented as of this encounter Procedures Procedure Name Priority Date/Time Associated Diagnosis Comments SPECIMEN TO PATHOLOGY Routine 11/04/2022 10:02 AM EDT Neoplasm of unspecified behavior of bone, soft tissue, and skin SURGICAL PATHOLOGY REPORT Routine 11/04/2022 9:51 AM EDT documented in this encounter Results * Specimen to Pathology (11/04/2022 10:02 AM EDT) AP Specimen 11/04/2022 10:0 2 AM EDT 11/04/2022 10:02 AM EDT Narrative [facility] - 11/04/2022 10:02 AM EDT Specimen requisition ordered. ??Separate Pathology report to follow Melecio Villegas MD PATHOLOGY/CYTOLOGY ORDERABLES Performing Organization Address City/State/[facility] Co de Phone Number [facility] [place] [address] * Surgical Pathology Report (11/04/2022 9:51 AM EDT) Final Diagnosis [id number] ? Location: [facility] The signing pathologist has (i) examined the relevant preparation(s) for the specimen(s) and (ii) rendered or confirmed the diagnosis(es). . ?Surgical Pathology DIAGNOSIS Right zygoma, skin shave biopsy: - ??Actinic keratosis, pigmented and inflamed, present at the peripheral specimen edges (see discussion) Electronically signed by: ?Lissett Galicia MD Verified: ??11/12/2022 11:03 ??Dermatopathol ogist Performed at: ??-[facility] Dept. [place]ology, [place] [address] Domestic Freight Forwarder: Karri Cordero MD, FCAP, ??CLIA Certificate: [id number] DISCUSSION As the biopsy represents portion of a larger lesion, the findings may not be extrapolated to the lesion in its entirety. ADDITIONAL STUDIES Multiple step-leveled sections are examined. Melan-A highlights subtle increase in junctional melanocytes, ?? consistent with actinic-related changes. SPECIMEN(S) SUBMITTED A - right zygoma, skin shave biopsy (1) CLINICAL INFORMATION Lentigo rule out lentigo maligna-on the right zygoma, there is a 2 x 1.7 cm irregularly pigmented brown patch SPECIMEN PROCESSING A - Labeled/Fixativ e: Patient demographics, formalin. Quantity/Size: ??Single, 0.8 x 0.7 x 0.1 cm. Tissue Description: Shave of king-white skin with a 0.4 x 0.2 cm meza brown macule. Sections/Proces sing: Inked, trisected and entirely submitted in 1 cassette labeled A1. ??nrl 11/12/2022 11:03 AM EDT [facility] SPECIMEN FROM SKIN / Unknown 11/04/2022 9:51 AM EDT 11/04/2022 9:51 AM EDT David Joya MD PATHOLOGY/CYTOLOGY O RDERABLES [facility] [address] [place] [address] documented in this encounter Visit Diagnoses Diagnosis Neoplasm of unspecified behavior of bone, soft tissue, and skin Comedone Other acne documented in this encounter Care Teams Home Health Registered Nurse Relationship Specialty Start Date End Date Zahra Leonardo, MILAD[place] [address] PCP - General Family Medicine 06/07/22 documented as of this encounter
--- OUTSIDE RECORDS SUMMARY | 2023-11-21 19:04 | XMS_ITS | Encounter Summary ---
Author Organization [facility] Address [address] [place] [address] Care Team Providers Care Instant Print Operator Name Role Phone Rayne Stratton Primary Care Provider [phone] Encounter Details Date Type Department Care Team (Latest Contact Info) Description 03/11/2020 Lab Requisition [facility] Pathology & Laboratory Medicine - [facility] [address] [place] [address] Rayne Stratton FNP [address] [place], [place] [id number] Encounter for general adult medical examination without [...] Date/Time Associated Diagnosis Comments PAP TEST Today 03/07/2020 11:45 EST Encounter for general adult medical examination without abnormal findings Encounter for screening for malignant neoplasm of cervix Encounter for screening for human papillomavirus (HPV) HPV DNA DETECTION WITH GENOTYPING, PCR Today 03/07/2020 11:45 EST Encounter for general adult medical examination without abnormal findings Encounter for screening for malignant neoplasm of cervix Encounter for screening for human papillomavirus (HPV) documented in this encounter Results * (ABNORMAL) HUMAN PAPILLOMAVIRUS (HPV) DETECTION-HIGH RISK TYPES (03/07/2020 11:45 EST) HPV other High Risk types, PCR Positive( A) Negative 03/20/2020 15:40 [facility] Comment:E6 OR E7 mRNA from o ne or more types of HPV types 16,18,31,33,35,39,45,51,52,56,58,59,66, and 68 is detected by identification clerk mediated amplification. High and intermediate risk HPV types are associated with most squamous intraepithelial lesions and cervical cancers. Papanicolaou smear specimen (specimen) CERVIX UTERI STRUCTURE / Unknown 03/07/2020 11:45 EST 03/19/2020 15:07 EST Rayne Stratton [facility] MICROBIOLOGY - GENER AL ORDERABLES [facility] [address] [place] [address] * PAP TEST (03/07/2020 11:45 EST) Specimens A. Cervix and/or Endocervix , ThinPrep Imaging System with Manual Evaluation 03/20/2020 15:40 [facility] Specimen Adequacy Satisfactory for Evaluation - transformation zone component present 03/20/2020 15:40 [facility] General Categorization Negative for intraepithelial lesion or malignancy 03/20/2020 15:40 [facility] Attestation . 03/20/2020 15:40 [facility] at 1540 Clinical History See below 03/20/19 15:40 [facility] HPV The result for the Human Papillomavirus (HPV) Detection-High Risk Types is Positive . E6 OR E7 mRNA from one or more types of HPV types 16,18,31,33,35,39 ,45,51,52,56,58,5 9,66, and 68 is detected by identification clerk mediated amplification. High and intermediate risk HPV types are associated with most squamous intraepithelial lesions and cervical cancers. Testing was performed on specimen [id number] and was resulted on 03/20/2020 1503 EST by VERN, LAB INSTRUMENT RESULTS IN 03/20/2020 15:40 EST [facility] Performing Lab [facility] 03/20/2020 15:40 EST [facility] Scanned Images 03/20/2020 15:40 EST [facility] Papanicolaou smear specimen (specimen) CERVIX UTERI STRUCTURE / Unknown 03/07/2020 11:45 EST 03/11/2020 15:30 EST Rayne ARZATE PATHOLOGY ORDERABLES [facility] [address] [place] [address] documented in this encounter Visit Diagnoses Diagnosis Encounter for general adult medical examination without abnormal findings Unspecified general medical examination Encounter for screening for malignant neoplasm of cervix Screening for malignant neoplasm of the cervix Encounter for screening for human papillomavirus (HPV) Special screening examination for human papillomavirus (HPV) documented in this encounter Care Teams Instant Print Operator Relationship Specialty Start Date End Date Rayne Strat[place] [address] [place] [address] PCP - General 02/21/19 documented as of this encounter
--- OUTSIDE RECORDS SUMMARY | 2023-11-21 19:04 | XMS_ITS | Encounter Summary ---
Author Organization [facility] Address [facility] [place] [address] Care Team Providers Care A P Manager Name Role Phone Zahra Leonardo APRN Primary Care Provider [phone] Reason for Visit * Reason Onset Date Comments Medication Refill 09/23/2023 Encounter Details Date Type Department Care Team (Late Contact Info) Description 09/23/2023 Refill Dermatology at [facility] [address] [place] [id number] Mya Yost MD [facility] [address] [place] [address] Atopic dermatitis, unspecified type Social History Tobacco Use Types Packs/Day Years Used Date Smoking Tobacco: Never Assessed Sex and Gender Information Value Date Recorded Sex Assigned at Not on file Gender Identity Not on file Sexual Orientation Not on file documented as of this encounter Miscellaneous Notes * Telephone Encounter - Charlee Johnson LPN - 09/23/2023 9:37 AM EDT Medication Refill Request Order(s) pended and routed to Dr. Yost to review and sign, if appropriate. - Medication(s) requested to refill: Augmented Betamethasone - Associated diagnosis: eczema - Last visit: 05/17/2023 - Recommended follow up: 6 mos - Next scheduled: not scheduled - Special considerations: no - Appropriate to refill: yes documented in this encounter Plan of Treatment Upcoming Encounters Date Type Department Care Team (Late Contact Info) Description 01/17/2024 9:00 AM EST Office Visit Dermatology at [facility] [address] [place] [address] Nessa Mendez MD [facility] [address] [place] [address] documented as of this encounter Visit Diagnoses Diagnosis Atopic dermatitis, unspecified type documented in this encounter Care Teams A P Manager Relationship Specialty Start Date End Date Zahra Leonardo, COVER MAKER [address] [place] [address] PCP - General Family Medicine 06/07/22 documented as of this encounter
--- OUTSIDE RECORDS SUMMARY | 2023-11-21 19:04 | XMS_ITS | Encounter Summary ---
Author Organization [facility] Address [facility] [place] [address] Care Team Providers Care Critical Care Nurse Name Role Phone Jorden Zahra Jones APRN Primary Care Provider [phone] Encounter Details Date Type Department Care Team (Late Contact Info) Description 10/07/2023 Telephone Dermatology at [facility] [address] [place] [address] [facility] [address] [place] [address] Social History Tobacco Use Types Packs/Day Years Used Date Smoking Tobacco: Never Assessed Sex and Gender Information Value Date Recorded Sex Assigned at Not on file Gender Identity Not on file Sexual Orientation Not on file documented as of this encounter Miscellaneous Notes * Telephone Encounter - Dulce Torrez - 10/07/2023 11:38 AM EDT Patients partner calling stating she has 3 red dots that look like zits on her lips that are spreading and they are wondering if any of the medications she is on could be used for these, please call back at [phone] documented in this encounter Plan of Treatment Upcoming Encounters Date Type Department Care Team (Late Contact Info) Description 01/17/2024 9:00 AM EST Office Visit Dermatology at [facility] [address] [place] [address] [facility] [address] [address] documented as of this encounter Visit Diagnoses Not on filedocumented in this encounter Care Teams Critical Care Nurse Relationship Specialty Start Date End Date Zahra Leonardo APRN [address] [place] [address] PCP - General Family Medicine 06/07/22 documented as of this encounter
--- OUTSIDE RECORDS SUMMARY | 2023-11-21 19:04 | XMS_ITS | Encounter Summary ---
Author Organization [facility] Address [facility] [place] [address] Care Team Providers Care Home Health Caregiver Name Role Phone Zahra Leonardo APRN Primary Care Provider [phone] Encounter Details Date Type Department Care Team (Late Contact Info) Description 09/23/2023 Telephone Dermatology at [facility] [address] [place] [phone] Mya Yost MD [facility] [address] [place] [address] Social History Tobacco Use Types Packs/Day Years Used Date Smoking Tobacco: Never Assessed Sex and Gender Information Value Date Recorded Sex Assigned at Not on file Gender Identity Not on file Sexual Orientation Not on file documented as of this encounter Miscellaneous Notes * Telephone Encounter - Any Paz - 09/23/2023 9:02 AM EDT Medication Request Who requested: Lucinda Aguero Medication(s): augmented betamethasone dipropionate (Diprolene-AF) 0.05 % Ointment Pharmacy: [facility] [place] Last seen: 05/17/23 Follow up scheduled for: October in system Comments: Patient is aware it make take medical team up to three business days to process refill requests. Please ask pharmacy to contact patient when medication is available for hook up. If unable to refill medication please contact patient. documented in this encounter Plan of Treatment Upcoming Encounters Date Type Department Care Team (Late Contact Info) Description 01/17/2024 9:00 AM EST Office Visit Dermatology at [facility] [address] [address] Nessa Mendez MD [facility] [address] [place] [address] documented as of this encounter Visit Diagnoses Not on filedocumented in this encounter Care Teams Home Health Caregiver Relationship Specialty Start Date End Date Zahra Leonardo, MILADY [facility] [place] [address] PCP - General Family Medicine 06/07/22 documented as of this encounter
--- OUTSIDE RECORDS SUMMARY | 2023-11-21 19:04 | XMS_ITS | Encounter Summary ---
Author Organization [facility] Address [facility] [place] [address] Care Team Providers Care Research Test Engine Evaluator Name Role Phone Zahra Leonardo APRN Primary Care Provider [phone] Encounter Details Date Type Department Care Team (Late st Contact Info) Description 05/17/2023 11:20 AM EDT Office Visit Dermatology at [facility] [address] [place] [address] Mya Yost MD [facility] [place] [address] Seborrheic dermatitis; Atopic dermatitis, unspecified type Social History Tobacco Use Types Packs/Day Years Used Date Smoking Tobacco: Never Assessed Sex and Gender Information Value Date Recorded Sex Assigned at Not on file Gender Identity Not on file Sexual Orientation Not on file documented as of this encounter Progress Notes * Mya Yost MD - 05/17/2023 11:20 AM EDT Images from the original note were not included. DEPARTMENT OF DERMATOLOGY Medical Dermatology Clinic Provider: Mya Yost MD Patient's preferred name Lucinda Preferred contact [...] of Present Illness: Lucinda Aguero is a 67 y.o. Patient returns to clinic today for eczema F/U. The patient reports the following: - Patient states her eczema is clearing up well and she no longer has active areas present on exam today. Applying augmented betamethasone for triamcinolone during flares. Now applying Vaseline. - Seborrheic dermatitis in ear cleared with ketoconazole. Last visit at Dermatology: 02/17/2023 Last visit with this provider: 02/17/2023 Medications: Reviewed in eD-H Allergies: Reviewed in eD-H Skin Examination: Focused skin examination of the trunk was normal with the exception of the findings below. Assessment/Plan #. Eczema - Well-controlled. Not evident on the hands or upper extremities. - Prior treatment - triamcinolone twice daily for 1 year - Discussed triggers for atopic dermatitis include winter months and stressors. Stressors for pt includes sister recently . - JACEK 02/17/23 - negative for fungal elements. Plan: - Continue Rx: betametasone 0.05% dipropionate ointment to affected areas twice daily for 2 weeks, stop for 1 week, then repeat as needed. (Refilled Rx today) - Discussed applying Vaseline to hands nightly and covering with cotton gloves - Discussed switching [place] springs soap to Dove sensitive soap, only needed under the axilla and in the groin. - Discussed keeping showers short and using warm water. - Apply emollient (vaseline, sunflower seed or coconut oil, Cetaphil or CeraVe cream) to all areas of clear skin immediately after bathing while skin is still damp - Discussed switching Arm and Hammer laundry detergent to All free and clear #. Seborrheic Dermatitis - Well-controlled. Clear in the ears today. - Discussed etiology and treatment options. - Continue Rx: Ketoconazole 2% shampoo - Wash around ears PRN (refilled Rx today) RTC: PRN []Note routed to stenographer secretary []Recall placed in scheduling system []Appointment scheduled at checkout Scribe attestation: JESÚS Frey has performed the documentation for this encounter in the presence of and acting as a scribe for Mya Yost MD. I performed the above scribed service and agree with the accuracy of the documentation in this encounter. Reviewed and signed by: Mya Yost MD Dermatology [facility] Patient seen and evaluated with staff fuel manager: Marcy Ang MD Dermatology [facility] * Marcy Ang MD - 05/17/2023 11:20 AM EDT I directly supervised Mya Yost MD in the care of this Dermatology patient in person. I saw and evaluated this patient with Mya Yost MD. Mya Yost MD presented the history and physical exam details to me, then we saw the patient together, and I confirmed these findings. I agree with details as written. My physical examination confirms Mya Yost MD's findings. The assessment and plan were formulated in discussion with me at the time of visit, and I agree with them as documented. MARCY ANG MD Staff Residential Gas Heat Technician Department of Dermatology [facility] documented in this encounter Plan of Treatment Upcoming Encounters Date Type Department Care Team (Late st Contact Info) Description 01/17/2024 9:00 AM EST Office Visit Dermatology at [facility] [address] [place] [address] Nessa Mendez MD [facility] [place] [address] documented as of this encounter Visit Diagnoses Diagnosis Seborrheic dermatitis Seborrheic dermatitis, unspecified Atopic dermatitis, unspecified type documented in this encounter Care Teams Research Test Engine Evaluator Relationship Specialty Start Date End Date Zahra Leonardo, BANKRUPTCY ATTORNEY [address] [place] [address] PCP - General Family Medicine 06/07/22 documented as of this encounter
--- OUTSIDE RECORDS SUMMARY | 2023-11-21 19:04 | XMS_ITS | Encounter Summary ---
Author Organization [facility] Address [facility] [place] [address] Care Team Providers Care Reproducer Name Role Phone Zahra Leonardo APRN Primary Care Provider [phone] Reason for Visit * Reason Onset Date Comments Medication Refill 10/07/2023 Encounter Details Date Type Department Care Team (Late st Contact Info) Description 10/07/2023 Refill Dermatology at [facility] [address] [place] [address] Nessa Mendez MD [facility] [address] [place] [address] Seborrheic dermatitis Social History Tobacco Use Types Packs/Day Years Used Date Smoking Tobacco: Never Assessed Sex and Gender Information Value Date Recorded Sex Assigned at Not on file Gender Identity Not on file Sexual Orientation Not on file documented as of this encounter Miscellaneous Notes * Telephone Encounter - Charlee Johnson LPN - 10/07/2023 1:43 PM EDT Medication Refill Request Order(s) pended and routed to Dr. Yost to review and sign, if appropriate. - Medication(s) requested to refill: Lidex - Associated diagnosis: carmel derm - Last visit: 05/17/2023 - Recommended follow up: 6 mos - Next scheduled: 01/17/2024 - Special considerations: no - Appropriate to refill: yes documented in this encounter Plan of Treatment Upcoming Encounters Date Type Department Care Team (Late st Contact Info) Description 01/17/2024 9:00 AM EST Office Visit Dermatology at [facility] [address] [place] [address] Nessa Mendez MD [facility] [address] [place] [address] documented as of this encounter Visit Diagnoses Diagnosis Seborrheic dermatitis Seborrheic dermatitis, unspecified documented in this encounter Care Teams Reproducer Relationship Specialty Start Date End Date Zahra Leonardo APRN [address] [place] [address] [facility] [facility] [place] [address] PCP - General Family Medicine 06/07/22 documented as of this encounter
--- OUTSIDE RECORDS SUMMARY | 2023-11-21 19:04 | XMS_ITS | Encounter Summary ---
Author Organization [facility] Address [facility] [place] [address] Care Team Providers Care Guide Rail Cleaner Name Role Phone Zahra Leonardo APRN Primary Care Provider [phone] Reason for Visit * Consultation (Routine) - Closed Specialty Diagnoses / Procedures Referred By Guillermina bridges Referred To Contact Dermatology Diagnoses Rash Zahra Leonardo, MILADY [address] [place] [address] [place] [address] [facility] Dermatology [address] [place] [address] Referral ID Status Reason Start Date Expiration Date V isits Requested Visits Authorized [id number] Closed Consult, Test & Treat PCP Updated and/or Approved 06/07/2022 06/07/2023 6 6 Encounter Details Date Type Department Care Team (Late st Contact Info) Description 02/17/2023 11:00 AM EST Office Visit Dermatology at [facility] [address] [place] [address] Mya Yost MD [facility] [address] [place] [address] Atopic dermatitis, unspecified type Social History Tobacco Use Types Packs/Day Years Used Date Smoking Tobacco: Never Assessed Sex and Gender Information Value Date Recorded Sex Assigned at Not on file Gender Identity Not on file Sexual Orientation Not on file documented as of this encounter Progress Notes * Mya Yost MD - 02/17/2023 11:00 AM EST Images from the original note were not [...] y.o. Patient returns to clinic today for rash. - Eczema - present for 2 years, limited to the forearms and hands. Rapidly worsened on her arms 2 months ago. Using triamcinolone 0.1% cream twice daily for 1 year. Uses pSivida springs. Uses cerave moisturizer once daily. Last visit at Dermatology: 11/19/2022 (Dr. Joya for cryotherapy of biopsy proven [place]) Last visit with this provider: Visit date not found Medications: Reviewed in eD-H Allergies: Reviewed in eD-H Skin Examination: Focused skin examination of the arms and hands was normal with the exception of the findings below. Assessment/Plan Atopic dermatitis- pink thin scaly papules and plaques on the forearms and thumbs - Atopic dermatitis is a common skin condition characterized by a compromised skin barrier due to filaggrin protein mutations and abnormal inflammation in the skin. Patients with atopic dermatitis are prone to skin infections because of their compromised skin barrier as well as decreased levels of endogenous antimicrobial peptides in the skin. - Prior treatment - triamcinolone twice daily for 1 year - Discussed triggers for atopic dermatitis include winter months and stressors. Stressors for pt includes sister recently - Sensitive skin care handout provided - JACEK 02/17/23- negative Plan: - Stop Rx: triamcinolone 0.1% ointment for 1 week, as she has been using twice daily for 1 year - Start Rx: betametasone 0.05% dipropionate ointment to affected areas twice daily for 2 weeks, stop for 1 week, then repeat as needed - Discussed switching [place] soap to Dove sensitive soap, only needed under the axilla and in the groin - Discussed keeping showers short and using warm water. - Apply emollient (vaseline, sunflower seed or coconut oil, Cetaphil or CeraVe cream) to all areas of clear skin immediately after bathing while skin is still damp - Discussed switching Arm and Hammer laundry detergent to All free and clear - Discussed applying Vaseline to hands nightly and covering with cotton gloves Figure 1 Photo(s) taken and charted with patient's verbal consent. Other: OTC skin products discussed RTC: 3 months for eczema f/u []Note routed to engineering secretary []Recall placed in scheduling system [x]Appointment scheduled at checkout I performed the above scribed service and agree with the accuracy of the documentation in this encounter. Reviewed and signed by: Mya Yost MD Dermatology [facility] Patient seen and evaluated with staff industrial psychologist: Melecio Villegas MD Dermatology [facility] * Melecio Villegas MD - 02/17/2023 11:00 AM EST I directly supervised the Dermatology resident during [...] resident's note. MELECIO VILLEGAS MD Staff Physician documented in this encounter Plan of Treatment Upcoming Encounters Date Type Department Care Team (Late st Contact Info) Description 01/17/2024 9:00 AM EST Office Visit Dermatology at [facility] [address] [place] [address] Nessa Mendez MD [facility] [address] [place] [address] documented as of this encounter Visit Diagnoses Diagnosis Atopic dermatitis, unspecified type documented in this encounter Care Teams Guide Rail Cleaner Relationship Specialty Start Date End Date Zahra Leonardo, MARINE EQUIPMENT ENGINEER [facility] [place] [address] [place] [address] PCP - General Family Medicine 06/07/22 documented as of this encounter
--- OUTSIDE RECORDS SUMMARY | 2023-11-21 19:04 | XMS_ITS | Encounter Summary ---
Author Organization [facility] Address [address] [place] [address] Care Team Providers Care Welfare Aide Name Role Phone Rayne Stratton Primary Care Provider [phone] Encounter Details Date Type Department Care Team (Late st Contact Info) Description 02/19/2019 Lab Requisition [facility] Pathology & Laboratory Medicine - [address] [address] Unknown, Provider, Social History Tobacco Use Types Packs/Day Years Used Date Smoking Tobacco: Never Assessed Sex and Gender Information Value Date Recorded Sex Assigned at Not on file Gender Identity Not on file Sexual Orientation Not on file documented as of this encounter Plan of Treatment Not on file documented as of this encounter Procedures Procedure Name Priority Date/Time Associated Diagnosis Comments H. PYLORI ANTIGEN Routine 02/19/2019 7:30 EST documented in this encounter Results * H. PYLORI ANTIGEN (02/19/2019 7:30 EST) H. Pylori Negative Negative 02/20/2019 13:00 EST [facility] Feces STOOL SPECIMEN / Unknown 02/19/2019 7:30 EST 02/19/2019 21:29 EST Narrative [facility] - 02/20/2019 13:00 EST Results were obtained with the [facility] [place] [facility]. Provider Unknown MICROBIOLOGY - GENER AL ORDERABLES [facility] [address] [place] [address] documented in this encounter Visit Diagnoses Not on filedocumented in this encounter Care Teams Welfare Aide Relationship Specialty Start Date End Date [place] [address] PCP - General 02/21/19 documented as of this encounter
--- OUTSIDE RECORDS SUMMARY | 2023-11-21 19:04 | XMS_ITS | Encounter Summary ---
Author Organization [facility] Address [facility] [place] [address] Care Team Providers Care Medical Data Analyst Name Role Phone Zahra Leonardo APRN Primary Care Provider [phone] Encounter Details Date Type Department Care Team (Latest Contact Info) Description 02/17/2023 Travel Social History Tobacco Use Types Packs/Day [...] 9:00 AM EST Office Visit Dermatology at [facility] [address] [place] [address] Nessa Mendez MD [facility] DR [address] [place] [address] documented as of this encounter Visit Diagnoses Not on filedocumented in this encounter Care Teams Medical Data Analyst Relationship Specialty Start Date End Date Zahra Leonardo APRN [facility] [place] [address] PCP - General Family Medicine 06/07/22 documented as of this encounter
--- OUTSIDE RECORDS SUMMARY | 2023-11-21 19:04 | XMS_ITS | Clinical Summary ---
Author Organization [facility] Address [facility] [place] [address] Care Team Providers Care Screen Roller Name Role Phone Zahra Leonardo APRN Primary Care Provider [phone] Medications Medication Sig Dispensed Refills Start Date End Date Status triamcinolone (Kenalog) 0.1 % Ointment Apply topically 2 times daily. To affected areas on extremities for 14 days, then take a week off. May restart cycle as needed. 80 g 2 06/14/2022 Active ketoconazole (NIZORAL) 2 % Shampoo Wash topically around ears daily PRN 120 mL 3 05/17/2023 Active augmented betamethasone dipropionate (Diprolene-AF) 0.05 % OintmentIndications:A topic dermatitis, unspecified type Apply twice daily to affected areas for 2 weeks, stop for 1 week, then repeat cycle as needed 30 g 09/23/2023 Active fluocinonide (LIDEX) 0.05 % SolutionIndications:S eborrheic dermatitis Apply twice daily to affected areas on scalp as needed for itch. May use up to 14 days per month. 60 mL 5 10/09/2023 Active Active Problems No known active problems Encounters Date Type Department Care Team Description 10/07/2023 Refill Dermatology at [facility] [address] [place] [address] Nessa Mendez MD Seborrheic dermatitis 10/07/2023 Telephone Dermatology at [facility] [address] [place] [address] Nessa Mendez MD 10/07/2023 Telephone Dermatology at [facility] [address] [place] [address] Nessa Mendez MD 09/23/2023 Refill Dermatology at [facility] [address] [place] [address] Mya Yost MD Atopic dermatitis, unspecified type 09/23/2023 Telephone Dermatology at [facility] [address] [place] [address] Mya Yost MD from Last 3 Months Social History Tobacco Use Types Packs/Day Years Used Date Smoking Tobacco: Never Assessed Sex and Gender Information Value Date Recorded Sex Assigned at Not on file Gender Identity Not on file Sexual Orientation Not on file Plan of Treatment Upcoming Encounters Date Type Department Care Team (Late st Contact Info) Description 01/17/2024 9:00 AM EST Office Visit Dermatology at [facility] [address] [place] [address] Nessa Mendez MD [facility] [address] [place] [address] Health Maintenance Due Date Last Done Comments CT Colonography 1953 Colonoscopy 1953 Colorectal Cancer Screening 1955 FIT DNA 1953 FIT 1955 Sigmoidoscopy (10 year) with FIT yearly 1953 Sigmoidoscopy 1955 Hepatitis C Screening 11/25/1971 Tetanus/Diphtheria/Pertussis Vaccines (1 - Tdap) 11/24 Breast Cancer Share Decision Needed 1993 Breast Cancer screening 1993 Zoster vaccine (1 of 2) 11/25/2003 Advance Directive 2008 Bone Density Scan 2018 Pneumoccocal Vaccine: 65+ (1 of 1 - PCV) 2018 Covid-19 Vaccine (1 - 2022-24 season) 2023 Influenza (Flu) vaccine (1 o f 1 - Influenza standard series) 10/23/2023 Care Teams Screen Roller Relationship Specialty Start Date End Date Zahra Leonardo, MILADY [facility] [place] [address] PCP - General Family Medicine 06/07/22
--- OUTSIDE RECORDS SUMMARY | 2023-11-21 19:04 | XMS_ITS | Encounter Summary ---
Author Organization [facility] Address [address] [place] [address] Care Team Providers Care Savings Teller Name Role Phone Rayne Stratton CARITO Primary Care Provider [phone] Encounter Details Date Type Department Care Team (Late st Contact Info) Description 2019 Lab Requisition [facility] Pathology & Laboratory Medicine - [address] [address] Outr Resulting Lab, Provider Social History Tobacco Use Types Packs/Day Years [...] Procedure Name Priority Date/Time Associated Diagnosis Comments ZZCOVID-19 TEST [facility] PCR Today 2019 0:03 EDT COVID-19 TESTING Routine 2019 0:03 EDT documented in this encounter Results * COVID-19 TEST [facility] PCR (2019 0:03 EDT) Swab ENTIRE NASOPHARYNX / Unknown 2019 0:03 EDT 2019 8:57 EDT Provider Outr Resulting Lab MICROBIOLOGY - GENERAL ORDERABLES [facility] [address] [place] [address] * COVID-19 TESTING (2019 0:03 EDT) COVID-19 rt-PCR Result Negative Negative 2019 12:16 EDT [facility] Comment: This test has not been FDA cleared or approved. This test has been authorized by FDA under an EUA for use by authorized laboratories. This test has been authorized only for detection of nucleic acid from 2019-nCoV, not for any other viruses or pathogens. This test is only authorized for the duration of the declaration that circumstances exist justifying the authorization of emergency use of in vitro diagnostic tests for detection and/or diagnosis of 2019-nCoV under section 564(b)(1) of Act, 21 U.S.C ?? 360bbb-3(b) (1), unless the authorization is terminated or revoked sooner. Negative results do not preclude 2019-nCoV infection and should not be used as the sole basis for treatment or other patient management decisions. Negative results must be combined with clinical observations, patient history, and epidemiological information. Performed on the [employer] Fusion instrument Performing Lab [place] [facility] Lab 2019 12:16 EDT [facility] Swab 2019 0:03 EDT 2019 8:57 EDT Provider Outr Resulting Lab MICROBIOLOGY - GENERAL ORDERABLES Performing Organization Address City/State/[facility] Co de Phone Number [facility] [address] [place] [address] documented in this encounter Visit Diagnoses Not on filedocumented in this encounter Care Teams Savings Teller Relationship Specialty Start Date End Date Rayne Stratton [place] [address] PCP - General 02/21/19 documented as of this encounter
--- OUTSIDE RECORDS SUMMARY | 2023-11-21 19:04 | XMS_ITS | Encounter Summary ---
Author Organization [facility] [place] [address] Care Team Providers Care Motion And Time Study Teacher Name Role Phone Zahra Leonardo APRN Primary Care Provider [phone] Reason for Referral * Consultation (Routine) - Closed Specialty Diagnoses / Procedures Referred By Guillermina bridges Referred To Contact Dermatology Diagnoses Zahra Wang APRN [address] [place] [address] [facility] [address] [place] [address] Referral ID Status Reason Start Date Expiration Date V isits Requested Visits Authorized [id number] Closed Consult, Test & Treat PCP Updated and/or Approved 06/07/2022 06/07/2023 6 6 Encounter Details Date Type Department Care Team (Late Contact Info) Description 06/07/2022 Transcribe Orders eDH Incoming Referrals [phone] Zahra Leonardo APRN [address] [place], [place] [id number] Rash Social History Tobacco Use Types Packs/Day Years Used Date Smoking Tobacco: Never Assessed Sex and Gender Information Value Date Recorded Sex Assigned at Not on file Gender Identity Not on file Sexual Orientation Not on file documented as of this encounter Plan of Treatment Upcoming Encounters Date Type Department Care Team (Late Contact Info) Description 01/17/2024 9:00 AM EST Office Visit Dermatology at [facility] [address] [place] [address] Nessa Mendez MD [facility] [place] [address] Scheduled Referrals Name Type Priority Associated Diagnoses Order Schedule Referral to Dermatology Outpatient Referral Routine Rash Ordered: 06/07/2022 documented as of this encounter Visit Diagnoses Diagnosis Rash Rash and other nonspecific skin eruption documented in this encounter Care Teams Motion And Time Study Teacher Relationship Specialty Start Date End Date Zahra Leonardo, DEVELOPMENT GEOLOGIST [facility] [place] [address] PCP - General Family Medicine 06/07/22 documented as of this encounter
--- OUTSIDE RECORDS SUMMARY | 2023-11-21 19:04 | XMS_ITS | Clinical Summary ---
Author Organization [facility] Address [address] [place] [address] Care Team Providers Care Regional Training Manager Name Role Phone Rayne Stratton CARITO Primary Care Provider [phone] Social History Tobacco Use Types Packs/Day Years Used Date Smoking Tobacco: Never Assessed Interpersonal Safety Answer Date Record ed Physically Hurt Never 09/24/2019 Verbally Threaten Not on file 09/24/2019 Sex and Gender Information Value Date Recorded Sex Assigned at Not on file Gender Identity Not on file Sexual Orientation Not on file Plan of Treatment Health Maintenance Due Date Last Done Comments Hepatitis C Screen 1955 RSV Immunization ( o r 60+ Years) (1 - 1-dose 60+ series) 2013 Fall Risk Screening 2018 COVID-19 Vaccine (2022- season) 2022 Care Teams Regional Training Manager Relationship Specialty Start Date End Date [place] [address] PCP - General 02/21/19
--- OUTSIDE RECORDS SUMMARY | 2023-11-21 19:04 | XMS_ITS | Referral Summary ---
Author Organization [facility] Address [address] [place] [address] Care Team Providers Care Investigation Lieutenant Name Role Phone Rayne Stratton PATIENT CARE ASSISTANT Primary Care Provider [phone] Social History Tobacco Use Types Packs/Day Years Used Date Smoking Tobacco: Never Assessed Interpersonal Safety Answer Date Record ed Physically Hurt Never 09/24/2019 Verbally Threaten Not on file 09/24/2019 Sex and Gender Information Value Date Recorded Sex Assigned at Not on file Gender Identity Not on file Sexual Orientation Not on file Plan of Treatment Not on file Care Teams Investigation Lieutenant Relationship Specialty Start Date End Date [place] [address] PCP - General 02/21/19
[2023-11-21 19:07] VITALS: BP 128/83; PULSE 90; RESP 16; TEMP 36.6; O2SAT 94
--- NOTE | 2023-11-21 20:05 | DI.CT_ITS ---
Exam(s) CT ABDOMEN PELVIS WO EXAM: CT ABDOMEN PELVIS WO CLINICAL HISTORY: vomiting, diarrhea, eval for obstruction or coliti. TECHNIQUE: Imaging Protocol: Axial computed tomography images with coronal and sagittal reformatted images were created and reviewed. Oral: no COMPARISON: No exams were available for comparison FINDINGS: Lung Bases: No acute findings. Small hiatal hernia. Liver: Normal density. No suspicious mass. Gallbladder and biliary tract: No radiodense calculus or biliary dilation. Pancreas: Normal density. No abnormal calcifications or inflammatory process. Spleen: Normal. Kidneys: Normal size, contour and axis. No radiodense stones. No obstructive uropathy. No suspicious masses seen. Adrenal glands: No masses seen. Lymph nodes: Within normal limits. Vasculature: Abdominal aorta non-dilated. Soft tissues: Unremarkable. Bladder: No wall thickening. No mass or calculi. Bowel: There is fluid in the rectum. The remaining colon is mainly decompressed. There is a questio n of mild diffuse wall thickening versus nondistention. No stranding in the surrounding fat. No sma ll-bowel obstruction or small bowel wall thickening. Peritoneal cavity: No ascites. No focal collection. No mesenteric inflammatory response. Reproductive organs: Unremarkable. Bones: Hemangioma L3. Degenerative disc changes L5-S1. IMPRESSION: Fluid in the rectum consistent with diarrheal illness. Mild wall thickening of the colon could indic ate mild colitis versus under distension. RADIATION DOSE DELIVERED: 663.77mGy.cm Total DLP DATA REPOSITORY: All CT scans at this facility are submitted to the National Radiology Data Registry (NRDR) Dose Index Registry (DIR) with the [employer] (A[employer]). RADIATION OPTIMIZATION: All CT scans at this facility use at least one of these dose optimization te chniques: automated exposure control; mA and/or kV adjustment per patient size (includes targeted exa ms where dose is matched to clinical indication); or iterative reconstruction.
[2023-11-21] MEDS: Lactated Ringers 1,000 ML 1000 ML IV (20:10)
[2023-11-21 20:21] LABS: Abs Immature Grans 0.03 10^3/uL (0.0-0.06); Absolute Basophil Count 0.03 10^3/uL (0.0-0.2); Absolute Eosinophil Count 0.05 10^3/uL (0.0-0.7); Absolute Lymphocyte Count 2.95 10^3/uL (1.2-3.4); Absolute Monocyte Count 0.66 10^3/uL (0.1-0.8); Absolute Neutrophil Count 3.31 10^3/uL (1.2-6.7); Basophils % 0.4 %; Eosinophils % 0.7 %; HCT 43.7 % (36.0-46.0); HGB 14.9 g/dL (11.2-15.7); Immature Grans % 0.4 %; MCH 29.8 pg (27.0-33.0); MCHC 34.1 % (32.0-36.0); MCV 87 fL (80-95); MPV 10.4 fL (8.0-11.0); Monocytes % 9.4 %; Neutrophils % 47.1 %; Platelet Count 290 10^3/uL (130-400); RDW 12.4 % (11.7-14.6); RDW-SD 39.8 fL; WBC 7.03 10^3/uL (4.4-10.8)
[2023-11-21] MEDS: Ondansetron 4 MG/2 ML VIAL IVP ×2 (20:26→22:05)
[2023-11-21 20:37] LABS: ALT 34 U/L (14-59); AST 28 U/L (15-37); Albumin 4.2 g/dL (3.4-5.0); Alkaline Phosphatase 92 U/L (46-116); Anion Gap 12.5 mmol/L (3-11); BUN 9 mg/dL (7-18); Bilirubin, Total 0.73 mg/dL (0.2-1.0); CO2 29.5 mmol/L (21.0-32.0); CREATININE 1.6 mg/dL (0.55-1.02); Chloride 95 mmol/L (98-107); Glucose 149 mg/dL (74-106); Lipase 60 U/L (16-77); Potassium 3.5 mmol/L (3.5-5.1); Sodium 137 mmol/L (136-145); Total Protein 8.4 g/dL (6.4-8.2)
[2023-11-21 20:40] LABS: Calcium 11.9 mg/dL (8.5-10.1)
--- NOTE | 2023-11-21 20:44 | DI.VRAD_ITS ---
PROCEDURE INFORMATION: Exam: CT Abdomen And Pelvis Without Contrast Exam date and time: 11/21/2023 7:56 PM Age: 67 years old Clinical indication: Vomiting and other: Diarrhea; Patient HX: Vomiting, diarrhea, eval for obstruction or coliti TECHNIQUE: Imaging protocol: Computed tomography of the abdomen and pelvis without contrast. Radiation optimization: All CT scans at this facility use at least one of these dose optimization techniques: automated exposure control; mA and/or kV adjustment per patient size (includes targeted exams where dose is matched to clinical indication); or iterative reconstruction. COMPARISON: CT ABDOMEN PELVIS W 11/28/2021 10:24 AM FINDINGS: Lungs: Visualized lung bases are clear. Diaphragm: Moderate hiatal hernia Liver: Normal. No mass or intrahepatic biliary ductal dilatation. Gallbladder and biliary ducts: Normal. No calcified stones. No ductal dilation. Pancreas: Normal. No mass or ductal dilation. Spleen: Normal. No splenomegaly. Adrenal glands: Normal. No mass. Kidneys and ureters: Normal. No hydronephrosis, calculus, cyst or mass. Stomach and bowel: Stomach and small bowel appear within normal limits. There is mild diffuse wall thickening throughout the colon and in the rectum there is a moderate amount of fluid. Appendix: No evidence of appendicitis. Intraperitoneal space: Unremarkable. No free air. No significant fluid collection. Vasculature: Mild aortoiliac atherosclerosis. Lymph nodes: No enlarged retroperitoneal or mesenteric lymph nodes. Urinary bladder: No mass or wall thickening. Reproductive: Unremarkable as visualized. Bones/joints: Characteristic benign vertebral hemangioma within the L3 vertebral body. Soft tissues: Unremarkable. IMPRESSION: Diffuse colonic wall thickening and rectal fluid suggestive of colitis. Dictated and Authenticated by: Evan Alexandra MD. Ordering:MAGGY Brooks MD
[2023-11-21] MEDS: Normal Saline 1,000 ML 1000 ML IV (20:59)
[2023-11-21 21:01] LABS: C Diff PCR Negative (Negative)
[2023-11-21 21:05] VITALS: BP 148/87; PULSE 67; RESP 14; O2SAT 98
[2023-11-21 21:12] VITALS: BP 169/100; PULSE 65; RESP 16; TEMP 36.4; O2SAT 93
[2023-11-21] MEDS: Metoclopramide 10 MG/2 ML VIAL IVP (22:05)
--- NOTE | 2023-11-21 22:09 | ED.GENADUL_ITS ---
Discharge Plan Disposition Patient Dis[facility] Condition: Improving Discharge Details Chief Complaint: Nausea/Vomit/Diar Clinical Impression: Acute dehydration, Weakness, Hypercalcemia, COVID-19, Colitis Primary Care Provider: Zahra Leonardo ED Provider: Todd Tse Home Meds and New Rx's Prescriptions: No Action pantoprazole [Protonix] 40 mg tablet,delayed release (DR/EC) 40 mg PO DAILY Qty: 90 5RF dszasdmq-tnlbkovag-FR 3.5-10,000-1 mg/mL-unit/mL-% drops,suspension 4 drp otic (ear) TID 14 Days Qty: 10 1RF aspirin [Gareth Low Dose Aspirin] 81 mg tablet,delayed release (DR/EC) 81 mg PO DAILY Qty: 1 0RF Patient Comments: pt unsure of exact last date she took this cholecalciferol (vitamin D3) 50 mcg (2,000 unit) capsule 50 mcg PO DAILY riboflavin (vitamin B2) 100 mg tablet 100 mg PO BID vitamin E (dl, acetate) 400 unit capsule 450 mg PO DAILY magnesium 250 mg tablet 500 mg PO BID ascorbate calcium (vitamin C) 500 mg tablet 500 mg PO BID triamcinolone acetonide 0.1 % cream 1 applic TP DAILY PRN multivitamin Capsule 1 cap PO DAILY bisacodyl [Dulcolax (bisacodyl)] 10 mg suppository 10 mg AL DAILY PRN (Reason: constipation) Qty: 12 0RF prochlorperazine maleate 5 mg tablet See Rx Instructions .ROUTE .COMPLEX Qty: 30 3RF Dose Instruction: TAKE 1 TO 2 TABLETS BY MOUTH EVERY 8 HOURS NEEDED FOR NAUSEA OR VOMITING OR HEADACHE Rx Instructions: TAKE 1 TO 2 TABLETS BY MOUTH EVERY 8 HOURS NEEDED FOR NAUSEA OR VOMITING OR HEADACHE Nurtec ODT 75 mg tablet,disintegrating 75 mg PO Q OTHER DAY Qty: 15 11RF atorvastatin 40 mg tablet 40 mg PO DAILY All Day Allergy (cetirizine) 10 mg capsule 10 mg PO DAILY PRN fluocinonide 0.05 % cream 1 applic topical BID-QID PRN ibandronate 150 mg tablet 150 mg PO QMONTH omeprazole 20 mg capsule,delayed release(DR/EC) 20 mg PO BID alendronate 70 mg tablet 70 mg PO QWEEK betamethasone, augmented 0.05 % ointment 1 applic topical DAILY PRN calcium carbonate [Calcium 500] 500 mg calcium (1,250 mg) tablet,chewable 500 mg PO DAILY clindamycin phosphate [Clindagel] 1 % gel, once daily 1 applic topical DAILY fluticasone propionate 50 mcg/actuation spray,suspension 1 spray intranasal BID Rx Instructions: administer into each nostril hydrocortisone 2.5 % cream 1 applic topical BID PRN ketoconazole 2 % cream 1 applic topical DAILY epinephrine [EpiPen 2-Alexandro] 0.3 mg/0.3 mL auto-injector 0.3 mg IM ONCE PRN Rx Instructions: as a single dose promethazine 12.5 mg suppository 12.5 mg AL TID PRNQty: 12 0RF Rx Instructions: do not give 3rd daily dose after evening meal or within 4hr before bed potassium chloride 20 mEq tablet,ER particles/crystals 20 meq PO DAILY Qty: 7 0RF nystatin 100,000 unit/mL suspension 5 ml PO QID Qty: 100 0RF Rx Instructions: swish and swallow Paxlovid 150-100 mg tablets,dose pack PO HPI General Date/Time Provider Initiated Documentation: 11/21/23 18:48 . HPI Narrative: This is a 67-year-old female with a past medical history of sleep apnea, high cholesterol, GERD, migraines, who was recently diagnosed with COVID 5 days ago, presents today for evaluation of vomiting diarrhea weakness and fatigue. Patient has had symptoms for about 8 days total, she has had diarrhea continuous throughout this episode. She started Paxlovid 5 days ago. Vomiting started today. She feels quite nauseous, she admits to mild abdominal achiness. She no longer has any fever or chills. She does admit to notable fatigue with activity. She denies any blood in her vomit or her stool. She states that she has been off of her atorvastatin ever since she started the Paxlovid. No other complaints at this time. No other modifying factors. Related Data Home Medications ?Medication ?Instructions ?Recorded ?Confirmed multivitamin 1 cap PO DAILY 02/22/19 11/21/23 triamcinolone acetonide 0.1 % 1 applic topical DAILY PRN 02/22/19 11/21/23 topical cream epinephrine 0.3 mg/0.3 mL 0.3 mg IM ONCE PRN 11/23/19 11/21/23 injection, auto-injector (EpiPen 2-Alexandro) aspirin 81 mg tablet,delayed 81 mg PO DAILY #1 tab 01/23/20 11/21/23 release (Gareth Low Dose Aspirin) cholecalciferol (vitamin D3) 50 50 mcg PO DAILY 05/13/20 11/21/23 mcg (2,000 unit) capsule riboflavin (vitamin B2) 100 mg 100 mg PO BID 05/13/20 11/21/23 tablet vitamin E (dl, acetate) 180 mg 450 mg PO DAILY 05/13/20 11/21/23 (400 unit) capsule ascorbate calcium (vitamin C) 500 500 mg PO BID 07/22/20 11/21/23 mg tablet potassium chloride 20 mEq 20 meq PO DAILY #7 tabs 08/22/20 11/21/23 tablet,extended release(part/cryst) promethazine 12.5 mg rectal 12.5 mg AL TID PRN #12 ea 08/22/20 11/21/23 suppository magnesium 250 mg tablet 500 mg PO BID 10/28/20 11/21/23 nystatin 100,000 unit/mL oral 5 ml PO QID #100 mL 11/30/21 11/21/23 suspension bisacodyl 10 mg rectal suppository 10 mg AL DAILY PRN constipation 12/01/21 11/21/23 (Dulcolax (bisacodyl)) #12 ea prochlorperazine maleate 5 mg See Rx Instructions .Route 12/14/22 11/21/23 tablet .COMPLEX #30 tabs rimegepant 75 mg disintegrating 75 mg PO Q OTHER DAY #15 tabs 12/14/22 11/21/23 [facility] ([facility] atorvastatin 40 mg tablet 40 mg PO DAILY 03/24/23 11/21/23 cetirizine 10 mg capsule (All Day 10 mg PO DAILY PRN 03/24/23 11/21/23 Allergy (cetirizine)) fluocinonide 0.05 % topical cream 1 applic topical BID-QID PRN 03/24/23 11/21/23 ibandronate 150 mg tablet 150 mg PO QMONTH 03/24/23 11/21/23 pantoprazole 40 mg tablet,delayed 40 mg PO DAILY #90 tabs 02/09/24 09/30/24 release (Protonix) alendronate 70 mg tablet 70 mg PO QWEEK 11/09/23 11/21/23 betamethasone, augmented 0.05 % 1 applic topical DAILY PRN 11/09/23 11/21/23 topical ointment calcium carbonate (Calcium 500) 500 mg PO DAILY 11/09/23 11/21/23 clindamycin phosphate 1 % topical 1 applic topical DAILY 11/09/23 11/21/23 gel, once daily (Clindagel) fluticasone propionate 50 1 spray intranasal BID 11/09/23 11/21/23 mcg/actuation nasal spray,suspension hydrocortisone 2.5 % topical cream 1 applic topical BID PRN 11/09/23 11/21/23 ketoconazole 2 % topical cream 1 applic topical DAILY 11/09/23 11/21/23 omeprazole 20 mg capsule,delayed 20 mg PO BID 11/09/23 11/21/23 release droxqijc-kenahcqzm-ejjgpvrhs 3.5 4 drp otic (ear) TID 14 days #10 mL 11/10/23 11/21/23 mg-10,000 unit/mL-1 % ear drops,susp nirmatrelvir 150 mg-ritonavir 100 dose pk PO 11/21/23 mg tablets in a dose pack (K[employer]ked) Previous Rx's ?Medication ?Instructions ?Recorded aspirin 81 mg tablet,delayed 81 mg PO DAILY #1 tab 01/23/20 release (Gareth Low Dose Aspirin) potassium chloride 20 mEq 20 meq PO DAILY #7 tabs 08/22/20 tablet,extended release(part/cryst) promethazine 12.5 mg rectal 12.5 mg AL TID PRN #12 ea 08/22/20 suppository nystatin 100,000 unit/mL oral 5 ml PO QID #100 mL 11/30/21 suspension bisacodyl 10 mg rectal suppository 10 mg AL DAILY PRN constipation 12/01/21 (Dulcolax (bisacodyl)) #12 ea prochlorperazine maleate 5 mg See Rx Instructions .Route 12/14/22 tablet .COMPLEX #30 tabs rimegepant 75 mg disintegrating 75 mg PO Q OTHER DAY #15 tabs 12/14/22 tablet (Nurtec ODT) pantoprazole 40 mg tablet,delayed 40 mg PO DAILY #90 tabs 04/01/23 release (Protonix) nxgetbfk-utfugbkxi-kugggilfa 3.5 4 drp otic (ear) TID 14 days #10 mL 11/10/23 mg-10,000 unit/mL-1 % ear drops,susp Allergies Allergy/AdvReac Type Severity Reaction Status Date / Time venom-wasp Allergy Anaphylaxis Verified 11/21/23 19:16 Opioids - Morphine Analogues AdvReac Severe vomiting Verified 11/21/23 19:16 headache General Stated Complaint: Nausea/Vomit/Diar JENNIFER: 4 Review of Systems All systems reviewed & are unremarkable except as noted in HPI and below Exam Narrative Exam Narrative: 1.Const: Well-nourished, Well-developed, appearing stated age 2.Eyes: PERRL, no conjunctival injection, and symmetrical lids. 3.ENT: Atraumatic external nose and ears. Notably dry MM. Neck: Symmetric, trachea midline, No thyromegaly. 4.CVS: +S1/S2, No murmurs or gallops. Peripheral pulses 2+ and equal in all extremities. Brisk capillary refill in all extremities. 5.RESP: Unlabored respiratory effort. Clear to auscultation bilaterally. No wheezes rales or rhonchi 6.GI: Soft, nondistended. Mild achiness throughout. 7.MSK: Normocephalic/Atraumatic, Extremities w/o deformity or ttp No cyanosis or clubbing, Normal movement of all extremities 8.Skin: Warm, Dry. No rashes or lesions. 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 Sensation grossly intact, no focal neurologic deficits. 10.Psych: (AAO) x3. Appropriate mood and affect Course Vital Signs Vital signs: Vital Signs Temperature 36.6 C 11/21/23 19:07 Pulse 90 11/21/23 19:07 Respiratory Rate 16 11/21/23 19:07 Blood Pressure 128/83 11/21/23 19:07 Pulse Oximetry 94 11/21/23 19:07 Temperature 36.4 C 11/21/23 21:12 Temperature Source Oral 11/21/23 21:12 Pulse 65 11/21/23 21:12 Respiratory Rate 16 11/21/23 21:12 Respiratory Effort Normal, Non-Labored 11/21/23 20:27 Blood Pressure 169/100 H 11/21/23 21:12 Blood Pressure Position Sitting 11/21/23 19:07 Pulse Oximetry 93 11/21/23 21:12 Oxygen Delivery Method Room Air 11/21/23 21:12 Oxygen Flow Rate 0 11/21/23 21:12 Pain Level 0 11/21/23 19:07 Lab/Test Results Lab/Test Results: Laboratory Tests Range/Units 11/21/23 11/21/23 19:54 20:15 WBC (4.4-10.8) 10^3/uL 7.03 RBC (3.93-5.22) 10^6/uL 5.00 Hgb (11.2-15.7) g/dL 14.9 Hct (36.0-46.0) % 43.7 MCV (80-95) fL 87 MCH (27.0-33.0) pg 29.8 MCHC (32.0-36.0) % 34.1 RDW (11.7-14.6) % 12.4 Plt Count (130-400) 10^3/uL 290 MPV (8.0-11.0) fL 10.4 Immature Gran % % 0.4 Neutrophils % % 47.1 Lymphocytes % % 42.0 Monocytes % % 9.4 Eosinophils % % 0.7 Basophils % % 0.4 Nucleated RBC % (0.0-0.3) % 0.0 Absolute Neutrophils (1.2-6.7) 10^3/uL 3.31 Absolute Lymphocytes (1.2-3.4) 10^3/uL 2.95 Absolute Monocytes (0.1-0.8) 10^3/uL 0.66 Absolute Eosinophils (0.0-0.7) 10^3/uL 0.05 Absolute Basophils (0.0-0.2) 10^3/uL 0.03 Sodium (136-145) mmol/L 137 Potassium (3.5-5.1) mmol/L 3.5 Chloride (98-107) mmol/L 95 L Carbon Dioxide (21.0-32.0) mmol/L 29.5 Anion Gap (3-11) mmol/L 12.5 H BUN (7-18) mg/dL 9 Creatinine (0.55-1.02) mg/dL 1.6 H Est GFR (CKD-EPI 2020) (mL/min/1.73m2) 34.70 Glucose (74-106) mg/dL 149 H Calcium (8.5-10.1) mg/dL 11.9 H* Total Bilirubin (0.2-1.0) mg/dL 0.73 AST (15-37) U/L 28 ALT (14-59) U/L 34 Alkaline Phosphatase (46-116) U/L 92 Total Protein (6.4-8.2) g/dL 8.4 H Albumin (3.4-5.0) g/dL 4.2 Lipase (16-77) U/L 60 Stl C.difficile Tox PCR (Negative) Negative Medical Decision Making This is a 67-year-old female with a past medical history of sleep apnea, high cholesterol, GERD, migraines, who was recently diagnosed with COVID 5 days ago, presents today for evaluation of vomiting diarrhea weakness and fatigue. Patient has had symptoms for about 8 days total, she has had diarrhea continuous throughout this episode. She started Paxlovid 5 days ago. Vomiting started today. She feels quite nauseous, she admits to mild abdominal achiness. She no longer has any fever or chills. She does admit to notable fatigue with activity. She denies any blood in her vomit or her stool. She states that she has been off of her atorvastatin ever since she started the Paxlovid. No other complaints at this time. No other modifying factors. Exam demonstrates notably dry mucous membranes, mildly tender abdomen throughout. No guarding or rebound. Lungs are clear. No hypoxemia. Differential includes obstruction, colitis, pancreatitis. Dehydration and electrolyte abnormality is definitely of concern. Additionally reaction to Paxlovid is certainly on the differential as well. Will evaluate for these etiologies, get a CT scan of the abdomen, rehydrate with a liter of lactated Ringer's, give Zofran, monitor closely and reassess. [id number] Laboratory workup demonstrates normal sodium, anion gap of 12.5, creatinine is bumped up at 1.6, calcium high at 11.9, however this is not indicative of bisphosphonate use at this stage With her value being less than 12. Lipase normal suggesting no evidence of pancreatitis. C. difficile is negative on testing. Still pending the rest of her stool cultures. CT scan shows diffuse colonic wall thickening concerning for colitis. Patient has had persistent vomiting despite antiemetics. We will give Reglan and Zofran. Patient received a second liter of normal saline to help with the resolution of the hypercalcemia. With the patient's vomiting, colitis requiring antibiotics, positive COVID status, and hypercalcemia, in conjunction with her age and comorbidities I do not feel that she would be a good outpatient candidate given my current clinical assessment and her symptomatology. I discussed this with the family, and they agree and are concerned. Will continue hydration for her dehydration status and hypercalcemia, we will give Cipro and Flagyl IV for the colitis, discussed the case with the hospitalist Dr. Echevarria. He has kindly accepted the patient. I have extensively reviewed the treatment plan with the patient. I have addressed all patient concerns at this time. I have also discussed the plan with the admitting physician and they agree with the current assessment and plan and have agreed to assume responsibility for the patient. All parties demonstrate verbal understanding and agreement with our assessment and plan at this time. The documentation in this chart was dictated using [email or web address] dictation software. Please excuse any dictation errors. FINDINGS: Lungs: Visualized lung bases are clear. Diaphragm: Moderate hiatal hernia Liver: Normal. No mass or intrahepatic biliary ductal dilatation. Gallbladder and biliary ducts: Normal. No calcified stones. No ductal dilation. Pancreas: Normal. No mass or ductal dilation. Spleen: Normal. No splenomegaly. Adrenal glands: Normal. No mass. Kidneys and ureters: Normal. No hydronephrosis, calculus, cyst or mass. Stomach and bowel: Stomach and small bowel appear within normal limits. There is mild diffuse wall thickening throughout the colon and in the rectum there is a moderate amount of fluid. Appendix: No evidence of appendicitis. Intraperitoneal space: Unremarkable. No free air. No significant fluid collection. Vasculature: Mild aortoiliac atherosclerosis Lymph nodes: No enlarged retroperitoneal or mesenteric lymph nodes. Urinary bladder: No mass or wall thickening. Reproductive: Unremarkable as visualized. Bones/joints: Characteristic benign vertebral hemangioma within the L3 vertebral body. Soft tissues: Unremarkable. IMPRESSION: Diffuse colonic wall thickening and rectal fluid suggestive of colitis. Thank you for allowing us to participate in the care of your patient. 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 (Acute) Hyperplastic colon polyp (Acute ~2019) Heartburn (Acute) Epigastric pain (Acute) Atypical migraine (Acute) Migraine headache without aura (Acute) Arthritis of carpometacarpal (CMC) joint of right thumb (Acute) Nausea & vomiting (Acute) Leukocytosis (Acute) Pneumonia (Acute) Weakness (Acute) Bursitis of right shoulder (Acute) Tendonitis of long head of biceps brachii of right shoulder (Acute) Traumatic tear of right rotator cuff (Acute ~04/2021) Acute hypokalemia (Acute) Cephalgia (Acute) Stroke (Chronic) MRI of brain and CT angio of carotids negative in 2021 Migraine aura without headache (Acute) Syncope (Chronic) Chronic headaches (Acute) Unresponsive episode (Acute) Chronic migraine (Chronic) GERD (gastroesophageal reflux disease) (Chronic) History of peptic ulcer disease (Chronic) Eczema (Chronic) Medical History Sleep apnea Disorder of nasal sinus Localized skin eruption Prediabetes Diarrhea Hyperlipidemia Dark stools Pain of left hip joint Scoliosis deformity of spine Lower back pain Screening for malignant neoplasm of breast Pain in thoracic spine 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 Senile osteoporosis Rupture of right rotator cuff Disorder of lumbosacral intervertebral disc Subclinical hypothyroidism Pain of both hip joints Impacted cerumen of both ears Elevated serum creatinine Hiatal hernia with gastroesophageal reflux Superficial acne vulgaris Folliculitis Irregular heart beat Benign paroxysmal positional vertigo Overweight Tubular adenoma of colon (~04/2023) Surgical History History of esophagogastroduodenoscopy (~04/2023) History of colonoscopy (~04/2023) Family History Sister Cancer Stomach Cancer Other Alcohol use disorder Social History Smoking/Tobacco Use Status: Never Smoking risk assessment performed?: Yes Alcohol Intake: former Drug use: Daily Substance use type: marijuana Details: Last THC was 1700 04/25/23 Household members: significant other Housing: apartment Number of Children: 1 number of grandchildren: 2 current occupation: former [employer] Pets and animals: Yes Pets and animals: cat(s) Current gender identity: female What type of physical activity do you participate in: walking Seatbelt use: always Do you feel safe at home: Yes Do you feel safe in your relationship?: Yes Additional Social history: unable to assess privately
--- NOTE | 2023-11-21 22:14 | HPE_ITS ---
Date of service: 11/21/23 Time of Service: 22:17 Assessment and Plan Assessment and plan (1) Gastroenteritis: Status: Acute Assessment and plan: Primary indication for admission is gastroenteritis with dehydration, especially in the setting of significant hypercalcemia and JUAN DAVID. She is finishing her second liter of isotonic fluids, will transition to maintenance and monitor. Given ciprofloxacin and metronidazole in the ED. I don't think bacterial colitis is likely and CT is not c/w diverticulitis, so will not continue the antibiotics. C diff negative. Bacterial pathogens pending. This could also be COVID, or toxicity from palxlovid or toxic rimegepant from taking with paxlovid. Monitor and supportive care.. (2) Hypercalcemia: Status: Acute Assessment and plan: In setting of dehydration. She is also on calcium and vitamin D supplements. Hold these. Get vitamin D level. Should improve with hydration. (3) COVID-19: Status: Acute Assessment and plan: Not hypoxic. It is unclear home much of the GI symtoms are directed related to covid. She was treated with appropriately renally dosed Paxlovid, but with concern for toxicity I will not continue this. Unclear benefit of remdesavir for preventing progression on top of paxlovid, will not treat for now, but could reconsider. (4) Acute kidney injury: Status: Acute Assessment and plan: In setting of dehydration, creatinine up from 1.1 to 1.6. Pre-renal, follow after hydration. (5) Stroke: Status: Chronic Assessment and plan: Continue aspirin. Holding statin for 3 more days due to Paxlovid, but levels in blood should be adequate. (6) GERD (gastroesophageal reflux disease): Status: Chronic Assessment and plan: Continue pantoprazole, give IV while vomiting. (7) Chronic migraine: Status: Chronic Assessment and plan: Hold Nurtec until paxlovid out of her system, as paxlovid can cause toxic levels in the blood. Could try dexamethasone for JIMENEZ if severe. (8) DVT prophylaxis: Status: Acute Assessment and plan: LMWH History of Present Illness History of Present Illness Chief Complaint: vomiting Narrative: 67 yo F with history of GERD/Mcallister's esophogus, chronic migraines, and stroke who was diagnosed with COVID-19 infection 4 days ago and treated with paxlovid who is presenting with worsening nausea, vomiting, and loose stools. She first got sick 11/17/23. Started with cough. Called the PCP 11/17 and Antonieta sent to pharmacy and she started taking this. Around that time she started getting nausea and loose stools. Stools watery, twice a day. Nausea is constant. She has gotten worse, started vomiting today and unable to keep fluids or food down, so came to the ED. No blood or black in vomit or stool. Abdomen achey but not in pain. No urinary symptoms. She doesn't have URI symptoms. Her partner Sridevi had COVID first but he did not get GI symtpoms. Of note, she did hold the atorvastatin, but states PCP mentioned stopping Nupegant but she has continued this because it helps her migraines. Review of Systems All systems reviewed & are unremarkable except as noted in HPI and below Constitutional Constitutional: Reports headache(s) (chronic, not more severe) ENT Ears, Nose, Mouth, and Throat: Reports headache(s) (chronic, not more severe) Neurologic Neurologic: Reports headache(s) (chronic, not more severe) PFSH All Active Problems DVT prophylaxis (Acute) Hypercalcemia (Acute) Acute kidney injury (Acute) Gastroenteritis (Acute) COVID-19 (Acute) Chronic otitis externa of both ears (Acute) Mild cognitive impairment (Acute) Colon polyp (Acute) Diverticula of colon (Acute) Esophagitis (Acute) Duodenitis (Acute) Family hx of colon cancer (Acute) Hiatal hernia with GERD (Acute) 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 (Acute) Hyperplastic colon polyp (Acute ~2019) Heartburn (Acute) Epigastric pain (Acute) Atypical migraine (Acute) Migraine headache without aura (Acute) Arthritis of carpometacarpal (CMC) joint of right thumb (Acute) Nausea & vomiting (Acute) Leukocytosis (Acute) Pneumonia (Acute) Weakness (Acute) Bursitis of right shoulder (Acute) Tendonitis of long head of biceps brachii of right shoulder (Acute) Traumatic tear of right rotator cuff (Acute ~04/2021) Acute hypokalemia (Acute) Stroke (Chronic) MRI of brain and CT angio of carotids negative in 2021 Migraine aura without headache (Acute) Syncope (Chronic) Chronic headaches (Acute) Unresponsive episode (Acute) Chronic migraine (Chronic) GERD (gastroesophageal reflux disease) (Chronic) History of peptic ulcer disease (Chronic) Eczema (Chronic) Medical History Sleep apnea Disorder of nasal sinus Localized skin eruption Prediabetes Diarrhea Hyperlipidemia Dark stools Pain of left hip joint Scoliosis deformity of spine Lower back pain Screening for malignant neoplasm of breast Pain in thoracic spine Human papilloma virus infection onset: had normal pap but positive HPV pT is 66 and guidelines are unclear so Rayne Arrington referred to [employer]ER. Senile osteoporosis Rupture of right rotator cuff Disorder of lumbosacral intervertebral disc Subclinical hypothyroidism Pain of both hip joints Impacted cerumen of both ears Elevated serum creatinine Hiatal hernia with gastroesophageal reflux Superficial acne vulgaris Folliculitis Irregular heart beat Benign paroxysmal positional vertigo Overweight Tubular adenoma of colon (~04/2023) Surgical History History of esophagogastroduodenoscopy (~04/2023) History of colonoscopy (~04/2023) Family History Sister Cancer Stomach Cancer Other Alcohol use disorder Social History (Updated 11/21/23 @ 22:48 by Gabriel Echevarria) Smoking/Tobacco Use Status: Never Smoking risk assessment performed?: Yes Alcohol Intake: former Drug use: Daily Substance use type: marijuana Details: Last THC was 1700 04/25/23 Household members: significant other Housing: apartment Number of Children: 1 number of grandchildren: 2 current occupation: former [employer] Pets and animals: Yes Pets and animals: cat(s) Current gender identity: female What type of physical activity do you participate in: walking Seatbelt use: always Do you feel safe at home: Yes Do you feel safe in your relationship?: Yes Additional Social history: lives with partner Sridevi Romo, who works as [employer] in [employer] Allergies and Home Medications Allergies Allergy/AdvReac Type Severity Reaction Status Date / Time venom-wasp Allergy Anaphylaxis Verified 11/21/23 19:16 Opioids - Morphine Analogues AdvReac Severe vomiting Verified 11/21/23 19:16 headache Home Medications ?Medication ?Instructions ?Recorded ?Confirmed ?Type multivitamin 1 cap PO DAILY 02/22/19 11/21/23 History triamcinolone acetonide 0.1 % 1 applic topical DAILY PRN 02/22/19 11/21/23 History topical cream epinephrine 0.3 mg/0.3 mL 0.3 mg IM ONCE PRN 11/23/19 11/21/23 History injection, auto-injector (EpiPen 2-Alexandro) aspirin 81 mg tablet,delayed 81 mg PO DAILY #1 tab 01/23/20 11/21/23 Rx release (Gareth Low Dose Aspirin) cholecalciferol (vitamin D3) 50 50 mcg PO DAILY 05/13/20 11/21/23 History mcg (2,000 unit) capsule riboflavin (vitamin B2) 100 mg 100 mg PO BID 05/13/20 11/21/23 History tablet vitamin E (dl, acetate) 180 mg 450 mg PO DAILY 05/13/20 11/21/23 History (400 unit) capsule ascorbate calcium (vitamin C) 500 500 mg PO BID 07/22/20 11/21/23 History mg tablet potassium chloride 20 mEq 20 meq PO DAILY #7 tabs 08/22/20 11/21/23 Rx tablet,extended release(part/cryst) promethazine 12.5 mg rectal 12.5 mg IL TID PRN #12 ea 08/22/20 11/21/23 Rx suppository magnesium 250 mg tablet 500 mg PO BID 10/28/20 11/21/23 History nystatin 100,000 unit/mL oral 5 ml PO QID #100 mL 11/30/21 11/21/23 Rx suspension bisacodyl 10 mg rectal suppository 10 mg IL DAILY PRN constipation 12/01/21 11/21/23 Rx (Dulcolax (bisacodyl)) #12 ea prochlorperazine maleate 5 mg See Rx Instructions .Route 12/14/22 11/21/23 Rx tablet .COMPLEX #30 tabs rimegepant 75 mg disintegrating 75 mg PO Q OTHER DAY #15 tabs 12/14/22 11/21/23 Rx tablet (Nurtec ODT) atorvastatin 40 mg tablet 40 mg PO DAILY 03/24/23 11/21/23 History cetirizine 10 mg capsule (All Day 10 mg PO DAILY PRN 03/24/23 11/21/23 History Allergy (cetirizine)) fluocinonide 0.05 % topical cream 1 applic topical BID-QID PRN 03/24/23 11/21/23 History ibandronate 150 mg tablet 150 mg PO QMONTH 03/24/23 11/21/23 History pantoprazole 40 mg tablet,delayed 40 mg PO DAILY #90 tabs 04/01/23 11/21/23 Rx release (Protonix) alendronate 70 mg tablet 70 mg PO QWEEK 11/09/23 11/21/23 History betamethasone, augmented 0.05 % 1 applic topical DAILY PRN 11/09/23 11/21/23 History topical ointment calcium carbonate (Calcium 500) 500 mg PO DAILY 11/09/23 11/21/23 History clindamycin phosphate 1 % topical 1 applic topical DAILY 11/09/23 11/21/23 History gel, once daily (Clindagel) fluticasone propionate 50 1 spray intranasal BID 11/09/23 11/21/23 History mcg/actuation nasal spray,suspension hydrocortisone 2.5 % topical cream 1 applic topical BID PRN 11/09/23 11/21/23 History ketoconazole 2 % topical cream 1 applic topical DAILY 11/09/23 11/21/23 History omeprazole 20 mg capsule,delayed 20 mg PO BID 11/09/23 11/21/23 History release agroxysr-jrmklqewx-tuhsrtwdl 3.5 4 drp otic (ear) TID 14 days #10 mL 11/10/23 11/21/23 Rx mg-10,000 unit/mL-1 % ear drops,susp nirmatrelvir 150 mg-ritonavir 100 dose pk PO 11/21/23 History mg tablets in a dose pack (Paxlovid) Exam Narrative Exam Narrative: GEN: Somnolent but arousable, oriented x 3, but gives history and she closes her eyes. Cooperative. distress at rest. HEENT: Head atraumatic. Diaphoretic brow. Conjunctiva clear, no icterus. PEERL, EOMI. no rhinorrhea. MM mildly dry, OP benign. Neck is supple with no masses. Emir submandibular lymphadenopathy, trachea midline LUNGS: CTAB with normal effort CV: RRR with no murmurs, gallops, or rubs. ABD: active bowel sounds, soft, nontender and nondistended. No masses. EXT: no cyanosis, clubbing, or edema MSK: No joint redness or swelling NEURO: CN 2-12 grossly intact. Normal movement of 4 extremities. Speech slow but intelligible. Normal coordination. No tremor SKIN: Warm and clammy, no rashes or open wounds. PSYCH: normal mood and affect, though fatigued appearing Results Imaging Imaging Studies: CT A/P: Diffuse colonic wall thickening and rectal fluid suggestive of colitis. Labs 11/21/23 20:15 11/21/23 20:15 Labs: Laboratory Results - last 24 hr 11/21/23 11/21/23 19:54 20:15 WBC 7.03 RBC 5.00 Hgb 14.9 Hct 43.7 MCV 87 MCH 29.8 MCHC 34.1 RDW 12.4 Plt Count 290 MPV 10.4 Immature Gran % 0.4 Neutrophils % 47.1 Lymphocytes % 42.0 Monocytes % 9.4 Eosinophils % 0.7 Basophils % 0.4 Nucleated RBC % 0.0 Absolute Neutrophils 3.31 Absolute Lymphocytes 2.95 Absolute Monocytes 0.66 Absolute Eosinophils 0.05 Absolute Basophils 0.03 Sodium 137 Potassium 3.5 Chloride 95 L Carbon Dioxide 29.5 Anion Gap 12.5 H BUN 9 Creatinine 1.6 H Est GFR (CKD-EPI 2020) 34.70 Glucose 149 H Calcium 11.9 H* Total Bilirubin 0.73 AST 28 ALT 34 Alkaline Phosphatase 92 Total Protein 8.4 H Albumin 4.2 Lipase 60 Stl C.difficile Tox PCR Negative Last Vital Signs Temp 36.4 C 11/21/23 21:12 Pulse 65 11/21/23 21:12 Resp 16 11/21/23 21:12 BP 169/100 H 11/21/23 21:12 Pulse Ox 93 11/21/23 21:12 Time Spent Time spent with Patient: 55-74 minutes Time was spent: preparing to see the patient(eg.review tests), obtaining and/or reviewing separately otained hiistory, ordering medications,tests, procedures, referring, communicating with other health youth care specialist, indepentently interpreting results, counseling the patient and care coordination
[2023-11-21] MEDS: CIPROFLOXACIN 400 MG/200 ML BAG 200 MG IVPB (22:17)
[2023-11-21 22:18] VITALS: BP 149/89; PULSE 62; RESP 14; O2SAT 94
[2023-11-21] MEDS: metroNIDAZOLE 500 MG/100 ML BAG 100 MG IVPB (23:18)
[2023-11-22] VITALS (8 sets, daily range): BP systolic 136–165; BP diastolic 62–98; PULSE 58–82; RESP 14–18; TEMP 35.8–37.2; O2SAT 93–97
--- NOTE | 2023-11-22 01:54 | W.PCEDHO ---
Registration Status: Primary Language: Preferred Language: ED Information & Data Chief Complaint Nausea/Vomit/Diar 11/21/23 22:10 Triage Note Pt states that she was 11/21/23 19:07 diagnosed with COVID 5 days ago and started taking Paxlovid; takes nurtec every other day and wonders if she is having a reaction. Has been feeling dizzy and nauseated and with diarrhea for about 5 days. Medical / Surgical History (Last Reviewed 11/21/23 @ 22:40 by Gabriel Echevarria) Sleep apnea Disorder of nasal sinus Localized skin eruption Prediabetes Diarrhea Hyperlipidemia Dark stools Pain of left hip joint Scoliosis deformity of spine Lower back pain Screening for malignant neoplasm of breast Pain in thoracic spine Human papilloma virus infection Senile osteoporosis Rupture of right rotator cuff Disorder of lumbosacral intervertebral disc Subclinical hypothyroidism Pain of both hip joints Impacted cerumen of both ears Elevated serum creatinine Hiatal hernia with gastroesophageal reflux Superficial acne vulgaris Folliculitis Irregular heart beat Benign paroxysmal positional vertigo Overweight Tubular adenoma of colon (~04/2023) (Last Reviewed 11/21/23 @ 22:40 by Gabriel Echevarria) History of esophagogastroduodenoscopy (~04/2023) History of colonoscopy (~04/2023) Most Recent Vital Signs Temperature 36.4 C 11/21/23 21:12 Temperature Source Oral 11/21/23 21:12 Pulse 64 11/22/23 00:32 Respiratory Rate 14 11/22/23 00:32 Respiratory Effort Normal, Non-Labored 11/21/23 20:27 Blood Pressure 150/84 H 11/22/23 00:32 Blood Pressure Position Sitting 11/21/23 19:07 Pulse Oximetry 95 11/22/23 00:32 Oxygen Delivery Method Room Air 11/22/23 00:32 Oxygen Flow Rate 0 11/22/23 00:32 Pain Level 0 11/21/23 19:07 Allergies venom-wasp Allergy (Verified 11/21/23 19:16) Anaphylaxis Opioids - Morphine Analogues Adverse Reaction (Severe, Verified 11/21/23 19:16) vomiting headache Precautions Isolation Standard precaution 11/21/23 20:27 IV IV Catheter Type [Right Diffusics Antecubital] IV Catheter Gauge [Right 20 Antecubital] Diet Orders Category Date Time Status Regular/Normal [DIET] Nutrition 11/22/23 Breakfast Active Diagnostics 10/03/1611/22/23 11/21/23 Range/Units 08:30 05:35 20:15 WBC Pending 7.03 (4.4-10.8) 10^3/uL RBC Pending 5.00 (3.93-5.22) 10^6/uL Hgb Pending 14.9 (11.2-15.7) g/dL Hct Pending 43.7 (36.0-46.0) % MCV Pending 87 (80-95) fL MCH Pending 29.8 (27.0-33.0) pg MCHC Pending 34.1 (32.0-36.0) % RDW Pending 12.4 (11.7-14.6) % Plt Count Pending 290 (130-400) 10^3/uL MPV Pending 10.4 (8.0-11.0) fL Immature Gran % Pending 0.4 % Neutrophils % Pending 47.1 % Lymphocytes % Pending 42.0 % Monocytes % Pending 9.4 % Eosinophils % Pending 0.7 % Basophils % Pending 0.4 % Nucleated RBC % 0.0 (0.0-0.3) % Absolute Neutrophils Pending 3.31 (1.2-6.7) 10^3/uL Absolute Lymphocytes Pending 2.95 (1.2-3.4) 10^3/uL Absolute Monocytes Pending 0.66 (0.1-0.8) 10^3/uL Absolute Eosinophils Pending 0.05 (0.0-0.7) 10^3/uL Absolute Basophils Pending 0.03 (0.0-0.2) 10^3/uL Sodium Pending 137 (136-145) mmol/L Potassium Pending 3.5 (3.5-5.1) mmol/L Chloride Pending 95 L (98-107) mmol/L Carbon Dioxide Pending 29.5 (21.0-32.0) mmol/L Anion Gap Pending 12.5 H (3-11) mmol/L BUN Pending 9 (7-18) mg/dL Creatinine Pending 1.6 H (0.55-1.02) mg/dL Est GFR (CKD-EPI 2020) Pending 34.70 (mL/min/1.73m2) Glucose Pending 149 H (74-106) mg/dL Calcium Pending 11.9 H* (8.5-10.1) mg/dL Total Bilirubin 0.73 (0.2-1.0) mg/dL AST 28 (15-37) U/L ALT 34 (14-59) U/L Alkaline Phosphatase 92 (46-116) U/L Total Protein 8.4 H (6.4-8.2) g/dL Albumin 4.2 (3.4-5.0) g/dL Lipase 60 (16-77) U/L 25-OH Vitamin D Total Pending Stool Campylobacter PCR Stl C.difficile Tox PCR (Negative) Stool Salmonella PCR Stool Shigella PCR Stool Ova & Parasites Shiga Toxin (PCR) 11/21/23 Range/Units 19:54 WBC (4.4-10.8) 10^3/uL RBC (3.93-5.22) 10^6/uL Hgb (11.2-15.7) g/dL Hct (36.0-46.0) % MCV (80-95) fL MCH (27.0-33.0) pg MCHC (32.0-36.0) % RDW (11.7-14.6) % Plt Count (130-400) 10^3/uL MPV (8.0-11.0) fL Immature Gran % % Neutrophils % % Lymphocytes % % Monocytes % % Eosinophils % % Basophils % % Nucleated RBC % (0.0-0.3) % Absolute Neutrophils (1.2-6.7) 10^3/uL Absolute Lymphocytes (1.2-3.4) 10^3/uL Absolute Monocytes (0.1-0.8) 10^3/uL Absolute Eosinophils (0.0-0.7) 10^3/uL Absolute Basophils (0.0-0.2) 10^3/uL Sodium (136-145) mmol/L Potassium (3.5-5.1) mmol/L Chloride (98-107) mmol/L Carbon Dioxide (21.0-32.0) mmol/L Anion Gap (3-11) mmol/L BUN (7-18) mg/dL Creatinine (0.55-1.02) mg/dL Est GFR (CKD-EPI 2020) (mL/min/1.73m2) Glucose (74-106) mg/dL Calcium (8.5-10.1) mg/dL Total Bilirubin (0.2-1.0) mg/dL AST (15-37) U/L ALT (14-59) U/L Alkaline Phosphatase (46-116) U/L Total Protein (6.4-8.2) g/dL Albumin (3.4-5.0) g/dL Lipase (16-77) U/L 25-OH Vitamin D Total Stool Campylobacter PCR Pending Stl C.difficile Tox PCR Negative (Negative) Stool Salmonella PCR Pending Stool Shigella PCR Pending Stool Ova & Parasites Pending Shiga Toxin (PCR) Pending Intake and Output - 24 Hour Total 11/21/23 18:46 thru 11/22/23 00:26 Intake Total 2300 Balance 2300 Weight 72.575 kg Intake: IV 2300 Other: Stool Size Small Stool Characteristics Soft Mucoid Brown Emesis Description None Falls Risk Assessment History of Falls No History 11/21/23 20:23 Contributing Factors No Factors 11/21/23 20:23 Ambulatory Aids Independent 11/21/23 20:23 Tubes/Lines None 11/21/23 20:23 Gait Evaluation No gait disturbance 11/21/23 20:23 Cognition No cognitive impairment 11/21/23 20:23 Fall Total Score 0 11/21/23 20:23 Level of Risk Standard/Low Risk 11/21/23 20:23 Problems (Last Reviewed 11/21/23 @ 22:40 by Gabriel Echevarria) DVT prophylaxis (Acute) Hypercalcemia (Acute) Acute kidney injury (Acute) Gastroenteritis (Acute) COVID-19 (Acute) Stroke (Chronic) Chronic migraine (Chronic) GERD (gastroesophageal reflux disease) (Chronic) v v v v v v v v v Sending and/or Receiving Nurses: Please use comment section below to note any information pertinent to the patient hand-off not included above. Information / Comments: Full code Dx colitis, COVID Pt diagnosed with COVID- took paxlovid, went home started to feel more nauseas Arrived to ED with N/V/diarrhea Afebrile 18 Diffusics RAC Had 2x zofran, reglan, 1L LR, Switched to NS, (1L given) due to calcium 11.9 Ambulate independently, has been helping her. Diaphoretic Stool sent to lab, UA not requested Med Rec not done will have BMP due in am Report received from: Wallace @ 1103
[2023-11-22 07:27] LABS: Abs Immature Grans 0.04 10^3/uL (0.0-0.06); Absolute Basophil Count 0.01 10^3/uL (0.0-0.2); Absolute Lymphocyte Count 0.64 10^3/uL (1.2-3.4); Absolute Monocyte Count 0.61 10^3/uL (0.1-0.8); Absolute Neutrophil Count 8.83 10^3/uL (1.2-6.7); Basophils % 0.1 %; HCT 40.5 % (36.0-46.0); HGB 13.6 g/dL (11.2-15.7); Immature Grans % 0.4 %; Lymphocytes % 6.3 %; MCH 29.7 pg (27.0-33.0); MCHC 33.6 % (32.0-36.0); MCV 88 fL (80-95); MPV 10.9 fL (8.0-11.0); Neutrophils % 87.2 %; Platelet Count 243 10^3/uL (130-400); RBC 4.58 10^6/uL (3.93-5.22); RDW 12.4 % (11.7-14.6); RDW-SD 40.2 fL; WBC 10.13 10^3/uL (4.4-10.8)
[2023-11-22 07:44] LABS: Anion Gap 10.1 mmol/L (3-11); BUN 12 mg/dL (7-18); CO2 28.9 mmol/L (21.0-32.0); CREATININE 1.9 mg/dL (0.55-1.02); Calcium 10.2 mg/dL (8.5-10.1); Chloride 100 mmol/L (98-107); Estimated GFR 28.23 (mL/min/1.73m2); Glucose 173 mg/dL (74-106); Potassium 3.9 mmol/L (3.5-5.1); Sodium 139 mmol/L (136-145)
[2023-11-22 08:09] LABS: Vitamin D 25 Total 61.3 ng/mL (30-100)
[2023-11-22] MEDS: Omeprazole 20 MG CAPCR PO ×2 (08:25→20:46)
[2023-11-22] MEDS: Cetirizine 10 MG TAB PO (08:25)
[2023-11-22] MEDS: Enoxaparin 40 MG/0.4 ML SYR SC (08:26)
[2023-11-22] MEDS: Aspirin E.C. 81 MG TABEC PO (08:26)
[2023-11-22] MEDS: Pantoprazole 40 MG VIAL IVP (08:26)
--- NOTE | 2023-11-22 10:51 | PDOC.CMIN ---
Date of service: 11/22/23 Time of Service: 10:51 Care Management Initial Assmt Initial Assessment Reason for Hospitalization: COVID, JUAN DAVID, hypercalcemia, enteritis Functional Status/Living Situation Patient Presentation: Lucinda remains on COVID precautions, per RN report she is presenting as lethargic and struggling with vomiting and diarrhea though per report her respiratory status is improving. Lucinda resides in [place], [place] with her partner Sridevi Almodovar. They have one daughter, Thao, who lives locally and is supportive and two grandchildren as well. Lucinda also has two surviving step children from a previous marriage. The daughter Carina lives nearby and supports Lucinda as needed. 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 She is independent at baseline and receives no services. Town of Residence: [place] Resides with: Spouse (Sridevi Almodovar) Significant Other/Family: [facility] [employer] Employment Status: Retired Instrumental Activities of Daily Living (ADLs): Independent Medications Medication Management: No Issues/Barriers identified Advance Directives Advance Directives: Do you have an Advance Directive: Y 03/09/23 13:23 AD On File at [facility]: Y 03/09/23 13:23 Date Asked 08/03/23 08/03/23 17:09 AD Date Reviewed 11/09/23 11/10/23 10:48 COLST On File at [facility] COLST Date Scanned Comment: Sridevi as agent, Thao as alternate Code Status Resuscitation Status Full Code Code Status Comment: Full Code Insurance Coverage/Financial Issues Insurance: Well[employer], Medicaid Care Team Visit Care Team Role Provider Type Zahra Leonardo Primary Care Provider NURSE PRACTITIONER Todd Tse DO Emergency Provider [facility] STAFF PHYSICIAN Gabriel Echevarria Admit Provider [facility] STAFF PHYSICIAN Attending Provider Discharge Patient/Family Education Needs: Review discharge instructions, discuss Ask Me Three PFSH All Active Problems DVT prophylaxis (Acute) Hypercalcemia (Acute) Acute kidney injury (Acute) Gastroenteritis (Acute) COVID-19 (Acute) Chronic otitis externa of both ears (Acute) Mild cognitive impairment (Acute) Colon polyp (Acute) Diverticula of colon (Acute) Esophagitis (Acute) Duodenitis (Acute) Family hx of colon cancer (Acute) Hiatal hernia with GERD (Acute) 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 (Acute) Hyperplastic colon polyp (Acute ~2019) Heartburn (Acute) Epigastric pain (Acute) Atypical migraine (Acute) Migraine headache without aura (Acute) Arthritis of carpometacarpal (CMC) joint of right thumb (Acute) Nausea & vomiting (Acute) Leukocytosis (Acute) Pneumonia (Acute) Weakness (Acute) Bursitis of right shoulder (Acute) Tendonitis of long head of biceps brachii of right shoulder (Acute) Traumatic tear of right rotator cuff (Acute ~04/2021) Acute hypokalemia (Acute) Stroke (Chronic) MRI of brain and CT angio of carotids negative in 2021 Migraine aura without headache (Acute) Syncope (Chronic) Chronic headaches (Acute) Unresponsive episode (Acute) Chronic migraine (Chronic) GERD (gastroesophageal reflux disease) (Chronic) History of peptic ulcer disease (Chronic) Eczema (Chronic) Medical History Sleep apnea Disorder of nasal sinus Localized skin eruption Prediabetes Diarrhea Hyperlipidemia Dark stools Pain of left hip joint Scoliosis deformity of spine Lower back pain Screening for malignant neoplasm of breast Pain in thoracic spine Human papilloma virus infection onset: had normal pap but positive HPV pT is 66 and guidelines are unclear so Rayne Arrington referred to M[employer]I [employer] MACHINE TENDER. Senile osteoporosis Rupture of right rotator cuff Disorder of lumbosacral intervertebral disc Subclinical hypothyroidism Pain of both hip joints Impacted cerumen of both ears Elevated serum creatinine Hiatal hernia with gastroesophageal reflux Superficial acne vulgaris Folliculitis Irregular heart beat Benign paroxysmal positional vertigo Overweight Tubular adenoma of colon (~04/2023) Surgical History History of esophagogastroduodenoscopy (~04/2023) History of colonoscopy (~04/2023) Family History Sister Cancer Stomach Cancer Other Alcohol use disorder Social History (Updated 11/21/23 @ 22:48 by Gabriel Echevarria) Smoking/Tobacco Use Status: Never Smoking risk assessment performed?: Yes Alcohol Intake: former Drug use: Daily Substance use type: marijuana Details: Last THC was 1700 04/25/23 Household members: significant other Housing: apartment Number of Children: 1 number of grandchildren: 2 current occupation: former [employer] Pets and animals: Yes Pets and animals: cat(s) Current gender identity: female What type of physical activity do you participate in: walking Seatbelt use: always Do you feel safe at home: Yes Do you feel safe in your relationship?: Yes Additional Social history: lives with partner Sridevi Romo, who works as [employer] in [facility](Care Management) Screening Will the Patient Participate in the Screening?: Declined to provide
[2023-11-22] MEDS: POTASSIUM CHLORIDE/D5-0.45NACL 1,000 ML 125 MEQ IV (10:59)
[2023-11-22] MEDS: Ondansetron 4 MG/2 ML VIAL IVP ×2 (12:54→21:04)
[2023-11-22] MEDS: Fluticasone NASAL SPRAY 16 GM BTL NS ×2 (12:55→20:46)
[2023-11-22] MEDS: Lactated Ringers 1,000 ML 125 ML IV ×2 (12:59→20:46)
--- NOTE | 2023-11-22 14:04 | PGE_ITS ---
Date of Service Date of service: 11/22/23 Time of Service: 10:00 Assessment and Plan Assessment and plan (1) Gastroenteritis: Status: Acute Assessment and plan: Antibiotics were discontinued soon after admission Patient's diarrhea is significantly improved. Will place patient on oral lactobacillus 1 capsule 3 times a day. She continues to have nausea. Both of these issues could be secondary to COVID. (2) Hypercalcemia: Status: Acute Assessment and plan: In setting of dehydration. She is also on calcium and vitamin D supplements. Hold these. Get vitamin D level. Should improve with hydration. (3) COVID-19: Status: Acute Assessment and plan: No respiratory embarassment from the COVID. GI symptoms likely due to the COVID. She was treated with appropriately renaly dosed Paxlovid, but with concern for toxicity from Ritonovir, we will avoid prescribing meds that may interact. No role for remdesavir at this time. (4) Acute kidney injury: Status: Acute Assessment and plan: In setting of dehydration, creatinine up from 1.1 to 1.6. Pre-renal, follow after hydration. Check labs in am. (5) Stroke: Status: Chronic Assessment and plan: Continue aspirin. Holding statin for 3 more days due to Paxlovid, but levels in blood should be adequate. (6) GERD (gastroesophageal reflux disease): Status: Chronic Assessment and plan: Patient declines pantoprazole, asks to use her home stock of rabeprazole. Discussed with pharmacy, ok to use home stock of meds. (7) Chronic migraine: Status: Chronic Assessment and plan: Hold Nurtec until paxlovid out of her system, as paxlovid can cause toxic levels in the blood. Could try dexamethasone for JIMENEZ if severe. Discussed with pharmacy today. (8) DVT prophylaxis: Status: Acute Assessment and plan: LMWH daily SQ Subjective Subjective Interval history since last seen: November 22, 2023 Clinical course reviewed including notes, orders, labs, vitals, meds, imaging, and cultures. Care is discussed with primary nurse. Paxlovid has been held since admission. Patient continues to be lethargic, sleeping a lot. Very fatigued. She has intermittent nausea and zofran is prescribed for her. As an outpatient the patient's has been on high dose Vitamin D3 and Ca++ for treatment of osteoporosis. Her serum calcium was 11.9 yesterday and is measured at 10.2 today. On Nov 07, creat was 1.1. On admission her creatinine was 1.6 and has risen to 1.9 today. She continues to have vomiting and diarrhea but very minimal respiratory symptom s. She is on room air. She is remains on room air sating in the 90s at 96% and respiratory rate 16 to 18/min She was diagnosed with COVID 4 days prior to admission placed on Paxlovid at that time. The Paxlovid was held since admission. She was given intravenous ciprofloxacin and metronidazole at the time of admission but this has since been discontinued. She is currently on no antibiotics. She continues on enoxaparin for DVT prophylaxis. Patient was vaccinated vs COVID in 2020, does not remember which variant vaccine she took. No boosters. Reports never had COVID before. A 14 point review of systems was performed and negative except as noted below and in the HPI. From Admission H&P Nov 21, 2023: 67 yo F with history of GERD/Mcallister's esophogus, chronic migraines, and stroke who was diagnosed with COVID-19 infection 4 days ago and treated with paxlovid who is presenting with worsening nausea, vomiting, and loose stools. She first got sick 11/17/23. Started with cough. Called the PCP 11/17 and Paxlovid sent to pharmacy and she started taking this. Around that time she started getting nausea and loose stools. Stools watery, twice a day. Nausea is constant. She has gotten worse, started vomiting today and unable to keep fluids or food down, so came to the ED. No blood or black in vomit or stool. Abdomen achey but not in pain. No urinary symptoms. She doesn't have URI symptoms. Her partner Sridevi had COVID first but he did not get GI symptoms. Of note, she did hold the atorvastatin, but states PCP mentioned stopping Nupe darlyn but she has continued this because it helps her migraines. Exam Narrative Exam Narrative: Patient is alert and oriented x 3 and in no acute distress. She is sitting upright with a vomit bag in her hand with about 150 cc of greenish fluid. She does not know if she recieved zofran yet. HEENT: Neck supple, MM pink and moist, conjunctiva non-injected, sclera non- icteric, Pupils equal and reactive to light symmetrically, no JVD, no A waves. No thyromegaly. No carotid bruit CHEST: Bilaterally symmetrical with inspiration and expiration. No use of accessory muscles of respiration. No nasal flaring. RESP: Clear to auscultation bilaterally, no rales, rhonchi or wheeze, no pleural friction rub, no post-tussive crackles or apical rales. COR: RRR without murmur, normal S1, S2, no rub or gallop ABDOMEN: Soft, non tender diffusely, normally active bowel sounds diffusely, No hepatosplenomegaly, No abdominal bruit, no masses, no tenderness on deep abdominal palpation. G/U: deferred Rectal: deferred MUSCULOSKELETAL: Bilaterally symmetrical, no muscle belly tenderness or mass DERMIS: Skin warm and dry, no ulcers or rashes, EXTREMITIES: No cyanosis, clubbing or edema, no gross deformities of the large or small joints of the upper or lower extremities. NEUROLOGICAL: Cranial nerves intact II-XII without notable deficit, No peripheral neurosensory or motor deficits noted. LYMPH: No anterior or posterior cervical, no supraclavicular, No axillary, no epitrochlear or femoral lymphadenopathy. Objective Last Vital Signs Temp 36.4 C L 11/22/23 12:14 Pulse 65 11/22/23 12:14 Resp 18 11/22/23 12:14 BP 165/98 H 11/22/23 12:14 Pulse Ox 96 11/22/23 12:14 Laboratory Results - last 24 hr 11/21/23 11/21/23 11/22/23 19:54 20:15 06:37 WBC 7.03 10.13 RBC 5.00 4.58 Hgb 14.9 13.6 Hct 43.7 40.5 MCV 87 88 MCH 29.8 29.7 MCHC 34.1 33.6 RDW 12.4 12.4 Plt Count 290 243 MPV 10.4 10.9 Immature Gran % 0.4 0.4 Neutrophils % 47.1 87.2 Lymphocytes % 42.0 6.3 Monocytes % 9.4 6.0 Eosinophils % 0.7 0.0 Basophils % 0.4 0.1 Nucleated RBC % 0.0 0.0 Absolute Neutrophils 3.31 8.83 H Absolute Lymphocytes 2.95 0.64 L Absolute Monocytes 0.66 0.61 Absolute Eosinophils 0.05 0.00 Absolute Basophils 0.03 0.01 Sodium 137 139 Potassium 3.5 3.9 Chloride 95 L 100 Carbon Dioxide 29.5 28.9 Anion Gap 12.5 H 10.1 BUN 9 12 Creatinine 1.6 H 1.9 H Est GFR (CKD-EPI 2020) 34.70 28.23 Glucose 149 H 173 H Calcium 11.9 H* 10.2 H Total Bilirubin 0.73 AST 28 ALT 34 Alkaline Phosphatase 92 Total Protein 8.4 H Albumin 4.2 Lipase 60 25-OH Vitamin D Total 61.3 Stl C.difficile Tox PCR Negative Time Spent with Patient Time Spent with Patient: 35-49 minutes Time was spent: preparing to see the patient(eg.review tests), obtaining and/or reviewing separately otained hiistory, ordering medications,tests, procedures, referring, communicating with other health health care facility administrator, indepentently interpreting results, counseling the patient and care coordination
--- NOTE | 2023-11-22 15:48 | TELEP.MEDR_ITS ---
Date of service: 11/22/23 Time of Service: 15:48 [facility] Home Med Rec Allergies Allergies: venom-wasp Allergy (Verified 11/21/23 19:16) Anaphylaxis Opioids - Morphine Analogues Adverse Reaction (Severe, Verified 11/21/23 19:16) vomiting headache Interview Person Interviewed: Patient's [facility] pharmacy Quality Quality of Interview/Accuracy of Medication List: Good Sources Sources used to compile medication list: [employer] Medication List, Retail Pha rmacy and [employer] Additional Notes Additional Notes: I was unable to reach patient after multiple attempts. I used her current MediWeimi list and her pharmacy fill history at [facility] to complete med rec. I was unable to confirm with patient when last doses were taken. Recommended Changes Attestation: The home medication list is now updated to the best of my knowledge and is ready to be reconciled by the provider. Please contact the [facility] Medication Reconciliation Pharmacist at for any questions.
--- NOTE | 2023-11-22 15:48 | TELEP.MEDREC ---
Date of service: 11/22/23 Time of Service: 15:48 Telepharmacy Home Med Rec Allergies Allergies: venom-wasp Allergy (Verified 11/21/23 19:16) Anaphylaxis Opioids - Morphine Analogues Adverse Reaction (Severe, Verified 11/21/23 19:16) vomiting headache Interview Person Interviewed: Patient's [facility] pharmacy Quality Quality of Interview/Accuracy of Medication List: Good Sources Sources used to compile medication list: [employer] Medication List, Retail Pharmacy and [employer] Additional Notes Additional Notes: I was unable to reach patient after multiple attempts. I used her current Meditech list and her pharmacy fill history at [facility] to complete med rec. I was unable to confirm with patient when last doses were taken. Recommended Changes Attestation: The home medication list is now updated to the best of my knowledge and is ready to be reconciled by the provider. Please contact the [facility] Medication Reconciliation Pharmacist at for any questions.
[2023-11-22] MEDS: Normal Saline Flush 10 ML SYR (21:05)
[2023-11-22] MEDS: Dexamethasone 4 MG TAB PO (23:22)
[2023-11-22 23:34] LABS: Campylobacter PCR Negative (Negative); Salmonella PCR Negative (Negative); Shiga Toxin PCR Negative (Negative); Shigella/Enteroinvasive Ecoli Negative (Negative)
[2023-11-23] VITALS (7 sets, daily range): BP systolic 117–170; BP diastolic 62–101; PULSE 57–76; RESP 14–20; TEMP 36.3–37.5; O2SAT 94–97
[2023-11-23] MEDS: Lactated Ringers 1,000 ML 125 ML IV ×2 (04:41→17:40)
[2023-11-23] MEDS: Cetirizine 10 MG TAB PO (07:38)
[2023-11-23] MEDS: Omeprazole 20 MG CAPCR PO ×2 (07:38→20:56)
[2023-11-23] MEDS: Enoxaparin 30 MG/0.3 ML SYR SC (07:38)
[2023-11-23] MEDS: Aspirin E.C. 81 MG TABEC PO (07:38)
[2023-11-23] MEDS: Fluticasone NASAL SPRAY 16 GM BTL NS ×2 (07:39→20:56)
--- NOTE | 2023-11-23 08:53 | PDOC.CMPRO ---
Date of service: 11/23/23 Time of Service: 08:53 Care Management Progress Note Progress Note Text Progress Note Text: Lucinda remains on Covid precautions so CM was unable to see her in person. Per staff, she is doing well and feels much improved. The plan had been to discharge her home today however her creatinine continues to rise. Her baseline is 1.1-1.3 and today it was 2.8. Per provider she will be hydrated overnight and repeat blood work will be done in the morning. Discharge Potential Discharge Needs: PCP F/U Appt Anticipated Barriers to Discharge: None Identified Patient/Family Education Needs: Review discharge instructions, discuss Ask Me Three Transportation: Private vehicle Plan: Anticipate Lucinda will be discharged home, possibly with new home health services, when medically cleared. She will follow up with her community providers and plan of care and transport with family. CM will follow and continue to assess for discharge needs. SDOH(Care Management) Screening Will the Patient Participate in the Screening?: Declined to provide
[2023-11-23] MEDS: Lactobacillus Acidophilus CAP 1 CAP PO ×2 (12:47→20:56)
--- NOTE | 2023-11-23 13:10 | W.PM.DS.N ---
Date of service: 11/23/23 Time of Service: 10:15 DS: Diagnosis Discharge Diagnosis (1) Gastroenteritis: Status: Acute Asessment and Plan: Most likely secondary to COVID infection Manifest with nausea and vomiting and diarrhea. Recommend probiotics for return of normal colon ned. Nausea and vomiting has resolved Will prescribe Zofran sublingual dissolving tablets for use as needed. (2) Hypercalcemia: Status: Acute Asessment and Plan: Patient's calcium has returned to normal during the hospitalization (3) COVID-19: Status: Acute Asessment and Plan: Patient suffered no respiratory compromise during this hospitalization. She received no therapy of any antiviral nature She is stable at this time for discharge however she continues to have productive sputum. (4) Acute kidney injury: Status: Acute Asessment and Plan: Secondary to dehydration from recurrent vomiting and diarrhea. Last creatinine measured today was 1.9. Will repeat prior to discharge. Encourage fluids (5) Stroke: Status: Chronic Asessment and Plan: Stable no sign of acute issues to this chronic problem. (6) GERD (gastroesophageal reflux disease): Status: Chronic Asessment and Plan: Stable. Patient will continue home medications (7) Chronic migraine: Status: Chronic Asessment and Plan: She takes an aspirin daily 81 mg in treatment for chronic migraine. At this time of discharge, the patient's migraines are stable and not an issue. (8) DVT prophylaxis: Status: Acute Asessment and Plan: Need for DVT prophylaxis is resolved at this time. Patient continues daily aspirin at time of discharge. Discharge Plan Disposition Patient Disposition: Home Condition: Good Discharge Details Reason For Visit: COVID, JUAN DAVID, hypercalcemia, enteritis Admit Date/Time: 11/21/23 22:01 Admit Provider: Gabriel Echevarria Attending Provider: Gabriel Echevarria Primary Care Provider: Zahra Leonardo Hospital Course Hospital Course: Patient admitted with severe gastroenteritis most likely secondary to COVID. She was found to be COVID-positive. She had received Paxlovid as an outpatient but this was not continued as an inpatient. She received no remdesivir as an inpatient. She had signs of prerenal azotemia and was hydrated. She continued to have nausea and vomiting through the first 48 hours of her hospitalization. That has now resolved. Her diarrhea has resolved. Patient's pulmonary status was stable throughout the hospitalization. She is coughing up a significant amount of postinfectious hyper mucous production. She denies chills or fever and is sleeping well. Her partner has completely recovered and is present in the room ready to take her home today. She asks to be discharged. She is looking forward to seeing her cat. Home Meds and New Rx's Prescriptions: New ondansetron 4 mg tablet,disintegrating 4 mg PO Q6H PRN (Reason: nausea and vomiting) Qty: 7 0RF Continued wecwtcce-blhyrhfgu-VB 3.5-10,000-1 mg/mL-unit/mL-% drops,suspension 4 drp otic (ear) TID 14 Days Qty: 10 1RF aspirin [Gareth Low Dose Aspirin] 81 mg tablet,delayed release (DR/EC) 81 mg PO DAILY Qty: 1 0RF Patient Comments: pt unsure of exact last date she took this cholecalciferol (vitamin D3) 50 mcg (2,000 unit) capsule 50 mcg PO DAILY riboflavin (vitamin B2) 100 mg tablet 100 mg PO BID vitamin E (dl, acetate) 400 unit capsule 450 mg PO DAILY magnesium 250 mg tablet 500 mg PO BID ascorbate calcium (vitamin C) 500 mg tablet 500 mg PO BID triamcinolone acetonide 0.1 % cream 1 applic TP DAILY PRN multivitamin Capsule 1 cap PO DAILY bisacodyl [Dulcolax (bisacodyl)] 10 mg suppository 10 mg MI DAILY PRN (Reason: constipation) Qty: 12 0RF prochlorperazine maleate 5 mg tablet See Rx Instructions .ROUTE .COMPLEX Qty: 30 3RF Dose Instruction: TAKE 1 TO 2 TABLETS BY MOUTH EVERY 8 HOURS NEEDED FOR NAUSEA OR VOMITING OR HEADACHE Rx Instructions: TAKE 1 TO 2 TABLETS BY MOUTH EVERY 8 HOURS NEEDED FOR NAUSEA OR VOMITING OR HEADACHE atorvastatin 40 mg tablet 40 mg PO DAILY fluocinonide 0.05 % cream 1 applic topical BID-QID PRN ibandronate 150 mg tablet 150 mg PO QMONTH omeprazole 20 mg capsule,delayed release(DR/EC) 20 mg PO BID alendronate 70 mg tablet 70 mg PO QWEEK betamethasone, augmented 0.05 % ointment 1 applic topical DAILY PRN calcium carbonate [Calcium 500] 500 mg calcium (1,250 mg) tablet,chewable 500 mg PO DAILY clindamycin phosphate [Clindagel] 1 % gel, once daily 1 applic topical DAILY fluticasone propionate 50 mcg/actuation spray,suspension 1 spray intranasal BID PRN (Reason: allergy symptoms) Rx Instructions: administer into each nostril hydrocortisone 2.5 % cream 1 applic topical BID PRN ketoconazole 2 % cream 1 applic topical DAILY PRN epinephrine [EpiPen 2-Alexandro] 0.3 mg/0.3 mL auto-injector 0.3 mg IM ONCE PRN Rx Instructions: as a single dose promethazine 12.5 mg suppository 12.5 mg MI TID PRNQty: 12 0RF Rx Instructions: do not give 3rd daily dose after evening meal or within 4hr before bed potassium chloride 20 mEq tablet,ER particles/crystals 20 meq PO DAILY Qty: 7 0RF nystatin 100,000 unit/mL suspension 5 ml PO QID Qty: 100 0RF Rx Instructions: swish and swallow Paxlovid 150-100 mg tablets,dose pack 150 dose pk PO DAILY cetirizine 10 mg tablet 10 mg PO DAILY Patient Comments: TAKE 1 TABLET BY MOUTH DAILY No Action Nurtec ODT 75 mg tablet,disintegrating 75 mg PO Q OTHER DAY Qty: 15 11RF Discharge Instructions Referrals: Zahra Leonardo [Primary Care Provider] - (follow up with your primary doctor within 6 days of discharge.) Activity:: Activity as Tolerated Equipment/Supplies:: No Equipment Needed Diet:: As Tolerated DS: Summary Quality:SDOH Health Related Social Needs: No Data to Display DS: Data Vitals/I&O Vitals and I&O: Vital Signs Temperature 36.9 C 11/23/23 11:53 Temperature Source Skin 11/23/23 11:53 Pulse 63 11/23/23 11:53 Pulse Rhythm Regular 11/22/23 02:04 Respiratory Rate 17 11/23/23 11:53 Respiratory Effort Normal, Non-Labored 11/22/23 02:04 Respiratory Depth Normal 11/22/23 02:04 Respiratory Pattern Normal 11/22/23 02:04 Blood Pressure 144/81 H 11/23/23 11:53 Blood Pressure Position Sitting 11/21/23 19:07 Pulse Oximetry 96 11/23/23 11:53 Oxygen Delivery Method Room Air 11/23/23 11:53 Oxygen Flow Rate 0 11/23/23 11:53 Pain Level 1 11/23/23 11:53 Comment MAP 92 11/22/23 23:19 Intake & Output 11/22/23 11/23/23 11/23/23 23:59 11:59 23:59 Intake Total 1222.917 / 1332.917 989.583 / 0660.483 2688 / 583 Balance 1222.917 / 1332.917 989.583 / 7895.223 2994 / 583 Intake: IV 1222.917 / 1332.917 989.583 / 6725.803 0217 / 583 Other: Urine Color Yellow Yellow Urine Appearance Clear Urine Odor None Normal Comment urine is still bright yellow pT was independent in the bathroom Voiding Methods Bedside Commode Toilet Data Completed and Pending Labs on day of discharge: Labs from last 24 hours 11/21/23 19:54 Stool Campylobacter PCR Negative Stool Salmonella PCR Negative Stool Shigella PCR Negative Shiga Toxin (PCR) Negative PFSH All Active Problems (Updated 11/23/23 @ 13:28 by Eber Nieves DO) DVT prophylaxis (Acute) Hypercalcemia (Acute) Acute kidney injury (Acute) Gastroenteritis (Acute) COVID-19 (Acute) Chronic otitis externa of both ears (Acute) Mild cognitive impairment (Acute) Colon polyp (Acute) Diverticula of colon (Acute) Esophagitis (Acute) Duodenitis (Acute) Family hx of colon cancer (Acute) Hiatal hernia with GERD (Acute) 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 (Acute) Hyperplastic colon polyp (Acute ~2020) Heartburn (Acute) Epigastric pain (Acute) Atypical migraine (Acute) Migraine headache without aura (Acute) Arthritis of carpometacarpal (CMC) joint of right thumb (Acute) Nausea & vomiting (Acute) Leukocytosis (Acute) Pneumonia (Acute) Weakness (Acute) Bursitis of right shoulder (Acute) Tendonitis of long head of biceps brachii of right shoulder (Acute) Traumatic tear of right rotator cuff (Acute ~04/2021) Acute hypokalemia (Acute) Stroke (Chronic) MRI of brain and CT angio of carotids negative in 2021 Migraine aura without headache (Acute) Syncope (Chronic) Chronic headaches (Acute) Unresponsive episode (Acute) Chronic migraine (Chronic) GERD (gastroesophageal reflux disease) (Chronic) History of peptic ulcer disease (Chronic) Eczema (Chronic) Medical History Sleep apnea Disorder of nasal sinus Localized skin eruption Prediabetes Diarrhea Hyperlipidemia Dark stools Pain of left hip joint Scoliosis deformity of spine Lower back pain Screening for malignant neoplasm of breast Pain in thoracic spine 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 Senile osteoporosis Rupture of right rotator cuff Disorder of lumbosacral intervertebral disc Subclinical hypothyroidism Pain of both hip joints Impacted cerumen of both ears Elevated serum creatinine Hiatal hernia with gastroesophageal reflux Superficial acne vulgaris Folliculitis Irregular heart beat Benign paroxysmal positional vertigo Overweight Tubular adenoma of colon (~04/2023) Surgical History History of esophagogastroduodenoscopy (~04/2023) History of colonoscopy (~04/2023) Family History Sister Cancer Stomach Cancer Other Alcohol use disorder Social History Smoking/Tobacco Use Status: Never Smoking risk assessment performed?: Yes Alcohol Intake: former Drug use: Daily Substance use type: marijuana Details: Last THC was 1700 04/25/23 Household members: significant other Housing: apartment Number of Children: 1 number of grandchildren: 2 current occupation: former [employer] Pets and animals: Yes Pets and animals: cat(s) Current gender identity: female What type of physical activity do you participate in: walking Seatbelt use: always Do you feel safe at home: Yes Do you feel safe in your relationship?: Yes Additional Social history: lives with partner Sridevi Romo, who works as [employer] in [place] Time Spent with Patient Time Spent with Patient: 45-69 minutes Time was spent: preparing to see the patient(eg.review tests), obtaining and/or reviewing separately otained hiistory, ordering medications,tests, procedures, referring, communicating with other health cna caregiver, indepentently interpreting results, counseling the patient and care coordination
[2023-11-23] MEDS: Ondansetron 4 MG/2 ML VIAL IVP ×2 (14:50→20:22)
[2023-11-23 14:58] LABS: Anion Gap 7.1 mmol/L (3-11); BUN 18 mg/dL (7-18); CO2 27.9 mmol/L (21.0-32.0); CREATININE 2.8 mg/dL (0.55-1.02); Chloride 97 mmol/L (98-107); Estimated GFR 17.73 (mL/min/1.73m2); Glucose 186 mg/dL (74-106); Potassium 3.7 mmol/L (3.5-5.1); Sodium 132 mmol/L (136-145)
--- NOTE | 2023-11-23 15:10 | W.PM.PROGNOT ---
Date of Service Date of service: 11/23/23 Time of Service: 12:10 Assessment and Plan Assessment and plan (1) Gastroenteritis: Status: Acute Assessment and plan: Antibiotics were discontinued soon after admission Patient's diarrhea is significantly improved. Will place patient on oral lactobacillus 1 capsule 3 times a day. She continues to have nausea. Both of these issues could be secondary to COVID. We will continue Zofran as needed and plan on discharging her on this med. (2) Hypercalcemia: Status: Acute Assessment and plan: In setting of dehydration. Cis also on calcium and vitamin D supplements. Hold these. vitamin D level normal. Should improve with hydration. (3) COVID-19: Status: Acute Assessment and plan: No respiratory embarassment from the COVID. GI symptoms likely due to the COVID. She was treated with appropriately renaly dosed Paxlovid, but with concern for toxicity from Ritonovir, we will avoid prescribing meds that may interact. No role for remdesavir at this time. (4) Acute kidney injury: Status: Acute Assessment and plan: In setting of dehydration, creatinine up from 1.1 to 1.6 to 1.9 today Pre-renal, continue hydration. Home in am if creatinine decreases. (5) Stroke: Status: Chronic Assessment and plan: Continue aspirin. Holding statin for 3 more days due to Paxlovid, but levels in blood should be adequate. (6) GERD (gastroesophageal reflux disease): Status: Chronic Assessment and plan: Patient declines pantoprazole, asks to use her home stock of rabeprazole. Discussed with pharmacy, ok to use home stock of meds. (7) Chronic migraine: Status: Chronic Assessment and plan: Hold Nurtec until paxlovid out of her system, as paxlovid can cause toxic levels in the blood. Could try dexamethasone for JIMENEZ if severe. Discussed with pharmacy today. (8) DVT prophylaxis: Status: Acute Assessment and plan: LMWH daily SQ Subjective Subjective Interval history since last seen: Clinical course reviewed including notes, orders, labs, vitals, meds, imaging, and cultures. Care is discussed with primary nurse. Patient admitted with severe gastroenteritis (nausea, vomiting and diarrhea) most likely secondary to COVID. She was found to be COVID-positive. She had received Paxlovid as an outpatient x 4 days but this was not continued as an inpatient. She received no remdesivir as an inpatient. She had signs of prerenal azotemia and was hydrated. She continued to have nausea and vomiting through the first 48 hours of her hospitalization. That has now essentially resolved. Her diarrhea has resolved. Patient's pulmonary status was stable throughout the hospitalization. She is coughing up a significant amount of post-infectious hyper mucous production. She denies chills or fever and is sleeping well. Her partner has completely recovered and is present in the room ready to take her home today. She asks to be discharged. She is looking forward to seeing her cat. Patient's laboratories were reviewed. We did not have any labs ordered for today. Last creatinine was elevated 1.9. Stat BMP was ordered and result was 2.8. Still discharge is put off at this time. Patient is informed. A 14 point review of systems was performed and negative except as noted below and in the HPI. Exam Narrative Exam Narrative: Patient is alert and oriented x 3 and in no acute distress. She is sitting upright with a vomit bag in her hand with a scant amount of clearish viscous fluid in the bag. She states her nausea is resolved. She is coughing up mucus. Her significant other is in the room with her. She looks much more comfortable today and gives off the appearance of being well. HEENT: Neck supple, MM pink and moist, conjunctiva non-injected, sclera non-icteric, Pupils equal and reactive to light symmetrically, no JVD, no A waves. No thyromegaly. No carotid bruit CHEST: Bilaterally symmetrical with inspiration and expiration. No use of accessory muscles of respiration. No nasal flaring. RESP: Clear to auscultation bilaterally, no rales, rhonchi or wheeze, no pleural friction rub, no post-tussive crackles or apical rales. COR: RRR without murmur, normal S1, S2, no rub or gallop ABDOMEN: Soft, non tender diffusely, normally active bowel sounds diffusely, No hepatosplenomegaly, No abdominal bruit, no masses, no tenderness on deep abdominal palpation. G/U: deferred Rectal: deferred MUSCULOSKELETAL: Bilaterally symmetrical, no muscle belly tenderness or mass DERMIS: Skin warm and dry, no ulcers or rashes, EXTREMITIES: No cyanosis, clubbing or edema, no gross deformities of the large or small joints of the upper or lower extremities. NEUROLOGICAL: Cranial nerves intact II-XII without notable deficit, No peripheral neurosensory or motor deficits noted. LYMPH: No anterior or posterior cervical, no supraclavicular, No axillary, no epitrochlear or femoral lymphadenopathy. Objective Last Vital Signs Temp 36.7 C 11/23/23 14:51 Pulse 68 11/23/23 14:51 Resp 20 11/23/23 14:51 BP 170/99 H 11/23/23 14:51 Pulse Ox 96 11/23/23 14:51 Laboratory Results - last 24 hr 11/21/23 11/23/23 19:54 13:40 Sodium 132 L Potassium 3.7 Chloride 97 L Carbon Dioxide 27.9 Anion Gap 7.1 BUN 18 Creatinine 2.8 H Est GFR (CKD-EPI 2020) 17.73 Glucose 186 H Calcium 9.0 Stool Campylobacter PCR Negative Stool Salmonella PCR Negative Stool Shigella PCR Negative Shiga Toxin (PCR) Negative Time Spent with Patient Time Spent with Patient: 35-49 minutes Time was spent: preparing to see the patient(eg.review tests), obtaining and/or reviewing separately otained hiistory, ordering medications,tests, procedures, referring, communicating with other health child care attendant, indepentently interpreting results, counseling the patient and care coordination
[2023-11-23] MEDS: Mylanta Suspension 30 ML CUP PO (18:29)
[2023-11-23] MEDS: Normal Saline Flush 10 ML SYR IVP (20:21)
[2023-11-24 00:11] VITALS: BP 157/99; PULSE 82; RESP 18; TEMP 36.1; O2SAT 96
[2023-11-24] MEDS: Lactated Ringers 1,000 ML 125 ML IV (02:31)
[2023-11-24 03:18] VITALS: BP 167/78; PULSE 71; RESP 16; TEMP 36.6; O2SAT 95
[2023-11-24] MEDS: Ondansetron 4 MG/2 ML VIAL IVP ×2 (03:28→08:13)
[2023-11-24] MEDS: Normal Saline Flush 10 ML SYR IVP (03:29)
[2023-11-24] MEDS: Acetaminophen 650 MG SUPP PR (03:29)
[2023-11-24 07:47] VITALS: BP 135/67; PULSE 60; RESP 15; TEMP 36; O2SAT 95
[2023-11-24] MEDS: Enoxaparin 30 MG/0.3 ML SYR SC (08:13)
[2023-11-24] MEDS: Omeprazole 20 MG CAPCR PO (08:13)
[2023-11-24] MEDS: Lactobacillus Acidophilus CAP 1 CAP PO (08:13)
[2023-11-24] MEDS: Cetirizine 10 MG TAB PO (08:13)
[2023-11-24] MEDS: Fluticasone NASAL SPRAY 16 GM BTL NS (08:13)
[2023-11-24] MEDS: Aspirin E.C. 81 MG TABEC PO (08:13)
[2023-11-24 08:57] LABS: Anion Gap 7.4 mmol/L (3-11); BUN 16 mg/dL (7-18); CO2 28.6 mmol/L (21.0-32.0); CREATININE 2.3 mg/dL (0.55-1.02); Calcium 9.1 mg/dL (8.5-10.1); Chloride 96 mmol/L (98-107); Estimated GFR 22.45 (mL/min/1.73m2); Glucose 153 mg/dL (74-106); Potassium 3.6 mmol/L (3.5-5.1); Sodium 132 mmol/L (136-145)
--- NOTE | 2023-11-24 09:24 | W.PM.DS.N ---
Date of service: 11/24/23 Time of Service: 09:20 DS: Diagnosis Discharge Diagnosis (1) Gastroenteritis: Start date: 11/20/23 Status: Acute Asessment and Plan: Antibiotics were discontinued soon after admission Patient's diarrhea significantly improved She continues on probiotics at this time lactobacillus. Continues to have nausea responsive to Zofran. Prescription for Zofran is sent to pharmacy. Unclear whether COVID is the primary etiology of her nausea, vomiting and diarrhea (2) Hypercalcemia: Status: Acute Asessment and Plan: Today's calcium is down to 9.0. The situation is stable. We have been holding her vitamin D and calcium supplements. Will defer to her primary care doctor but will recommend holding them now until she is seen by her primary care doctor (3) COVID-19: Status: Acute Asessment and Plan: Patient is stable from a respiratory standpoint with no identified issues long-term from COVID. COVID is likely the cause of her GI complaints both the nausea and vomiting and the diarrhea. Paxlovid may have contributed to the patient's acute kidney injury. However, leading contributor was the dehydration of the patient experience from the vomiting and diarrhea. That is now stable at this time (4) Acute kidney injury: Status: Acute Asessment and Plan: Patient's creatinine peaked to 2.8. Today it is 2.3. We will repeat BMP in 2 days with results to her primary care Zahra Leonardo (5) Stroke: Status: Chronic Asessment and Plan: No issue at this time. Stable noncontributory to the hospitalization (6) GERD (gastroesophageal reflux disease): Status: Chronic Asessment and Plan: This condition is stable. She did have some acid reflux the other day, it appeared to be well treated with Mylanta (7) Chronic migraine: Status: Chronic Asessment and Plan: She continues a daily aspirin. Decadron seem to help the other day for her headache. (8) DVT prophylaxis: Status: Acute Asessment and Plan: This condition is resolved at the time of discharge Discharge Plan Disposition Patient Disposition: Home Condition: Good Discharge Details Reason For Visit: COVID, JUAN DAVID, hypercalcemia, enteritis Admit Date/Time: 11/21/23 22:01 Admit Provider: Gabriel Echevarria Attending Provider: Gabriel Echevarria Primary Care Provider: Zahra Leonardo Hospital Course Hospital Course: Patient admitted with severe gastroenteritis most likely secondary to COVID. She was found to be COVID-positive. She had received Paxlovid as an outpatient but this was not continued as an inpatient. She received no remdesivir as an inpatient. She had signs of prerenal azotemia on admission and was re-hydrated. She continued to have nausea and vomiting through the first 48 hours of her hospitalization. That has since resolved. Her diarrhea has resolved. Patient's pulmonary status was stable throughout the hospitalization. She is coughing up a significant amount of postinfectious hyper mucous production. She denies chills or fever and is sleeping well. It is not clear if Paxlovid helped contribute to her acute kidney injury. Her creatinine continued to creep up and repeat testing yesterday revealed level of 2.8 which interrupted her discharge plans. Today, on the day of discharge her creatinine decreased to 2.3. We will repeat her BMP following discharge and she will be asked to follow up with her primary physician Zahra Leonardo within 6 days of discharge. Lab results are to be forwarded to Zahra Leonardo. Her partner has completely recovered and is present in the room ready to take her home today. She asks to be discharged. She is looking forward to seeing her cat. Home Meds and New Rx's Prescriptions: New ondansetron 4 mg tablet,disintegrating 4 mg PO Q6H PRN (Reason: nausea and vomiting) Qty: 7 0RF Continued fraffjkr-yhnorocnx-KK 3.5-10,000-1 mg/mL-unit/mL-% drops,suspension 4 drp otic (ear) TID 14 Days Qty: 10 1RF aspirin [Gareth Low Dose Aspirin] 81 mg tablet,delayed release (DR/EC) 81 mg PO DAILY Qty: 1 0RF Patient Comments: pt unsure of exact last date she took this cholecalciferol (vitamin D3) 50 mcg (2,000 unit) capsule 50 mcg PO DAILY riboflavin (vitamin B2) 100 mg tablet 100 mg PO BID vitamin E (dl, acetate) 400 unit capsule 450 mg PO DAILY magnesium 250 mg tablet 500 mg PO BID ascorbate calcium (vitamin C) 500 mg tablet 500 mg PO BID triamcinolone acetonide 0.1 % cream 1 applic TP DAILY PRN multivitamin Capsule 1 cap PO DAILY bisacodyl [Dulcolax (bisacodyl)] 10 mg suppository 10 mg ND DAILY PRN (Reason: constipation) Qty: 12 0RF prochlorperazine maleate 5 mg tablet See Rx Instructions .ROUTE .COMPLEX Qty: 30 3RF Dose Instruction: TAKE 1 TO 2 TABLETS BY MOUTH EVERY 8 HOURS NEEDED FOR NAUSEA OR VOMITING OR HEADACHE Rx Instructions: TAKE 1 TO 2 TABLETS BY MOUTH EVERY 8 HOURS NEEDED FOR NAUSEA OR VOMITING OR HEADACHE atorvastatin 40 mg tablet 40 mg PO DAILY fluocinonide 0.05 % cream 1 applic topical BID-QID PRN ibandronate 150 mg tablet 150 mg PO QMONTH omeprazole 20 mg capsule,delayed release(DR/EC) 20 mg PO BID alendronate 70 mg tablet 70 mg PO QWEEK betamethasone, augmented 0.05 % ointment 1 applic topical DAILY PRN calcium carbonate [Calcium 500] 500 mg calcium (1,250 mg) tablet,chewable 500 mg PO DAILY clindamycin phosphate [Clindagel] 1 % gel, once daily 1 applic topical DAILY fluticasone propionate 50 mcg/actuation spray,suspension 1 spray intranasal BID PRN (Reason: allergy symptoms) Rx Instructions: administer into each nostril hydrocortisone 2.5 % cream 1 applic topical BID PRN ketoconazole 2 % cream 1 applic topical DAILY PRN epinephrine [EpiPen 2-Alexandro] 0.3 mg/0.3 mL auto-injector 0.3 mg IM ONCE PRN Rx Instructions: as a single dose promethazine 12.5 mg suppository 12.5 mg ND TID PRNQty: 12 0RF Rx Instructions: do not give 3rd daily dose after evening meal or within 4hr before bed potassium chloride 20 mEq tablet,ER particles/crystals 20 meq PO DAILY Qty: 7 0RF nystatin 100,000 unit/mL suspension 5 ml PO QID Qty: 100 0RF Rx Instructions: swish and swallow cetirizine 10 mg tablet 10 mg PO DAILY Patient Comments: TAKE 1 TABLET BY MOUTH DAILY Discontinued Paxlovid 150-100 mg tablets,dose pack 150 dose pk PO DAILY No Action Nurtec ODT 75 mg tablet,disintegrating 75 mg PO Q OTHER DAY Qty: 15 11RF Discharge Instructions Referrals: Zahra Leonardo [Primary Care Provider] - (follow up with your primary doctor within 6 days of discharge.) Activity:: Activity as Tolerated Equipment/Supplies:: No Equipment Needed Diet:: As Tolerated Discharge Orders Other Ambulatory Orders: Basic Metabolic Panel (Routine) Timeframe: 2 Days Facility: [facility] - Location: Laboratory Outpatient - [facility] Ordered By: Eber Nieves Discharge Data Discharge Date/Time-TO BE ENTERED AT DEPARTURE: 11/24/23 12:26 DS: Summary Time Spent with Patient providing and/or coordinating discharge services: Greater than 30 minutes Status at Discharge Functional status at discharge: independent ambulation Overall status at discharge: patient is progressing back to baseline Mental Status: mental status grossly normal Speech and Movement: speech and movement normal Mood: congruent mood Affect: normal affect Quality:SDOH Health Related Social Needs: No Data to Display Exam Narrative Exam Narrative: Patient is alert and oriented x 3 and in no acute distress. She is anxious about discharge and seeing her cat. She is a bit more tired today than yesterday. HEENT: Neck supple, MM pink and moist, conjunctiva non-injected, sclera non-icteric, Pupils equal and reactive to light symmetrically, no JVD, no A waves. No thyromegaly. No carotid bruit CHEST: Bilaterally symmetrical with inspiration and expiration. No use of accessory muscles of respiration. No nasal flaring. RESP: Clear to auscultation bilaterally, no rales, rhonchi or wheeze, no pleural friction rub, no post-tussive crackles or apical rales. COR: RRR without murmur, normal S1, S2, no rub or gallop ABDOMEN: Soft, non tender diffusely, normally active bowel sounds diffusely, No hepatosplenomegaly, No abdominal bruit, no masses, no tenderness on deep abdominal palpation. G/U: deferred Rectal: deferred MUSCULOSKELETAL: Bilaterally symmetrical, no muscle belly tenderness or mass DERMIS: Skin warm and dry, no ulcers or rashes, EXTREMITIES: No cyanosis, clubbing or edema, no gross deformities of the large or small joints of the upper or lower extremities. NEUROLOGICAL: Cranial nerves intact II-XII without notable deficit, No peripheral neurosensory or motor deficits noted. Psych Mental Status: mental status grossly normal Speech and Movement: speech and movement normal Mood: congruent mood Affect: normal affect DS: Data Vitals/I&O Vitals and I&O: Vital Signs Temperature 36.0 C L 11/24/23 07:47 Temperature Source Tympanic 11/24/23 07:47 Pulse 60 11/24/23 07:47 Pulse Rhythm Regular 11/22/23 02:04 Respiratory Rate 15 11/24/23 07:47 Respiratory Effort Normal, Non-Labored 11/22/23 02:04 Respiratory Depth Normal 11/22/23 02:04 Respiratory Pattern Normal 11/22/23 02:04 Blood Pressure 135/67 11/24/23 07:47 Blood Pressure Position Sitting 11/21/23 19:07 Pulse Oximetry 95 11/24/23 07:47 Oxygen Delivery Method Room Air 11/24/23 07:47 Oxygen Flow Rate 0 11/24/23 07:47 Pain Level 0 11/24/23 07:47 Comment Pt retching 11/23/23 14:51 Intake & Output 11/23/23 11/23/23 11/24/23 11:59 23:59 11:59 Intake Total 989.583 / 4079.392 5932 / 1988.583 995.833 / 995.833 Output Total 500 / 500 200 / 200 Balance 989.583 / 1489.583 500 / 1489.583 795.833 / 795.833 Intake: IV 989.583 / 5463.154 5333 / 1988.583 995.833 / 995.833 Output: Emesis 500 / 500 200 / 200 Other: Urine Color Yellow Yellow Urine Odor Normal Comment pT was independent in the bathroom pT has gone to the bathroom independently with the standby of her through the day. She says she has voided multiple times today. pt voids independently, denies any discomfort or complications Stool Size Small Stool Characteristics Soft Mucoid Brown Emesis Description Retching Retching Clear/Water Clear/Water Voiding Methods Toilet Toilet Toilet Data Completed and Pending Labs on day of discharge: Labs from last 24 hours 11/24/23 11/23/23 08:30 13:40 Sodium 132 L 132 L Potassium 3.6 3.7 Chloride 96 L 97 L Carbon Dioxide 28.6 27.9 Anion Gap 7.4 7.1 BUN 16 18 Creatinine 2.3 H 2.8 H Est GFR (CKD-EPI 2020) 22.45 17.73 Glucose 153 H 186 H Calcium 9.1 9.0 PFSH All Active Problems (Updated 11/23/23 @ 13:28 by Eber Nieves DO) DVT prophylaxis (Acute) Hypercalcemia (Acute) Acute kidney injury (Acute) Gastroenteritis (Acute) COVID-19 (Acute) Chronic otitis externa of both ears (Acute) Mild cognitive impairment (Acute) Colon polyp (Acute) Diverticula of colon (Acute) Esophagitis (Acute) Duodenitis (Acute) Family hx of colon cancer (Acute) Hiatal hernia with GERD (Acute) 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 (Acute) Hyperplastic colon polyp (Acute ~2019) Heartburn (Acute) Epigastric pain (Acute) Atypical migraine (Acute) Migraine headache without aura (Acute) Arthritis of carpometacarpal (CMC) joint of right thumb (Acute) Nausea & vomiting (Acute) Leukocytosis (Acute) Pneumonia (Acute) Weakness (Acute) Bursitis of right shoulder (Acute) Tendonitis of long head of biceps brachii of right shoulder (Acute) Traumatic tear of right rotator cuff (Acute ~04/2021) Acute hypokalemia (Acute) Stroke (Chronic) MRI of brain and CT angio of carotids negative in 2021 Migraine aura without headache (Acute) Syncope (Chronic) Chronic headaches (Acute) Unresponsive episode (Acute) Chronic migraine (Chronic) GERD (gastroesophageal reflux disease) (Chronic) History of peptic ulcer disease (Chronic) Eczema (Chronic) Medical History Sleep apnea Disorder of nasal sinus Localized skin eruption Prediabetes Diarrhea Hyperlipidemia Dark stools Pain of left hip joint Scoliosis deformity of spine Lower back pain Screening for malignant neoplasm of breast Pain in thoracic spine 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 Senile osteoporosis Rupture of right rotator cuff Disorder of lumbosacral intervertebral disc Subclinical hypothyroidism Pain of both hip joints Impacted cerumen of both ears Elevated serum creatinine Hiatal hernia with gastroesophageal reflux Superficial acne vulgaris Folliculitis Irregular heart beat Benign paroxysmal positional vertigo Overweight Tubular adenoma of colon (~04/2023) Surgical History History of esophagogastroduodenoscopy (~04/2023) History of colonoscopy (~04/2023) Family History Sister Cancer Stomach Cancer Other Alcohol use disorder Social History Smoking/Tobacco Use Status: Never Smoking risk assessment performed?: Yes Alcohol Intake: former Drug use: Daily Substance use type: marijuana Details: Last THC was 1700 04/25/23 Household members: significant other Housing: apartment Number of Children: 1 number of grandchildren: 2 current occupation: former [employer] Pets and animals: Yes Pets and animals: cat(s) Current gender identity: female What type of physical activity do you participate in: walking Seatbelt use: always Do you feel safe at home: Yes Do you feel safe in your relationship?: Yes Additional Social history: lives with partner Sridevi Romo, who works as [employer] in [place] [facility] Time Spent with Patient Time Spent with Patient: 45-69 minutes Time was spent: preparing to see the patient(eg.review tests), obtaining and/or [facility], ordering medications,tests, procedures, referring, communicating with other health rn progressive care unit, indepentently interpreting results, counseling the patient and care coordination
[2023-11-24 11:28] VITALS: BP 127/68; PULSE 60; RESP 14; TEMP 36.9; O2SAT 97
--- NOTE | 2023-11-24 13:49 | CMDISCH_ITS ---
Date of service: 11/24/23 Time of Service: 13:50 LACE Index Scoring Tool Questions: Length of Stay (in days): 3 Was the patient admitted via the E.D.?: Yes Comorbidities: Cerebrovascular Disease E.D. Visits: 2 Answers: Total Score: 9 Risk of Readmission: Low Risk Care Management Discharge Plan Reason for Hospitalization: Covid and JUAN DAVID Discharge Plan: Lucinda will be discharged home with no new services. She will follow up with her community providers and plan of care and transport with her partner. Patient/Family Education Needs: Review of discharge instructions, limitations, follow up plan, discuss Ask Me [facility] Health Related Social Needs: No Data to Display
== END 2023-11-24 18:07 | disposition home or self-care (01) | DRG 682 ==
LOC: ER 22:49 → MS 11-22 02:03
PROVIDERS: Internal Medicine; Admitting Provider Family Medicine; Emergency Provider Student in an Organized Health Care Education/Training Program; PCP Nurse Practitioner Family; Visit Provider Family Medicine
DX: N17.9 Acute kidney failure, unspecified (principal); K52.9 Noninfective gastroenteritis and colitis, unspecified; E83.52 Hypercalcemia; U07.1 COVID-19; K21.9 Gastro-esophageal reflux disease without esophagitis; G43.709 Chronic migraine without aura, not intractable, without status migrainosus; E86.0 Dehydration; R11.2 Nausea with vomiting, unspecified; K22.70 Barrett's esophagus without dysplasia; H60.63 Unspecified chronic otitis externa, bilateral; Z79.899 Other long term (current) drug therapy; G31.84 Mild cognitive impairment of uncertain or unknown etiology; K57.30 Diverticulosis of large intestine without perforation or abscess without bleeding; Z80.0 Family history of malignant neoplasm of digestive organs; R53.1 Weakness; Z86.73 Personal history of transient ischemic attack (TIA), and cerebral infarction without residual deficits; Z87.11 Personal history of peptic ulcer disease; L30.9 Dermatitis, unspecified; F12.90 Cannabis use, unspecified, uncomplicated
CPT/HCPCS: 00123; 36415; 80048; 80053; 82306; 83690; 87493; 87505; 90656; 96361; 96365; 96367; 96375; 96376; 99285; J1650; 74176; 85025; 87177; 99222; 99232; 99239; J0744; J1836; J2405; J2470; J2765; J8540

== ENCOUNTER 2023-12-06 16:18 | Outpatient (REF) | payer OTHER, MEDICAID, SELFPAY ==
--- OUTSIDE RECORDS SUMMARY | 2023-12-06 16:20 | XMS_ITS | Encounter Summary ---
[place] [address] Care Team Providers Care Stapler Machine Name Role Phone Zahra Leonardo APRN Primary Care Provider [phone] Reason for Referral * Consultation (Routine) - Closed Specialty Diagnoses / Procedures Referred By Contadria bridges Referred To Contact [facility] Diagnoses Scoliosis deformity of spine Thoracic back pain scoli/ ? imaging non op Zahra Leonardo APRN [address] [facility] [facility] [place] [address] [facility] [place] [address] Referral ID Status Reason Start Date Expiration Date V isits Requested Visits Authorized [id number] Closed Consult, Test & Treat PCP Updated and/or Approved 11/30/2022 12/01/2023 1 1 Encounter Details Date Type Department Care Team (Latest Contact Info) Description 12/06/2022 Transcribe Orders eDH Incoming Referrals [phone] Zahra Leonardo APRN [address] [place] [address] Routine general medical examination at a health [...] [facility] [address] [place] [address] Nessa Mendez MD [facility] [address] [place] [address] Scheduled Referrals Name Type Priority Associated Diagnoses Orde r Schedule Referral to Spine Center Outpatient Referral Routine Routine general medical examination at a health care facility Ordered: 12/06/2022 documented as of this encounter Visit Diagnoses Diagnosis Routine general medical examination at a health care facility documented in this encounter Care Teams Stapler Machine Relationship Specialty Start Date End Date Zahra Leonardo APRN [address] [facility] [place] [address] PCP - General Family Medicine 06/07/22 documented as of this encounter
--- OUTSIDE RECORDS SUMMARY | 2023-12-06 16:20 | XMS_ITS | Encounter Summary ---
Author Organization [facility] Address [facility] [place] [address] Care Team Providers Care Siding Stapler Name Role Phone Zahra Leonardo APRN Primary Care Provider [phone] Encounter Details Date Type Department Care Team [...] 9:00 AM EST Office Visit Dermatology at [facility] [address] [place] [address] Nessa Mendez MD [facility] [address] [place] [address] documented as of this encounter Visit Diagnoses Not on filedocumented in this encounter Care Teams Siding Stapler Relationship Specialty Start Date End Date Zahra Leonardo APRN [facility] [place] [address] PCP - General Family Medicine 06/07/22 documented as of this encounter
--- OUTSIDE RECORDS SUMMARY | 2023-12-06 16:20 | XMS_ITS | Encounter Summary ---
Author Organization [facility] Address [facility] [place] [address] Care Team Providers Care Job Hand Name Role Phone Zahra Leonardo APRN Primary Care Provider [phone] Encounter Details Date Type Department Care Team (Late Contact Info) Description 09/23/2023 Telephone Dermatology at [facility] [address] [place] [address] Mya Yost MD [facility] [address] [place] [address] Social History Tobacco Use Types Packs/Day Years [...] dipropionate (Diprolene-AF) 0.05 % Ointment [facility]: [facility] [place] Last seen: 05/17/23 Follow up scheduled for: October in system Comments: Patient is aware it make take medical team up to three business days to process refill requests. Please ask pharmacy to contact patient when medication is available for tack picker. If unable to refill medication please contact patient. documented in this encounter Plan of Treatment Upcoming Encounters Date Type Department Care Team (Late Contact Info) Description 01/17/2024 9:00 AM EST Office Visit Dermatology at [facility] [address] [place] [address] Nessa Mendez MD [facility] [address] [place] [address] documented as of this encounter Visit Diagnoses Not on filedocumented in this encounter Care Teams Job Hand Relationship Specialty Start Date End Date Zahra Leonardo, MILADY [facility] [place] [address] PCP - General Family Medicine 06/07/22 documented as of this encounter
--- OUTSIDE RECORDS SUMMARY | 2023-12-06 16:20 | XMS_ITS | Encounter Summary ---
Author Organization [facility] Address [facility] [place] [address] Care Team Providers Care Army Senior Officer Name Role Phone JordenZahra Karen HENNING Primary Care Provider [phone] Encounter Details Date Type Department Care Team (Late st Contact Info) Description 10/07/[address] [facility] [address] [place] [address] Nessa Mendez MD [facility] [place] [address] Social History Tobacco Use Types Packs/Day Years [...] 0.05 % Solution. Please send to the [facility] in [place], [place]. Sridevi asked if a return call could be made to him as well at [phone]. documented in this encounter Plan of Treatment Upcoming Encounters Date Type Department Care Team (Late Contact Info) Description 01/17/2024 9:00 AM EST Office Visit Dermatology at [facility] [address] [place] [address] Nessa Mendez MD [facility] [address] [place] [address] documented as of this encounter Visit Diagnoses Not on filedocumented in this encounter Care Teams Army Senior Officer Relationship Specialty Start Date End Date Zahra Leonardo, MILADY [facility] [place] [address] PCP - General Family Medicine 06/07/22 documented as of this encounter
--- OUTSIDE RECORDS SUMMARY | 2023-12-06 16:20 | XMS_ITS | Encounter Summary ---
Author Organization [facility] Address [address] [place] [address] Care Team Providers Care Network Controller Name Role Phone Rayne Stratton CARITO Primary Care Provider [phone] Encounter Details Date Type Department Care Team (Late st Contact Info) Description 11/22/2023 Lab Requisition [facility] Pathology & Laboratory Medicine - [address] [address] Outr Resulting Lab, Provider Social History Tobacco [...] Procedure Name Priority Date/Time Associated Diagnosis Comments FECAL BACTERIAL PATHOGENS BY PCR Routine 11/21/2023 19:54 EDT documented in this encounter Results * FECAL BACTERIAL PATHOGENS BY PCR (11/21/2023 19:54 EDT) Salmonella PCR Negative Negative 11/22/2023 23:29 EDT [facility] Shigella/Enteroin vasive E. coli Negative Negative 11/22/2023 23:29 EDT [facility] HN LAB CAMPYLOBACTER PCR Negative Negative 11/22/2023 23:29 EDT [facility] Shiga Toxin PCR Negative Negative 23:29 EDT [facility] Feces SPECIMEN FROM RECTUM / Unknown 11/21/2023 19:54 EDT 11/22/2023 18:27 EDT Provider Outr Resulting Lab MICROBIOLOGY - GENERAL ORDERABLES [facility] [address] [place] [address] documented in this encounter Visit Diagnoses Not on filedocumented in this encounter Care Teams Network Controller Relationship Specialty Start Date End Date Rayne Stratton [place] [address] PCP - General 02/21/19 documented as of this encounter
--- OUTSIDE RECORDS SUMMARY | 2023-12-06 16:20 | XMS_ITS | Encounter Summary ---
Author Organization [facility] Address [facility] [place] [address] Care Team Providers Care Wire Loop Machine Operator Name Role Phone Zahra Leonardo APRN Primary Care Provider [phone] Encounter Details Date Type Department Care Team [...] 9:00 AM EST Office Visit Dermatology at [facility] [address] [place] [address] Nessa Mendez MD [facility] [address] [place] [address] documented as of this encounter Visit Diagnoses Not on filedocumented in this encounter Care Teams Wire Loop Machine Operator Relationship Specialty Start Date End Date Zahra Leonardo APRN [facility] [place] [address] PCP - General Family Medicine 06/07/22 documented as of this encounter
--- OUTSIDE RECORDS SUMMARY | 2023-12-06 16:20 | XMS_ITS | Encounter Summary ---
Author Organization [facility] Address [address] [place] [address] Care Team Providers Care Agriculture Worker Name Role Phone Rayne Stratton CARITO Primary Care Provider [phone] Encounter Details Date Type Department Care Team (Late st Contact Info) Description 09/22/2020 Lab Requisition [facility] Pathology & Laboratory Medicine - [address] [address] Sharon Avila [address] [place] [address] [place] [address] Encounter for other general examination [...] management options, if applicable. 09/23/2020 15:51 EDT [facility] Final Diagnosis A. SUBMITTED ENDOCERVICAL CURETTAGE: - Tissue did not survive processing; credit issued. B. CERVIX, 9 O'CLOCK, BIOPSY: - Fragment of benign cervical tissue with squamous metaplasia. 09/23/2020 15:51 [facility] Diagnosis Comment Professor Of Biochemistry slides of this case were reviewed at the intradepartmental consultation conference. 09/23/2020 15:51 [facility] Attestation By the signature below, the attending physician certifies that they have 1) personally conducted a gross and/or microscopic examination of the described specimen(s), and/or personally interpreted the results of laboratory testing of the described specimen(s), and 2) personally rendered or confirmed the above diagnosis. 09/23/2020 15:51 [facility] at 1551 Clinical History +HR HPV x2, normal Pap 09/23/2020 15:51 [facility] Gross Description A. Received [...] HOLLAND MUKHERJEE(ASCP) 09/22/2020 17:07 09/23/2020 15:51 T [facility] Performing Lab [facility] 09/23/2020 15:51 [facility] Scanned Images 09/23/2020 15:51 [facility] Tissue ENTIRE WALL OF CERVIX / Unknown 09/22/2020 11:00 EDT 09/22/2020 16:13 EDT Tissue specimen (specimen) CERVIX UTERI STRUCTURE / Unknown 09/22/2020 11:00 EDT 09/22/2020 16:13 EDT Sharon Avila PATHOLOGY ORDERABLES [facility] [address] [place] [address] documented in this encounter Visit Diagnoses Diagnosis Encounter for other general examination documented in this encounter Care Teams Agriculture Worker Relationship Specialty Start Date End Date Rayne Stratton F[place] [address] PCP - General 02/21/19 documented as of this encounter
--- OUTSIDE RECORDS SUMMARY | 2023-12-06 16:20 | XMS_ITS | Encounter Summary ---
Author Organization [facility] Address [facility] [place] [address] Care Team Providers Care Steamblaster Name Role Phone Zahra Leonardo APRN Primary Care Provider [phone] Reason for Visit * Consultation (Routine) - Closed Specialty Diagnoses / Procedures Referred By Guillermina bridges Referred To Contact Dermatology Diagnoses Rash Zahra Leonardo, MILADY [address] [place] [address] [place] [address] [facility] [address] [place] [address] Referral ID Status Reason Start Date Expiration Date V isits Requested Visits Authorized [id number] Closed Consult, Test & Treat PCP Updated and/or Approved 06/07/2022 06/07/2023 6 6 Encounter Details Date Type Department Care Team (Late st Contact Info) Description 02/17/2023 11:00 AM EST Office Visit Dermatology at [facility] [address] [place] [address] Mya Yost MD [facility] DR [place] [place] [address] Atopic dermatitis, unspecified type Social History Tobacco [...] cream twice daily for 1 year. Uses Do It Original springs. Uses cerave moisturizer once daily. Last [...] then repeat as needed - Discussed switching Thu springs soap to Dove sensitive soap, only [...] months for eczema f/u []Note routed to junior legal secretary []Recall placed in scheduling system [x]Appointment scheduled at checkout I performed the above scribed service and agree with the accuracy of the documentation in this encounter. Reviewed and signed by: Mya Yost MD Dermatology [facility] Patient seen and evaluated with staff landscape architecture professor: Melecio Villegas MD Dermatology [facility] * Melecio Villegas MD - 02/17/2023 11:00 [...] 9:00 AM EST Office Visit Dermatology at [facility] [address] [place] [address] Nessa Mendez MD [facility] DR [address] [place] [address] documented as of this encounter Visit Diagnoses Diagnosis Atopic dermatitis, unspecified type documented in this encounter Care Teams Steamblaster Relationship Specialty Start Date End Date Zahra Leonardo, FIELD LABORATORY OPERATOR [facility] [place] [address] PCP - General Family Medicine 06/07/22 documented as of this encounter
--- OUTSIDE RECORDS SUMMARY | 2023-12-06 16:20 | XMS_ITS | Referral Summary ---
Author Organization [facility] Address [address] [place] [address] Care Team Providers Care Circular Shear Operator Name Role Phone Rayne Stratton CARITO Primary Care Provider [phone] Encounters Date Type Department Care Team Description 11/22/2023 Lab Requisition [facility] Pathology & Laboratory Medicine - [facility] [address] [place] [address] Outr Resulting Lab, Provider from Last 3 Months Social History Tobacco Use Types Packs/Day Years Used Date Smoking Tobacco: Never Assessed Interpersonal Safety Answer Date Record ed Physically Hurt Never 09/24/2019 Verbally Threaten Not on file 09/24/2019 Sex and Gender Information Value Date Recorded Sex Assigned at Not on file Gender Identity Not on file Sexual Orientation Not on file Plan of Treatment Not on file Procedures Procedure Name Priority Date/Time Associated Diagnosis Comments FECAL BACTERIAL PATHOGENS BY PCR Routine 11/21/2023 19:54 EDT from Last 3 Months Results * FECAL BACTERIAL PATHOGENS BY PCR (11/21/2023 19:54 EDT) Salmonella PCR Negative Negative 11/22/2023 23:29 EDT [facility] Shigella/Enteroin vasive E. coli Negative Negative 11/22/2023 23:29 EDT [facility] HN LAB CAMPYLOBACTER PCR Negative Negative 11/22/2023 23:29 EDT [facility] Shiga Toxin PCR Negative Negative 23:29 EDT [facility] Feces SPECIMEN FROM RECTUM / Unknown 11/21/2023 19:54 EDT 11/22/2023 18:27 EDT Provider Outr Resulting Lab MICROBIOLOGY - GENERAL ORDERABLES [facility] [address] [place], [place] [address] from Last 3 Months Care Teams Circular Shear Operator Relationship Specialty Start Date End Date [place] [address] PCP - General 02/21/19
--- OUTSIDE RECORDS SUMMARY | 2023-12-06 16:20 | XMS_ITS | Encounter Summary ---
Author Organization [facility] Address [facility] [place] [address] Care Team Providers Care Welt Edge Rounder Name Role Phone Jorden Zahra Jones APRN Primary Care Provider [phone] Encounter Details Date Type Department Care Team (Late Contact Info) Description 10/07/2023 Telephone Dermatology at [facility] [address] [place] [address] Nessa Mendez MD [facility] [address] MICHELLE [place] [address] Social History Tobacco Use Types Packs/Day Years [...] used for these, please call back at [phone] documented in this encounter Plan of Treatment Upcoming Encounters Date Type Department Care Team (Late Contact Info) Description 01/17/2024 9:00 AM EST Office Visit Dermatology at [facility] [address] [place] [address] Nessa Mendez MD [facility] [address] [address] documented as of this encounter Visit Diagnoses Not on filedocumented in this encounter Care Teams Welt Edge Rounder Relationship Specialty Start Date End Date Zahra Leonardo APRN [address] [place] [address] PCP - General Family Medicine 06/07/22 documented as of this encounter
--- OUTSIDE RECORDS SUMMARY | 2023-12-06 16:20 | XMS_ITS | Clinical Summary ---
Author Organization [facility] Address [address] [place] [address] Care Team Providers Care Credit Advisor Name Role Phone Rayne tSratton CARITO Primary Care Provider [phone] Encounters Date Type Department Care Team Description 11/22/2023 Lab Requisition [facility] Pathology & Laboratory Medicine - [facility] [address] [place] [address] Outr Resulting Lab, Provider from Last 3 [...] 2013 Fall Risk Screening 2018 COVID-19 Vaccine ( season) 2022 Procedures Procedure Name Priority Date/Time Associated Diagnosis Comments FECAL BACTERIAL PATHOGENS BY PCR Routine 11/21/2023 19:54 EDT from Last 3 Months Results * FECAL BACTERIAL PATHOGENS BY PCR (11/21/2023 19:54 EDT) Salmonella PCR Negative Negative 11/22/2023 23:29 EDT [facility] Shigella/Enteroin vasive E. coli Negative Negative 11/22/2023 23:29 EDT [facility] HN LAB CAMPYLOBACTER PCR Negative Negative 11/22/2023 23:29 EDT [facility] Shiga Toxin PCR Negative Negative 4 23:29 EDT [facility] Feces SPECIMEN FROM RECTUM / Unknown 11/21/2023 19:54 EDT 11/22/2023 18:27 EDT Provider Outr Resulting Lab MICROBIOLOGY - GENERAL ORDERABLES [facility] [address] [place] [address] from Last 3 Months Care Teams Credit Advisor Relationship Specialty Start Date End Date [place] [address] PCP - General 02/21/19
--- OUTSIDE RECORDS SUMMARY | 2023-12-06 16:20 | XMS_ITS | Encounter Summary ---
Author Organization [facility] Address [facility] [place] [address] Care Team Providers Care Print Buyer Name Role Phone Zahra Leonardo APRN Primary Care Provider [phone] Encounter Details Date Type Department Care Team (Late st Contact Info) Description 11/05/2022 Telephone Dermatology at [facility] [address] [place] [address] David Joya MD [facility] [address] [place] [address] Social History Tobacco Use Types Packs/Day Years [...] 9:00 AM EST Office Visit Dermatology at [facility] [address] [place] [address] Nessa Mendez MD [facility] [address] [place] [address] documented as of this encounter Visit Diagnoses Not on filedocumented in this encounter Care Teams Print Buyer Relationship Specialty Start Date End Date Zahra Leonardo APRN [facility] [place] [address] PCP - General Family Medicine 06/07/22 documented as of this encounter
--- OUTSIDE RECORDS SUMMARY | 2023-12-06 16:20 | XMS_ITS | Encounter Summary ---
Author Organization [facility] Address [facility] [place] [address] Care Team Providers Care Digital Cartographic Technician Name Role Phone Zahra Leonardo APRN Primary Care Provider [phone] Encounter Details Date Type Department Care Team [...] 9:00 AM EST Office Visit Dermatology at [facility] [address] [place] [address] Nessa Mendez MD [facility] DR MICHELLE [place] [address] documented as of this encounter Visit Diagnoses Not on filedocumented in this encounter Care Teams Digital Cartographic Technician Relationship Specialty Start Date End Date Zahra Leonardo APRN [facility] [place] [address] PCP - General Family Medicine 06/07/22 documented as of this encounter
--- OUTSIDE RECORDS SUMMARY | 2023-12-06 16:20 | XMS_ITS | Encounter Summary ---
Author Organization [facility] Address [facility] [place] [address] Care Team Providers Care Manager Delivery Name Role Phone Zahra Leonardo APRN Primary Care Provider [phone] Encounter Details Date Type Department Care Team [...] 9:00 AM EST Office Visit Dermatology at [facility] [address] [place] [address] Nessa Mendez MD [facility] [address] [place] [address] documented as of this encounter Visit Diagnoses Not on filedocumented in this encounter Care Teams Manager Delivery Relationship Specialty Start Date End Date Zahra Leonardo APRN [facility] [place] [address] PCP - General Family Medicine 06/07/22 documented as of this encounter
--- OUTSIDE RECORDS SUMMARY | 2023-12-06 16:20 | XMS_ITS | Encounter Summary ---
Author Organization [facility] Address [address] [place] [address] Care Team Providers Care Immunology Specialist Name Role Phone Rayne Stratton CARITO Primary Care Provider [phone] Encounter Details Date Type Department Care Team (Late st Contact Info) Description 2019 Lab Requisition [facility] Pathology & Laboratory Medicine - [address] [address] Outr Resulting Lab, Provider Social History Tobacco [...] Outr Resulting Lab MICROBIOLOGY - GENERAL ORDERABLES [facility] [address] [place] [address] * COVID-19 TESTING (2019 0:03 EDT) COVID-19 rt-PCR Result Negative Negative 2019 12:16 EDT [facility] Comment: This test has [...] history, and epidemiological information. Performed on the Glints Fusion instrument Performing Lab [place] [facility] Lab 2019 12:16 EDT [facility] Swab 2019 0:03 EDT 2019 8:57 EDT Provider Outr Resulting Lab MICROBIOLOGY - GENERAL ORDERABLES Performing Organization Address City/State/[facility] Co de Phone Number [facility] [address] [place] [address] documented in this encounter Visit Diagnoses Not on filedocumented in this encounter Care Teams Immunology Specialist Relationship Specialty Start Date End Date Rayne Stratton F[place] [address] PCP - General 02/21/19 documented as of this encounter
--- OUTSIDE RECORDS SUMMARY | 2023-12-06 16:20 | XMS_ITS | Encounter Summary ---
Author Organization [facility] Address [facility] [place] [address] Care Team Providers Care Interior Design Professional Name Role Phone Zahra Leonardo APRN Primary Care Provider [phone] Encounter Details Date Type Department Care Team [...] 9:00 AM EST Office Visit Dermatology at [facility] [address] [place] [address] Nessa Mendez MD [facility] [address] MICHEL[address] [place] [address] documented as of this encounter Visit Diagnoses Not on filedocumented in this encounter Care Teams Interior Design Professional Relationship Specialty Start Date End Date Zahra Leonardo APRN [facility] [place] [address] PCP - General Family Medicine 06/07/22 documented as of this encounter
--- OUTSIDE RECORDS SUMMARY | 2023-12-06 16:20 | XMS_ITS | Encounter Summary ---
Author Organization [facility] Address [facility] [place] [address] Care Team Providers Care Shipping Clerk Crating Name Role Phone Zahra Leonardo APRN Primary Care Provider [phone] Reason for Visit * Reason Onset Date Comments Medication Refill 10/07/2023 Encounter Details Date Type Department Care Team (Late st Contact Info) Description 10/07/2023 Refill Dermatology at [facility] [address] [place] [address] Nessa Mendez MD [facility] DR MICHELLE [place] [address] Seborrheic dermatitis Social History Tobacco Use Types [...] [facility] [address] [place] [address] Nessa Mendez MD [facility] DR [address]HEL[address] [place] [address] documented as of this encounter Visit Diagnoses Diagnosis Seborrheic dermatitis Seborrheic dermatitis, unspecified documented in this encounter Care Teams Shipping Clerk Crating Relationship Specialty Start Date End Date Zahra Leonardo APRN [address] [place] [address] [facility] [place] [address] PCP - General Family Medicine 06/07/22 documented as of this encounter
--- OUTSIDE RECORDS SUMMARY | 2023-12-06 16:20 | XMS_ITS | Encounter Summary ---
Author Organization [facility] Address [facility] [place] [address] Care Team Providers Care Content Analyst Name Role Phone Jorden Zahra Jones APRN Primary Care Provider [phone] Encounter Details Date Type Department Care Team (Late Contact Info) Description 11/16/2022 Telephone Dermatology at [facility] [address] [place] [address] David Joya MD [facility] [address] [place] [address] Social History Tobacco Use Types Packs/Day Years [...] at [facility] [address] [place] [address] Nessa Mendez MD [facility] DR [place] [address] documented as of this encounter Visit Diagnoses Not on filedocumented in this encounter Care Teams Content Analyst Relationship Specialty Start Date End Date Zahra Leonardo, FILLER PICKER [address] [facility] [place] [address] PCP - General Family Medicine 06/07/22 documented as of this encounter
--- OUTSIDE RECORDS SUMMARY | 2023-12-06 16:20 | XMS_ITS | Encounter Summary ---
Author Organization [facility] Address [facility] [place] [address] Care Team Providers Care Bin Tripper Operator Name Role Phone Zahra Leonardo Karen HENNING Primary Care Provider [phone] Encounter Details Date Type Department Care Team (Late Contact Info) Description 06/11/2022 Telephone Dermatology at [facility] [address] [place] [address] David Joya MD [facility] [address] [place] [address] Social History Tobacco Use Types Packs/Day Years [...] 9:00 AM EST Office Visit Dermatology at [facility] [address] [place] [address] Nessa Mendez MD [facility] [address] [place] [address] documented as of this encounter Visit Diagnoses Not on filedocumented in this encounter Care Teams Bin Tripper Operator Relationship Specialty Start Date End Date Zahra Leonardo, MILADY [address] [place] [address] PCP - General Family Medicine 06/07/22 documented as of this encounter
--- OUTSIDE RECORDS SUMMARY | 2023-12-06 16:20 | XMS_ITS | Encounter Summary ---
Author Organization [facility] Address [facility] [place] [address] Care Team Providers Care Stitcher Standard Machine Name Role Phone Zahra Leonardo Karen HENNING Primary Care Provider [phone] Reason for Visit * Reason Onset Date Comments Medication Refill 06/11/2022 Encounter Details Date Type Department Care Team (Late Contact Info) Description 06/11/2022 Refill Dermatology at [facility] [address] [place] [address] David Joya MD [facility] DR MICHELEL [place] [address] Social History Tobacco Use Types Packs/Day Years [...] 9:00 AM EST Office Visit Dermatology at [facility] [address] [place] [address] Nessa Mendez MD [facility] DR MICHELLE [place] [address] documented as of this encounter Visit Diagnoses Not on filedocumented in this encounter Care Teams Stitcher Standard Machine Relationship Specialty Start Date End Date Zahra Leonardo APRN [place] [address] PCP - General Family Medicine 06/07/22 documented as of this encounter
--- OUTSIDE RECORDS SUMMARY | 2023-12-06 16:20 | XMS_ITS | Encounter Summary ---
Author Organization [facility] Address [facility] [place] [address] Care Team Providers Care Telegraph Equipment Maintainer Name Role Phone Zahra Leonardo APRN Primary Care Provider [phone] Encounter Details Date Type Department Care Team (Late st Contact Info) Description 07/29/2022 3:00 PM EDT Office Visit Dermatology at [facility] [address] [place] [address] David Joya MD [facility] [address] [place] [address] Lentigo; Comedone; Seborrheic keratoses Social History Tobacco [...] previously scheduled for FSE []Note routed to special education secretary []Recall placed in scheduling system []Appointment scheduled at checkout Scribe attestation: Smooth Ross has performed the documentation for this encounter in the presence of and acting as a scribe for David Joya MD. I performed the above scribed service and agree with the accuracy of the documentation in this encounter. Reviewed and signed by: David Joya MD Dermatology [facility] Patient seen and evaluated with staff extruding machine operator: Monica Rodriguez MD Dermatology [facility] * Monica Rodriguez MD - 07/29/2022 3:00 [...] Monica Rodriguez MD ([place]), FAAD Staff Physician [facility] Dermatology documented in this encounter Plan of Treatment Upcoming Encounters Date Type Department Care Team (Late st Contact Info) Description 01/17/2024 9:00 AM EST Office Visit Dermatology at [address] [place] [address] Nessa Mendez MD [facility] [address] [place] [address] documented as of this encounter Visit Diagnoses Diagnosis Lentigo Other dyschromia Comedone Other acne Seborrheic keratoses documented in this encounter Care Teams Telegraph Equipment Maintainer Relationship Specialty Start Date End Date Zahra Leonardo APRN [facility] [place] [address] PCP - General Family Medicine 06/07/22 documented as of this encounter
--- OUTSIDE RECORDS SUMMARY | 2023-12-06 16:20 | XMS_ITS | Encounter Summary ---
Author Organization [facility] Address [facility] [place] [address] Care Team Providers Care Custodial Foreman Name Role Phone Zahra Leonardo MILADY Primary Care Provider [phone] Encounter Details Date Type Department Care Team (Late Contact Info) Description 07/05/[address] [facility] [address] [place] [address] David Joya MD [facility] [place] [address] Social History Tobacco Use Types Packs/Day Years [...] [facility] [address] [place] [address] Nessa Mendez MD [facility] [address] [place] [address] documented as of this encounter Visit Diagnoses Not on filedocumented in this encounter Care Teams Custodial Foreman Relationship Specialty Start Date End Date Zahra Leonardo, MILADY [facility] [place] [address] PCP - General Family Medicine 06/07/22 documented as of this encounter
--- OUTSIDE RECORDS SUMMARY | 2023-12-06 16:20 | XMS_ITS | Encounter Summary ---
Author Organization [facility] [place] [address] Care Team Providers Care Ict Developer Name Role Phone Zahra Leonardo APRN Primary Care Provider [phone] Reason for Referral * Consultation (Routine) - Closed Specialty Diagnoses / Procedures Referred By Guillermina bridges Referred To Contact Dermatology Diagnoses Zahra Wang APRN [address] [place] [address] [facility] Dermatology [address] [place] [address] Referral ID Status Reason Start Date Expiration Date V isits Requested Visits Authorized [id number] Closed Consult, Test & Treat PCP Updated and/or Approved 06/07/2022 06/07/2023 6 6 Encounter Details Date Type Department Care Team (Late Contact Info) Description 06/07/2022 Transcribe Orders eDH Incoming Referrals [phone] Zahra Leonardo APRN [address], [place] [id number] Rash Social History Tobacco Use Types Packs/Day [...] Office Visit Dermatology at [facility] [address] [place] [address] Nessa Mendez MD [facility] [address] MICHEL[place] [address] Scheduled Referrals Name Type Priority Associated Diagnoses Order Schedule Referral to Dermatology Outpatient Referral Routine Rash Ordered: 06/07/2022 documented as of this encounter Visit Diagnoses Diagnosis Rash Rash and other nonspecific skin eruption documented in this encounter Care Teams Ict Developer Relationship Specialty Start Date End Date Zahra Leonardo, REED PRESS FEEDER [facility] [place] [address] PCP - General Family Medicine 06/07/22 documented as of this encounter
--- OUTSIDE RECORDS SUMMARY | 2023-12-06 16:20 | XMS_ITS | Encounter Summary ---
Author Organization [facility] Address [facility] [place] [address] Care Team Providers Care Cable Armorer Name Role Phone Zahra Leonardo APRN Primary Care Provider [phone] Encounter Details Date Type Department Care Team (Late Contact Info) Description 08/16/2023 Telephone Dermatology at [facility] [address] [place] [address] Mya Yost MD [facility] [address] MICHELLE [place] [address] Social History Tobacco Use Types Packs/Day Years [...] reached back if needed to schedule at [phone]. documented in this encounter Plan of Treatment Upcoming Encounters Date Type Department Care Team (Late Contact Info) Description 01/17/2024 9:00 AM EST Office Visit Dermatology at [facility] [address] [place] [address] Nessa Mendez MD [facility] DR MICHELLE [place] [address] documented as of this encounter Visit Diagnoses Not on filedocumented in this encounter Care Teams Cable Armorer Relationship Specialty Start Date End Date Zahra Leonardo, MILADY [facility] [place] [address] PCP - General Family Medicine 06/07/22 documented as of this encounter
--- OUTSIDE RECORDS SUMMARY | 2023-12-06 16:20 | XMS_ITS | Encounter Summary ---
Author Organization [facility] Address [address] [place] [address] Care Team Providers Care Registered Midwife Name Role Phone Rayne Stratton Primary Care Provider [phone] Encounter Details Date Type Department Care Team (Latest Contact Info) Description 03/07/2019 Lab Requisition [facility] Pathology & Laboratory Medicine - [facility] [address] [place] [address] Rayne Stratton FNP [address] [place], [place] [id number] Encounter for general adult medical examination without [...] types, PCR Positive(A ) Negative 03/14/2019 14:42 [facility] Papanicolaou smear specimen (specimen) CERVIX UTERI STRUCTURE / Unknown 03/06/2019 11:17 EST 03/13/2019 10:28 EST Rayne ARZATE MICROBIOLOGY - GENER AL ORDERABLES [facility] [address] [place] [address] * PAP TEST (03/06/2019 11:17 EST) Specimens A. Cervix and/or Endocervix, , ThinPrep Imaging System with Manual Evaluation 03/14/2019 14:42 [facility] Specimen Adequacy Satisfactory for Evaluation - transformation zone component present 03/14/2019 14:42 [facility] General Categorization Negative for intraepithelial lesion or malignancy 03/14/2019 14:42 [facility] Attestation . 03/14/2019 14:42 [facility] at 1442 Clinical History NONE 03/14/19 14:42 [facility] HPV The result for the Human Papillomavirus (HPV) Detection-High Risk Types is Positive . E6 OR E7 mRNA from one or more types of HPV types 16,18,31,33,35,39 ,45,51,52,56,58,5 9,66, and 68 is detected by safety intern mediated amplification. High and intermediate risk HPV types are associated with most squamous intraepithelial lesions and cervical cancers. Testing was performed on specimen [id number] and was resulted on 03/14/2019 1744 EST by VERN, LAB INSTRUMENT RESULTS IN 03/14/2019 14:42 [facility] Scanned Images 03/14/2019 14:42 [facility] Papanicolaou smear specimen (specimen) CERVIX UTERI STRUCTURE / Unknown 03/06/2019 11:17 EST 03/07/2019 10:19 EST Rayne ARZATE PATHOLOGY ORDERABLES [facility] [address] [place] [address] documented in this encounter Visit Diagnoses Diagnosis Encounter for general adult medical examination without abnormal findings Unspecified general medical examination Encounter for screening for malignant neoplasm of cervix Screening for malignant neoplasm of the cervix Encounter for screening for human papillomavirus (HPV) Special screening examination for human papillomavirus (HPV) documented in this encounter Care Teams Registered Midwife Relationship Specialty Start Date End Date Rayne [place] [address] [place] [address] PCP - General 02/21/19 documented as of this encounter
--- OUTSIDE RECORDS SUMMARY | 2023-12-06 16:20 | XMS_ITS | Encounter Summary ---
Author Organization [facility] Address [facility] [place] [address] Care Team Providers Care Mirror Inspector Name Role Phone Zahra Leonardo APRN Primary Care Provider [phone] Reason for Visit * Reason Comments Skin Lesion Encounter Details Date Type Department Care Team (Late st Contact Info) Description 11/19/2022 9:40 AM EDT Office Visit Dermatology at [facility] [address] [place] [address] David Joya MD [facility] [place] [address] Actinic keratoses Social History Tobacco Use Types [...] FSE next year Scribe attestation: Cierra Grewal [facility] has performed the documentation for this encounter inthe presence of and acting as a scribe for David Joya MD. I performed the above scribed service and agree with the accuracy of the documentation in this encounter. Reviewed and signed by: David Joya MD Dermatology [facility] Staff patient support associate: Yeimy Ponce MD Dermatology [facility] * Yeimy Ponce MD - 11/19/2022 9:40 [...] as documented in Dr. Joya's note. YEIMY PNOCE MD Staff Physician documented in this encounter Plan of Treatment Upcoming Encounters Date Type Department Care Team (Late st Contact Info) Description 01/17/2024 9:00 AM EST Office Visit Dermatology at [facility] [address] [place] [address] Nessa Mendez MD [facility] [place] [address] documented as of this encounter Visit Diagnoses Diagnosis Actinic keratoses Actinic keratosis documented in this encounter Care Teams Mirror Inspector Relationship Specialty Start Date End Date Zahra Leonardo APRN [address] [place] [address] PCP - General Family Medicine 06/07/22 documented as of this encounter
--- OUTSIDE RECORDS SUMMARY | 2023-12-06 16:20 | XMS_ITS | Encounter Summary ---
Author Organization [facility] Address [address] [place] [address] Care Team Providers Care Improvement Director Name Role Phone Rayne Stratton CARITO Primary Care Provider [phone] Encounter Details Date Type Department Care Team (Late st Contact Info) Description 04/26/2023 Lab Requisition [facility] Pathology & Laboratory Medicine - [address] [address] Gayathri Rodriguez, DO [address] [facility] [address] [place], [place] [id number] Diverticulosis of large intestine without perforation or [...] encounter Results * SURGICAL PATHOLOGY (04/26/2023 11:22 [facility]) Note to Patient The following pathology results have been interpreted by your pathologist and may be available to you before your health provider has had the opportunity to review them. Please allow time for your provider to receive these results and explore management options, if applicable. 04/28/2023 17:08 [facility] Final Diagnosis A. JEJUNUM, [...] POLYP, BIOPSY: - Tubular adenoma. 04/28/2023 17:08 [facility] Diagnosis Comment The finding of intestinal metaplasia in the gastroesophageal junction biopsies could be consistent with Mcallister's esophagus in the appropriate clinical/endoscopi c setting. Correlation with endoscopic findings is required. 04/28/2023 17:08 [facility] Attestation By the signature below, the attending physician certifies that they have 1) personally conducted a gross and/or microscopic examination of the described specimen(s), and/or personally interpreted the results of laboratory testing of the described specimen(s), and 2) personally rendered or confirmed the above diagnosis. 04/28/2023 17:08 [facility] at 1708 Clinical History Barretts esophagus, GERD, history colon polyps, esophagitis, 4 cm H. H., divertic, poor rectal line 04/28/2023 17:08 [facility] Gross Description A. Received [...] G1. HOLLAND GALVAN(ASCP) 04/26/2023 20:02 04/28/2023 17:08 [facility] Performing Lab [facility] 17:08 [facility] Scanned Images 04/28/2023 17:08 [facility] Tissue COLON STRUCTURE / [...] 16:57 EST Gayathri Rodriguez DO PATHOLOGY ORDERABLES [facility] [address] [place] [address] documented in this encounter Visit [...] disease documented in this encounter Care Teams Improvement Director Relationship Specialty Start Date End Date Rayne [place] [address] [place] [address] PCP - General 02/21/19 documented as of this encounter
--- OUTSIDE RECORDS SUMMARY | 2023-12-06 16:20 | XMS_ITS | Encounter Summary ---
Author Organization [facility] Address [facility] [place] [address] Care Team Providers Care Freight Breaker Name Role Phone Zahra Leonardo APRN Primary Care Provider [phone] Reason for Visit * Reason Comments Skin Lesion Encounter Details Date Type Department Care Team (Late st Contact Info) Description 11/04/2022 9:40 AM EDT Office Visit Dermatology at [facility] [address] [place] [address] David Joya MD [facility] DR [place] [address] Neoplasm of unspecified behavior of bone, soft [...] for 1 year today. []Note routed to secretary to board of commissioners [x]Recall placed in scheduling system []Appointment scheduled at checkout Scribe attestation: JESÚS Rollins has performed the documentation for this encounter inthe presence of and acting as a scribe for David Joya MD. I performed the above scribed service and agree with the accuracy of the documentation in this encounter. Reviewed and signed by: David Joya MD Dermatology [facility] Patient seen and evaluated with staff entry level civil engineer: Melecio Villegas MD Dermatology [facility] * Melecio Villegas MD - 11/04/2022 9:40 [...] lesion. She elects LN[address]. Note routed to secretary to board of commissioners for scheduling. documented in this encounter Plan of Treatment Upcoming Encounters Date Type Department Care Team (Late st Contact Info) Description 01/17/2024 9:00 AM EST Office Visit Dermatology at [facility] [address] [place] [address] Nessa Mendez MD [facility] DR MICHELLE [place] [address] documented as of this encounter Procedures Procedure [...] AM EDT 11/04/2022 10:02 AM EDT Narrative [facility] - 11/04/2022 10:02 AM EDT Specimen requisition ordered. ??Separate Pathology report to follow Melecio Villegas MD PATHOLOGY/CYTOLOGY ORDERABLES Performing Organization Address City/State/[facility] Co de Phone Number [facility] [place] [address] * Surgical Pathology Report (11/04/2022 9:51 AM EDT) Final Diagnosis [id number] ? Location: [facility] The signing pathologist has (i) examined the relevant preparation(s) for the specimen(s) and (ii) rendered or confirmed the diagnosis(es). . ?Surgical Pathology DIAGNOSIS Right zygoma, skin shave biopsy: - ??Actinic keratosis, pigmented and inflamed, present at the peripheral specimen edges (see discussion) Electronically signed by: ?Lissett Galicia MD Verified: ??11/12/2022 11:03 ??Dermatopathol ogist Performed at: ??-[facility] Dept. of Pathology, [place] [address] Fire Ranger: Karri Cordero MD, FCAP, ??CLIA Certificate: [id number] DISCUSSION As the biopsy represents portion of [...] labeled A1. ??nrl 11/12/2022 11:03 AM EDT [facility] SPECIMEN FROM SKIN / Unknown 11/04/2022 9:51 AM EDT 11/04/2022 9:51 AM EDT David Joya MD PATHOLOGY/CYTOLOGY O RDERABLES [facility] [address] [place] [address] documented in this encounter Visit Diagnoses Diagnosis Neoplasm of unspecified behavior of bone, soft tissue, and skin Comedone Other acne documented in this encounter Care Teams Freight Breaker Relationship Specialty Start Date End Date Zahra Leonardo, [place] [address] PCP - General Family Medicine 06/07/22 documented as of this encounter
--- OUTSIDE RECORDS SUMMARY | 2023-12-06 16:20 | XMS_ITS | Encounter Summary ---
Author Organization [facility] Address [facility] [place] [address] Care Team Providers Care Investment Representative Name Role Phone Zahra Leonardo APRN Primary Care Provider [phone] Reason for Visit * Consultation (Routine) - Closed Specialty Diagnoses / Procedures Referred By Guillermina bridges Referred To Contact Dermatology Diagnoses Rash Zahra Leonardo, MILADY [address] [place] [address] [place] [address] [facility] [address] [place] [address] Referral ID Status Reason Start Date Expiration Date V isits Requested Visits Authorized [id number] Closed Consult, Test & Treat PCP Updated and/or Approved 06/07/2022 06/07/2023 6 6 Encounter Details Date Type Department Care Team (Late st Contact Info) Description 06/10/2022 2:20 PM EDT Office Visit Dermatology at [facility] [address] [place] [address] David Joya MD [facility] [address] [place] [address] Seborrheic keratoses, inflamed; Seborrheic keratoses; Notalgia paresthetica; [...] and signed by: David Joya MD Dermatology [facility] Patient seen and evaluated with staff counter control operator: Monica Rodriguez MD Department of Dermatology [facility] * Monica Rodriguez MD - 06/10/2022 2:20 [...] Monica Rodriguez MD ([place]), FAAD Staff Physician [facility] Dermatology documented in this encounter Plan of Treatment Upcoming Encounters Date Type Department Care Team (Late st Contact Info) Description 01/17/2024 9:00 AM EST Office Visit Dermatology at [address] [address] Nessa Mendez MD [facility] [address] [place] [address] documented as of this encounter Visit Diagnoses Diagnosis Seborrheic keratoses, inflamed Seborrheic keratoses Notalgia paresthetica Disturbance of skin sensation Xerosis of skin Other specified disease of sebaceous glands Eczema, unspecified type Seborrheic dermatitis Seborrheic dermatitis, unspecified documented in this encounter Care Teams Investment Representative Relationship Specialty Start Date End Date Zahra Leonardo APRN [address] [place] [address] [place] [address] PCP - General Family Medicine 06/07/22 documented as of this encounter
--- OUTSIDE RECORDS SUMMARY | 2023-12-06 16:20 | XMS_ITS | Encounter Summary ---
Author Organization [facility] Address [facility] [place] [address] Care Team Providers Care Clinical Research Specialist Name Role Phone Zahra Leonardo APRN Primary Care Provider Encounter Details Date Type Department Care Team (Late st Contact Info) Description 06/15/2022 Telephone Dermatology at [facility] [address] [place] [address] David Joya MD [facility] DR [address]HEL[address] [place] [address] Social History Tobacco Use Types Packs/Day Years [...] 9:00 AM EST Office Visit Dermatology at [facility] [address] [place] [address] Nessa Mendez MD [facility] DR [address]HEL[address] [place] [address] documented as of this encounter Visit Diagnoses Not on filedocumented in this encounter Care Teams Clinical Research Specialist Relationship Specialty Start Date End Date Zahra Leonardo, VULNERABILITY ASSESSMENT ANALYST [facility]ree [facility] [address] PCP - General Family Medicine 06/07/22 documented as of this encounter
--- OUTSIDE RECORDS SUMMARY | 2023-12-06 16:20 | XMS_ITS | Encounter Summary ---
Author Organization [facility] Address [facility] [place] [address] Care Team Providers Care Advisory Application Developer Name Role Phone Zahra Leonardo APRN Primary Care Provider [phone] Encounter Details Date Type Department Care Team (Late st Contact Info) Description 05/17/2023 11:20 AM EDT Office Visit Dermatology at [facility] [address] [place] [address] Mya Yost MD [facility] [address] [place]HEL[place] [address] Seborrheic dermatitis; Atopic dermatitis, unspecified type Social [...] covering with cotton gloves - Discussed switching Thu springs soap to [...] Rx today) RTC: PRN []Note routed to accredited legal secretary []Recall placed in scheduling system []Appointment scheduled at checkout Scribe attestation: JESÚS Frey has performed the documentation for this encounter in the presence of and acting as a scribe for Mya Yost MD. I performed the above scribed service and agree with the accuracy of the documentation in this encounter. Reviewed and signed by: Mya Yost MD Dermatology [facility] Patient seen and evaluated with staff water server: Marcy Ang MD Dermatology [facility] * Marcy Ang MD - 05/17/2023 11:20 [...] them as documented. MARCY ANG MD Staff [employer] Department of Dermatology [facility] documented in this encounter Plan of Treatment Upcoming Encounters Date Type Department Care Team (Late st Contact Info) Description 01/17/2024 9:00 AM EST Office Visit Dermatology at [facility] [address] [place] [address] Nessa Mendez MD [facility] DR MICHEL[place] [address] documented as of this encounter Visit Diagnoses Diagnosis Seborrheic dermatitis Seborrheic dermatitis, unspecified Atopic dermatitis, unspecified type documented in this encounter Care Teams Advisory Application Developer Relationship Specialty Start Date End Date Zahra Leonardo, [facility] [address] [place] [address] PCP - General Family Medicine 06/07/22 documented as of this encounter
--- OUTSIDE RECORDS SUMMARY | 2023-12-06 16:20 | XMS_ITS | Clinical Summary ---
Author Organization [facility] Address [facility] [place] [address] Care Team Providers Care Education Analyst Name Role Phone Zahra Leonardo APRN Primary Care Provider [phone] Medications Medication Sig Dispensed Refills Start Date [...] Care Team Description 10/07/2023 Refill Dermatology at [facility] [address] [place] [address] Nessa Mendez MD Seborrheic dermatitis 10/07/2023 Telephone Dermatology at [facility] [address] [place] [address] Nessa Mendez MD 10/07/2023 Telephone Dermatology at [facility] [address] [place] [address] Nessa Mendez MD 09/23/2023 Refill Dermatology at [facility] [address] [place] [address] Mya Yost MD Atopic dermatitis, unspecified type 09/23/2023 Telephone Dermatology at [facility] [address] [place] [address] Mya Yost MD from Last 3 Months [...] at [facility] [address] [place] [address] Nessa Mendez MD [facility] [place] [address] Health Maintenance Due Date Last Done Comments [...] - Influenza standard series) 10/23/2023 Care Teams Education Analyst Relationship Specialty Start Date End Date Zahra Leonardo, MILADY [facility] [place] [address] PCP - General Family Medicine 06/07/22
--- OUTSIDE RECORDS SUMMARY | 2023-12-06 16:20 | XMS_ITS | Encounter Summary ---
Author Organization [facility] Address [facility] [place] [address] Care Team Providers Care Shearing Shed Hand Name Role Phone Zahra Leonardo APRN Primary Care Provider [phone] Reason for Visit * Reason Onset Date Comments Medication Refill 09/23/2023 Encounter Details Date Type Department Care Team (Late Contact Info) Description 09/23/2023 Refill Dermatology at [facility] [address] [place] [address] Mya Yost MD [facility] [address] [place] [address] Atopic dermatitis, unspecified type Social History Tobacco [...] 9:00 AM EST Office Visit Dermatology at [facility] [address] [place] [address] Nessa Mendez MD [facility] [address] [place] [address] documented as of this encounter Visit Diagnoses Diagnosis Atopic dermatitis, unspecified type documented in this encounter Care Teams Shearing Shed Hand Relationship Specialty Start Date End Date Zahra Leonardo, CONTRACT ANALYST [address] [place] [address] PCP - General Family Medicine 06/07/22 documented as of this encounter
--- OUTSIDE RECORDS SUMMARY | 2023-12-06 16:20 | XMS_ITS | Encounter Summary ---
Author Organization [facility] Address [address] [place] [address] Care Team Providers Care Ax Survey Worker Name Role Phone Rayne Stratton Primary Care Provider [phone] Encounter Details Date Type Department Care Team (Late st Contact Info) Description 02/19/2019 Lab Requisition [facility] Pathology & Laboratory Medicine - [address] [address] Unknown, Provider, Social History Tobacco Use Types [...] H. Pylori Negative Negative 02/20/2019 13:00 EST [facility] Feces STOOL SPECIMEN / Unknown 02/19/2019 7:30 EST 02/19/2019 21:29 EST Narrative [facility] - 02/20/2019 13:00 EST Results were obtained with the [employer] [place] HpSA Plus [place]. Provider Unknown MICROBIOLOGY - GENER AL ORDERABLES [facility] [address] [place] [address] documented in this encounter Visit Diagnoses Not on filedocumented in this encounter Care Teams Ax Survey Worker Relationship Specialty Start Date End Date [place] [address] PCP - General 02/21/19 documented as of this encounter
--- OUTSIDE RECORDS SUMMARY | 2023-12-06 16:20 | XMS_ITS | Encounter Summary ---
Author Organization [facility] Address [address] [place] [address] Care Team Providers Care Spice Mixer Name Role Phone Rayne Stratton CARITO Primary Care Provider [phone] Encounter Details Date Type Department Care Team (Late st Contact Info) Description 04/04/2019 Lab Requisition [facility] Pathology & Laboratory Medicine - [address] [address] Clive Murray MD [facility] [address] [address] Encounter for screening for malignant [...] inflamed and cauterized hyperplastic polyp. 04/10/2019 8:15 [facility] at 0815 Clinical History GERD, dysphagia, screening colonoscopy Hiatal hernia, esophageal erosion, gastritis vs. Gastropathy, R/O pylori, short segment Urena's esophagus, colon polyp, hemorrhoids/spast ic colon 04/10/2019 8:15 [facility] Attestation By the signature below, the attending physician certifies that they have 1) personally conducted a gross and/or microscopic examination of the described specimen(s), and/or personally interpreted the results of laboratory testing of the described specimen(s), and 2) personally rendered or confirmed the above diagnosis. 04/10/2019 8:15 [facility] at 0815 Gross Description A. [...] C1. Shae العراقي 04/04/2019 16:08 04/10/2019 8:15 [facility] Scanned Images 04/10/2019 8:15 [facility] Tissue ENTIRE COLON / Unknown 04/03/2019 11:10 EST 04/04/2019 15:50 [facility] Tissue specimen (specimen) ESOPHAGEAL STRUCTURE / Unknown 04/03/2019 11:10 EST 04/04/2019 15:50 EST Tissue specimen (specimen) COLON STRUCTURE / Unknown 04/03/2019 11:10 EST 04/04/2019 15:50 EST Clive Murray MD PATHOLOGY ORDERABLES [facility] [address] [place] [address] documented in this encounter Visit Diagnoses Diagnosis Encounter for screening for malignant neoplasm of colon Special screening for malignant neoplasms, colon Personal history of peptic ulcer disease documented in this encounter Care Teams Spice Mixer Relationship Specialty Start Date End Date Rayne Stratton [place] [address] PCP - General 02/21/19 documented as of this encounter
--- OUTSIDE RECORDS SUMMARY | 2023-12-06 16:20 | XMS_ITS | Encounter Summary ---
Author Organization [facility] Address [address] [place] [address] Care Team Providers Care Wildlife Conservation Officer Name Role Phone Rayne Stratton Primary Care Provider [phone] Encounter Details Date Type Department Care Team (Latest Contact Info) Description 03/11/2020 Lab Requisition [facility] Pathology & Laboratory Medicine - [facility] [address] [place] [address] Rayne Stratton FNP [address] [place], [place] [id number] Encounter for general adult medical examination without [...] types, PCR Positive( A) Negative 03/20/2020 15:40 [facility] Comment:E6 OR E7 mRNA from o ne or more types of HPV types 16,18,31,33,35,39,45,51,52,56,58,59,66, and 68 is detected by forming process line worker mediated amplification. High and intermediate risk HPV types are associated with most squamous intraepithelial lesions and cervical cancers. Papanicolaou smear specimen (specimen) CERVIX UTERI STRUCTURE / Unknown 03/07/2020 11:45 EST 03/19/2020 15:07 EST Rayne Stratton [facility] MICROBIOLOGY - GENER AL ORDERABLES [facility] [address] [place] [address] * PAP TEST (03/07/2020 11:45 EST) Specimens A. Cervix and/or Endocervix , ThinPrep Imaging System with Manual Evaluation 03/20/2020 15:40 [facility] Specimen Adequacy Satisfactory for Evaluation - transformation zone component present 03/20/2020 15:40 [facility] General Categorization Negative for intraepithelial lesion or malignancy 03/20/2020 15:40 [facility] Attestation . 03/20/2020 15:40 [facility] at 1540 Clinical History See below 03/20/19 15:40 [facility] HPV The result for the Human Papillomavirus (HPV) Detection-High Risk Types is Positive . E6 OR E7 mRNA from one or more types of HPV types 16,18,31,33,35,39 ,45,51,52,56,58,5 9,66, and 68 is detected by forming process line worker mediated amplification. High and intermediate risk HPV types are associated with most squamous intraepithelial lesions and cervical cancers. Testing was performed on specimen [id number] and was resulted on 03/20/2020 1503 EST by [facility], LAB INSTRUMENT RESULTS IN 03/20/2020 15:40 EST [facility] Performing Lab [facility] 03/20/2020 15:40 EST [facility] Scanned Images 03/20/2020 15:40 EST [facility] Papanicolaou smear specimen (specimen) CERVIX UTERI STRUCTURE / Unknown 03/07/2020 11:45 EST 03/11/2020 15:30 EST Rayne ARZATE PATHOLOGY ORDERABLES [facility] [address] [place] [address] documented in this encounter Visit Diagnoses Diagnosis Encounter for general adult medical examination without abnormal findings Unspecified general medical examination Encounter for screening for malignant neoplasm of cervix Screening for malignant neoplasm of the cervix Encounter for screening for human papillomavirus (HPV) Special screening examination for human papillomavirus (HPV) documented in this encounter Care Teams Wildlife Conservation Officer Relationship Specialty Start Date End Date Rayne [place] [address] [place] [address] PCP - General 02/21/19 documented as of this encounter
[2023-12-06 16:25] LABS: Anion Gap 11.3 mmol/L (3-11); BUN 14 mg/dL (7-18); CO2 27.7 mmol/L (21.0-32.0); CREATININE 1.7 mg/dL (0.55-1.02); Calcium 11.1 mg/dL (8.5-10.1); Chloride 105 mmol/L (98-107); Estimated GFR 32.06 (mL/min/1.73m2); Glucose 102 mg/dL (74-106); Sodium 144 mmol/L (136-145)
[2023-12-07 20:20] LABS: ALT 17 U/L (14-59); AST 15 U/L (15-37); Albumin 3.7 g/dL (3.4-5.0); Alkaline Phosphatase 72 U/L (46-116); Anion Gap 15.5 mmol/L (3-11); BUN 13 mg/dL (7-18); Bilirubin, Total 0.77 mg/dL (0.2-1.0); CO2 27.5 mmol/L (21.0-32.0); CREATININE 1.8 mg/dL (0.55-1.02); Calcium 11.1 mg/dL (8.5-10.1); Chloride 103 mmol/L (98-107); Estimated GFR 29.94 (mL/min/1.73m2); Glucose 104 mg/dL (74-106); Potassium 4.1 mmol/L (3.5-5.1); Sodium 146 mmol/L (136-145); Total Protein 7.1 g/dL (6.4-8.2)
== END 2023-12-06 16:19 | disposition home or self-care (01) ==
LOC: NCHCN 16:18
PROVIDERS: PCP Nurse Practitioner Family; Visit Provider Student in an Organized Health Care Education/Training Program
DX: E87.1 Hypo-osmolality and hyponatremia (principal)
CPT/HCPCS: 80048; 80053

== ENCOUNTER 2023-12-21 08:00 | Outpatient (REF) | payer OTHER, MEDICAID, SELFPAY ==
[2023-12-20 19:58] LABS: Abs Immature Grans 0.02 10^3/uL (0.0-0.06); Absolute Basophil Count 0.05 10^3/uL (0.0-0.2); Absolute Eosinophil Count 0.24 10^3/uL (0.0-0.7); Absolute Lymphocyte Count 2.74 10^3/uL (1.2-3.4); Absolute Monocyte Count 0.63 10^3/uL (0.1-0.8); Absolute Neutrophil Count 3.53 10^3/uL (1.2-6.7); Basophils % 0.7 %; Eosinophils % 3.3 %; HGB 11.7 g/dL (11.2-15.7); Immature Grans % 0.3 %; MCH 29.6 pg (27.0-33.0); MCHC 32.5 % (32.0-36.0); MCV 91 fL (80-95); MPV 10.9 fL (8.0-11.0); Monocytes % 8.7 %; Platelet Count 274 10^3/uL (130-400); RBC 3.95 10^6/uL (3.93-5.22); RDW 12.8 % (11.7-14.6); RDW-SD 42.4 fL; WBC 7.21 10^3/uL (4.4-10.8)
[2023-12-20 20:14] LABS: Anion Gap 10.7 mmol/L (3-11); BUN 15 mg/dL (7-18); CO2 25.3 mmol/L (21.0-32.0); CREATININE 1.5 mg/dL (0.55-1.02); Calcium 9.1 mg/dL (8.5-10.1); Chloride 106 mmol/L (98-107); Estimated GFR 37.26 (mL/min/1.73m2); Glucose 94 mg/dL (74-106); Potassium 3.8 mmol/L (3.5-5.1); Sodium 142 mmol/L (136-145)
--- OUTSIDE RECORDS SUMMARY | 2023-12-21 08:07 | XMS_ITS | Encounter Summary ---
Author Organization [facility] Address [facility] [place] [address] Care Team Providers Care Dock Coordinator Name Role Phone Zahra Leonardo APRN Primary Care Provider [phone] Reason for Visit * Reason Comments Skin Lesion Encounter Details Date Type Department Care Team (Late st Contact Info) Description 11/19/2022 9:40 AM EDT Office Visit Dermatology at [facility] [address] [place] [address] David Joya MD [facility] [address] [place] [address] Actinic keratoses Social History Tobacco Use Types [...] FSE next year Scribe attestation: Cierra Grewal [facility] has performed the documentation for this encounter inthe presence of and acting as a scribe for David Joya MD. I performed the above scribed service and agree with the accuracy of the documentation in this encounter. Reviewed and signed by: David Joya MD Dermatology [facility] Staff junior automation engineer: Yeimy Ponce MD Dermatology [facility] * Yeimy Ponce MD - 11/19/2022 9:40 [...] 9:00 AM EST Office Visit Dermatology at [facility] [address] [place] [address] Nessa Mendez MD [facility] [address] [place] [address] documented as of this encounter Visit Diagnoses Diagnosis Actinic keratoses Actinic keratosis documented in this encounter Care Teams Dock Coordinator Relationship Specialty Start Date End Date Zahra Leonardo APRN [address] [place] [address] PCP - General Family Medicine 06/07/22 documented as of this encounter
--- OUTSIDE RECORDS SUMMARY | 2023-12-21 08:07 | XMS_ITS | Encounter Summary ---
Author Organization [facility] Address [address] [place] [address] Care Team Providers Care Demonstrator Sales Name Role Phone Rayne Stratton Primary Care Provider [phone] Encounter Details Date Type Department Care Team (Late st Contact Info) Description 02/19/2019 Lab Requisition [facility] Pathology & Laboratory Medicine - [address] [address] Unknown, Provider, Social History Tobacco Use Types [...] H. Pylori Negative Negative 02/20/2019 13:00 EST [facility] Feces STOOL SPECIMEN / Unknown 02/19/2019 7:30 EST 02/19/2019 21:29 EST Narrative [facility] - 02/20/2019 13:00 EST Results were obtained with the [employer] [place] HpSA Plus [place]. Provider Unknown MICROBIOLOGY - GENER AL ORDERABLES [facility] [address] [place] [address] documented in this encounter Visit Diagnoses Not on filedocumented in this encounter Care Teams Demonstrator Sales Relationship Specialty Start Date End Date [place] [address] PCP - General 02/21/19 documented as of this encounter
--- OUTSIDE RECORDS SUMMARY | 2023-12-21 08:07 | XMS_ITS | Encounter Summary ---
Author Organization [facility] Address [facility] [place] [address] Care Team Providers Care Medical Records Technician Name Role Phone Zahra Leonardo APRN Primary Care Provider [phone] Reason for Visit * Reason Comments Skin Lesion Encounter Details Date Type Department Care Team (Late st Contact Info) Description 11/04/2022 9:40 AM EDT Office Visit Dermatology at [facility] [address] [place] [address] David Joya MD [facility] [address] [place] [address] Neoplasm of unspecified behavior of bone, soft [...] for 1 year today. []Note routed to psychiatric secretary [x]Recall placed in scheduling system []Appointment scheduled at checkout Scribe attestation: JESÚS Rollins has performed the documentation for this encounter inthe presence of and acting as a scribe for David Joya MD. I performed the above scribed service and agree with the accuracy of the documentation in this encounter. Reviewed and signed by: David Joya MD Dermatology [facility] Patient seen and evaluated with staff product support sales representative: Melecio Villegas MD Dermatology [facility] * Melecio Villegas MD - 11/04/2022 9:40 [...] lesion. She elects [address]. Note routed to psychiatric secretary for scheduling. documented in this encounter Plan of Treatment Upcoming Encounters Date Type Department Care Team (Late st Contact Info) Description 01/17/2024 9:00 AM EST Office Visit Dermatology at [facility] [address] [place] [address] Nessa Mendez MD [facility] [address] [place] [address] documented as of this encounter Procedures Procedure [...] AM EDT 11/04/2022 10:02 AM EDT Narrative [facility] - 11/04/2022 10:02 AM EDT Specimen requisition ordered. ??Separate Pathology report to follow Melecio Villegas MD PATHOLOGY/CYTOLOGY ORDERABLES Performing Organization Address City/State/[facility] Co de Phone Number [facility] [place] [address] * Surgical Pathology Report (11/04/2022 9:51 AM EDT) Final Diagnosis [id number] ? Location: [facility] The signing pathologist has (i) examined the relevant preparation(s) for the specimen(s) and (ii) rendered or confirmed the diagnosis(es). . ?Surgical Pathology DIAGNOSIS Right zygoma, skin shave biopsy: - ??Actinic keratosis, pigmented and inflamed, present at the peripheral specimen edges (see discussion) Electronically signed by: ?Lissett Galicia MD Verified: ??11/12/2022 11:03 ??Dermatopathol ogist Performed at: ??-[facility] Dept. of Pathology, [place] [address] Heating Equipment Installer: Karri Cordero MD, FCAP, ??CLIA Certificate: [id number] DISCUSSION As the biopsy represents portion of [...] labeled A1. ??nrl 11/12/2022 11:03 AM EDT [facility] SPECIMEN FROM SKIN / Unknown 11/04/2022 9:51 AM EDT 11/04/2022 9:51 AM EDT David Joya MD PATHOLOGY/CYTOLOGY O RDERABLES [facility] [address] [place] [address] documented in this encounter Visit Diagnoses Diagnosis Neoplasm of unspecified behavior of bone, soft tissue, and skin Comedone Other acne documented in this encounter Care Teams Medical Records Technician Relationship Specialty Start Date End Date Zahra Leonardo, MILADY [place] [address] PCP - General Family Medicine 06/07/22 documented as of this encounter
--- OUTSIDE RECORDS SUMMARY | 2023-12-21 08:07 | XMS_ITS | Encounter Summary ---
Author Organization [facility] Address [facility] [place] [address] Care Team Providers Care Hull Molder Name Role Phone Jorden Zahra Jones APRN Primary Care Provider [phone] Encounter Details Date Type Department Care Team (Late Contact Info) Description 11/16/[address] [facility] [address] [place] [address] David Joya MD [facility] [place] [address] Social History Tobacco Use Types Packs/Day Years [...] [facility] [address] [place] [address] Nessa Mendez MD [facility] [place] [address] documented as of this encounter Visit Diagnoses Not on filedocumented in this encounter Care Teams Hull Molder Relationship Specialty Start Date End Date Zahra Leonardo, REVENUE ENFORCEMENT AGENT [address] [address] PCP - General Family Medicine 06/07/22 documented as of this encounter
--- OUTSIDE RECORDS SUMMARY | 2023-12-21 08:07 | XMS_ITS | Encounter Summary ---
Author Organization [facility] Address [address] [place] [address] Care Team Providers Care Health Information Technician Name Role Phone Rayne Stratton CARITO Primary Care Provider [phone] Encounter Details Date Type Department Care Team (Late st Contact Info) Description 11/22/2023 Lab Requisition [facility] Pathology & Laboratory Medicine - [address] [address] Outr Resulting Lab, Provider Social History Tobacco [...] Salmonella PCR Negative Negative 11/22/2023 23:[address] [facility] Shigella/Enteroin vasive E. coli Negative Negative 11/22/2023 23:[address] [facility] HN LAB CAMPYLOBACTER PCR Negative Negative 11/22/2023 23:[address] [facility] Shiga Toxin PCR Negative Negative 23:[address] [facility] Feces SPECIMEN FROM RECTUM / Unknown 11/21/2023 19:54 EDT 11/22/2023 18:27 EDT Provider Outr Resulting Lab MICROBIOLOGY - GENERAL ORDERABLES [facility] [address] [place] [address] documented in this encounter Visit Diagnoses Not on filedocumented in this encounter Care Teams Health Information Technician Relationship Specialty Start Date End Date Rayne Stratton [place] [address] PCP - General 02/21/19 documented as of this encounter
--- OUTSIDE RECORDS SUMMARY | 2023-12-21 08:07 | XMS_ITS | Encounter Summary ---
Author Organization [facility] Address [facility] [place] [address] Care Team Providers Care Nuclear Monitoring Technician Name Role Phone Jorden Zahra Jones APRN Primary Care Provider [phone] Encounter Details Date Type Department Care Team (Late Contact Info) Description 10/07/2023 Telephone Dermatology at [facility] [address] [place] [address] [facility] [address] [place] [address] Social History Tobacco Use Types Packs/Day Years [...] used for these, please call back at [phone] documented in this encounter Plan of Treatment Upcoming Encounters Date Type Department Care Team (Late Contact Info) Description 01/17/2024 9:00 AM EST Office Visit Dermatology at [facility] [address] [place] [address] [facility] [place] [address] documented as of this encounter Visit Diagnoses Not on filedocumented in this encounter Care Teams Nuclear Monitoring Technician Relationship Specialty Start Date End Date aZhra Leonardo APRN [address] [place] [address] PCP - General Family Medicine 06/07/22 documented as of this encounter
--- OUTSIDE RECORDS SUMMARY | 2023-12-21 08:07 | XMS_ITS | Encounter Summary ---
Author Organization [facility] Address [facility] [place] [address] Care Team Providers Care Ceramic Mold Designer Name Role Phone Zahra Leonardo APRN Primary Care Provider [phone] Encounter Details Date Type Department Care Team (Late st Contact Info) Description 05/17/2023 11:20 AM EDT Office Visit Dermatology at [facility] [address] [place] [address] Mya Yost MD [facility] DR [place]HEL[place] [address] Seborrheic dermatitis; Atopic dermatitis, unspecified type Social [...] Rx today) RTC: PRN []Note routed to membership secretary []Recall placed in scheduling system []Appointment scheduled at checkout Scribe attestation: JESÚS Frey has performed the documentation for this encounter in the presence of and acting as a scribe for Mya Yost MD. I performed the above scribed service and agree with the accuracy of the documentation in this encounter. Reviewed and signed by: Mya Yost MD Dermatology [facility] Patient seen and evaluated with staff wire loop machine operator: Marcy Ang MD Dermatology [facility] * Marcy Ang MD - 05/17/2023 11:20 [...] them as documented. MARCY ANG MD Staff Profiling Machine Operator Department of Dermatology [facility] documented in this encounter Plan of Treatment Upcoming Encounters Date Type Department Care Team (Late st Contact Info) Description 01/17/2024 9:00 AM EST Office Visit Dermatology at [facility] [address] [place] [address] Nessa Mendez MD [facility] [address] MICHELLE [place] [address] documented as of this encounter Visit Diagnoses Diagnosis Seborrheic dermatitis Seborrheic dermatitis, unspecified Atopic dermatitis, unspecified type documented in this encounter Care Teams Ceramic Mold Designer Relationship Specialty Start Date End Date Zahra Leonardo, ARABIC PROFESSOR [address] [place] [address] PCP - General Family Medicine 06/07/22 documented as of this encounter
--- OUTSIDE RECORDS SUMMARY | 2023-12-21 08:07 | XMS_ITS | Encounter Summary ---
Author Organization [facility] Address [facility] [place] [address] Care Team Providers Care Advertising Account Manager Name Role Phone Zahra Leonardo APRN Primary Care Provider [phone] Reason for Visit * Consultation (Routine) - Closed Specialty Diagnoses / Procedures Referred By Guillermina bridges Referred To Contact Dermatology Diagnoses Rash Zahra Leonardo, MILADY [address] [place] [address] [place] [address] [facility] [address] [place] [address] Referral ID Status Reason Start Date Expiration Date V isits Requested Visits Authorized [id number] Closed Consult, Test & Treat PCP Updated and/or Approved 06/07/2022 06/07/2023 6 6 Encounter Details Date Type Department Care Team (Late st Contact Info) Description 06/10/2022 2:20 PM EDT Office Visit Dermatology at [facility] [address] [place] [address] David Joya MD [facility] [place] [address] Seborrheic keratoses, inflamed; Seborrheic keratoses; Notalgia paresthetica; [...] [place] Patient seen and evaluated with staff dish cloth inspector: Monica Rodriguez MD Department of Dermatology [facility] [place] * Monica Rodriguez MD - 06/10/2022 2:20 [...] 9:00 AM EST Office Visit Dermatology at [address] [address] Nessa Mendez MD [facility] [place] [address] documented as of this encounter Visit Diagnoses Diagnosis Seborrheic keratoses, inflamed Seborrheic keratoses Notalgia paresthetica Disturbance of skin sensation Xerosis of skin Other specified disease of sebaceous glands Eczema, unspecified type Seborrheic dermatitis Seborrheic dermatitis, unspecified documented in this encounter Care Teams Advertising Account Manager Relationship Specialty Start Date End Date Zahra Leonardo APRN [address] [place] [address] [place] [address] PCP - General Family Medicine 06/07/22 documented as of this encounter
--- OUTSIDE RECORDS SUMMARY | 2023-12-21 08:07 | XMS_ITS | Encounter Summary ---
[place] [address] Care Team Providers Care Edge Banding Machine Offbearer Name Role Phone Zahra Leonardo APRN Primary Care Provider [phone] Reason for Referral * Consultation (Routine) - Closed Specialty Diagnoses / Procedures Referred By Contadria bridges Referred To Contact [facility] Diagnoses Scoliosis deformity of spine Thoracic back pain scoli/ ? imaging non op Zahra Leonardo APRN [address] [facility] [place] [address] [facility] [place] [address] Referral ID Status Reason Start Date Expiration Date V isits Requested Visits Authorized [id number] Closed Consult, Test & Treat PCP Updated and/or Approved 11/30/2022 12/01/2023 1 1 Encounter Details Date Type Department Care Team (Latest Contact Info) Description 12/06/2022 Transcribe Orders eDH Incoming Referrals [phone] Zahra Leonardo APRN [address] [place] [address] Routine general medical examination at a [...] 9:00 AM EST Office Visit Dermatology at [facility] [address] [place] [address] Nessa Mendez MD [facility] [address] [place] [address] Scheduled Referrals Name Type Priority Associated Diagnoses Orde r Schedule Referral to Spine Center Outpatient Referral Routine Routine general medical examination at a health care facility Ordered: 12/06/2022 documented as of this encounter Visit Diagnoses Diagnosis Routine general medical examination at a health care facility documented in this encounter Care Teams Edge Banding Machine Offbearer Relationship Specialty Start Date End Date Zahra Leonardo APRN [address] [place] [address] PCP - General Family Medicine 06/07/22 documented as of this encounter
--- OUTSIDE RECORDS SUMMARY | 2023-12-21 08:07 | XMS_ITS | Encounter Summary ---
Author Organization [facility] Address [facility] [place] [address] Care Team Providers Care Indoor Landscaper/Gardener Name Role Phone Zahra Leonardo APRN Primary Care Provider Reason for Visit * Consultation (Routine) - Closed Specialty Diagnoses / Procedures Referred By Guillermina bridges Referred To Contact Dermatology Diagnoses Rash Zahra Leonardo, MILADY [address] [place] [address] [place] [address] [facility] Dermatology [address] [place] [address] Referral ID Status Reason Start Date Expiration Date V isits Requested Visits Authorized [id number] Closed Consult, Test & Treat PCP Updated and/or Approved 06/07/2022 06/07/2023 6 6 Encounter Details Date Type Department Care Team (Late st Contact Info) Description 02/17/2023 11:00 AM EST Office Visit Dermatology at [facility] [address] [place] [address] Mya Yost MD [facility] [address] [place] [address] Atopic dermatitis, unspecified type Social History Tobacco [...] cream twice daily for 1 year. Uses [place]. Uses cerave moisturizer once daily. Last [...] months for eczema f/u []Note routed to clerk secretary []Recall placed in scheduling system [x]Appointment scheduled at checkout I performed the above scribed service and agree with the accuracy of the documentation in this encounter. Reviewed and signed by: Mya Yost MD Dermatology [facility] Patient seen and evaluated with staff veneer grader: Melecio Villegas MD Dermatology [facility] * Melecio Villegas MD - 02/17/2023 11:00 [...] 9:00 AM EST Office Visit Dermatology at [facility] [address] [place] [address] Nessa Mendez MD [facility] [address] [place] [address] documented as of this encounter Visit Diagnoses Diagnosis Atopic dermatitis, unspecified type documented in this encounter Care Teams Indoor Landscaper/Gardener Relationship Specialty Start Date End Date Zahra Leonardo, HANDBAG FRAMER [facility] [place] [address] PCP - General Family Medicine 06/07/22 documented as of this encounter
--- OUTSIDE RECORDS SUMMARY | 2023-12-21 08:07 | XMS_ITS | Encounter Summary ---
Author Organization [facility] Address [facility] [place] [address] Care Team Providers Care Refrigeration Repair Supervisor Name Role Phone Zahra Leonardo APRN Primary Care Provider Reason for Visit * Reason Onset Date Comments Medication Refill 10/07/2023 Encounter Details Date Type Department Care Team (Late st Contact Info) Description 10/07/2023 Refill Derm[facility]ology at [facility] [address] [place] [address] Nessa Mendez MD [facility] [address] [place] [address] Seborrheic dermatitis Social History Tobacco Use Types [...] 9:00 AM EST Office Visit Dermatology at [facility] [address] [place] [address] Nessa Mendez MD [facility] DR [address] [place] [address] documented as of this encounter Visit Diagnoses Diagnosis Seborrheic dermatitis Seborrheic dermatitis, unspecified documented in this encounter Care Teams Refrigeration Repair Supervisor Relationship Specialty Start Date End Date Zahra Leonardo APRN [address] [place] [address] [facility] [place] [address] PCP - General Family Medicine 06/07/22 documented as of this encounter
--- OUTSIDE RECORDS SUMMARY | 2023-12-21 08:07 | XMS_ITS | Encounter Summary ---
Author Organization [facility] Address [facility] [place] [address] Care Team Providers Care Postmaster Relief Name Role Phone Zahra Leonardo APRN Primary Care Provider [phone] Encounter Details Date Type Department Care Team [...] 9:00 AM EST Office Visit Dermatology at [facility] [address] [place] [address] Nessa Mendez MD [facility] [address]HEL[address] [place] [address] documented as of this encounter Visit Diagnoses Not on filedocumented in this encounter Care Teams Postmaster Relief Relationship Specialty Start Date End Date Zahra Leonardo APRN [facility] [place] [address] PCP - General Family Medicine 06/07/22 documented as of this encounter
--- OUTSIDE RECORDS SUMMARY | 2023-12-21 08:07 | XMS_ITS | Encounter Summary ---
Author Organization [facility] [place] [address] Care Team Providers Care Supervisor Testing Name Role Phone Zahra Leonardo APRN Primary Care Provider [phone] Reason for Referral * Consultation (Routine) - Closed Specialty Diagnoses / Procedures Referred By Guillermina bridges Referred To Contact Dermatology Diagnoses Zahra Wang APRN [address] [facility] [place] [address] [facility] Dermatology [address] [place] [address] Referral ID Status Reason Start Date Expiration Date V isits Requested Visits Authorized [id number] Closed Consult, Test & Treat PCP Updated and/or Approved 06/07/2022 06/07/2023 6 6 Encounter Details Date Type Department Care Team (Late Contact Info) Description 06/07/2022 Transcribe Orders eDH Incoming Referrals [phone] Zahra Leonardo APRN [address] [place] [id number] Rash Social History Tobacco Use Types Packs/Day [...] 9:00 AM EST Office Visit Dermatology at [facility] [address] [place] [address] Nessa Mendez MD [facility] [place] [address] Scheduled Referrals Name Type Priority Associated Diagnoses Order Schedule Referral to Dermatology Outpatient Referral Routine Rash Ordered: 06/07/2022 documented as of this encounter Visit Diagnoses Diagnosis Rash Rash and other nonspecific skin eruption documented in this encounter Care Teams Supervisor Testing Relationship Specialty Start Date End Date Zahra Leonardo, SUPERVISOR MIXING [facility] [place] [address] PCP - General Family Medicine 06/07/22 documented as of this encounter
--- OUTSIDE RECORDS SUMMARY | 2023-12-21 08:07 | XMS_ITS | Encounter Summary ---
Author Organization [facility] Address [address] [place] [address] Care Team Providers Care Adjudication Specialist Name Role Phone Rayne Stratton Primary Care Provider [phone] Encounter Details Date Type Department Care Team (Latest Contact Info) Description 03/07/2019 Lab Requisition [facility] Pathology & Laboratory Medicine - [facility] [address] [place] [address] Rayne Stratton FNP [address] [place], [place] [id number] Encounter for general adult medical examination without [...] types, PCR Positive(A ) Negative 03/14/2019 14:42 [facility] Papanicolaou smear specimen (specimen) CERVIX UTERI STRUCTURE / Unknown 03/06/2019 11:17 EST 03/13/2019 10:28 EST Rayne ARZATE MICROBIOLOGY - GENER AL ORDERABLES [facility] [address] [place] [address] * PAP TEST (03/06/2019 11:17 EST) Specimens A. Cervix and/or Endocervix, , ThinPrep Imaging System with Manual Evaluation 03/14/2019 14:42 [facility] Specimen Adequacy Satisfactory for Evaluation - transformation zone component present 03/14/2019 14:42 [facility] General Categorization Negative for intraepithelial lesion or malignancy 03/14/2019 14:42 [facility] Attestation . 03/14/2019 14:42 [facility] at 1442 Clinical History NONE 03/14/19 14:42 [facility] HPV The result for the Human Papillomavirus (HPV) Detection-High Risk Types is Positive . E6 OR E7 mRNA from one or more types of HPV types 16,18,31,33,35,39 ,45,51,52,56,58,5 9,66, and 68 is detected by cisco certified internetwork expert mediated amplification. High and intermediate risk HPV types are associated with most squamous intraepithelial lesions and cervical cancers. Testing was performed on specimen [id number] and was resulted on 03/14/2019 1744 EST by VERN, LAB INSTRUMENT RESULTS IN 03/14/2019 14:42 [facility] Scanned Images 03/14/2019 14:42 [facility] Papanicolaou smear specimen (specimen) CERVIX UTERI STRUCTURE / Unknown 03/06/2019 11:17 EST 03/07/2019 10:19 EST Rayne ARZATE PATHOLOGY ORDERABLES [facility] [address] [place] [address] documented in this encounter Visit Diagnoses Diagnosis Encounter for general adult medical examination without abnormal findings Unspecified general medical examination Encounter for screening for malignant neoplasm of cervix Screening for malignant neoplasm of the cervix Encounter for screening for human papillomavirus (HPV) Special screening examination for human papillomavirus (HPV) documented in this encounter Care Teams Adjudication Specialist Relationship Specialty Start Date End Date Rayne [place] [address] [place] [address] PCP - General 02/21/19 documented as of this encounter
--- OUTSIDE RECORDS SUMMARY | 2023-12-21 08:07 | XMS_ITS | Encounter Summary ---
Author Organization [facility] Address [address] [place] [address] Care Team Providers Care Gauger Chief Name Role Phone Rayne Stratton CARITO Primary Care Provider [phone] Encounter Details Date Type Department Care Team (Late st Contact Info) Description 04/26/2023 Lab Requisition [facility] Pathology & Laboratory Medicine - [address] [address] Gayathri Rodriguez, DO [address] [place], [place] [id number] Diverticulosis of large intestine without perforation or [...] encounter Results * SURGICAL PATHOLOGY (04/26/2023 11:22 [facility]) Note to Patient The following pathology results have been interpreted by your pathologist and may be available to you before your health provider has had the opportunity to review them. Please allow time for your provider to receive these results and explore management options, if applicable. 04/28/2023 17:08 [facility] Final Diagnosis A. JEJUNUM, PROXIMAL, [...] POLYP, BIOPSY: - Tubular adenoma. 04/28/2023 17:08 [facility] Diagnosis Comment The finding of intestinal metaplasia in the gastroesophageal junction biopsies could be consistent with Mcallister's esophagus in the appropriate clinical/endoscopi c setting. Correlation with endoscopic findings is required. 04/28/2023 17:08 [facility] Attestation By the signature below, the attending physician certifies that they have 1) personally conducted a gross and/or microscopic examination of the described specimen(s), and/or personally interpreted the results of laboratory testing of the described specimen(s), and 2) personally rendered or confirmed the above diagnosis. 04/28/2023 17:08 [facility] at 1708 Clinical History Barretts esophagus, GERD, history colon polyps, esophagitis, 4 cm H. H., divertic, poor rectal line 04/28/2023 17:08 [facility] Gross Description A. Received in [...] G1. HOLLAND GALVAN(ASCP) 04/26/2023 20:02 04/28/2023 17:08 [facility] Performing Lab [facility] 17:08 [facility] Scanned Images 04/28/2023 17:08 [facility] Tissue COLON STRUCTURE / Unknown [...] 16:57 EST Gayathri Rodriguez DO PATHOLOGY ORDERABLES [facility] [address] [place] [address] documented in this encounter Visit [...] disease documented in this encounter Care Teams Gauger Chief Relationship Specialty Start Date End Date Rayne Stratton F[place] [address] PCP - General 02/21/19 documented as of this encounter
--- OUTSIDE RECORDS SUMMARY | 2023-12-21 08:07 | XMS_ITS | Clinical Summary ---
Author Organization [facility] Address [facility] [place] [address] Care Team Providers Care Range Mechanic Name Role Phone Zahra Leonardo APRN Primary Care Provider Medications Medication Sig Dispensed Refills Start Date [...] Care Team Description 10/07/2023 Refill Dermatology at [facility] [address] [place] [address] Nessa Mendez MD Seborrheic dermatitis 10/07/2023 Telephone Dermatology at [facility] [address] [place] [address] Nessa Mendez MD 10/07/2023 Telephone Dermatology at [facility] [address] [place] [address] Nessa Mendez MD 09/23/2023 Refill Dermatology at [facility] [address] [place] [address] Mya Yost MD Atopic dermatitis, unspecified type 09/23/2023 Telephone Dermatology at [facility] [address] [place] [address] Mya Yost MD from Last 3 Months [...] 9:00 AM EST Office Visit Dermatology at [facility] [address] [place] [address] Nessa Mendez MD [facility] [address] [place] [address] Health Maintenance Due Date Last Done Comments [...] - Influenza standard series) 10/23/2023 Care Teams Range Mechanic Relationship Specialty Start Date End Date Zahra Leonardo, MILADY [facility] [place] [address] PCP - General Family Medicine 06/07/22
--- OUTSIDE RECORDS SUMMARY | 2023-12-21 08:07 | XMS_ITS | Encounter Summary ---
Author Organization [facility] Address [facility] [place] [address] Care Team Providers Care Drapery And Upholstery Estimator Name Role Phone Zahra Leonardo APRN Primary Care Provider [phone] Encounter Details Date Type Department Care Team (Late st Contact Info) Description 07/29/2022 3:00 PM EDT Office Visit Dermatology at [facility] [address] [place] [address] David Joya MD [facility] [address] [place] [address] Lentigo; Comedone; Seborrheic keratoses Social History Tobacco [...] previously scheduled for FSE []Note routed to medical assistant secretary []Recall placed in scheduling system []Appointment scheduled at checkout Scribe attestation: Smooth Ross has performed the documentation for this encounter in the presence of and acting as a scribe for David Joya MD. I performed the above scribed service and agree with the accuracy of the documentation in this encounter. Reviewed and signed by: David Joya MD Dermatology [facility] Patient seen and evaluated with staff tailor fitter: Monica Rodriguez MD Dermatology [facility] * Monica Rodriguez MD - 07/29/2022 [...] Monica Rodriguez MD ([place]), FAAD Staff Physician [facility] Derm[facility] documented in this encounter Plan of Treatment Upcoming Encounters Date Type Department Care Team (Late st Contact Info) Description 01/17/2024 9:00 AM EST Office Visit Dermatology at [address] [place] [address] Nessa Mendez MD [facility] [address] [place] [address] documented as of this encounter Visit Diagnoses Diagnosis Lentigo Other dyschromia Comedone Other acne Seborrheic keratoses documented in this encounter Care Teams Drapery And Upholstery Estimator Relationship Specialty Start Date End Date Zahra Leonardo APRN [facility] [place] [address] [place] [address] PCP - General Family Medicine 06/07/22 documented as of this encounter
--- OUTSIDE RECORDS SUMMARY | 2023-12-21 08:07 | XMS_ITS | Encounter Summary ---
Author Organization [facility] Address [facility] [place] [address] Care Team Providers Care Wool Batting Worker Name Role Phone Zahra Leonardo APRN Primary Care Provider [phone] Encounter Details Date Type Department Care Team [...] 9:00 AM EST Office Visit Dermatology at [facility] [address] [place] [address] Nessa Mendez MD [facility] [place] [address] documented as of this encounter Visit Diagnoses Not on filedocumented in this encounter Care Teams Wool Batting Worker Relationship Specialty Start Date End Date Zahra Leonardo APRN [facility] [place] [address] PCP - General Family Medicine 06/07/22 documented as of this encounter
--- OUTSIDE RECORDS SUMMARY | 2023-12-21 08:07 | XMS_ITS | Encounter Summary ---
Author Organization [facility] Address [address] [place] [address] Care Team Providers Care Animal Biologist Name Role Phone Rayne Stratton Primary Care Provider [phone] Encounter Details Date Type Department Care Team (Latest Contact Info) Description 03/11/2020 Lab Requisition [facility] Pathology & Laboratory Medicine - [facility] [address] [place] [address] Rayne Stratton FNP [address] [place], [place] [id number] Encounter for general adult medical examination without [...] types, PCR Positive( A) Negative 03/20/2020 15:40 [facility] Comment:E6 OR E7 mRNA from o ne or more types of HPV types 16,18,31,33,35,39,45,51,52,56,58,59,66, and 68 is detected by parliamentary librarian mediated amplification. High and intermediate risk HPV types are associated with most squamous intraepithelial lesions and cervical cancers. Papanicolaou smear specimen (specimen) CERVIX UTERI STRUCTURE / Unknown 03/07/2020 11:45 EST 03/19/2020 15:07 EST Rayne Stratton [facility] MICROBIOLOGY - GENER AL ORDERABLES [facility] [address] [place] [address] * PAP TEST (03/07/2020 11:45 EST) Specimens A. Cervix and/or Endocervix , ThinPrep Imaging System with Manual Evaluation 03/20/2020 15:40 [facility] Specimen Adequacy Satisfactory for Evaluation - transformation zone component present 03/20/2020 15:40 [facility] General Categorization Negative for intraepithelial lesion or malignancy 03/20/2020 15:40 [facility] Attestation . 03/20/2020 15:40 [facility] at 1540 Clinical History See below 03/20/19 15:40 [facility] HPV The result for the Human Papillomavirus (HPV) Detection-High Risk Types is Positive . E6 OR E7 mRNA from one or more types of HPV types 16,18,31,33,35,39 ,45,51,52,56,58,5 9,66, and 68 is detected by parliamentary librarian mediated amplification. High and intermediate risk HPV types are associated with most squamous intraepithelial lesions and cervical cancers. Testing was performed on specimen [id number] and was resulted on 03/20/2020 1503 EST by VERN, LAB INSTRUMENT RESULTS IN 03/20/2020 15:40 EST [facility] Performing Lab [facility] 03/20/2020 15:40 EST [facility] Scanned Images 03/20/2020 15:40 EST [facility] Papanicolaou smear specimen (specimen) CERVIX UTERI STRUCTURE / Unknown 03/07/2020 11:45 EST 03/11/2020 15:30 EST Rayne ARZATE PATHOLOGY ORDERABLES [facility] [address] [place] [address] documented in this encounter Visit Diagnoses Diagnosis Encounter for general adult medical examination without abnormal findings Unspecified general medical examination Encounter for screening for malignant neoplasm of cervix Screening for malignant neoplasm of the cervix Encounter for screening for human papillomavirus (HPV) Special screening examination for human papillomavirus (HPV) documented in this encounter Care Teams Animal Biologist Relationship Specialty Start Date End Date Rayne Stratton [place] [address] [place] [address] PCP - General 02/21/19 documented as of this encounter
--- OUTSIDE RECORDS SUMMARY | 2023-12-21 08:07 | XMS_ITS | Encounter Summary ---
Author Organization [facility] Address [address] [place] [address] Care Team Providers Care Mechanical Ordnance Assembler Name Role Phone Rayne Stratton CARITO Primary Care Provider [phone] Encounter Details Date Type Department Care Team (Late st Contact Info) Description 2019 Lab Requisition [facility] Pathology & Laboratory Medicine - [address] [address] Outr Resulting Lab, Provider Social History Tobacco [...] Lab MICROBIOLOGY - GENERAL ORDERABLES [facility] [address] [place] [address] * COVID-19 TESTING (2019 0:03 EDT) COVID-19 rt-PCR Result Negative Negative 2019 12:16 EDT [facility] Comment: This test has not [...] history, and epidemiological information. Performed on the Texere Fusion instrument Performing Lab [place] [facility] Lab 2019 12:16 EDT [facility] Swab 2019 0:03 EDT 2019 8:57 EDT Provider Outr Resulting Lab MICROBIOLOGY - GENERAL ORDERABLES Performing Organization Address City/State/[facility] Co de Phone Number [facility] [address] [place] [address] documented in this encounter Visit Diagnoses Not on filedocumented in this encounter Care Teams Mechanical Ordnance Assembler Relationship Specialty Start Date End Date Rayne Stratton [place] [address] PCP - General 02/21/19 documented as of this encounter
--- OUTSIDE RECORDS SUMMARY | 2023-12-21 08:07 | XMS_ITS | Referral Summary ---
Author Organization [facility] Address [address] [place] [address] Care Team Providers Care Home Care Aide Name Role Phone Rayne Stratton CARITO Primary Care Provider [phone] Encounters Date Type Department Care Team Description 12/21/2023 Lab Requisition [facility] Pathology & Laboratory [address] [address] Outr Resulting Lab, Provider 11/22/2023 Lab Requisition [facility]ology & Laboratory [address] [address] Outr Resulting Lab, Provider from Last 3 [...] Negative Negative 11/22/2023 23:29 EDT [facility] Shigella/Enteroin vasive E. coli Negative Negative 11/22/2023 23:29 EDT [facility] HN LAB CAMPYLOBACTER PCR Negative Negative 11/22/2023 23:29 EDT [facility] Shiga Toxin PCR Negative Negative 23:29 EDT [facility] Feces SPECIMEN FROM RECTUM / Unknown 11/21/2023 19:54 EDT 11/22/2023 18:27 EDT Provider Outr Resulting Lab MICROBIOLOGY - GENERAL ORDERABLES [facility] [address] [place] [address] from Last 3 Months Care Teams Home Care Aide Relationship Specialty Start Date End Date [place] [address] PCP - General 02/21/19
--- OUTSIDE RECORDS SUMMARY | 2023-12-21 08:07 | XMS_ITS | Encounter Summary ---
Author Organization [facility] Address [facility] [place] [address] Care Team Providers Care Rope Making Machine Operator Name Role Phone Zahra Leonardo MILADY Primary Care Provider [phone] Encounter Details Date Type Department Care Team (Late Contact Info) Description 07/05/2022 Telephone Dermatology at [facility] [address] [place] [address] David Joya MD [facility] [place] [address] Social History Tobacco Use Types Packs/Day Years [...] [facility] [address] [place] [address] Nessa Mendez MD [facility] [address] [place] [address] documented as of this encounter Visit Diagnoses Not on filedocumented in this encounter Care Teams Rope Making Machine Operator Relationship Specialty Start Date End Date Zahra Leonardo, MILADY [facility] [place] [address] PCP - General Family Medicine 06/07/22 documented as of this encounter
--- OUTSIDE RECORDS SUMMARY | 2023-12-21 08:07 | XMS_ITS | Encounter Summary ---
Author Organization [facility] Address [facility] [place] [address] Care Team Providers Care Sizing End Bander Name Role Phone Zahra Leonardo APRN Primary Care Provider [phone] Encounter Details Date Type Department Care Team [...] 9:00 AM EST Office Visit Dermatology at [facility] [address] [place] [address] Nessa Mendez MD [facility] [address] [place] [address] documented as of this encounter Visit Diagnoses Not on filedocumented in this encounter Care Teams Sizing End Bander Relationship Specialty Start Date End Date Zahra Leonardo APRN [facility] [place] [address] PCP - General Family Medicine 06/07/22 documented as of this encounter
--- OUTSIDE RECORDS SUMMARY | 2023-12-21 08:07 | XMS_ITS | Encounter Summary ---
Author Organization [facility] Address [facility] [place] [address] Care Team Providers Care Director Of Contracts Name Role Phone Zahra Leonardo APRN Primary Care Provider [phone] Encounter Details Date Type Department Care Team (Late Contact Info) Description 08/16/2023 Telephone Dermatology at [facility] [address] [place] [address] Mya Yost MD [facility] [address] [place] [address] Social History Tobacco Use Types Packs/Day Years [...] reached back if needed to schedule at [phone]. documented in this encounter Plan of Treatment Upcoming Encounters Date Type Department Care Team (Late Contact Info) Description 01/17/2024 9:00 AM EST Office Visit Dermatology at [facility] [address] [place] [address] Nessa Mendez MD [facility] [address] [place] [address] documented as of this encounter Visit Diagnoses Not on filedocumented in this encounter Care Teams Director Of Contracts Relationship Specialty Start Date End Date Zahra Leonardo, MILADY [facility] [place] [address] [address] PCP - General Family Medicine 06/07/22 documented as of this encounter
--- OUTSIDE RECORDS SUMMARY | 2023-12-21 08:07 | XMS_ITS | Encounter Summary ---
Author Organization [facility] Address [facility] [place] [address] Care Team Providers Care Public Health Technician Name Role Phone Zahra Leonardo APRN Primary Care Provider [phone] Reason for Visit * Reason Onset Date Comments Medication Refill 09/23/2023 Encounter Details Date Type Department Care Team (Late Contact Info) Description 09/23/[address] [facility] [address] [place] [address] Mya Yost MD [facility] [address] [place] [address] Atopic dermatitis, unspecified type Social History Tobacco [...] AM EST Office Visit Dermatology at [facility] [address] [place] [address] Nessa Mendez MD [facility] [address] [place] [address] documented as of this encounter Visit Diagnoses Diagnosis Atopic dermatitis, unspecified type documented in this encounter Care Teams Public Health Technician Relationship Specialty Start Date End Date Zahra Leonardo, STREET LIGHT REPAIRER HELPER [address] [place] [address] PCP - General Family Medicine 06/07/22 documented as of this encounter
--- OUTSIDE RECORDS SUMMARY | 2023-12-21 08:07 | XMS_ITS | Encounter Summary ---
Author Organization [facility] Address [facility] [place] [address] Care Team Providers Care Database Security Expert Name Role Phone Zahra Leonardo APRN Primary Care Provider [phone] Encounter Details Date Type Department Care Team (Late st Contact Info) Description 11/05/2022 Telephone Dermatology at [facility] [address] [place] [address] David Joya MD [facility] [address] [place] [address] Social History Tobacco Use Types Packs/Day Years [...] EST Office Visit Dermatology at [facility] [address] [place] [address] Nessa Mendez MD [facility] [address] [place] [address] documented as of this encounter Visit Diagnoses Not on filedocumented in this encounter Care Teams Database Security Expert Relationship Specialty Start Date End Date Zahra Leonardo APRN [facility] [place] [address] PCP - General Family Medicine 06/07/22 documented as of this encounter
--- OUTSIDE RECORDS SUMMARY | 2023-12-21 08:07 | XMS_ITS | Clinical Summary ---
Author Organization [facility] Address [address] [place] [address] Care Team Providers Care Assistant To The Director Name Role Phone Rayne Stratton CARITO Primary Care Provider [phone] Encounters Date Type Department Care Team Description 12/21/2023 Lab Requisition [facility] Pathology & Laboratory Medicine [address] [address] Outr Resulting Lab, Provider 11/22/2023 Lab Requisition [facility] Pathology & Laboratory [address] [address] Outr Resulting Lab, Provider from Last 3 [...] Salmonella PCR Negative Negative 11/22/2023 23:29 EDT [facility] Shigella/Enteroin vasive E. coli Negative Negative 11/22/2023 23:29 EDT [facility] HN LAB CAMPYLOBACTER PCR Negative Negative 11/22/2023 23:29 EDT [facility] Shiga Toxin PCR Negative Negative 23:29 EDT [facility] Feces SPECIMEN FROM RECTUM / Unknown 11/21/2023 19:54 EDT 11/22/2023 18:27 EDT Provider Outr Resulting Lab MICROBIOLOGY - GENERAL ORDERABLES [facility] [address] [place] [address] from Last 3 Months Care Teams Assistant To The Director Relationship Specialty Start Date End Date Rayne Stratton FNP [address] [place] [address] [facility] - General 02/21/19
--- OUTSIDE RECORDS SUMMARY | 2023-12-21 08:07 | XMS_ITS | Encounter Summary ---
Author Organization [facility] Address [facility] [place] [address] Care Team Providers Care Switch Cleaner Name Role Phone Zahra Leonardo Karen HENNING Primary Care Provider [phone] Encounter Details Date Type Department Care Team (Late Contact Info) Description 06/11/[address] [facility] [address] [place] [address] David Joya MD [facility] [address]HEL[address] [place] [address] Social History Tobacco Use Types Packs/Day Years [...] AM EST Office Visit Dermatology at [facility] [address] [place] [address] Nessa Mendez MD [facility] [address] [place] [address] documented as of this encounter Visit Diagnoses Not on filedocumented in this encounter Care Teams Switch Cleaner Relationship Specialty Start Date End Date Zahra Leonardo, MILADY [address] [place] [address] PCP - General Family Medicine 06/07/22 documented as of this encounter
--- OUTSIDE RECORDS SUMMARY | 2023-12-21 08:07 | XMS_ITS | Encounter Summary ---
Author Organization [facility] Address [facility] [place] [address] Care Team Providers Care Civilian Jail Officer Name Role Phone Zahra Leonardo APRN Primary Care Provider [phone] Encounter Details Date Type Department Care Team (Late st Contact Info) Description 06/15/2022 Telephone Dermatology at [facility] [address] [place] [address] David Joya MD [facility] [address] [place] [address] Social History Tobacco Use Types Packs/Day Years [...] 9:00 AM EST Office Visit Dermatology at [facility] [address] [place] [address] Nessa Mendez MD [facility] [address] [place] [address] documented as of this encounter Visit Diagnoses Not on filedocumented in this encounter Care Teams Civilian Jail Officer Relationship Specialty Start Date End Date Zahra Leonardo, KILN WORKER [address] [place] [address] PCP - General Family Medicine 06/07/22 documented as of this encounter
--- OUTSIDE RECORDS SUMMARY | 2023-12-21 08:07 | XMS_ITS | Encounter Summary ---
Author Organization [facility] Address [facility] [place] [address] Care Team Providers Care Bookkeeping Machine Mechanic Name Role Phone Zahra Leonardo APRN Primary Care Provider [phone] Encounter Details Date Type Department Care Team [...] 9:00 AM EST Office Visit Dermatology at [facility] [address] [place] [address] Nessa Mendez MD [facility] [address]HEL[address] [place] [address] documented as of this encounter Visit Diagnoses Not on filedocumented in this encounter Care Teams Bookkeeping Machine Mechanic Relationship Specialty Start Date End Date Zahra Leonardo APRN [facility] [place] [address] PCP - General Family Medicine 06/07/22 documented as of this encounter
--- OUTSIDE RECORDS SUMMARY | 2023-12-21 08:07 | XMS_ITS | Encounter Summary ---
Author Organization [facility] Address [facility] [place] [address] Care Team Providers Care Research Nurse Practitioner Name Role Phone Zahra Leonardo APRN Primary Care Provider [phone] Encounter Details Date Type Department Care Team [...] 9:00 AM EST Office Visit Dermatology at [facility] [address] [place] [address] Nessa Mendez MD [facility] [place] [address] documented as of this encounter Visit Diagnoses Not on filedocumented in this encounter Care Teams Research Nurse Practitioner Relationship Specialty Start Date End Date Zarha Leonardo APRN [facility] [place] [address] PCP - General Family Medicine 06/07/22 documented as of this encounter
--- OUTSIDE RECORDS SUMMARY | 2023-12-21 08:07 | XMS_ITS | Encounter Summary ---
Author Organization [facility] Address [facility] [address] Care Team Providers Care Solar Process Engineer Name Role Phone JordenZahra Karen HENNING Primary Care Provider [phone] Encounter Details Date Type Department Care Team (Late st Contact Info) Description 10/07/2023 Telephone Dermatology at [facility] [address] [place] [address] Nessa Mendez MD [facility] [address] [place] [address] Social History Tobacco Use Types Packs/Day Years [...] 0.05 % Solution. Please send to the [facility] in [place], [place]. Sridevi asked if a return call could be made to him as well at [phone]. documented in this encounter Plan of Treatment Upcoming Encounters Date Type Department Care Team (Late Contact Info) Description 01/17/2024 9:00 AM EST Office Visit Dermatology at [facility] [address] [place] [address] Nessa Mendez MD [facility] DR MICHELLE [place] [address] documented as of this encounter Visit Diagnoses Not on filedocumented in this encounter Care Teams Solar Process Engineer Relationship Specialty Start Date End Date Zahra Leonardo, MILADY [facility] [place] [place] [address] PCP - General Family Medicine 06/07/22 documented as of this encounter
--- OUTSIDE RECORDS SUMMARY | 2023-12-21 08:07 | XMS_ITS | Encounter Summary ---
Author Organization [facility] Address [facility] [place] [address] Care Team Providers Care Gis Technician Name Role Phone Zahra Leonardo APRN Primary Care Provider [phone] Encounter Details Date Type Department Care Team (Late Contact Info) Description 09/23/2023 Telephone Dermatology at [facility] [address] [place] [address] Mya Yost MD [facility] DR [address]HEL[address] [place] [address] Social History Tobacco Use Types Packs/Day Years [...] dipropionate (Diprolene-AF) 0.05 % [facility]intment [facility] [place] Last seen: 05/17/23 Follow up scheduled for: October in system Comments: Patient is aware it make take medical team up to three business days to process refill requests. Please ask pharmacy to contact patient when medication is available for fruit picker. If unable to refill medication please contact patient. documented in this encounter Plan of Treatment Upcoming Encounters Date Type Department Care Team (Late Contact Info) Description 01/17/2024 9:00 AM EST Office Visit Dermatology at [facility] [address] [place] [address] Nessa Mendez MD [facility] DR [address] [place] [address] documented as of this encounter Visit Diagnoses Not on filedocumented in this encounter Care Teams Gis Technician Relationship Specialty Start Date End Date Zahra Leonardo, MILADY [facility] [address] [facility] [employer] [facility] [place] [address] PCP - General Family Medicine 06/07/22 documented as of this encounter
--- OUTSIDE RECORDS SUMMARY | 2023-12-21 08:07 | XMS_ITS | Encounter Summary ---
Author Organization [facility] Address [facility] [place] [address] Care Team Providers Care Structural Steel Erector Name Role Phone Zahra Leonardo Karen HENNING Primary Care Provider [phone] Reason for Visit * Reason Onset Date Comments Medication Refill 06/11/2022 Encounter Details Date Type Department Care Team (Late Contact Info) Description 06/11/2022 Refill Dermatology at [facility] [address] [place] [address] David Joya MD [facility] [address] [place] [address] Social History Tobacco Use Types Packs/Day Years [...] Dermatology at [facility] [address] [place] [address] Nessa Mendez MD [facility] [address] [place] [address] documented as of this encounter Visit Diagnoses Not on filedocumented in this encounter Care Teams Structural Steel Erector Relationship Specialty Start Date End Date Zahra Leonardo APRN [place] [address] PCP - General Family Medicine 06/07/22 documented as of this encounter
--- OUTSIDE RECORDS SUMMARY | 2023-12-21 08:07 | XMS_ITS | Encounter Summary ---
Author Organization [facility] Address [address] [place] [address] Care Team Providers Care Associate Professor Of English Name Role Phone Rayne Stratton Primary Care Provider Encounter Details Date Type Department Care Team (Late st Contact Info) Description 12/21/2023 Lab Requisition [facility] Pathology & Laboratory Medicine - [address] [address] Outr Resulting Lab, Provider Social History Tobacco [...] as of this encounter Plan of Treatment Scheduled Orders Name Type Priority Associated Diagnoses Orde r Schedule PTH INTACT Lab Routine Ordered: 12/20 documented as of this encounter Visit Diagnoses Not on filedocumented in this encounter Care Teams Associate Professor Of English Relationship Specialty Start Date End Date Rayne Stratton FNP [place] [address] PCP - General 02/21/19 documented as of this encounter
--- OUTSIDE RECORDS SUMMARY | 2023-12-21 08:07 | XMS_ITS | Encounter Summary ---
Author Organization [facility] Address [address] [place] [address] Care Team Providers Care Tube Backer Name Role Phone Rayne Stratton CARITO Primary Care Provider [phone] Encounter Details Date Type Department Care Team (Late st Contact Info) Description 04/04/2019 Lab Requisition [facility] Pathology & Laboratory Medicine - [address] [address] Clive Murray MD [facility] [address] [address] Encounter for screening for malignant [...] inflamed and cauterized hyperplastic polyp. 04/10/2019 8:15 [facility] at 0815 Clinical History GERD, dysphagia, screening colonoscopy Hiatal hernia, esophageal erosion, gastritis vs. Gastropathy, R/O pylori, short segment Urena's esophagus, colon polyp, hemorrhoids/spast ic colon 04/10/2019 8:15 [facility] Attestation By the signature below, the attending physician certifies that they have 1) personally conducted a gross and/or microscopic examination of the described specimen(s), and/or personally interpreted the results of laboratory testing of the described specimen(s), and 2) personally rendered or confirmed the above diagnosis. 04/10/2019 8:15 [facility] at 0815 Gross Description [...] C1. Shae العراقي 04/04/2019 16:08 04/10/2019 8:15 [facility] Scanned Images 04/10/2019 8:15 [facility] Tissue ENTIRE COLON / Unknown 04/03/2019 11:10 EST 04/04/2019 15:50 [facility] Tissue specimen (specimen) ESOPHAGEAL STRUCTURE / Unknown 04/03/2019 11:10 EST 04/04/2019 15:50 EST Tissue specimen (specimen) COLON STRUCTURE / Unknown 04/03/2019 11:10 EST 04/04/2019 15:50 EST Clive Murray MD PATHOLOGY ORDERABLES [facility] [address] [place] [address] documented in this encounter Visit Diagnoses Diagnosis Encounter for screening for malignant neoplasm of colon Special screening for malignant neoplasms, colon Personal history of peptic ulcer disease documented in this encounter Care Teams Tube Backer Relationship Specialty Start Date End Date Rayne Stratton [place] [address] PCP - General 02/21/19 documented as of this encounter
--- OUTSIDE RECORDS SUMMARY | 2023-12-21 08:07 | XMS_ITS | Encounter Summary ---
Author Organization [facility] Address [address] [place] [address] Care Team Providers Care Logistics Lead Name Role Phone Rayne Stratton CARITO Primary Care Provider [phone] Encounter Details Date Type Department Care Team (Late st Contact Info) Description 09/22/[address] [facility] Pathology & Laboratory Medicine - [address] [address] [place] [address] [address] [place] [address] [place] [address] Encounter for other general examination [...] management options, if applicable. 09/23/2020 15:51 EDT [facility] Final Diagnosis A. SUBMITTED ENDOCERVICAL CURETTAGE: - Tissue did not survive processing; credit issued. B. CERVIX, 9 O'CLOCK, BIOPSY: - Fragment of benign cervical tissue with squamous metaplasia. 09/23/2020 15:51 [facility] Diagnosis Comment Machine Fixer slides of this case were reviewed at the intradepartmental consultation conference. 09/23/2020 15:51 [facility] Attestation By the signature below, the attending physician certifies that they have 1) personally conducted a gross and/or microscopic examination of the described specimen(s), and/or personally interpreted the results of laboratory testing of the described specimen(s), and 2) personally rendered or confirmed the above diagnosis. 09/23/2020 15:51 [facility] at 1551 Clinical History +HR HPV x2, normal Pap 09/23/2020 15:51 [facility] Gross Description A. [...] HOLLAND MUKHERJEE(ASCP) 09/22/2020 17:07 09/23/2020 15:51 T [facility] Performing Lab [facility] 09/23/2020 15:51 [facility] Scanned Images 09/23/2020 15:51 [facility] Tissue ENTIRE WALL OF CERVIX / Unknown 09/22/2020 11:00 EDT 09/22/2020 16:13 EDT Tissue specimen (specimen) CERVIX UTERI STRUCTURE / Unknown 09/22/2020 11:00 EDT 09/22/2020 16:13 EDT [place] PATHOLOGY ORDERABLES [facility] [address] [place] [address] documented in this encounter Visit Diagnoses Diagnosis Encounter for other general examination documented in this encounter Care Teams Logistics Lead Relationship Specialty Start Date End Date Rayne Stratton [place] [address] PCP - General 02/21/19 documented as of this encounter
[2023-12-21 17:40] LABS: Parathyroid Hormone,Intact 51 pg/mL (19-88)
== END 2023-12-21 08:01 | disposition home or self-care (01) ==
LOC: NCHCN 08:00
PROVIDERS: PCP Nurse Practitioner Family; Visit Provider Nurse Practitioner Family
DX: E83.42 Hypomagnesemia (principal); K52.9 Noninfective gastroenteritis and colitis, unspecified; N17.9 Acute kidney failure, unspecified
CPT/HCPCS: 80048; 83970; 85025

== ENCOUNTER → 2024-02-23 10:26 | Outpatient (BNVA) | payer MEDICARE, MEDICAID, SELFPAY | PROVIDERS: PCP Nurse Practitioner Family; Visit Provider Nurse Practitioner Adult Health | DX: G31.84 Mild cognitive impairment of uncertain or unknown etiology (principal); G43.009 Migraine without aura, not intractable, without status migrainosus | CPT/HCPCS: 99214 ==

== ENCOUNTER 2024-04-06 00:43 | Outpatient (CLI) | payer MEDICARE, MEDICAID, SELFPAY ==
[2024-04-06 12:32] LABS: Anion Gap 8.3 mmol/L (3-11); BUN 14 mg/dL (7-18); CO2 26.7 mmol/L (21.0-32.0); CREATININE 1.3 mg/dL (0.55-1.02); Calcium 9.8 mg/dL (8.5-10.1); Chloride 104 mmol/L (98-107); Estimated GFR 44.24 (mL/min/1.73m2); Glucose 126 mg/dL (74-106); Potassium 4.1 mmol/L (3.5-5.1); Sodium 139 mmol/L (136-145)
[2024-04-06 13:09] LABS: TSH (W/Ref FT4) 2.21 uIU/mL (0.36-3.74); Vitamin B12 589 pg/mL (193-986)
== END 2024-04-06 00:44 | disposition home or self-care (01) ==
LOC: LBO 00:44
PROVIDERS: Internal Medicine; PCP Nurse Practitioner Family; Visit Provider Nurse Practitioner Adult Health
DX: G31.84 Mild cognitive impairment of uncertain or unknown etiology; N17.9 Acute kidney failure, unspecified
CPT/HCPCS: 36415; 80048; 82607; 84443

== ENCOUNTER 2024-04-16 15:37 | Outpatient (CLI) | payer MEDICARE, MEDICAID, SELFPAY ==
--- NOTE | 2024-04-16 | DI.RAD_ITS ---
Exam(s) XR THORACIC SPINE COMPLETE EXAM: XR THORACIC SPINE COMPLETE CLINICAL HISTORY: Pain in Thoracic Spine M54.6. TECHNIQUE: 2D digital imaging was performed. Three views. COMPARISON: CR XR SCOLIOSIS T-L SPINE from 11/24/2022 FINDINGS: BONES: There is no fracture or destructive lesion. The vertebral bodies and posterior elements are un remarkable. ALIGNMENT: Mild biconvex thoracolumbar scoliosis. DISKS: Anterior disc space narrowing and endplate osteophytes SOFT TISSUE: Visualized lungs are clear. IMPRESSION: Stable appearance of scoliosis and degenerative changes. No compression fractures. DATA REPOSITORY: RADIATION DOSE DELIVERED:
== END 2024-04-16 15:57 ==
PROVIDERS: PCP Nurse Practitioner Family; Visit Provider Nurse Practitioner Family
DX: M41.35 Thoracogenic scoliosis, thoracolumbar region (principal)
CPT/HCPCS: 72072

== ENCOUNTER 2024-05-09 12:44 | Outpatient (REF) | payer MEDICARE, MEDICAID, SELFPAY ==
[2024-05-09 22:17] LABS: ALT 9 U/L (14-59); AST 18 U/L (15-37); Albumin 3.5 g/dL (3.4-5.0); Alkaline Phosphatase 70 U/L (46-116); Anion Gap 8.3 mmol/L (3-11); BUN 13 mg/dL (7-18); Bilirubin, Total 0.5 mg/dL (0.2-1.0); CO2 26.7 mmol/L (21.0-32.0); CREATININE 1.1 mg/dL (0.55-1.02); Calcium 10.1 mg/dL (8.5-10.1); Calculated LDL 108 mg/dL (<100); Chloride 105 mmol/L (98-107); Cholesterol 216 mg/dL (<200); Estimated GFR 54.06 (mL/min/1.73m2); Glucose 103 mg/dL (74-106); HDL Cholesterol 77 mg/dL (>or=50); Potassium 4.5 mmol/L (3.5-5.1); Sodium 140 mmol/L (136-145); Total Protein 7.1 g/dL (6.4-8.2); Triglyceride 157 mg/dL (<150)
[2024-05-10 19:33] LABS: Hepatitis C Ab w Rflx HCV PCR Negative (Negative)
== END 2024-05-09 12:45 | disposition home or self-care (01) ==
LOC: NCHCN 12:44
PROVIDERS: PCP Nurse Practitioner Family; Visit Provider Nurse Practitioner Family
DX: R73.03 Prediabetes (principal); Z11.59 Encounter for screening for other viral diseases; R79.89 Other specified abnormal findings of blood chemistry; E78.5 Hyperlipidemia, unspecified
CPT/HCPCS: 80053; 80061; 86803; 83036

== ENCOUNTER → 2024-09-03 09:57 | Outpatient (BNVA) | payer MEDICARE, MEDICAID, SELFPAY | PROVIDERS: PCP Nurse Practitioner Family; Referring Provider Nurse Practitioner Family; Visit Provider Nurse Practitioner Adult Health | DX: G43.109 Migraine with aura, not intractable, without status migrainosus (principal); G43.009 Migraine without aura, not intractable, without status migrainosus; G31.84 Mild cognitive impairment of uncertain or unknown etiology | CPT/HCPCS: 99214 ==

== ENCOUNTER 2024-10-01 04:47 | Outpatient (CLI) | payer MEDICARE, MEDICAID, SELFPAY ==
--- NOTE | 2024-10-01 20:39 | PDOC.EEG ---
Neurology EEG EEG: [facility] Department of Neurology EEG REPORT Date of Recordin10/01/24 Interpreting Physician: Dr. Any Romero PCP/Referring Provider: Dr. Stephenie Smith Reason for study: Lucinda Aguero is a 68 year-old with a recent episode of loss of consciousness associated with headache. Current Medications: Home Medications ?Medication ?Instructions ?Recorded ?Confirmed ?Type multivitamin 1 cap PO DAILY 02/22/19 09/03/24 History triamcinolone acetonide 0.1 % 1 applic topical DAILY PRN 02/22/19 09/03/24 History topical cream epinephrine 0.3 mg/0.3 mL 0.3 mg IM ONCE PRN 11/23/19 09/03/24 History injection, auto-injector (EpiPen 2-Alexandro) aspirin 81 mg tablet,delayed 81 mg PO DAILY #1 tab 01/23/20 09/03/24 Rx release (Gareth Low Dose Aspirin) cholecalciferol (vitamin D3) 50 50 mcg PO DAILY 05/13/20 09/03/24 History mcg (2,000 unit) capsule riboflavin (vitamin B2) 100 mg 100 mg PO BID 05/13/20 09/03/24 History tablet vitamin E (dl, acetate) 180 mg 450 mg PO DAILY 05/13/20 09/03/24 History (400 unit) capsule ascorbate calcium (vitamin C) 500 500 mg PO BID 07/22/20 09/03/24 History mg tablet potassium chloride 20 mEq 20 meq PO DAILY #7 tabs 08/22/20 09/03/24 Rx tablet,extended release(part/cryst) promethazine 12.5 mg rectal 12.5 mg NH TID PRN #12 ea 08/22/20 09/03/24 Rx suppository magnesium 250 mg tablet 500 mg PO BID 10/28/20 09/03/24 History nystatin 100,000 unit/mL oral 5 ml PO QID #100 mL 11/30/21 09/03/24 Rx suspension bisacodyl 10 mg rectal suppository 10 mg NH DAILY PRN constipation 12/01/21 09/03/24 Rx (Dulcolax (bisacodyl)) #12 ea atorvastatin 40 mg tablet 40 mg PO DAILY 03/24/23 09/03/24 History fluocinonide 0.05 % topical cream 1 applic topical BID-QID PRN 03/24/23 09/03/24 History ibandronate 150 mg tablet 150 mg PO QMONTH 03/24/23 09/03/24 History alendronate 70 mg tablet 70 mg PO QWEEK 11/09/23 09/03/24 History betamethasone, augmented 0.05 % 1 applic topical DAILY PRN 11/09/23 09/03/24 History topical ointment calcium carbonate (Calcium 500) 500 mg PO DAILY 11/09/23 09/03/24 History clindamycin phosphate 1 % topical 1 applic topical DAILY 11/09/23 09/03/24 History gel, once daily (Clindagel) fluticasone propionate 50 1 spray intranasal BID PRN allergy 11/09/23 09/03/24 History mcg/actuation nasal symptoms spray,suspension hydrocortisone 2.5 % topical cream 1 applic topical BID PRN 11/09/23 09/03/24 History ketoconazole 2 % topical cream 1 applic topical DAILY PRN 11/09/23 09/03/24 History omeprazole 20 mg capsule,delayed 20 mg PO BID 11/09/23 09/03/24 History release cetirizine 10 mg tablet 10 mg PO DAILY 11/23/23 09/03/24 History ondansetron 4 mg disintegrating 4 mg PO Q6H PRN nausea and 11/23/23 09/03/24 Rx tablet vomiting #7 tabs prochlorperazine maleate 5 mg See Rx Instructions .Route 09/03/24 09/03/24 Rx tablet .COMPLEX #30 tabs rimegepant 75 mg disintegrating 75 mg PO ONCE PRN migraine 09/03/24 09/03/24 Rx tablet (Nurtec ODT) headache #15 tabs METHODS: A 21 channel digitized electroencephalogram was performed in the [facility]. The 10/20 international system of electrode placement was used and bipolar and referential electrode montages were recorded. In addition to EEG the patient was monitored for EKG and lateral/vertical eye movements. Activation procedures of photic stimulation and hyperventilation were performed if applicable. Video was used during activation procedures and during events where applicable. The duration of the recording was 30 minutes. DESCRIPTION OF EEG: The patient was noted to be awake and drowsy during the recording. During maximal wakefulness a 9-Hz posterior background rhythm was present which was well-modulated, symmetrical, reactive to eye opening, and of moderate voltage. With eye opening the background activity changed to a low voltage mixture of alpha, beta, and occasional theta range frequencies. Faster frequencies were present in the bilateral anterior head regions. There was a normal anterior-posterior voltage gradient. During drowsiness, there was attenuation of the posterior dominant background rhythm and vertex waves. No stage II sleep was recorded. Activating Procedures: Photic stimulation was performed which produced a symmetrical posterior driving response at various flash frequencies. Hyperventilation was performed with moderate effort and produced no physiological slowing of the background. EKG: EKG revealed normal sinus rhythm/sinus bradycardia. INTERPRETATION: This EEG is normal during the awake and drowsy states as well as during photic stimulation and hyperventilation. PRIOR EEG: none CLINICAL CORRELATION: No focal regions of cerebral dysfunction or epileptiform activity was present. Epilepsy remains a clinical diagnosis and a normal EEG does not rule out epilepsy. Clinical correlation is advised. Any Romero MD Date of service: 10/01/24
== END 2024-10-01 04:48 | disposition home or self-care (01) ==
LOC: RT 04:47
PROVIDERS: PCP Nurse Practitioner Family; Visit Provider Family Medicine
DX: R55 Syncope and collapse (principal); R51.9 Headache, unspecified
CPT/HCPCS: 95816

== ENCOUNTER → 2024-10-02 07:49 | Outpatient (BNVA) | payer MEDICARE, MEDICAID, SELFPAY | PROVIDERS: PCP Nurse Practitioner Family; Referring Provider Nurse Practitioner Family; Visit Provider Psychiatry & Neurology Neurology ==

== ENCOUNTER 2024-10-15 08:49 | Outpatient (CLI) | payer MEDICARE, MEDICAID, SELFPAY ==
--- NOTE | 2024-10-15 13:30 | DI.US_ITS ---
APPROVED REPORT EXAM: Comprehensive 2D, Doppler, and color-flow Echocardiogram Patient Location: Out-Patient Information Technology Professor: Montrell Neumann RDCS (AE) Indications: Syncope and collapse Other Information Study Quality: Adequate Conclusion Normal left ventricular wall thickness and chamber size. Ejection fraction 60 to 65%. Wall motion is normal Normal right ventricular size and function Both atria are normal in size There is no structural or hemodynamically significant valvular disease Wall motion Left Ventricle The left ventricle is normal size. Left ventricular systolic function is normal. The left ventricular ejection fraction is within the normal range. There is normal left ventricular wall thickness. There is normal LV segmental wall motion. The left ventricular diastolic function is normal. There is no v entricular septal defect visualized. LVEF is 60-65%. Right Ventricle The right ventricle is normal size. The right ventricular systolic function is normal. Atria The left atrium size is normal. The right atrium size is normal. The interatrial septum is intact with no evidence for an atrial septal defect. Aortic Valve The aortic valve is normal in structure. There is no aortic valvular stenosis. No aortic regurgitation is present. Mitral Valve The mitral valve is normal in structure. No evidence of mitral valve stenosis. Trace to mild mitral regurgitation. Tricuspid Valve The tricuspid valve is normal in structure. There is no tricuspid valve stenosis. Trace tricuspid regurgitation. Pulmonic Valve The pulmonary valve is normal in structure. There is no pulmonic valvular stenosis. There is no pulmonic valvular regurgitation. Great Vessels The aortic root is normal in size. The ascending aorta is normal in size. Aortic arch is normal in caliber. IVC is normal in size and collapses >50% with inspiration. Pericardium There is no pericardial effusion. 2D Dimensions IVSD d PLAX 0.84 cm F: 0.6-1.0 Ao Root d 2.63 cm F: 2.7 - 3.3 LVPW d PLAX 0.78 cm F: 0.6 - 1.0 Ao Asc Diam d 3.05 cm F: 2.3 - 3.1 LVID d PLAX 4.66 cm F: 3.8 - 5.2 Prox Ao Arch 2.9 cm LVDs 3.18 cm F: 2.2 - 3.5 LV EF Teichholz 60.0 % FS 31.88 % LV EDV (Teich) 100.5 mL LV ESV (Teich) 40.2 mL Stroke Vol Index (Teich) 36.96 M-Mode TAPSE 2.18 cm (M/F) >1.7 Auto EF LV EDV A4C 71.6 mL LV EDV A2C 62.5 mL LV EDV BP 67.1 mL LV ESV A4C 27.4 mL LV ESV A2C 24.2 mL LV ESV BP 25.5 mL LVEF(%) A4C 61.8 % LVEF(%) A2C 61.3 % LVEF(%) BP 61.9 % LV SV A4C 44.3 ml LV SV A2C 38.3 ml LV SV BP 41.5 ml LV CO A4C 2.7 L/min LV CO A2C 2.3 L/min LV CO BP 2.5 L/min HR A4C 61.86 BPM HR A2C 60.30 BPM LV EDV Index (BP) LA Volume LA Length A4C 4.2 cm LA Length A2C 4.0 cm LA Area A4C s 8.49 cm2 LA Area A2C s 7.74 cm2 LA Vol A4C A-L 14.52 mL LA Vol A2C A-L 12.87 mL LA Vol Biplane A-L 14.1 mL LA Vol/BSA A4C A-L LA Vol/BSA A2C A-L LA Vol/BSA BP A-L 8.7 mL/m2 LA Vol A4C MOD 13.7 mL LA Vol A2C MOD 12.0 mL LA Vol BP MOD 13.1 mL RA Volume RA Area A4C 4.0 cm2 RA ESV A4C (A-L) 4.9mL RA Vol/BSA A4C A-L RA Length A4C 2.8 cm RA ESV A4C (MOD) 4.9mL LV Diastology MV E' medial 0.087 (>0.07 m/s) MV E Vmax 0.79 (0.4-1.3 m/s) MV E/E' MED 9.08 (<14) MV A Vmax 0.90 (0.4-1.3 m/s) MV E' lateral 0.082 (>0.1 m/s) E/A Ratio 0.9 MV E/E' LAT 9.67 (<14) MV E' Average 0.085 m/s MV E/E'(average) 9.37 Aortic Valve AoV Vmax 1.18 m/s LVOT Vmax 1.01 m/s AoV Peak Grad 5.6 mmHg LVOT Peak Grad 4.1 mmHg AoV Area (Vmax) 2.12 cm2 LVOT VTI 0.242 m AoV VTI 0.287 m LVOT Mean Grad 2.1 mmHg AoV Mean Leif. 0.86 m/s LVOT SV 60.29 mL AoV Mean Grad 3.3 mmHg LVOT Diam s 1.75 cm AoV Area (VTI) 2.10 cm2 AV Regurg Peak Gr. 5.60 mmHg Velocity Ratio 0.86 Mitral Valve MV DT 249 (160-240 msec) Pulmonary Valve PV Vmax 0.78 (0.5-1.5 m/s) RVOT Vmax 0.65 m/s PV Peak Grad 2.4 mmHg RVOT Peak Gr. 1.7 mmHg PV Mean Leif 0.59 m/s RVOT VTI 0.152 m PV Mean Grad 1.6 mmHg RVOT Mean Gr. 1.1 mmHg Tricuspid Valve TV S' 0.16 m/s
== END 2024-10-15 09:09 ==
LOC: DI 08:49
PROVIDERS: PCP Nurse Practitioner Family; Visit Provider Internal Medicine Cardiovascular Disease
DX: R55 Syncope and collapse (principal)
CPT/HCPCS: 93306

== ENCOUNTER 2025-01-08 14:52 | Outpatient (CLI) | payer MEDICARE, MEDICAID, SELFPAY ==
--- NOTE | 2025-01-08 13:30 | DI.RAD_ITS ---
Exam(s) XR SHOULDER RT COMPLETE 2+V EXAM: XR SHOULDER RT COMPLETE 2+V CLINICAL HISTORY: RIGHT SHOULDER PAIN. TECHNIQUE: 2D digital imaging was performed. Two views. COMPARISON: CR XR SHOULDER RT COMPLETE 2+V from 05/19/2021 MR MR UPPER JOINT RT WO from 08/20/2021 FINDINGS: BONES: No acute fracture is present. No bony destructive lesion is seen. JOINTS: No dislocation present. Glenohumeral joint space is maintained. Minimal spurring at the inferior glenoid. There is minimal spurring at the AC joint and tip of the acromion. SOFT TISSUE: Normal. IMPRESSION: Mild degenerative changes. DATA REPOSITORY: RADIATION DOSE DELIVERED:
== END 2025-01-08 14:53 | disposition home or self-care (01) ==
LOC: DIORS 14:53
PROVIDERS: PCP Family Medicine; Referring Provider Family Medicine; Visit Provider Student in an Organized Health Care Education/Training Program
DX: M75.51 Bursitis of right shoulder (principal)
CPT/HCPCS: 99214; 73030

== ENCOUNTER → 2025-02-13 00:15 | Outpatient (CLI) | payer MEDICARE, MEDICAID, SELFPAY ==
--- NOTE | 2025-02-13 13:06 | DI.MAMMO_ITS ---
Exam(s) MAMMO SCREENING EXAM: MAMMO SCREENING CLINICAL HISTORY: Z12.31 Screening. TECHNIQUE: Bilateral full field digital CC and MLO mammographic images were obtained with 3D tomosynthesis and utilizing computer aided detection (CAD). COMPARISON: Prior mammograms were reviewed. FINDINGS: There has been no significant change in the appearance and distribution of the fibroglandular tissue. There are no new findings in the immediate vicinity of the biopsy marker clip in the left breast. Asymmetric densities in both breasts remain unchanged from prior mammograms. There are no new spiculated masses nor malignant appearing microcalcification groups. There is no significant architectural distortion nor skin thickening-retraction. IMPRESSION: Stable benign-appearing findings. No radiographic evidence of malignancy. BI-RADS Category 2 - Benign Findings Breast Density - Category B - There are scattered areas of fibroglandular density. Breast density Category C or D implies that the patient has dense breast tissue. Dense breast tissue can make it harder to find cancer on a mammogram. Dense breast tissue is also associated with an increased risk of breast cancer. This information about the result of the mammogram report was provided to the patient to raise their awareness. Use this report when you speak with the patient about their risks for breast cancer, which includes their family history. At that time, you may recommend additional screening tests (Ultrasound or MRI) as these tests may add significant information. A negative radiographic report should not delay biopsy if a dominant or clinically suspicious mass is present. Up to ten percent of cancers are not identified on mammography. A negative report may reinforce clinical impression. Adenosis and dense breasts may obscure an underlying neoplasm. False positive reports average 6 to 10%. Patient will receive a letter notifying them of these results.
== END ==
LOC: DI 00:15
PROVIDERS: PCP Family Medicine; Visit Provider Family Medicine
DX: Z12.31 Encounter for screening mammogram for malignant neoplasm of breast (principal); R92.323 Mammographic fibroglandular density, bilateral breasts
CPT/HCPCS: 77063; 77067